=== PATIENT | female | born 1965 | race Caucasian/White ===

== ENCOUNTER 2023-05-26 10:19 | Observation (INO) | payer MEDICARE, MEDICAID, SELFPAY ==
[2023-05-26] VITALS (56 sets, daily range): BP systolic 171; BP diastolic 96; PULSE 107; RESP 2–18; O2SAT 78–100
--- NOTE | 2023-05-26 11:00 | RT.EKG_ITS ---
APPROVED REPORT Exam: Resting ECG Reason for Exam: psychiatric screening, tachycardia Patient Location: E HR:90 bpm ECG Measurements Heart Rate 90 AXIS DE 127 P 169 QRSd 86 QRS 11 QT 472 T 91 QTc 578 Conclusion Sinus or ectopic atrial rhythm...P axis (-45,135) Ventricular premature complex...V complex w/ short R-R interval Probable left atrial enlargement...P >50mS, <-0.10mV V1 Abnrm T, consider ischemia, anterolateral lds...T <-0.20mV, I aVL V2-V6 Prolonged QT interval...QTc >510mS signficant artifact
--- NOTE | 2023-05-26 11:04 | W.ED.GENAD ---
Discharge Plan Discharge Details Chief Complaint: PsychEval Clinical Impression: Suicide ideation, Depression, Auditory hallucination, COPD (chronic obstructive pulmonary disease) Primary Care Provider: Unknown,Unknown ED Provider: Tera Kent Home Meds and New Rx's Prescriptions: No Action levothyroxine [Euthyrox] 88 mcg tablet 88 mcg PO DAILY gabapentin 300 mg capsule 300 mg PO DAILY lurasidone 120 mg tablet 120 mg PO DAILY Rx Instructions: must administer with food (at least 350 calories) acetaminophen [Tylenol Extra Strength] 500 mg tablet 1,000 mg PO ONCE PRN lansoprazole 15 mg capsule,delayed release(DR/EC) 15 mg PO DAILY bupropion HCl 100 mg tablet 100 mg PO ONCE albuterol 90 mcg/actuation aerosol inhalation hydroxyzine HCl 50 mg tablet 50 mg PO TID-QID PRN Medical Decision Making 1100 -- 58-year-old female with with history of bipolar depression, here with worsening depression over the past 3 to 4 days, feeling suicidal. Patient does have chronic smoking history with COPD and has used home oxygen in the past although not recently. Nicotine patch was ordered. Patient is mildly hypertensive and tachycardic on arrival. I suspect this is secondary to anxiety. Plan for medical screening labs and then consult [facility] human services. Interim safety plan has been ordered. 1345 -- Screening EKG was reviewed and interpreted by me: Please report, significant artifact is present, plan to repeat. Repeat EKG was reviewed and interpreted by me: Please see report, computer notes ectopic atrial rhythm, clear P waves noted before each QRS, suspect sinus at 83 bpm, prolonged QT interval with QTc of 564. Labs reviewed and nondiagnostic. Patient reassessed and noting increased shortness of breath, noting she is due for her breathing treatment which she typically takes twice a day. DuoNeb breathing treatment ordered. Patient medically screened in no acute medical condition identified. Plan to request crisis evaluation. 5145 -- Patient was seen by crisis screener who recommends inpatient psychiatric treatment. Patient reassessed after albuterol neb. Patient uses albuterol inhaler every 4-6 hours as needed for wheezing at baseline. Patient hypoxic in the mid 80s in no respiratory distress although she noted she was winded after going to the bathroom. Again this is her baseline. Nasal cannula oxygen was restarted and patient saturating in the mid 90s on 1 L. Lab Data Lab results reviewed: Yes I reviewed the patient's lab results. Labs: Laboratory Tests Range/Units 05/26/23 11:58 WBC (4.4-10.8) 10^3/uL 9.04 RBC (3.93-5.22) 10^6/uL 4.40 Hgb (11.2-15.7) g/dL 11.5 Hct (36.0-46.0) % 38.5 MCV (80-95) fL 88 MCH (27.0-33.0) pg 26.1 L MCHC (32.0-36.0) % 29.9 L RDW (11.7-14.6) % 15.4 H Plt Count (130-400) 10^3/uL 221 MPV (8.0-11.0) fL 10.7 Immature Gran % 0.3 Neutrophils % 75.0 Lymphocytes % 15.7 Monocytes % 7.3 Eosinophils % 1.3 Basophils % 0.4 Nucleated RBC % (0.0-0.3) % 0.0 Absolute Neutrophils (1.2-6.7) 10^3/uL 6.77 H Absolute Lymphocytes (1.2-3.4) 10^3/uL 1.42 Absolute Monocytes (0.1-0.8) 10^3/uL 0.66 Absolute Eosinophils (0.0-0.7) 10^3/uL 0.12 Absolute Basophils (0.0-0.2) 10^3/uL 0.04 Sodium (136-145) mmol/L 142 Potassium (3.5-5.1) mmol/L 4.1 Chloride (98-107) mmol/L 102 Carbon Dioxide (21.0-32.0) mmol/L 34.1 H Anion Gap (3-11) mmol/L 5.9 BUN (7-18) mg/dL 17 Creatinine (0.55-1.02) mg/dL 0.7 Est GFR (CKD-EPI 2020) (mL/min/1.73m2) 100.81 Glucose (74-106) mg/dL 82 Calcium (8.5-10.1) mg/dL 8.9 Total Bilirubin (0.2-1.0) mg/dL 0.3 AST (15-37) U/L 22 ALT (14-59) U/L 60 H Alkaline Phosphatase (46-116) U/L 117 H Total Protein (6.4-8.2) g/dL 7.6 Albumin (3.4-5.0) g/dL 3.7 TSH (0.36-3.74) uIU/mL 4.61 H Free T4 (0.76-1.46) ng/dL 1.01 Urine Color (Yellow) Yellow Urine Clarity (Clear) Clear Urine pH (5-8) 6.0 Ur Specific [place] (1.005-1.025) 1.015 Urine Protein (Negative) mg/dL Negative Urine Ketones (Negative) mg/dL Negative Urine Blood (Negative) Negative Urine Nitrite (Negative) Negative Urine Bilirubin (Negative) Negative Urine Urobilinogen (Up to 0.2) mg/dL 0.2 Ur Leukocyte Esterase (Negative) Negative Urine Glucose (Negative) mg/dL Negative Salicylates (<2.8) mg/dL 3.0 Urine Opiates Screen (Negative) Negative Urine Methadone Screen (Negative) Negative Acetaminophen (10-30) ug/mL < 2 Ur Barbiturates Screen (Negative) Negative Ur Tricyclics Screen (Negative) Negative Ur Amphetamines Screen (Negative) Negative U Benzodiazepines Scrn (Negative) Negative Urine Cocaine Screen (Negative) Negative Ur THC Screen (Negative) Negative Ethyl Alcohol (<10) mg/dL < 3.0 HPI General Mode of arrival: ambulatory. Date/Time Provider Initiated Documentation: 05/26/23 10:40. Limitations to Documentation: no limitations. Information obtained by: patient. HPI Narrative: 58-year-old female with history of bipolar disorder, here with chief complaint of severe depression and suicidality. Patient notes she has been feeling suicidal for the past 3 to 4 days. Symptoms are severe. She is here voluntarily today. She notes she chronically hears voices but has been having increased auditory hallucinations recently. Patient notes prior attempts to commit suicide by overdosing on medications requiring hospitalization in February/March. Patient is new to the area. Patient notes has been taking her medication as prescribed. She does have a smoking history with COPD and chronic home oxygen use at night and as needed during the day although she has not been using oxygen recently. Related Data Home Medications Medication Instructions Recorded Confirmed acetaminophen 500 mg tablet 1,000 mg PO ONCE PRN 05/26/23 05/26/23 (Tylenol Extra Strength) albuterol 90 mcg/actuation aerosol mcg inhalation 05/26/23 inhaler bupropion HCl 100 mg tablet 100 mg PO ONCE 05/26/23 05/26/23 gabapentin 300 mg capsule 300 mg PO DAILY 05/26/23 05/26/23 hydroxyzine HCl 50 mg tablet 50 mg PO TID-QID PRN 05/26/23 05/26/23 lansoprazole 15 mg capsule,delayed 15 mg PO DAILY 05/26/23 05/26/23 release levothyroxine 88 mcg tablet 88 mcg PO DAILY 05/26/23 05/26/23 (Euthyrox) lurasidone 120 mg tablet 120 mg PO DAILY 05/26/23 05/26/23 Allergies Allergy/AdvReac Type Severity Reaction Status Date / Time erythromycin base Allergy Intermediate Anaphylaxis Unverified 05/26/23 10:58 [From Erythrocin] prednisone AdvReac Mild Psychosis Unverified 05/26/23 10:58 General Stated Complaint: PsychEval ANDERS: 2 Review of Systems All systems reviewed & are unremarkable except as noted in HPI and below Constitutional Constitutional: Denies fever(s) Respiratory Respiratory: Denies cough PFSH All Active Problems (Updated 05/26/23 @ 15:11 by Tera Kent MD) COPD (chronic obstructive pulmonary disease) (Chronic) Auditory hallucination (Acute) Depression (Chronic) Suicide ideation (Acute) Social History Smoking/Tobacco Use Status: Current every day Tobacco Type: cigarettes Smoking risk assessment performed?: Yes Alcohol Intake: never Drug use: Never Substance use type: does not use Housing: assisted living facility Exam Const General: cooperative and no acute distress HENMT Mouth: moist mucous membranes Eyes Conjunctivae: normal conjunctivae Sclera: normal sclerae Neck Neck: trachea midline and supple Resp Effort & Inspection: no cough Auscultation: clear to auscultation bilaterally, no rales, no rhonchi and wheezes expiratory wheezes (faint bilateral ) Cardio Rate: regular rate and not tachycardic Rhythm: regular rhythm GI Palpation: soft, not firm, no guarding, no masses, not rigid and nontender Skin General skin exam: no rashes or lesions noted Neuro General: patient alert, patient awake and tone normal Extrem General: no edema Psych Appearance: grossly normal Mental Status: mental status grossly normal and other (depressed) Speech and Movement: speech and movement normal Mood: other (depressed) Affect: other (tearful) Attitude: cooperative Thought Process: normal Thought Content: hallucinations auditory Insight: insight good Course Vital Signs Vital signs: Vital Signs Pulse 107 H 05/26/23 10:28 Respiratory Rate 18 05/26/23 10:28 Blood Pressure 171/96 H 05/26/23 10:28 Pulse Oximetry 88 L 05/26/23 10:28 Pulse 107 H 05/26/23 10:28 Respiratory Rate 18 05/26/23 10:28 Respiratory Effort Normal, Non-Labored 05/26/23 10:34 Blood Pressure 171/96 H 05/26/23 10:28 Blood Pressure Position Sitting 05/26/23 10:28 Pulse Oximetry 88 L 05/26/23 10:28 Oxygen Delivery Method Room Air 05/26/23 10:28 Oxygen Flow Rate 0 05/26/23 10:28
[2023-05-26 12:10] LABS: Abs Immature Grans 0.03 10^3/uL (0.0-0.06); Absolute Basophil Count 0.04 10^3/uL (0.0-0.2); Absolute Eosinophil Count 0.12 10^3/uL (0.0-0.7); Absolute Lymphocyte Count 1.42 10^3/uL (1.2-3.4); Absolute Monocyte Count 0.66 10^3/uL (0.1-0.8); Absolute Neutrophil Count 6.77 10^3/uL (1.2-6.7); Basophils % 0.4; Eosinophils % 1.3; HCT 38.5 % (36.0-46.0); HGB 11.5 g/dL (11.2-15.7); Immature Grans % 0.3; Lymphocytes % 15.7; MCH 26.1 pg (27.0-33.0); MCHC 29.9 % (32.0-36.0); MCV 88 fL (80-95); MPV 10.7 fL (8.0-11.0); Monocytes % 7.3; Platelet Count 221 10^3/uL (130-400); RDW 15.4 % (11.7-14.6); RDW-SD 49.1 fL; WBC 9.04 10^3/uL (4.4-10.8)
[2023-05-26 12:12] LABS: Bilirubin Negative (Negative); Blood Negative (Negative); Clarity Clear (Clear); Glucose Negative (Negative); Ketones Negative (Negative); Leukocyte Esterase Negative (Negative); Nitrite Negative (Negative); Specific Gravity 1.015 (1.005-1.025); Urobilinogen 0.2 mg/dL (Up to 0.2)
[2023-05-26 12:33] LABS: ALT 60 U/L (14-59); AST 22 U/L (15-37); Albumin 3.7 g/dL (3.4-5.0); Alkaline Phosphatase 117 U/L (46-116); Anion Gap 5.9 mmol/L (3-11); BUN 17 mg/dL (7-18); Bilirubin, Total 0.3 mg/dL (0.2-1.0); CO2 34.1 mmol/L (21.0-32.0); CREATININE 0.7 mg/dL (0.55-1.02); Calcium 8.9 mg/dL (8.5-10.1); Chloride 102 mmol/L (98-107); Estimated GFR 100.81 (mL/min/1.73m2); Glucose 82 mg/dL (74-106); Potassium 4.1 mmol/L (3.5-5.1); Sodium 142 mmol/L (136-145); TSH (W/Ref FT4) 4.61 uIU/mL (0.36-3.74); Total Protein 7.6 g/dL (6.4-8.2)
[2023-05-26 12:40] LABS: *AMPHETAMINES SCREEN URINE Negative (Negative); *BARBITURATES SCREEN URINE Negative (Negative); *BENZODIAZEPINES SCREEN URINE Negative (Negative); Cannabinoids THC Negative (Negative); Cocaine Screen,Urine Negative (Negative); METHADONE URINE SCREEN Negative (Negative); OPIATES URINE SCREEN Negative (Negative)
[2023-05-26 12:42] LABS: Tricyclic Antidepressants Negative (Negative)
--- NOTE | 2023-05-26 12:45 | RT.EKG_ITS ---
APPROVED REPORT Exam: Resting ECG Reason for Exam: repeat, initial with artifact Patient Location: E HR:83 bpm ECG Measurements Heart Rate 83 AXIS LA 123 P -77 QRSd 76 QRS 49 QT 480 T 85 QTc 564 Conclusion Ectopic atrial rhythm...abnormal P axis, normal rate Nonspecific T abnrm, anterolateral leads...T <-0.10mV, I aVL V2-V6 Prolonged QT interval...QTc >510mS
--- NOTE | 2023-05-26 12:45 | RT.EKG_ITS ---
APPROVED REPORT Exam: Resting ECG Reason for Exam: sob Patient Location: E HR:84 bpm ECG Measurements Heart Rate 84 AXIS VT 156 P 71 QRSd 80 QRS 29 QT 517 T 78 QTc 613 Conclusion sinus 84 prolong QTC
[2023-05-26 12:46] LABS: Acetaminophen < 2 ug/mL (10-30)
[2023-05-26 12:58] LABS: FREE T4 1.01 ng/dL (0.76-1.46)
[2023-05-26 13:21] LABS: ETHANOL BLOOD < 3.0 mg/dL (<10)
[2023-05-26] MEDS: Albuterol/Ipratropium 3 ML UPD VIAL (13:29)
[2023-05-26] MEDS: Nicotine 14 MG/24 HR PATCH TD (13:29)
[2023-05-26] MEDS: Albuterol/Ipratropium 3 ML UPD VIAL UPD (14:49)
--- NOTE | 2023-05-26 14:56 | PDOC.MHCN_ITS ---
Date of service: 05/26/23 Time of Service: 14:05 PHQ-9 Over the last 2 weeks, how often have you been bothered by any of the following problems? 1. Little interest or pleasure in doing things: nearly every day 2. Feeling down, depressed, or hopeless: nearly every day 3. Trouble falling or staying asleep, or sleeping too much: nearly every day 4. Feeling tired or having little energy: nearly every day 5. Poor appetite or overeating: more than half the days 6. Feeling bad about yourself - or that you are a failure or have let yourself and your family down: nearly every day 7. Trouble concentrating on things, such as reading the newspaper or watching television: nearly every day 8. Moving or speaking so slowly that other people could have noticed? - Or the opposite - being so fidgety or restless that you have been moving around a lot more than usual: nearly every day 9. Thoughts that you would be better off or of hurting yourself in some way: nearly every day Total score: 26 If you checked off any problems, how difficult have these problems made it for you to do your work, take care of things at home, or get along with other people?: extremely difficult PHQ-9 Results: Positive Source: Developed by Drs. Hans Marquez, Areli Alaniz, Vinicio Ford and colleagues, with an educational oli from [employer]. Suicide Severity Rate CSSRS Have you wished you were or wished you could go to sleep and not wake up?: Yes Have you actually had any thoughts of killing yourself?: Yes CSSRS2 Have you been thinking about how you might do this?: Yes Have you had these thoughts and had some intention of acting on them?: Yes Have you started to work out or worked out the details of how to kill yourself? Do you intend to carry out this plan?: Yes CSSRS3 Have you ever done anything, started to do anything or prepared to do anything to end your life?: Yes CSSRS4 Was this within the past three months?: Yes Screening Score Total Score: 8 Screening: Positive Mental Health Emergency Note Release [facility] release signed:: Yes Reason for Visit The client is not known to [facility] prior to this writers assessment of the client today. Per [facility] attending provider Dr. Tera Kent the client presented to [facility] ED with chief complaint of command auditory hallucinations that are telling her to kill herself. The client is tearful on this writers assessment. This expert medical writer assesses the client via zoom at [facility] ED. In the last 2 weeks has the pt presented for ES prior to today?: No Client Information Client is: New Well Housed: Yes Non Suicidal Self Injury Current: No History: yes, Hx of severe intentional overdose in February of 2023 Safety Risk/Harm to Self or Others Current Ideation to Harm Self or Others: Yes to self. (Client endorses persistant suicidal ideations with plan to overdose on her medications. The client rates intent 10/10 if she were to be released from the hospital. ) Intent: yes, has intent. Plan: yes,has a plan. History of suicide attempt: yes,history of suicide attempt reported. Details of previous suicide attempt: Hx of suicide attempt in February of 2023- intentional overdose of prescribed medications. Risk: Does risk to harm exist?: yes. Access to means: No. Risk: High Risk Duty to warn indicated: No Asssessment/Mental Status Appearance: Disheveled Attitude: Cooperative Behavior: Unremarkable Speech: Soft and Slow Affect: Flat and Cogruent with mood Mood: Stressed and Depressed Thought process: Unremarkable Hallucinations: yes, (The client reports auditory hallucinations that are telling he to hurt herself. The client reports that these voices are consistent throughout the day. ) Auditory Delusions: No Perception: Not impaired Orientation: Fully orientated Memory: Intact Insight: Fair Judgement: Fair Neurovegetative Symptoms Sleep: Increase (The client reports she sleeps all of the time (both day and night), however reports that the sleep is interrupted. ) Appetitie: Increase (The client reports increase in appetite due to increased depression. ) Interests: Decrease Energy: Decrease Libido: Not applicable Substance Use: Do you use nicotine?: Yes Have you used substances in the last 7 days?: No Additional Issues: Assaultive/Threatening Behavior: No Medical Concerns: No Client engaged in active self harm w/weapon: No Threatening to run away: No Child reported abuse/neglect: No Voluntarily presenting for services: Yes Domestic violence is a concern: No Extreme Psychosis or extreme behavior is present: No Impression The client is a 58 y/o single female that resides in [place], [place] at an assisted living facility; . The client presents in [facility] attire and is cooperative with this writers assessment. The client presents with symptoms most congruent to major depressive disorder with psychotic features as evidenced by self- report, command auditory hallucinations that are telling her to hurt herself, tearfulness, increase in suicidal ideations, and increase in sleep and appetite. The client reports that onset of symptoms occurred about 4 days ago, but have been getting increasingly worse, which has affected her ability to complete daily tasks. The client reports that she has noticed an increase in sleep stating that she primarily sleeps and eats. The client states that these command hallucinations are telling her to hurt herself by overdosing on her prescribed medications. The client reports to this expert medical writer on a scale of 0-10 with 0 being that she would be safe if she were to leave the hospital and 10 being that she would find a way to hurt herself a 10/10. The client would benefit from inpatient treatment to monitor her symptoms, decrease auditory hallucinations, decrease suicidal ideations, medication management, and to learn healthy coping skills that she can utilize. Plan/Disposition Recommended Disposition: Hospitalization (Referrals will be faxed to , [facility], [facility], and . ) facilities contacted. Plan: The client will remain at [facility] ED on voluntary status pending admission to an inpatient facility. Referrals will be faxed to [facility], [facility], , and . The client will be re-assessed by [facility] daily until placement is secured, however if the client tries to leave due to acuity level an EE should be considered. Person reported agreement to plan: Yes Facilities contacted if Applicable [facility] Not accepted, (Send referral) [facility] Not accepted, Only accepting in house referrals [facility] Not accepted, (Send referral) [facility] Not accepted, (Send referral) Other Reports/communication Outcome discussed with: ED/Personnel (Verbal passover given to ED provider Dr. Kent)
--- NOTE | 2023-05-26 15:18 | CMSP_ITS ---
Date of service: 05/26/23 Time of Service: 15:18 Care Management Safety Plan Status Status: Voluntary Reason for Wait Reason for Wait: Inpatient Admission Safety Plan Safety Plan: CHIEF COMPLAINT: Ester presents in the ED for suicidal ideation and worsening auditory hallucinations. She is diagnosed with Bipolar Disorder and has struggled with depression for many years. She shares she is originally from [place], [place]. Per patient, she has been psychiatrically hospitalized twice over the years: once in 1994 and again in March of this year. She was discharged from the [facility] at the beginning of April and is now living at the [facility] in [place], [place]. Ester was evaluated by [facility] crisis screener, and found to meet criteria for a voluntary placement. [facility] is coordinating referrals to the psych facilities. Ester will remain at [facility] and will be reassessed daily by [facility] until a psych bed is secured for her. CM will continue to follow. VOLUNTARY FOR INPATIENT PSYCHIATRIC STABILIZATION. Patient is appropriate in all interactions since arriving at [facility]; Pt has demonstrated appropriate coping and communication skills, has articulated his or her needs and concerns and is fully engaged during staff interactions. Safety plan has been established with patient, and care team, to adhere to patient goals, identify restrictions based on behavioral status, address nutrition, and determine allowed personal belongings, tools for hygiene and personal care. Determine level of activity including ambulation, level of s upervision, visitors, and determine privileges based on behaviors and level of engagement by pt. SAFETY PLAN: 1. Will remain on suicide precautions. In Paper Clothes 2. Will remain in room under direct supervision of one-on-one staff at all times provided by [employer], TRACE EVIDENCE TECHNICIAN, PLANNING OFFICIAL spinning and winding supervisor. 3. May have paper cups, plates, finger foods as well as a cardboard spoon with which to eat meals. 4. Follow [facility] Management of the Admitted Behavioral Health Patient policy. 5. Shower permitted at RN discretion. 6. No personal belongings-soft items permitted at RN discretion. 7. Visitors-none at this time. 8. Activities: soft cart items, music tablet, television, and other activities at RN discretion. 9. Bathroom privileges with escort in the ED, available in room without limitation on Zone B. 10. Phone: may use [employer] phone at RN discretion. 11. Due to VOLUNTARY status, if patient wishes to leave [facility], staff will contact [facility] Crisis Screener ([phone]) and On-Call Customs Inspector ([phone]) as soon as possible. In the event of elopement, notify [facility] Police ([phone]). Patient is currently voluntarily at [facility] and seeking inpatient admission when a bed becomes available. [facility] Frontline Radio Intelligence Operator will continue seeking placement. Please contact the [employer] Customs Inspector ([phone]) and [facility] Radio Intelligence Operator ([phone]) for any needed changes in the Safety Plan. Safety plan has been provided to interdepartmental care team.
[2023-05-26] MEDS: Gabapentin 300 MG CAP PO (20:02)
[2023-05-26 20:37] LABS: Source Nasal/Nares
[2023-05-26 21:09] LABS: COVID-19 PCR Negative (Negative)
[2023-05-26] MEDS: Lurasidone 40 MG TAB 160 MG PO (21:58)
[2023-05-26] MEDS: OLANZapine 10 MG, OLANZapine 5 MG 15 MG PO (21:58)
[2023-05-26] MEDS: Prazosin 1 MG CAP PO (21:58)
[2023-05-27] MEDS: Levothyroxine 88 MCG TAB PO (07:02)
--- NOTE | 2023-05-27 07:16 | W.EDPROG ---
Date of service: 05/27/23 Time of Service: 07:16 Medical Decision Making Resting comfortably no events overnight. Awaiting voluntary placement for depression and auditory hallucinations. Patient does have COPD and has had to use supplemental oxygen in the past currently comfortable on nasal cannula. Sign Out Sign Out Data: Sign Out Comment: Patient here voluntarily seeking treatment for suicidality. Patient seen by crisis screener who recommends inpatient admission. Patient does have a history of COPD and intermittently requires nasal cannula oxygen, low-dose. Plan to continue to monitor until excepting psychiatric treatment facility identified. Last updated by Tera Kent MD at 05/26/23 16:24 Sign Out Comment: Patient remained stable throughout my shift. Oxygen saturations remained stable. Pending placement. Last updated by Juan Manuel Hu DO at 05/26/23 22:18 Discharge Plan Discharge Details Chief Complaint: PsychEval Clinical Impression: Suicide ideation, Depression, Auditory hallucination, COPD (chronic obstructive pulmonary disease) Primary Care Provider: Unknown,Unknown ED Provider: Andi Lopez Home Meds and New Rx's Prescriptions: No Action levothyroxine [Euthyrox] 88 mcg tablet 88 mcg PO DAILY gabapentin 300 mg capsule 300 mg PO QID lurasidone 120 mg tablet 160 mg PO QHS Rx Instructions: must administer with food (at least 350 calories) acetaminophen [Tylenol Extra Strength] 500 mg tablet 1,000 mg PO Q6H PRN lansoprazole 15 mg capsule,delayed release(DR/EC) 15 mg PO DAILY bupropion HCl 100 mg tablet 100 mg PO DAILY AM hydroxyzine HCl 50 mg tablet 50 mg PO ONCE PRN olanzapine 10 mg tablet 10 mg PO QHS ferrous sulfate [iron] 325 mg (65 mg iron) tablet 325 mg PO DAILY albuterol sulfate 90 mcg/actuation HFA aerosol inhaler 2 inh inhalation Q4H PRN Spiriva Respimat 2.5 mcg/actuation mist 2 inh inhalation DAILY prazosin 1 mg capsule 1 mg PO QHS
[2023-05-27] MEDS: Gabapentin 300 MG CAP PO ×4 (07:48→19:59)
[2023-05-27] MEDS: buPROPion 100 MG TAB PO (07:49)
[2023-05-27] MEDS: Tiotropium Bromide-Respimat 10 PUFF INH 2 PUFF IH (07:49)
[2023-05-27] MEDS: Pantoprazole 20 MG TABCR PO (07:49)
--- NOTE | 2023-05-27 12:00 | RT.EKG_ITS ---
APPROVED REPORT Exam: Resting ECG Reason for Exam: copd Patient Location: E HR:88 bpm ECG Measurements Heart Rate 88 AXIS ID 130 P -40 QRSd 79 QRS 0 QT 413 T 113 QTc 498 Conclusion Sinus rhythm normal P axis QTC improved
--- NOTE | 2023-05-27 12:32 | W.EDPROG ---
Date of service: 05/27/23 Time of Service: 12:32 Medical Decision Making Patient signed out to me pending mental health placement. She is a 58-year-old woman with suicidality. She has COPD and requires 2 L of oxygen. She was evaluated by mental health today and still has 10 out of 10 suicidality. She is still requesting voluntary admission. She was evaluated by inpatient units, and given her medical complexity she has not been accepted. Per compressor house operator, because of this, the patient should be admitted to the hospital here for further management.. ECG Data Attestation: I personally reviewed and interpreted this ECG (s) as follows: Prior ECG tracings: available for review Interpretation: EKG was sinus rhythm 88, PACs, QTc 498. Compared to prior, QTc has improved with appropriate patient positioning. Sign Out Sign Out Data: Sign Out Comment: Patient here voluntarily seeking treatment for suicidality. Patient seen by crisis screener who recommends inpatient admission. Patient does have a history of COPD and intermittently requires nasal cannula oxygen, low-dose. Plan to continue to monitor until excepting psychiatric treatment facility identified. Last updated by Tera Kent MD at 05/26/23 16:24 Sign Out Comment: Patient remained stable throughout my shift. Oxygen saturations remained stable. Pending placement. Last updated by Juan Manuel Hu DO at 05/26/23 22:18 Sign Out Comment: Voluntary for auditory hallucinations, history of COPD on nasal cannula, awaiting placement Last updated by Andi Lopez MD at 05/27/23 07:17 Discharge Plan Disposition Patient Disposition: Admit to [facility] Discharge Details Chief Complaint: PsychEval Clinical Impression: Suicide ideation, Depression, Auditory hallucination, COPD (chronic obstructive pulmonary disease) Primary Care Provider: Unknown,Unknown ED Provider: Marcos Broussard Home Meds and New Rx's Prescriptions: No Action levothyroxine [Euthyrox] 88 mcg tablet 88 mcg PO DAILY gabapentin 300 mg capsule 300 mg PO QID lurasidone 120 mg tablet 160 mg PO QHS Rx Instructions: must administer with food (at least 350 calories) acetaminophen [Tylenol Extra Strength] 500 mg tablet 1,000 mg PO Q6H PRN lansoprazole 15 mg capsule,delayed release(DR/EC) 15 mg PO DAILY bupropion HCl 100 mg tablet 100 mg PO DAILY AM hydroxyzine HCl 50 mg tablet 50 mg PO ONCE PRN olanzapine 10 mg tablet 10 mg PO QHS ferrous sulfate [iron] 325 mg (65 mg iron) tablet 325 mg PO DAILY albuterol sulfate 90 mcg/actuation HFA aerosol inhaler 2 inh inhalation Q4H PRN Spiriva Respimat 2.5 mcg/actuation mist 2 inh inhalation DAILY prazosin 1 mg capsule 1 mg PO QHS
--- NOTE | 2023-05-27 14:01 | PDOC.MHPN2 ---
Date of service: 05/27/23 Time of Service: 14:03 Mental Health Emergency Note Release [facility] release signed:: Yes Reason for Visit The client is not known to [facility] prior to [facility]'s Jhon's assessment on 05.26.23. The client is reassessed today face to face at bed side. Per Jhon's note the client presented to [facility] ED with chief complaint of command auditory hallucinations that are telling her to kill herself. The client confirmed this was still accurate. This assessment was done face to face at bed side. In the last 2 weeks has the pt presented for ES prior to today?: Unknown Impression The client is a 58 y/o single, , female that resides in [place], [place] at an assisted living facility; [facility]. The client presents in paper hospital attire and is cooperative with this clinician's assessment. The client presents today covered with her blankets and trying to sleep. She engages well with this clinician and sits up when asked to sign intake paperwork The client presents with no change in her mood or thoughts of suicide per her report. She self reported her risk to be 10/10 to act on those thoughts if she were to gain access to her medications. The client denied HI. She endorsed that she is still experiencing auditory hallucinations. She reported she had a hard time going to sleep but was able to sleep after. She is eating well and per report of ED staff she has had no behavioral issues. Plan/Disposition Recommended Disposition: Hospitalization facilities contacted. Plan: The client will remain at [facility] pending admission to a psychiatric facility. This clinician spoke with [facility] who were requesting information that would be better answered by ED staff so the call was transferred back to them. Ultimately, it appears they have declined her so [facility] will have to get [facility] involved on Tuesday to assist in placement of this client. Person reported agreement to plan: Yes Facilities contacted if Applicable [facility], [facility] available [facility] Not accepted, No bed available [facility] Not accepted, Medical reasons, [facility] Not accepted, Acuity Reports/communication Outcome discussed with: ED/Personnel
--- NOTE | 2023-05-27 16:38 | ED.PROG_ITS ---
Date of service: 05/27/23 Time of Service: 16:38 Medical Decision Making Hospitalist denying admission for this patient at this time. Currently patient remains suicidal on a voluntary hold. She requires 2L O2. Will continue to hold in the ED under [facility] observation. Sign Out Sign Out Data: Sign Out Comment: Patient here voluntarily seeking treatment for suicidality. Patient seen by crisis screener who recommends inpatient admission. Patient does have a history of COPD and intermittently requires nasal cannula oxygen, low-dose. Plan to continue to monitor until excepting psychiatric treatment facility identified. Last updated by Tera Kent MD at 05/26/23 16:24 Sign Out Comment: Patient remained stable throughout my shift. Oxygen saturations remained stable. Pending placement. Last updated by Juan Manuel Hu DO at 05/26/23 22:18 Sign Out Comment: Voluntary for auditory hallucinations, history of COPD on nasal cannula, awaiting placement Last updated by Andi Lopez MD at 05/27/23 07:17 Discharge Plan Disposition Patient Disposition: Admit to [facility] Discharge Details Clinical Impression: Suicide ideation, Depression, Auditory hallucination, COPD (chronic obstructive pulmonary disease) Primary Care Provider: Unknown,Unknown ED Provider: Marcos Broussard Home Meds and New Rx's Prescriptions: No Action levothyroxine [Euthyrox] 88 mcg tablet 88 mcg PO DAILY gabapentin 300 mg capsule 300 mg PO QID lurasidone 120 mg tablet 160 mg PO QHS Rx Instructions: must administer with food (at least 350 calories) acetaminophen [Tylenol Extra Strength] 500 mg tablet 1,000 mg PO Q6H PRN lansoprazole 15 mg capsule,delayed release(DR/EC) 15 mg PO DAILY bupropion HCl 100 mg tablet 100 mg PO DAILY AM hydroxyzine HCl 50 mg tablet 50 mg PO ONCE PRN olanzapine 10 mg tablet 10 mg PO QHS ferrous sulfate [iron] 325 mg (65 mg iron) tablet 325 mg PO DAILY albuterol sulfate 90 mcg/actuation HFA aerosol inhaler 2 inh inhalation Q4H PRN Spiriva Respimat 2.5 mcg/actuation mist 2 inh inhalation DAILY prazosin 1 mg capsule 1 mg PO QHS
--- NOTE | 2023-05-27 17:09 | PDOC.CMSAFE ---
Date of service: 05/27/23 Time of Service: 17:09 Care Management Safety Plan Status Status: Voluntary Reason for Wait Reason for Wait: Inpatient Admission Safety Plan Safety Plan: VOLUNTARY FOR INPATIENT PSYCHIATRIC STABILIZATION.? Patient is appropriate in all interactions since arriving at [facility]; Pt has demonstrated appropriate coping and communication skills, has articulated his or her needs and concerns and is fully engaged during staff interactions. Safety plan has been established with patient, and care team, to adhere to patient goals, identify restrictions based on behavioral status, address nutrition, and determine allowed personal belongings, tools for hygiene and personal care. Determine level of activity including ambulation, level of supervision, visitors, and determine privileges based on behaviors and level of engagement by pt. SAFETY PLAN: 1. Will remain on suicide precautions, in paper clothes 2. Will remain in room under direct supervision of one-on-one staff at all times provided by [employer]; ANUEL, SHOP GIRL water jet operator. 3. May have paper cups, plates, finger foods as well as a cardboard spoon with which to eat meals. 4. Follow [facility] Management of the Admitted Behavioral Health Patient policy. 5. Comfort bath system, shower permitted with escort at RN discretion. 6. Personal belongings-soft items permitted at RN discretion. 7. Visitors-none at this time. 8. Activities: soft cart items approved per RN discretion. 9.? Bathroom privileges with escort in the ED, ad philip on Med-Surg. 10. Phone: limited to cordless phone at RN discretion. Due to VOLUNTARY status, if patient wishes to leave [facility], staff will contact [facility] Crisis Screener ([phone]) and On-Call Air Conditioning Coil Assembler ([phone]) as soon as possible. In the event of elopement, notify [facility] Police ([phone]). Patient is currently voluntarily at [facility] and seeking inpatient admission when a bed becomes available. [facility] Frontline Big Data Platform Architect will continue seeking placement. Please contact the Rn Child Air Conditioning Coil Assembler ([phone]) and [facility] Big Data Platform Architect ([phone]) for any needed changes in the Safety Plan. Safety plan has been provided to interdepartmental care team.
--- NOTE | 2023-05-27 17:31 | HPE_ITS ---
Date of service: 05/27/23 Time of Service: 19:18 Assessment and Plan Assessment and plan (1) Suicide ideation: Status: Acute Assessment and plan: - Patient is under voluntary hold for suicidal ideation in the setting of severe depression with worsening auditory hallucinations -Continue Wellbutrin, Latuda, Zyprexa, Minipress -Appreciate care management for diligently working on appropriate discharge planning for this patient (2) Auditory hallucination: Status: Acute Assessment and plan: -as noted above (3) Depression: Status: Chronic Assessment and plan: -as noted above (4) COPD (chronic obstructive pulmonary disease): Status: Chronic Assessment and plan: -Without acute exacerbation -Continue Spiriva and as needed albuterol (5) Chronic hypoxic respiratory failure: Status: Acute Assessment and plan: - Continue on home 2 L nasal cannula History of Present Illness History of Present Illness Chief Complaint: depression, auditory hallucinations Narrative: 58-year-old female with a past medical history of bipolar disorder and COPD with chronic hypoxic respiratory failure on 2 L nasal cannula initially presented the emergency department on 05/26/2023 with complaints of severe depression and suicidal ideation. Prior to initial arrival in the emergency department she had been feeling suicidal for the last 3 to 4 days she presented voluntarily and states that she chronically hears voices but has been having increased auditory hallucinations. She states she has had prior attempts to commit suicide by overdosing requiring hospitalization in February and March of this year but she is new to the area. She was states she has been taking her medications as prescribed. While in the emergency department demonstrated to place patient in an acute psychiatric facility however this proved to be difficult given that most facilities would not be able to accept the patient given her chronic oxygen requirements. After discussion with [facility] administration, it was determined the best course of action at this time would be for patient to be admitted to [facility] under an observation status with one-to-one sitter until safe discharge planning at psychiatric facility could be coordinated. Review of Systems All systems reviewed & are unremarkable except as noted in HPI and below PFSH All Active Problems (Updated 05/27/23 @ 19:22 by Luis A Norris MD) Chronic hypoxic respiratory failure (Acute) COPD (chronic obstructive pulmonary disease) (Chronic) Auditory hallucination (Acute) Depression (Chronic) Suicide ideation (Acute) Social History Smoking/Tobacco Use Status: Current every day Tobacco Type: cigarettes Smoking risk assessment performed?: Yes Alcohol Intake: never Drug use: Never Substance use type: does not use Housing: homeless Meds Allergies and Home Medications Allergies Allergy/AdvReac Type Severity Reaction Status Date / Time erythromycin base Allergy Intermediate Anaphylaxis Unverified 05/27/23 18:13 [From Erythrocin] prednisone AdvReac Mild Psychosis Unverified 05/27/23 18:13 Home Medications Medication Instructions Recorded Confirmed Type acetaminophen 500 mg tablet 1,000 mg PO Q6H PRN 05/26/23 05/26/23 History (Tylenol Extra Strength) albuterol sulfate 90 mcg/actuation 2 inh inhalation Q4H PRN 05/26/23 05/26/23 History aerosol inhaler bupropion HCl 100 mg tablet 100 mg PO DAILY AM 05/26/23 05/26/23 History ferrous sulfate 325 mg (65 mg 325 mg PO DAILY 05/26/23 05/26/23 History iron) tablet (iron) gabapentin 300 mg capsule 300 mg PO QID 05/26/23 05/26/23 History hydroxyzine HCl 50 mg tablet 50 mg PO ONCE PRN 05/26/23 05/26/23 History lansoprazole 15 mg capsule,delayed 15 mg PO DAILY 05/26/23 05/26/23 History release levothyroxine 88 mcg tablet 88 mcg PO DAILY 05/26/23 05/26/23 History (Euthyrox) lurasidone 120 mg tablet 160 mg PO QHS 05/26/23 05/26/23 History olanzapine 10 mg tablet 10 mg PO QHS 05/26/23 05/26/23 History prazosin 1 mg capsule 1 mg PO QHS 05/26/23 05/26/23 History tiotropium bromide 2.5 2 inh inhalation DAILY 05/26/23 05/26/23 History mcg/actuation mist for inhalation (Spiriva Respimat) Exam Narrative Exam Narrative: Chronically ill appearing older female laying in bed, appears older than stated age, in no acute distress, fatigued appearing but awakens to verbal stimuli, heart RRR, lungs CTAB, continues to endorse suicidal ideation Results Labs 05/26/23 11:58 05/26/23 11:58 Labs: Laboratory Results - last 24 hr 05/26/23 20:36 COVID-19 Source Nasal/Nares SARS-CoV-2 (PCR) Negative Last Vital Signs Pulse 107 H 05/26/23 10:28 Resp 18 05/26/23 10:28 BP 171/96 H 05/26/23 10:28 Pulse Ox 95 05/26/23 21:50 Time Spent Time spent with Patient: >75 minutes (80) Time was spent: preparing to see the patient(eg.review tests), obtaining and/or reviewing separately otained hiistory, referring, communicating with other health field care advocate, indepentently interpreting results, counseling the patient and care coordination
[2023-05-27 19:05] VITALS: BP 117/79; PULSE 108; RESP 16; TEMP 38.1; O2SAT 90
[2023-05-27 20:21] VITALS: TEMP 38.3
[2023-05-27] MEDS: Lurasidone 40 MG TAB 160 MG PO (21:22)
[2023-05-27 21:23] VITALS: TEMP 38.3
[2023-05-27] MEDS: OLANZapine 10 MG, OLANZapine 5 MG 15 MG PO (21:23)
[2023-05-27] MEDS: Acetaminophen 500 MG TAB PO (21:23)
[2023-05-27] MEDS: Prazosin 1 MG CAP PO (21:23)
[2023-05-28] VITALS (9 sets, daily range): BP systolic 109–139; BP diastolic 65–80; PULSE 85–111; RESP 16–18; TEMP 36.4–38.2; O2SAT 87–99
--- NOTE | 2023-05-28 | DI.RAD_ITS ---
Exam(s) XR PORTABLE CHEST AP EXAM: XR PORTABLE CHEST AP CLINICAL HISTORY: fever TECHNIQUE: 2D digital imaging was performed of the chest. One image was obtained. An AP view was ob tained. COMPARISON: No exams were available for comparison FINDINGS: MEDIASTINUM: There is a is a rounded opacity just above the diaphragm which appears to contain air. The finding is most suggestive of hiatal hernia. HEART: Normal. PULMONARY VASCULATURE: Normal. LUNGS: Clear. PLEURAL SPACE: No pleural effusion or pneumothorax. BONE:Within normal limits for the patient's age. OTHER FINDINGS:Normal. IMPRESSION: No acute pulmonary findings. DATA REPOSITORY: RADIATION DOSE DELIVERED:
[2023-05-28] MEDS: Levothyroxine 88 MCG TAB PO (05:43)
[2023-05-28 09:06] LABS: Source Nasal/Nares
[2023-05-28] MEDS: buPROPion 100 MG TAB PO (09:24)
[2023-05-28] MEDS: Gabapentin 300 MG CAP PO ×2 (09:24→19:36)
[2023-05-28] MEDS: Pantoprazole 20 MG TABCR PO (09:24)
[2023-05-28 09:46] LABS: COVID-19 PCR Negative (Negative)
--- NOTE | 2023-05-28 10:10 | DI.VRAD_ITS ---
PROCEDURE INFORMATION: Exam: XR Chest Exam date and time: 05/28/2023 9:56 AM Age: 58 years old Clinical indication: Fever TECHNIQUE: Imaging protocol: Radiologic exam of the chest. Views: 1 view. COMPARISON: No relevant prior studies available. FINDINGS: Lungs: Unremarkable. No consolidation. Pleural spaces: Unremarkable. No pleural effusion. No pneumothorax. Heart/Mediastinum: Unremarkable. No cardiomegaly. Bones/joints: Unremarkable. IMPRESSION: No acute findings. Dictated and Authenticated by: Dima Gudino MD. Ordering:STANISLAW Chin MD
[2023-05-28] MEDS: Acetaminophen 500 MG TAB PO ×2 (10:36→19:37)
[2023-05-28 10:39] LABS: Abs Immature Grans 0.06 10^3/uL (0.0-0.06); Absolute Basophil Count 0.03 10^3/uL (0.0-0.2); Absolute Eosinophil Count 0.06 10^3/uL (0.0-0.7); Absolute Monocyte Count 0.73 10^3/uL (0.1-0.8); Absolute Neutrophil Count 8.14 10^3/uL (1.2-6.7); Basophils % 0.3; Eosinophils % 0.6; HCT 35.7 % (36.0-46.0); HGB 10.7 g/dL (11.2-15.7); Immature Grans % 0.6; Lymphocytes % 9.1; MCH 26.4 pg (27.0-33.0); MCV 88 fL (80-95); MPV 11.8 fL (8.0-11.0); Monocytes % 7.4; Platelet Count 197 10^3/uL (130-400); RBC 4.06 10^6/uL (3.93-5.22); RDW 15.1 % (11.7-14.6); WBC 9.92 10^3/uL (4.4-10.8)
[2023-05-28 11:20] LABS: Procalcitonin < 0.1 ng/mL
--- NOTE | 2023-05-28 11:36 | RESPIRATORY ---
Patient advised she does not use home oxygen
[2023-05-28] MEDS: Ondansetron O.D.T. 4 MG TABEF PO (13:32)
--- NOTE | 2023-05-28 13:35 | PGE_ITS ---
Date of Service Date of service: 05/28/23 Time of Service: 13:35 Assessment and Plan Assessment and plan (1) Suicide ideation: Status: Acute Assessment and plan: - Patient is under voluntary hold for suicidal ideation in the setting of severe depression with worsening auditory hallucinations -Continue Wellbutrin, Latuda, Zyprexa, Minipress (2) Auditory hallucination: Status: Acute Assessment and plan: -as noted above (3) Depression: Status: Chronic Assessment and plan: -as noted above (4) COPD (chronic obstructive pulmonary disease): Status: Chronic Assessment and plan: -Without acute exacerbation -Continue Spiriva and as needed albuterol (5) Chronic hypoxic respiratory failure: Status: Acute Assessment and plan: - patient is not a chronic home oxygen and weaned off to room air. (6) Discharge planning issues: Status: Acute Assessment and plan: awaiting inpatient psychiatric placement. case management and mental health following discussed with DR Byrd Subjective Subjective Patient reports: no new complaints, feels better, tolerating liquids well, tolerating a regular diet and nausea; denies shortness of breath Exam Const General: cooperative and no acute distress HENMT Mouth: moist mucous membranes Eyes Conjunctivae: normal conjunctivae Neck Neck: supple Resp Effort & Inspection: no cough Auscultation: clear to auscultation bilaterally Cardio Rate: regular rate and not tachycardic Rhythm: regular rhythm GI Palpation: soft, not firm, no guarding, no masses, not rigid and nontender Skin General skin exam: no rashes or lesions noted Neuro General: patient alert, patient awake and tone normal Extrem General: no edema Psych Mental Status: mental status grossly normal and other (depressed) Speech and Movement: speech and movement normal Mood: other (depressed) Attitude: cooperative Thought Process: normal Thought Content: hallucinations auditory Objective Last Vital Signs Temp 37.8 C H 05/28/23 11:09 Pulse 95 H 05/28/23 10:33 Resp 18 05/28/23 10:33 BP 124/78 05/28/23 10:33 Pulse Ox 99 05/28/23 11:35 Laboratory Results - last 24 hr 05/28/23 05/28/23 09:00 10:10 WBC 9.92 RBC 4.06 Hgb 10.7 L Hct 35.7 L MCV 88 MCH 26.4 L MCHC 30.0 L RDW 15.1 H Plt Count 197 MPV 11.8 H Immature Gran % 0.6 Neutrophils % 82.0 Lymphocytes % 9.1 Monocytes % 7.4 Eosinophils % 0.6 Basophils % 0.3 Nucleated RBC % 0.0 Absolute Neutrophils 8.14 H Absolute Lymphocytes 0.90 L Absolute Monocytes 0.73 Absolute Eosinophils 0.06 Absolute Basophils 0.03 Procalcitonin < 0.1 COVID-19 Source Nasal/Nares SARS-CoV-2 (PCR) Negative Time Spent with Patient Time Spent with Patient: 25-34 minutes Time was spent: preparing to see the patient(eg.review tests), obtaining and/or reviewing separately otained hiistory, ordering medications,tests, procedures, referring, communicating with other health critical care transport nurse, indepentently interpreting results and care coordination
[2023-05-28 13:58] LABS: COVID-19 PCR Negative (Negative); Influenza A PCR Negative (Negative); Influenza B PCR Negative (Negative); RSV PCR Negative (Negative)
[2023-05-28 14:17] LABS: Source Nasopharynx
--- NOTE | 2023-05-28 14:37 | CMSP_ITS ---
Date of service: 05/28/23 Time of Service: 14:38 Care Management Safety Plan Status Status: Voluntary Reason for Wait Reason for Wait: Inpatient Admission Safety Plan Safety Plan: Oxygen removed; now on room air. Appropriate in interaction. No changes to safety plan at this time. VOLUNTARY FOR INPATIENT PSYCHIATRIC STABILIZATION.? Patient is appropriate in all interactions since arriving at [facility]; Pt has demonstrated appropriate coping and communication skills, has articulated his or her needs and concerns and is fully engaged during staff interactions. Safety plan has been established with patient, and care team, to adhere to patient goals, identify restrictions based on behavioral status, address nutrition, and determine allowed personal belongings, tools for hygiene and personal care. Determine level of activity including ambulation, level of supervision, visitors, and determine privileges based on behaviors and level of engagement by pt. SAFETY PLAN: 1. Will remain on suicide precautions, in paper clothes 2. Will remain in room under direct supervision of one-on-one staff at all times provided by [employer]; ANUEL, COMPOSITE TECHNICIAN senior wealth advisor. 3. May have paper cups, plates, finger foods as well as a cardboard spoon with which to eat meals. 4. Follow [facility] Management of the Admitted Behavioral Health Patient policy. 5. Comfort bath system, shower permitted with escort at RN discretion. 6. Personal belongings-soft items permitted at RN discretion. 7. Visitors-none at this time. 8. Activities: soft cart items approved per RN discretion. 9.? Bathroom privileges available on Med-Surg without restriction. 10. Phone: limited to cordless phone at RN discretion. Due to VOLUNTARY status, if patient wishes to leave [facility], staff will contact [facility] Crisis Screener ([phone]) and On-Call Aluminum Molder ([phone]) as soon as possible. Patient is currently voluntarily at [facility] and seeking inpatient admission when a bed becomes available. [facility] Frontline Qi Specialist will continue seeking placement. Please contact the Sausage Stuffer Aluminum Molder ([phone]) and [facility] Qi Specialist ([phone]) for any needed changes in the Safety Plan. Safety plan has been provided to interdepartmental care team.
[2023-05-28 15:12] LABS: C Diff PCR Negative (Negative)
[2023-05-28] MEDS: Lurasidone 40 MG TAB 160 MG PO (21:32)
[2023-05-28] MEDS: OLANZapine 10 MG, OLANZapine 5 MG 15 MG PO (21:33)
[2023-05-28] MEDS: Prazosin 1 MG CAP PO (21:33)
[2023-05-29] VITALS (8 sets, daily range): BP systolic 103–126; BP diastolic 57–85; PULSE 65–104; RESP 16–18; TEMP 37–37.6; O2SAT 73–94
--- NOTE | 2023-05-29 | DI.CT_ITS ---
Exam(s) CT CHEST PE CTA EXAM: CT CHEST PE CTA CLINICAL HISTORY: hypoxia. TECHNIQUE: Imaging Protocol: Axial CT angiography was performed with multi-slice acquisition and mu lti-planar and/or 3D reconstructions. CONTRAST MATERIAL: Intravenous: Omnipaque 350 contrast volume:62 mL COMPARISON: CR,XR XR PORTABLE CHEST AP from 05/28/2023 FINDINGS: The examination is limited due to patient motion artifact. Tracheobronchial tree: Patent where visualized. Pulmonary parenchyma: No consolidation or dominant measurable mass. No architectural distortion. Pulmonary Arteries: No evidence of filling defect to suggest pulmonary emboli. Mediastinum and Teresa: No dominant adenopathy or fluid collection. The esophagus is unremarkable. Th ere is a moderate size hiatal hernia. Pleura: No effusion or pneumothorax. Heart: The heart is not dilated. Coronary artery calcifications are present. No pericardial effusion . Aorta: Thoracic aorta non-dilated. No evidence of dissection. 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 There is atherosclerosis present. Upper abdomen: Unremarkable. Soft tissues: Unremarkable. Bones: Within normal limits for the patient's age.There is a T6 compression fracture deformity. IMPRESSION: No evidence of pulmonary embolism, thoracic aortic dissection or aneurysm. RADIATION DOSE DELIVERED: Total DLP DATA REPOSITORY: All CT scans at this facility are submitted to the National Radiology Data Registry (NRDR) Dose Index Registry (DIR) with the [employer] (ACR). RADIATION OPTIMIZATION: All CT scans at this facility use at least one of these dose optimization te chniques: automated exposure control; mA and/or kV adjustment per patient size (includes targeted exa ms where dose is matched to clinical indication); or iterative reconstruction.
[2023-05-29 04:14] LABS: Bilirubin Small (Negative); Blood Trace-intact (Negative); Clarity Clear (Clear); Glucose Negative (Negative); Ketones 15 mg/dL (Negative); Leukocyte Esterase Small (Negative); Nitrite Negative (Negative); Urobilinogen 0.2 mg/dL (Up to 0.2); pH 6.5 (5-8)
[2023-05-29 04:21] LABS: Bacteria Few HPF (Negative); C & S Indicated? Yes; Casts Negative LPF (Negative); Crystals Negative HPF (Negative); Epithelial Cells Rare HPF (Negative); Mucus Negative (Negative)
[2023-05-29] MEDS: Levothyroxine 88 MCG TAB PO (05:41)
[2023-05-29 06:39] LABS: Abs Immature Grans 0.04 10^3/uL (0.0-0.06); Absolute Basophil Count 0.04 10^3/uL (0.0-0.2); Absolute Lymphocyte Count 1.01 10^3/uL (1.2-3.4); Absolute Monocyte Count 0.67 10^3/uL (0.1-0.8); Absolute Neutrophil Count 6.43 10^3/uL (1.2-6.7); Basophils % 0.5; Eosinophils % 1.2; HCT 35.5 % (36.0-46.0); HGB 10.7 g/dL (11.2-15.7); Immature Grans % 0.5; Lymphocytes % 12.2; MCH 25.8 pg (27.0-33.0); MCHC 30.1 % (32.0-36.0); MCV 86 fL (80-95); MPV 11.6 fL (8.0-11.0); Monocytes % 8.1; Neutrophils % 77.5; Platelet Count 158 10^3/uL (130-400); RBC 4.14 10^6/uL (3.93-5.22); RDW 14.9 % (11.7-14.6); RDW-SD 47.5 fL; WBC 8.29 10^3/uL (4.4-10.8)
[2023-05-29 06:46] LABS: Anion Gap 4.8 mmol/L (3-11); BUN 16 mg/dL (7-18); CO2 36.2 mmol/L (21.0-32.0); CREATININE 0.8 mg/dL (0.55-1.02); Calcium 8.4 mg/dL (8.5-10.1); Chloride 97 mmol/L (98-107); Estimated GFR 85.89 (mL/min/1.73m2); Glucose 100 mg/dL (74-106); Potassium 4.5 mmol/L (3.5-5.1); Sodium 138 mmol/L (136-145)
[2023-05-29] MEDS: Acetaminophen 500 MG TAB PO ×2 (07:17→21:22)
[2023-05-29] MEDS: buPROPion 100 MG TAB PO (07:17)
[2023-05-29] MEDS: Gabapentin 300 MG CAP PO ×2 (07:17→21:17)
[2023-05-29] MEDS: Pantoprazole 20 MG TABCR PO (07:17)
[2023-05-29] MEDS: Tiotropium Bromide-Respimat 10 PUFF INH 2 PUFF IH (08:12)
[2023-05-29 11:58] LABS: Source Nasopharynx
[2023-05-29 12:29] LABS: COVID-19 PCR Negative (Negative)
--- NOTE | 2023-05-29 13:09 | NUR.NOTE ---
Nursing Note: pt requested all four bed rails up at this time.
--- NOTE | 2023-05-29 14:10 | CMSP_ITS ---
Date of service: 05/29/23 Time of Service: 14:10 Care Management Safety Plan Status Status: Voluntary Reason for Wait Reason for Wait: Inpatient Admission Safety Plan Safety Plan: Oxygen; 1L at this time. Periods of time on room air, as well. No changes to safety plan at this time. VOLUNTARY FOR INPATIENT PSYCHIATRIC STABILIZATION.? Patient is appropriate in a ll interactions since arriving at [facility]; Pt has demonstrated appropriate coping and communication skills, has articulated his or her needs and concerns and is fully engaged during staff interactions. Safety plan has been established with patient, and care team, to adhere to patient goals, identify restrictions based on behavioral status, address nutrition, and determine allowed personal belongings, tools for hygiene and personal care. Determine level of activity including ambulation, level of supervision, visitors, and determine privileges based on behaviors and level of engagement by pt. SAFETY PLAN: 1. Will remain on suicide precautions, in paper clothes 2. Will remain in room under direct supervision of one-on-one staff at all times provided by [employer]; ANUEL, BAR USEFUL OR BUSSER mottle lay up operator. 3. May have paper cups, plates, finger foods as well as a cardboard spoon with which to eat meals. 4. Follow [facility] Management of the Admitted Behavioral Health Patient policy. 5. Comfort bath system, shower permitted with escort at RN discretion. 6. Personal belongings-soft items permitted at RN discretion. 7. Visitors-none at this time. 8. Activities: television, soft cart items approved per RN discretion. 9.? Bathroom privileges available on Med-Surg without restriction. 10. Phone: limited to cordless phone at RN discretion. Due to VOLUNTARY status, if patient wishes to leave [facility], staff will contact [facility] Crisis Screener ([phone]) and On-Call Book Retailer ([phone]) as soon as possible. Patient is currently voluntarily at [facility] and seeking inpatient admission when a bed becomes available. [facility] Frontline Automatic Spinning Lathe Setter will continue seeking placement. Please contact the Cashier Manager Book Retailer ([phone]) and [facility] Automatic Spinning Lathe Setter ([phone]) for any needed changes in the Safety Plan. Safety plan has been provided to interdepartmental care team.
[2023-05-29] MEDS: Normal Saline Flush 10 ML SYR IVP ×2 (14:14→21:18)
[2023-05-29] MEDS: Normal Saline - Diluent 50 ML VIAL IJ (14:24)
[2023-05-29] MEDS: Omnipaque 350 MG/ML 100 ML BTL IJ (14:25)
--- NOTE | 2023-05-29 15:25 | DI.VRAD_ITS ---
PROCEDURE INFORMATION: Exam: CTA Chest With Contrast Exam date and time: 05/29/2023 2:15 PM Age: 58 years old Clinical indication: Fever TECHNIQUE: Imaging protocol: Computed tomographic angiography of the chest with contrast. Exam focused on the arteries. 3D rendering (Not supervised by radiologist): MIP and/or 3D reconstructed images were created by the technologist. COMPARISON: CR XR PORTABLE CHEST AP 05/28/2023 9:56 AM FINDINGS: Pulmonary arteries: Normal. No pulmonary emboli. Aorta: Unremarkable. No aortic aneurysm. No aortic dissection. Lungs: Unremarkable. No consolidation. No masses. Pleural spaces: Unremarkable. No pneumothorax. No pleural effusion. Heart: Unremarkable. No cardiomegaly. No pericardial effusion. Lymph nodes: Unremarkable. No enlarged lymph nodes. Diaphragm: Small hiatal hernia. Bones/joints: Unremarkable. No acute fracture. Soft tissues: Unremarkable. IMPRESSION: No evidence for pulmonary arterial embolism. Dictated and Authenticated by: Abe Love MD. Ordering:YVAN Mosley MD
--- NOTE | 2023-05-29 16:30 | PGE_ITS ---
Date of Service Date of service: 05/29/23 Time of Service: 16:30 Assessment and Plan Assessment and plan (1) Fever: Status: Resolved Assessment and plan: now resolved with no source of infection identified. suspect viral illness patient feels better today (yesterday with mild gi symptoms including nausea) (2) Suicide ideation: Status: Acute Assessment and plan: - Patient is under voluntary hold for suicidal ideation in the setting of severe depression with worsening auditory hallucinations -Continue Wellbutrin, Latuda, Zyprexa, Minipress (3) Auditory hallucination: Status: Acute Assessment and plan: -as noted above (4) Depression: Status: Chronic Assessment and plan: -as noted above (5) COPD (chronic obstructive pulmonary disease): Status: Chronic Assessment and plan: -Without acute exacerbation -Continue Spiriva and as needed albuterol (6) Chronic hypoxic respiratory failure: Status: Acute Assessment and plan: - patient is not a chronic home oxygen and weaned off to room air but noted to desat overnight suspect ? JOSELIN. will CT chest to r/o PE and further evaluate lungs. (7) Discharge planning issues: Status: Acute Assessment and plan: awaiting inpatient psychiatric placement. case management and mental health following discussed with DR Byrd Subjective Subjective Patient reports: no new complaints Interval history since last seen: some periods of hypoxia but oxygenating in high 90's on 1 liter Exam Const General: cooperative and no acute distress HENMT Mouth: moist mucous membranes Eyes Conjunctivae: normal conjunctivae Neck Neck: supple Resp Effort & Inspection: no cough Auscultation: clear to auscultation bilaterally Cardio Rate: regular rate and not tachycardic Rhythm: regular rhythm GI Palpation: soft, not firm, no guarding, no masses, not rigid and nontender Skin General skin exam: no rashes or lesions noted Neuro General: patient alert, patient awake and tone normal Extrem General: no edema Psych Mental Status: mental status grossly normal and other (depressed) Speech and Movement: speech and movement normal Mood: other (depressed) Attitude: cooperative Thought Process: normal Thought Content: hallucinations auditory Objective Last Vital Signs Temp 37 C 05/29/23 14:55 Pulse 83 05/29/23 14:55 Resp 16 05/29/23 14:55 BP 126/85 05/29/23 14:55 Pulse Ox 93 05/29/23 14:55 Laboratory Results - last 24 hr 05/29/23 05/29/23 05/29/23 04:00 06:00 11:50 WBC 8.29 RBC 4.14 Hgb 10.7 L Hct 35.5 L MCV 86 MCH 25.8 L MCHC 30.1 L RDW 14.9 H Plt Count 158 MPV 11.6 H Immature Gran % 0.5 Neutrophils % 77.5 Lymphocytes % 12.2 Monocytes % 8.1 Eosinophils % 1.2 Basophils % 0.5 Nucleated RBC % 0.0 Absolute Neutrophils 6.43 Absolute Lymphocytes 1.01 L Absolute Monocytes 0.67 Absolute Eosinophils 0.10 Absolute Basophils 0.04 Sodium 138 Potassium 4.5 Chloride 97 L Carbon Dioxide 36.2 H Anion Gap 4.8 BUN 16 Creatinine 0.8 Est GFR (CKD-EPI 2020) 85.89 Glucose 100 Calcium 8.4 L Urine Color Yellow Urine Clarity Clear Urine pH 6.5 Ur Specific [place] 1.020 Urine Protein 30 H Urine Ketones 15 H Urine Blood Trace-intact H Urine Nitrite Negative Urine Bilirubin Small H Urine Urobilinogen 0.2 Ur Leukocyte Esterase Small H Urine RBC 5-10 H Urine WBC 5-10 Ur Epithelial Cells Rare Urine Crystals Negative Urine Bacteria Few Urine Casts Negative Urine Mucus Negative Ur Culture Indicated? Yes Urine Glucose Negative COVID-19 Source Nasopharynx SARS-CoV-2 (PCR) Negative Time Spent with Patient Time Spent with Patient: 35-49 minutes Time was spent: preparing to see the patient(eg.review tests), ordering medications,tests, procedures, indepentently interpreting results and counseling the patient
[2023-05-29] MEDS: Lurasidone 40 MG TAB 160 MG PO (21:16)
[2023-05-29] MEDS: OLANZapine 10 MG, OLANZapine 5 MG 15 MG PO (21:17)
[2023-05-29] MEDS: Prazosin 1 MG CAP PO (21:18)
[2023-05-30] VITALS (15 sets, daily range): BP systolic 105–130; BP diastolic 66–82; PULSE 83–98; RESP 16–20; TEMP 36.2–37.5; O2SAT 82–96
[2023-05-30] MEDS: Levothyroxine 88 MCG TAB PO (06:17)
[2023-05-30] MEDS: Acetaminophen 500 MG TAB PO (06:18)
[2023-05-30 07:05] LABS: BE (Venous) 14 mmol/L (-2-3); HCO3 (Venous) 38 mmol/L (23-28); O2 Sat (Venous) 99 %; TCO2 (Venous) 36 mmol/L (24-29); pCO2 (Venous) 59 mmHg (41-51); pH (Venous) 7.42 (7.31-7.41); pO2 (Venous) 90 mmHg
--- NOTE | 2023-05-30 07:33 | NUR.NOTE ---
Accessed chart to determine orders for EKG and to determine whether or not one needs to be cancelled. Duplicate order cancelled. Nursing Note:
[2023-05-30] MEDS: Tiotropium Bromide-Respimat 10 PUFF INH 2 PUFF IH (07:48)
[2023-05-30] MEDS: buPROPion 100 MG TAB PO (07:56)
[2023-05-30] MEDS: Pantoprazole 20 MG TABCR PO (07:57)
[2023-05-30] MEDS: Nystatin POWDER 15 GM JAR TP ×2 (07:57→14:43)
[2023-05-30] MEDS: Gabapentin 300 MG CAP PO ×4 (07:57→20:58)
--- NOTE | 2023-05-30 09:52 | PDOC.CMSAFE ---
Date of service: 05/30/23 Time of Service: 09:52 Care Management Safety Plan Status Status: Voluntary Reason for Wait Reason for Wait: Inpatient Admission Safety Plan Safety Plan: Oxygen; 1L at this time. Periods of time on room air, as well. No changes to safety plan at this time. VOLUNTARY FOR INPATIENT PSYCHIATRIC STABILIZATION.? Patient is appropriate in all interactions since arriving at [facility]; Pt has demonstrated appropriate coping and communication skills, has articulated his or her needs and concerns and is fully engaged during staff interactions. Safety plan has been established with patient, and care team, to adhere to patient goals, identify restrictions based on behavioral status, address nutrition, and determine allowed personal belongings, tools for hygiene and personal care. Determine level of activity including ambulation, level of supervision, visitors, and determine privileges based on behaviors and level of engagement by pt. SAFETY PLAN: 1. Will remain on suicide precautions, in paper clothes 2. Will remain in room under direct supervision of one-on-one staff at all times provided by [employer]; ANUEL, SCOURING PADS SUPERVISOR siding applicator. 3. May have paper cups, plates, finger foods as well as a cardboard spoon with which to eat meals. 4. Follow [facility] Management of the Admitted Behavioral Health Patient policy. 5. Comfort bath system, shower permitted with escort at RN discretion. 6. Personal belongings-soft items permitted at RN discretion. 7. Visitors-none at this time. 8. Activities: television, soft cart items approved per RN discretion. 9.? Bathroom privileges available on Med-Surg without restriction. 10. Phone: limited to cordless phone at RN discretion. Due to VOLUNTARY status, if patient wishes to leave [facility], staff will contact [facility] Crisis Screener ([phone]) and On-Call Glost Kiln Placer ([phone]) as soon as possible. Patient is currently voluntarily at [facility] and seeking inpatient admission when a bed becomes available. [facility] Frontline Signal System Testing Maintainer will continue seeking placement. Please contact the Research And Development Manager Glost Kiln Placer ([phone]) and [facility] Signal System Testing Maintainer ([phone]) for any needed changes in the Safety Plan. Safety plan has been provided to interdepartmental care team.
--- NOTE | 2023-05-30 11:46 | W.PM.PROGNOT ---
Date of Service Date of service: 05/30/23 Time of Service: 11:46 Assessment and Plan Assessment and plan (1) Suicide ideation: Status: Acute Assessment and plan: - Patient is under voluntary hold for suicidal ideation in the setting of severe depression with worsening auditory hallucinations -Continue Wellbutrin, Latuda, Zyprexa, Minipress (2) Auditory hallucination: Status: Acute Assessment and plan: -as noted above (3) Depression: Status: Chronic Assessment and plan: -as noted above (4) COPD (chronic obstructive pulmonary disease): Status: Chronic Assessment and plan: -Without acute exacerbation -Continue Spiriva and as needed albuterol (5) Chronic hypoxic respiratory failure: Status: Acute Assessment and plan: - patient is not a chronic home oxygen and weaned off to room air but noted to desat overnight suspect ? JOSELIN. CT chest to r/o PE with no acute findings. patient does state that she used to be on chronic oxygen but stopped using it so no longer has it at home. (6) Discharge planning issues: Status: Acute Assessment and plan: awaiting inpatient psychiatric placement. case management and mental health following discussed with DR Byrd Subjective Subjective Patient reports: no new complaints, tolerating liquids well, tolerating a regular diet and afebrile; denies shortness of breath Interval history since last seen: still intermittently requiring oxygen, otherwise no further fevers, no c/o still reports suicidality and hearing voices telling her to kill herself. Exam Const General: cooperative and no acute distress HENMT Mouth: moist mucous membranes Eyes Conjunctivae: normal conjunctivae Neck Neck: supple Resp Effort & Inspection: no cough Auscultation: clear to auscultation bilaterally Cardio Rate: regular rate and not tachycardic Rhythm: regular rhythm GI Palpation: soft, not firm, no guarding, no masses, not rigid and nontender Skin General skin exam: no rashes or lesions noted Neuro General: patient alert, patient awake and tone normal Extrem General: no edema Psych Mental Status: mental status grossly normal and other (depressed) Speech and Movement: speech and movement normal Mood: other (depressed) Attitude: cooperative Thought Process: normal Thought Content: hallucinations auditory Objective Last Vital Signs Temp 37.0 C 05/30/23 11:17 Pulse 91 H 05/30/23 11:17 Resp 18 05/30/23 11:17 BP 112/66 05/30/23 11:17 Pulse Ox 92 05/30/23 11:17 Laboratory Results - last 24 hr 05/29/23 05/30/23 11:50 06:55 VBG pH 7.42 H VBG pCO2 59 H VBG pO2 90 VBG HCO3 38 H VBG Total CO2 36 H VBG O2 Saturation 99 VBG Base Excess 14 H COVID-19 Source Nasopharynx SARS-CoV-2 (PCR) Negative Time Spent with Patient Time Spent with Patient: 25-34 minutes Time was spent: preparing to see the patient(eg.review tests), ordering medications,tests, procedures, indepentently interpreting results and counseling the patient
--- NOTE | 2023-05-30 12:34 | RESPIRATORY ---
RT Assessment Start: 05/30/23 10:27 Freq: .q shift and prn Status: Active Protocol: Document 05/30/23 12:19 MARYBETH (Rec: 05/30/23 12:33 MARYBETH [id number]) RT Assessment Pulmonary History Pulmonary History COPD Smoking History Smoking/Tobacco Use Status Current every day Tobacco Type cigarettes Cigarettes per Day 5 Years smoked 41 OXYGEN HISTORY: CPAP Settings N/A Can use home machine No BIPAP Settings N/A Can you home machine No Trilogy/AVAPS Settings N/A Can use home machine No DME/Compliance DME N/A Compliance N/A Current Respiratory Symptoms Current Respiratory Symptoms Chest Pain,Shortness of breath ,Sputum production Activity Activity Level not active Respiratory Breath Sounds Breath Sounds Faint wheezing or rhonci, decreased sounds throughout Pulse Rate <100 Respiratory Rate 18-25 Shortness of Breath On exertion Respiratory Therapy Score Total 4 Assessment and Plan RT Treatment Protocol Lung Expansion Therapy Protocol,Bronchial Hygiene Therapy Protocol Note Pt has an IS and an Acapella ordered, RT instructed and will reassess in 72hrs. Patient does not normally used O2 at home but has been using 1-2L during current stay.
--- NOTE | 2023-05-30 13:47 | PDOC.CMPRO ---
Date of service: 05/30/23 Time of Service: 13:47 Care Management Progress Note Progress Note Text Progress Note Text: S/O: Ester was sitting up in bed when BRIANDA met with her. She stated that she is doing ok, although she continues to hear voices in her head that are telling her to hurt herself, and she continues to feel suicidal. 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 CM reviewed her plan, which will be to go to an inpatient psychiatric hospital for stabilization vs return to [facility], if she continues to improve. Edward, [facility], met with her today, and stated that she continues to meet criteria for psychiatric placement. Medically, she continues to require O2. She stated that she used to have home O2, but stopped wearing it because she didn't have a PCP to follow orders. She stated that she is originally from [place], [place]. BRIANDA will continue to follow. A: Ester is a 58 year old female admitted to [facility] on 05/27/23 for SI. P: [facility] is seeking inpatient psychiatric stabilization for Ester, who continues to report SI, and voices that are telling her to hurt herself. She will be driven to the accepted facility by secure transport, coordinated by BRIANDA. She will follow up with [facility], her PCP, and her discharge plan of care. CM will continue to follow.
--- NOTE | 2023-05-30 14:52 | PDOC.MHCN_ITS ---
Date of service: 05/28/23 Time of Service: 11:00 PHQ-9 Over the last 2 weeks, how often have you been bothered by any of the following problems? 1. Little interest or pleasure in doing things: several days 2. Feeling down, depressed, or hopeless: several days 3. Trouble falling or staying asleep, or sleeping too much: several days 4. Feeling tired or having little energy: several days 5. Poor appetite or overeating: several days 6. Feeling bad about yourself - or that you are a failure or have let yourself and your family down: several days 7. Trouble concentrating on things, such as reading the newspaper or watching television: several days 8. Moving or speaking so slowly that other people could have noticed? - Or the opposite - being so fidgety or restless that you have been moving around a lot more than usual: several days 9. Thoughts that you would be better off or of hurting yourself in some way: several days Total score: 9 Source: Developed by Drs. Hans Marquez, Areli Alaniz, Vinicio Ford and colleagues, with an educational oli from [employer]. Suicide Severity Rate CSSRS Have you wished you were or wished you could go to sleep and not wake up?: No Have you actually had any thoughts of killing yourself?: Yes CSSRS2 Have you been thinking about how you might do this?: No Have you had these thoughts and had some intention of acting on them?: No Have you started to work out or worked out the details of how to kill yourself? Do you intend to carry out this plan?: No CSSRS3 Have you ever done anything, started to do anything or prepared to do anything to end your life?: Yes CSSRS4 Was this within the past three months?: No Screening Score Total Score: 4 Screening: Positive Mental Health Emergency Note Release [facility] release signed:: Yes Reason for Visit Hallucinatory verbal commands to kill herself In the last 2 weeks has the pt presented for ES prior to today?: No Client Information Well Housed: Yes Non Suicidal Self Injury Current: Yes, none History: yes, none currently Safety Risk/Harm to Self or Others Current Ideation to Harm Self or Others: Yes to self. Intent: no, has no intent. Plan: no.does not have a plan. History of suicide attempt: yes,history of suicide attempt reported. Details of previous suicide attempt: once by overdose Risk: Does risk to harm exist?: yes. Risk: Moderate Risk Duty to warn indicated: No Asssessment/Mental Status Appearance: Unremarkable Attitude: Cooperative Behavior: Gait disturbances Speech: Normal Affect: Constricted Mood: Depressed and Anxious Thought process: Goal directed Hallucinations: yes, Auditory Delusions: No Attention: Poor concentration Perception: Not impaired Orientation: Fully orientated Memory: Intact Insight: Fair Judgement: Fair Neurovegetative Symptoms Sleep: Increase Appetitie: Increase Energy: Decrease Libido: Not applicable Substance Use: Other Drug Issues: Other Do you use nicotine?: No Have you used substances in the last 7 days?: No Additional Issues: Assaultive/Threatening Behavior: No Medical Concerns: Yes Client engaged in active self harm w/weapon: No Threatening to run away: No Child reported abuse/neglect: No Voluntarily presenting for services: Yes Domestic violence is a concern: No Extreme Psychosis or extreme behavior is present: No Impression Client is waiting for inpatient at a residential facility due to having hallucinatory verbal commands Resources Reosurces reviewed and given:: 988 and [facility] Plan/Disposition Recommended Disposition: [facility] Services (therapy, med management) [facility] Services: INSPECTOR AUTOMATIC TYPEWRITER and Therapy, Hospitalization facilities contacted and Other. Facilities contacted if Applicable [facility], (no beds) No bed available [facility] Not accepted, (no beds) No bed available [facility] beds[facility] available Reports/communication Outcome discussed with: ED/Personnel and Other
--- NOTE | 2023-05-30 15:07 | PDOC.MHCN ---
Date of service: 05/30/23 Time of Service: 10:45 PHQ-9 Over the last 2 weeks, how often have you been bothered by any of the following problems? 1. Little interest or pleasure in doing things: several days 2. Feeling down, depressed, or hopeless: several days 3. Trouble falling or staying asleep, or sleeping too much: several days 4. Feeling tired or having little energy: several days 5. Poor appetite or overeating: several days 6. Feeling bad about yourself - or that you are a failure or have let yourself and your family down: several days 7. Trouble concentrating on things, such as reading the newspaper or watching television: several days 8. Moving or speaking so slowly that other people could have noticed? - Or the opposite - being so fidgety or restless that you have been moving around a lot more than usual: several days 9. Thoughts that you would be better off or of hurting yourself in some way: not at all Total score: 8 Source: Developed by Drs. Hans Marquez, Areli Alaniz, Vinicio Ford and colleagues, with an educational oli from [employer]. Suicide Severity Rate CSSRS Have you wished you were or wished you could go to sleep and not wake up?: No Have you actually had any thoughts of killing yourself?: No CSSRS2 Have you been thinking about how you might do this?: No Have you had these thoughts and had some intention of acting on them?: No Have you started to work out or worked out the details of how to kill yourself? Do you intend to carry out this plan?: No CSSRS3 Have you ever done anything, started to do anything or prepared to do anything to end your life?: Yes CSSRS4 Was this within the past three months?: No Screening Score Total Score: 2 Screening: Positive Mental Health Emergency Note Release [facility] release signed:: Yes Reason for Visit Hallucinatory verbal commands In the last 2 weeks has the pt presented for ES prior to today?: No Client Information Well Housed: Yes Non Suicidal Self Injury Current: Yes, none History: yes, none Safety Risk/Harm to Self or Others Current Ideation to Harm Self or Others: Yes to self. (voices telling her to hurt herself) Intent: no, has no intent. Plan: no.does not have a plan. History of suicide attempt: yes,history of suicide attempt reported. Details of previous suicide attempt: once by overdosing on medication Risk: Does risk to harm exist?: yes. Risk: Moderate Risk Duty to warn indicated: No Neurovegetative Symptoms Sleep: Increase Appetitie: Increase Energy: Increase Libido: Not applicable Substance Use: Other Drug Issues: Other Do you use nicotine?: No Have you used substances in the last 7 days?: No Additional Issues: Assaultive/Threatening Behavior: No Medical Concerns: Yes Client engaged in active self harm w/weapon: No Threatening to run away: No Child reported abuse/neglect: No Voluntarily presenting for services: Yes Domestic violence is a concern: No Extreme Psychosis or extreme behavior is present: No Impression Client awaiting inpatient due to hallucinatory commands of self harm Resources Reosurces reviewed and given:: 988 Plan/Disposition Recommended Disposition: Other. Plan: Remain in hospital due to hallucinations and until inpatient is available Person reported agreement to plan: Yes Facilities contacted if Applicable [facility] Not accepted, No bed available [facility] Not accepted, No bed available [facility] Not accepted, No bed available, [facility] Not accepted, No bed available Reports/communication Outcome discussed with: ED/Personnel
[2023-05-30] MEDS: Normal Saline Flush 10 ML SYR IVP (20:11)
[2023-05-30] MEDS: OLANZapine 10 MG, OLANZapine 5 MG 15 MG PO (20:58)
[2023-05-30] MEDS: Prazosin 1 MG CAP PO (20:58)
[2023-05-30] MEDS: Lurasidone 40 MG TAB 160 MG PO (20:58)
[2023-05-31] VITALS (7 sets, daily range): BP systolic 117–119; BP diastolic 72–79; PULSE 83–109; RESP 12–20; TEMP 36.6–37.4; O2SAT 74–98
[2023-05-31] MEDS: Levothyroxine 88 MCG TAB PO (05:55)
--- NOTE | 2023-05-31 06:42 | PUCON_ITS ---
General Date Of Service Date of service: 05/31/23 Time of Service: 06:42 Reason for Consult: Hypoxia Assessment and Plan Assessment and plan (1) Chronic respiratory failure with hypoxia and hypercapnia: Status: Acute (2) COPD (chronic obstructive pulmonary disease): Status: Chronic (3) Smoking: Status: Acute Assessment and plan: This is a 58 yo admitted for suicidal ideation who has been hypoxic for reportedly an unknown cause. She has a history of COPD and is smoking. Her ABG is consistent with chronic hypercapnic respiratory failure. Her Chest CT is normal and there is no sign of infection. She has been hypoxic since her ED stay. I suspect she has chronic hypoxic respiratory failure that has not been discovered as of yet. I recommend a walk test to assess how much O2 she needs with exertion (if not already completed) and for her to be ordered for 2LPM at rest for discharge. Chronic hypoxic and hypercapnic respiratory failure - 2LPM O2 at rest - walk test (if not already done) to assess O2 needs with exertion - I will set an appt to see her as an outpatient COPD - change Spiriva to Stiolto - albuterol prn - will set f/u appt with our clinic Smoking - cessation recommended History of Present Illness Narrative: This is a 58 yo with no data in our system prior to admission here whom has COPD and who smokes. She has remained hypoxic, requiringg 1-2LPM to maintain saturations. I was consulted to assess the hypoxia of unknown cause. She does not have information in [facility], although has [place] [facility] [place] (no SpO2 documented at that time). She holds a diagnosis of COPD and is a smoker. She is on Spiriva and albuterol as an outpatient. As part of her work up she has had a negative CTPE and a blood gas that shows chronic hypercapnic respiratory failure. She has been smoking 0.5ppd since age 17. She has not had medical care for some time and does not have a PCP. She is currently not having any out of the ordinary pulmonary symptoms. Review of Systems All systems reviewed & are unremarkable except as noted in HPI and below PFSH All Active Problems (Updated 05/31/23 @ 06:52 by Fatimah Sims MD) Smoking (Acute) Chronic respiratory failure with hypoxia and hypercapnia (Acute) Discharge planning issues (Acute) Chronic hypoxic respiratory failure (Acute) COPD (chronic obstructive pulmonary disease) (Chronic) Auditory hallucination (Acute) Depression (Chronic) Suicide ideation (Acute) Social History Smoking/Tobacco Use Status: Current every day Tobacco Type: cigarettes Years smoked: 41 Smoking risk assessment performed?: Yes Alcohol Intake: never Drug use: Never Substance use type: does not use Housing: homeless Visit Medication and Allergies Active Medications Generic Name Dose Route Start Last Admin Trade Name Freq PRN Reason Stop Dose Admin Acetaminophen 500 mg 05/27/23 20:31 05/30/23 06:18 Acetaminophen 500 Mg Tab PO 500 mg Q6H PRN PRN Administration Al Hydrox/Mg Hydrox/Simethicone 30 ml 05/28/23 13:11 Mylanta Suspension 30 Ml Cup PO Q4H PRN PRN Albuterol Sulfate 2 puff 05/26/23 16:46 Albuterol Hfa 8 Gm 60 Puff Inh IH Q6H PRN PRN Bupropion HCl 100 mg 05/27/23 08:30 05/30/23 07:56 Bupropion 100 Mg Tab PO 100 mg DAILY JOHN Administration Gabapentin 300 mg 05/26/23 20:00 05/30/23 20:58 Gabapentin 300 Mg Cap PO 300 mg QID JOHN Administration Sodium Chloride 500 mls @ 0 mls/hr 05/29/23 08:45 Saline 500ml Bag IV DIRECTED PRN As Directed IV Miscellaneous Supplies 1 each 05/29/23 08:45 Iv Access IV DIRECTED JOHN Ibuprofen 800 mg 05/30/23 07:27 Ibuprofen 800 Mg Tab PO TID PRN PRN pain Levothyroxine Sodium 88 mcg 05/27/23 06:00 05/31/23 05:55 Levothyroxine 88 Mcg Tab PO 88 mcg DAILY@0600 JOHN Administration Lurasidone HCl 160 mg 05/26/23 22:00 05/30/23 20:58 Lurasidone 40 Mg Tab PO 160 mg HS JOHN Administration Nystatin 15 gm 05/30/23 08:30 05/30/23 20:15 Nystatin Powder 15 Gm Jar TP Not Given TID JOHN Olanzapine 10 mg/ Olanzapine 5 15 mg 05/26/23 22:00 05/30/23 20:58 mg PO 15 mg HS JOHN Administration Ondansetron HCl 4 mg 05/28/23 13:11 05/28/23 13:32 Ondansetron O.D.T. 4 Mg Tabef PO 4 mg Q8H PRN PRN Administration Pantoprazole Sodium 20 mg 05/27/23 07:30 05/30/23 07:57 Pantoprazole 20 Mg Tabcr PO 20 mg DAILY@0730 JOHN Administration Prazosin HCl 1 mg 05/26/23 22:00 05/30/23 20:58 Prazosin 1 Mg Cap PO 1 mg HS JOHN Administration Sodium Chloride 0 ml 05/29/23 08:45 05/30/23 20:11 Normal Saline Flush 10 Ml Syr IVP 10 ml PRN PRN Administration Tiotropium Montgomery 2 puff 05/27/23 08:30 05/30/23 07:48 Tiotropium [place]-Respimat 10 Puff Inh IH 2 puff DAILY JOHN Administration Allergies erythromycin base [From Erythrocin] Allergy (Intermediate, Unverified 05/27/23 18:13) Anaphylaxis prednisone Adverse Reaction (Mild, Unverified 05/27/23 18:13) Psychosis Exam Narrative Exam Narrative: Gen: NAD, normal respiratory effort, well-nourished HENT: PERRL, nasal turbinates normal without erythema or inflammation, moist oral mucosa, Mallampati 2, No LAD or JVD Chest: No respiratory distress, normal appearance of chest, diminished apical breath sounds, no crackles or wheezes, normal inspiratory effort Heart: regular rate and rhythym, no murmurs, rubs or gallops Abdomen: Non-distended, soft, non tender Extremities: No clubbing, edema, cyanosis, rashes Neuro: non focal Psych: cooperative, flat affect Results Last Vital Signs Temp 36.6 C 05/31/23 04:00 Pulse 83 05/31/23 04:00 Resp 18 05/31/23 04:00 BP 117/76 05/31/23 04:00 Pulse Ox 93 05/31/23 04:00 Labs 05/29/23 06:00 05/29/23 06:00 Labs: Laboratory Results - last 24 hr 05/30/23 06:55 VBG pH 7.42 H VBG pCO2 59 H VBG pO2 90 VBG HCO3 38 H VBG Total CO2 36 H VBG O2 Saturation 99 VBG Base Excess 14 H
[2023-05-31] MEDS: Nystatin POWDER 15 GM JAR TP (07:29)
[2023-05-31] MEDS: Gabapentin 300 MG CAP PO ×3 (07:29→20:20)
[2023-05-31] MEDS: buPROPion 100 MG TAB PO (07:29)
[2023-05-31] MEDS: Pantoprazole 20 MG TABCR PO (07:29)
[2023-05-31] MEDS: Tiotropium/Olodaterol 10 PUFF INHALER 2 PUFF IH (09:23)
[2023-05-31] MEDS: Acetaminophen 500 MG TAB PO (11:04)
[2023-05-31] MEDS: Ondansetron O.D.T. 4 MG TABEF PO (12:05)
--- NOTE | 2023-05-31 12:35 | PDOC.MHPN2 ---
Date of service: 05/31/23 Time of Service: 12:35 Mental Health Emergency Note Release [facility] release signed:: Yes Reason for Visit The client is new to [facility] as of her day of admission to the ED on 05.26.23. Per [facility] attending provider Dr. Tera Kent the client presented to [facility] ED with chief complaint of command auditory hallucinations that are telling her to kill herself. This clinician assessed the client at bedside today. In the last 2 weeks has the pt presented for ES prior to today?: Unknown Impression The client is a 58 y/o single female that resides in [place], [place] at an assisted living facility; [facility]. She is dressed in her street clothes and is lying in bed attempting to go to sleep when this clinician arrived. She reported that she had a difficult time staying asleep last night and is tired today. The client reported that her mood is okay. A little anxious right now. She reproted she had thoughts to by suicide last night before going to sleep. When asked to rate her SI she self-reported a 0/10. She noted that this was because she was in the hospital and everyone takes care of me. She then noted that she needs/wants to go to a longterm because she can't lift herself up with her arms. The client endorsed eating this am and utilizing activity books to pass the time. The client although reports AH this is not observed by this clinician today or on Tuesday when this clinician was there. Plan/Disposition Recommended Disposition: Hospitalization facilities contacted. Plan: The client will remain at [facility] pending admission or decrease in symptoms where she can return back to [place]. She will be assessed daily by [facility]. Reports/communication Outcome discussed with: ED/Personnel
--- NOTE | 2023-05-31 13:54 | PGE_ITS ---
Date of Service Date of service: 05/31/23 Time of Service: 13:54 Assessment and Plan Assessment and plan (1) Suicide ideation: Status: Acute Assessment and plan: - Patient is under voluntary hold for suicidal ideation in the setting of severe depression with worsening auditory hallucinations -Continue Wellbutrin, Latuda, Zyprexa, Minipress mental health following. no behavioral issues continues to have suicidal thoughts (2) Auditory hallucination: Status: Acute Assessment and plan: -as noted above (3) Depression: Status: Chronic Assessment and plan: -as noted above (4) COPD (chronic obstructive pulmonary disease): Status: Chronic Assessment and plan: -Without acute exacerbation -pulmonary consultation with follow recommendations: - change Spiriva to Stiolto - albuterol prn - will set f/u appt with our clinic (5) Chronic hypoxic respiratory failure: Status: Acute Assessment and plan: - 2LPM O2 at rest - walk test (if not already done) to assess O2 needs with exertion outpatient pulmonary appointment (6) Discharge planning issues: Status: Acute Assessment and plan: awaiting inpatient psychiatric placement. case management and mental health following discussed with DR Byrd Subjective Subjective Patient reports: no new complaints, feels better, tolerating liquids well, tolerating a regular diet and afebrile; denies shortness of breath Interval history since last seen: still reports suicidality. also reporting generalized weakness and deconditioning. Exam Const General: cooperative and no acute distress HENMT Mouth: moist mucous membranes Eyes Conjunctivae: normal conjunctivae Neck Neck: supple Resp Effort & Inspection: no cough Auscultation: clear to auscultation bilaterally Cardio Rate: regular rate and not tachycardic Rhythm: regular rhythm GI Palpation: soft, not firm, no guarding, no masses, not rigid and nontender Skin General skin exam: no rashes or lesions noted Neuro General: patient alert, patient awake and tone normal Extrem General: no edema Psych Mental Status: mental status grossly normal and other (depressed) Speech and Movement: speech and movement normal Mood: other (depressed) Attitude: cooperative Thought Process: normal Thought Content: hallucinations auditory Objective Last Vital Signs Temp 36.6 C 05/31/23 11:15 Pulse 84 05/31/23 11:15 Resp 18 05/31/23 11:15 BP 118/72 05/31/23 11:15 Pulse Ox 98 05/31/23 12:35 Time Spent with Patient Time Spent with Patient: 25-34 minutes Time was spent: preparing to see the patient(eg.review tests), ordering medications,tests, procedures, referring, communicating with other health manager home healthcare, indepentently interpreting results and counseling the patient
--- NOTE | 2023-05-31 16:37 | CMPROGNOTE_ITS ---
Date of service: 05/31/23 Time of Service: 16:37 Care Management Progress Note Progress Note Text Progress Note Text: S/O: Ester was lying in bed when CM met with her. She stated that she feels very weak, that her arms don't work anymore. CM suggested that Ester may be able to work with PT while she waits for transfer to inpatient psychiatric treatment. She is agreeable to this plan; INGOT PASSER ordered PT. RT has been working with Ester, and stated that based on her O2 walk today, she qualifies for home O2. This will be set up upon discharge if Ester returns home on a safety plan. Ester met with [facility] today, and reported that she continues to have SI, but at this time only if she is discharged. She reported that she wants to go to a skilled nursing. CM explained to Ester that she is currently in observation status, awaiting a psychiatric stabilization bed, and that her insurance will not pay for her to go to a nursing facility. She will be evaluated by PT. CM will continue to follow. A: Ester is a 58 year old female admitted to [facility] on 05/27/23 for SI. P: [facility] is seeking inpatient psychiatric stabilization for Ester, who continues to report SI, and voices that are telling her to hurt herself. She will be driven to the accepted facility by secure transport, coordinated by CM. She will follow up with [facility], her PCP, and her discharge plan of care. CM will continue to follow.
--- NOTE | 2023-05-31 16:42 | CMSP_ITS ---
Date of service: 05/31/23 Time of Service: 16:42 Care Management Safety Plan Status Status: Voluntary Reason for Wait Reason for Wait: Inpatient Admission Safety Plan Safety Plan: VOLUNTARY FOR INPATIENT PSYCHIATRIC STABILIZATION.? Patient is appropriate in all interactions since arriving at [facility]; Pt has demonstrated appropriate coping and communication skills, has articulated his or her needs and concerns and is fully engaged during staff interactions. Safety plan has been established with patient, and care team, to adhere to patient goals, identify restrictions based on behavioral status, address nutrition, and determine allowed personal belongings, tools for hygiene and personal care. Determine level of activity including ambulation, level of supervision, visitors, and determine privileges based on behaviors and level of engagement by pt. SAFETY PLAN: 1. Will remain on suicide precautions, in paper clothes 2. Will remain in room under direct supervision of one-on-one staff at all times provided by [employer]; ANUEL, PUSH BENCH OPERATOR HELPER laboratory cureman. 3. May have paper cups, plates, finger foods as well as a cardboard spoon with which to eat meals. 4. Follow [facility] Management of the Admitted Behavioral Health Patient policy. 5. Comfort bath system, shower permitted with escort at RN discretion. 6. Personal belongings-soft items permitted at RN discretion. 7. Visitors-none at this time. 8. Activities: television, soft cart items approved per RN discretion. 9.? Bathroom privileges available on Med-Surg without restriction. 10. Phone: limited to cordless phone at RN discretion. Due to VOLUNTARY status, if patient wishes to leave [facility], staff will contact [facility] Crisis Screener ([phone]) and On-Call Government Property Inspector ([phone]) as soon as possible. Patient is currently voluntarily at [facility] and seeking inpatient admission when a bed becomes available. [facility] Frontline Assembly Department Supervisor will continue seeking placement. Please contact the Book Binder Government Property Inspector ([phone]) and [facility] Assembly Department Supervisor ([phone]) for any needed changes in the Safety Plan. Safety plan has been provided to interdepartmental care team.
[2023-05-31] MEDS: OLANZapine 10 MG, OLANZapine 5 MG 15 MG PO (20:20)
[2023-05-31] MEDS: Prazosin 1 MG CAP PO (20:20)
[2023-05-31] MEDS: Lurasidone 40 MG TAB 160 MG PO (20:21)
[2023-06-01 00:54] VITALS: BP 119/77; PULSE 102; RESP 18; TEMP 36.6; O2SAT 93
[2023-06-01] MEDS: Levothyroxine 88 MCG TAB PO (05:39)
[2023-06-01 07:32] VITALS: BP 113/69; PULSE 80; RESP 17; TEMP 36.9; O2SAT 96
[2023-06-01] MEDS: buPROPion 100 MG TAB PO (07:51)
[2023-06-01] MEDS: Gabapentin 300 MG CAP PO ×4 (07:51→20:21)
[2023-06-01] MEDS: Pantoprazole 20 MG TABCR PO (07:51)
[2023-06-01] MEDS: Tiotropium/Olodaterol 10 PUFF INHALER 2 PUFF IH (08:54)
--- NOTE | 2023-06-01 09:24 | CMPROGNOTE_ITS ---
Date of service: 06/01/23 Time of Service: 09:24 Care Management Progress Note Progress Note Text Progress Note Text: S/O: Ester was lying in bed when CM met with her. She stated that she is very tired, but that she has been up walking with PT today. She stated that walking hurt her legs and feet. CM discussed this with the provider, advocating that she be pre medicated prior to working with PT. CM encouraged her to move and walk more, and provided positive reinforcement for her work today with PT. CM discussed her discharge plan, which will be for her to go to an inpatient psychiatric facility vs return to [place]. [facility] is considering her for admission; [facility] adult live in caregiver, Rishi is encouraging [facility] to accept her. Ester is agreeable to this plan. CM will continue to follow. A: Ester is a 58 year old female admitted to [facility] on 05/27/23 for SI. P: [facility] is seeking inpatient psychiatric stabilization for Ester, who continues to report SI, and voices that are telling her to hurt herself. She will be driven to the accepted facility by secure transport, coordinated by BRIANDA. She will follow up with [facility], her PCP, and her discharge plan of care. CM will continue to follow.
--- NOTE | 2023-06-01 09:25 | PDOC.CMSAFE ---
Date of service: 06/01/23 Time of Service: 09:25 Care Management Safety Plan Status Status: Voluntary Reason for Wait Reason for Wait: Inpatient Admission Safety Plan Safety Plan: VOLUNTARY FOR INPATIENT PSYCHIATRIC STABILIZATION.? Patient is appropriate in all interactions since arriving at [facility]; Pt has demonstrated appropriate coping and communication skills, has articulated his or her needs and concerns and is fully engaged during staff interactions. Safety plan has been established with patient, and care team, to adhere to patient goals, identify restrictions based on behavioral status, address nutrition, and determine allowed personal belongings, tools for hygiene and personal care. Determine level of activity including ambulation, level of supervision, visitors, and determine privileges based on behaviors and level of engagement by pt. SAFETY PLAN: 1. Will remain on suicide precautions, in paper clothes 2. Will remain in room under direct supervision of one-on-one staff at all times provided by [employer]; ANUEL, BANQUET SERVER ON CALL outside laborer. 3. May have paper cups, plates, finger foods as well as a cardboard spoon with which to eat meals. 4. Follow [facility] Management of the Admitted Behavioral Health Patient policy. 5. Comfort bath system, shower permitted with escort at RN discretion. 6. Personal belongings-soft items permitted at RN discretion. 7. Visitors-none at this time. 8. Activities: television, soft cart items approved per RN discretion. 9.? Bathroom privileges available on Med-Surg without restriction. 10. Phone: limited to cordless phone at RN discretion. Due to VOLUNTARY status, if patient wishes to leave [facility], staff will contact [facility] Crisis Screener ([phone]) and On-Call Barrel Assembler ([phone]) as soon as possible. Patient is currently voluntarily at [facility] and seeking inpatient admission when a bed becomes available. [facility] Frontline Nuclear Plant Instrument Technician will continue seeking placement. Please contact the Feeder Loader Barrel Assembler ([phone]) and [facility] Nuclear Plant Instrument Technician ([phone]) for any needed changes in the Safety Plan. Safety plan has been provided to interdepartmental care team.
[2023-06-01 10:40] VITALS: BP 126/72; PULSE 102; RESP 22; TEMP 36.6; O2SAT 90
--- NOTE | 2023-06-01 10:51 | PT.INIE ---
PT Notes Visit Reasons: Suicidal ideation Physical Therapy Inpatient Initial Evaluation Date: 06/01/2023 Referring Doctor: Melany Urena NP PT Orders: PT CONSULT: Eval/Treat Precautions: Fall. Standard. Activity as tolerated. Suicide precautions in place. Patient Profile/Admitting Diagnosis: Ester is a 58-year-old female who presented to the ED on 05/26/2023 due to verbalization of suicidal ideation and auditory hallucinations telling patient to end her life. Patient is admitted for management of suicidal ideation, auditory hallucinations, depression, COPD, chronic hypoxic respiratory failure and is on 2 L of oxygen per minute at rest. PMHX: All Active Problems (Updated 05/27/23 @ 19:22 by Luis A Norris MD) Chronic hypoxic respiratory failure (Acute) COPD (chronic obstructive pulmonary disease) (Chronic) Auditory hallucination (Acute) Depression (Chronic) Suicide ideation (Acute) Social History/Home Situation: [facility]. Had not been on oxygen at [facility]. Independent with ambulation activities without an assistive device, occasionally uses single-point cane. Equipment Owned/DME: [facility] Subjective: Reported pain in bilateral legs and feet that limited today's ambulation activity. Minimally short of breath after short distance ambulation using front wheeled walker despite oxygen supplementation at 2 L/min. Objective: General Observation: Sitter present. Patient on oxygen supplementation via NC at 2 L/min. On paper thank. Mental Status: Alert and oriented as to person, place, time, and purpose. Able to pay attention, focus, and respond appropriately. Pain: Minimal pain in the legs and feet with weightbearing Vital Signs: BP 176 over 72 mmHg, oxygen saturation 90% on 2 L HR 102 bpm and temperature 36.6 after level surface ambulation in [facility] ROM: Right Upper Extremity: Grossly WFL Left Upper Extremity: Grossly WFL Right Lower Extremity: Grossly WFL Left Lower Extremity: Grossly WFL Strength: Right Upper Extremity: Grossly 4-/5 Left Upper Extremity: Grossly 4-/5 Right Lower Extremity: Grossly 4-/5 Left Lower Extremity: Grossly 4-/5 Bed Mobility/Transfers: Rolling supervision Supine to sit supervision Sit to supine supervision Sit to stand supervision with FWW Stand to sit supervision with FWW Bed to reclining chair supervision with FWW Reclining chair to bed supervision with FWW Gait: Facilitated safe and correct performance of level surface ambulation using front wheeled walker with step through heel toe gait pattern requiring standby assist and line management for oxygen supplementation and oxygen saturation monitoring. Patient covered a distance of 50 feet plus 75 feet +10 feet with report of pain in the legs and feet at 3-4/10. Balance: Static Sitting: Normal Dynamic Sitting: Normal Static Standing: Fair Dynamic Standing: Fair Special Tests: Mobility Limitations Standardized Measure [facility] AM-PAC 6 clicks Basic Mobility Inpatient Short Form: Raw Score: 23 CMS Score: 11% deficit Informed Consent/Education: Patient was instructed in purpose of PT consult and plan of care. Agreeable to proceed with established PT POC to achieve personal goals. Assessment: Patient requires the use of a front wheeled walker for mobility ADL performance for energy conservation and to maximize independence while reducing fall risk. Activity today limited by report of pain in the legs and feet which Nurse Rock is made aware. Patient presents with clinical signs and symptoms consistent with current/admitting diagnoses that have resulted to mobility limitations, gait instability, generalized weakness, and overall ADL decline as demonstrated by the following impairment level findings: 1. Decreased strength to B UE/LE major muscle groups 2. Impaired sitting/standing balance 3. Impaired activity tolerance 4. Shortness of breath 5. Pain in B legs and feet 6. Impaired ventilatory function needing O2 supp Impairments are contributing to the following functional limitations: 1. Decline in bed mobility skills 2. Decline in transfer skills 3. Difficulty with ambulation without assistive device and physical assistance 4. Increased completion time for mobility ADL performance 5. Increased risk for falls 6. Difficulty with managing steps alone safely Patient is assessed as a 89346 moderate complexity based on the following: History: 58-year-old female with past medical history as indicated above Examination: Demonstrable impairment in strength, balance, and mobility level with underlying impairments and functional limitations as exhibited above as well as deficit score of 11% utilizing the [facility] Mobility Inpatient Short Form Presentation: Evolving Decision Makin moderate complexity Goals: Goals X1 week 1. Supine-Sit independent 2. Sit-Supine independent 3. Sit-Stand independent 4. Stand-Sit independent with no AD 5. Bed-Chair independent with no AD 6. Chair-Bed independent with no AD 7. Independent gait on level surface with use of no AD for at least 300 feet without report of pain nor dyspnea 8. Independent stair negotiation while holding onto B rails for at least 5 steps without report of pain nor dyspnea 9. Independent with home exercise program 10. Good static and dynamic standing balance/tolerance Plan of Care/Treatment Plan: 1-2x/day, 7 days/week x 1 week. Plan of care has been reviewed with the [employer] K[employer] TENDER providing the service under Physical Therapy direction. Initiate Physical Therapy intervention for pain management as needed, strengthening, bed mobility, transfers, gait, stairs, balance training, and use of assistive device. DISCHARGE RECOMMENDATIONS: [] Home with no services [] [] Home with services [specify] [] Home with outpatient PT [] [] SNF for continued rehabilitation [] [] Communications [employer] Professor Care [] [] SNF versus LTC based on ability to participate and progress [] [X] [facility] vs. SNF based on progress towards goals TREATMENT CODE/TIME: 73058 x 20 minutes for 1 unit beginning at 10:25 AM. Thank you for the opportunity to participate in the care of this patient. Fauzia Miller PT, DPT, CLT [facility] [place], [place]
[2023-06-01 19:15] VITALS: BP 112/70; PULSE 80; RESP 20; TEMP 36.6; O2SAT 93
--- NOTE | 2023-06-01 19:49 | W.PM.PROGNOT ---
Date of Service Date of service: 06/01/23 Time of Service: 19:49 Assessment and Plan Assessment and plan (1) Suicide ideation: Status: Acute Assessment and plan: - Patient is under voluntary hold for suicidal ideation in the setting of severe depression with worsening auditory hallucinations -Continue Wellbutrin, Latuda, Zyprexa, Minipress mental health following. no behavioral issues continues to have suicidal thoughts (2) Auditory hallucination: Status: Acute Assessment and plan: -as noted above (3) Depression: Status: Chronic Assessment and plan: -as noted above (4) COPD (chronic obstructive pulmonary disease): Status: Chronic Assessment and plan: -Without acute exacerbation -pulmonary consultation with follow recommendations: - change Spiriva to Stiolto - albuterol prn - will set f/u appt with our clinic (5) Chronic hypoxic respiratory failure: Status: Acute Assessment and plan: - 2LPM O2 at rest - walk test (if not already done) to assess O2 needs with exertion outpatient pulmonary appointment (6) Discharge planning issues: Status: Acute Assessment and plan: awaiting inpatient psychiatric placement. case management and mental health following discussed with DR Gordon Subjective Subjective Patient reports: no new complaints, tolerating liquids well, tolerating a regular diet and afebrile Interval history since last seen: still endorsing suicidal thoughts to overdose. does not have access to medication Exam Const General: cooperative and no acute distress HENMT Mouth: moist mucous membranes Eyes Conjunctivae: normal conjunctivae Neck Neck: supple Resp Effort & Inspection: no cough Auscultation: clear to auscultation bilaterally Cardio Rate: regular rate and not tachycardic Rhythm: regular rhythm GI Palpation: soft, not firm, no guarding, no masses, not rigid and nontender Skin General skin exam: no rashes or lesions noted Neuro General: patient alert, patient awake and tone normal Extrem General: no edema Psych Mental Status: mental status grossly normal and other (depressed) Speech and Movement: speech and movement normal Mood: other (depressed) Attitude: cooperative Thought Process: normal Thought Content: hallucinations auditory Objective Last Vital Signs Temp 36.6 C 06/01/23 10:40 Pulse 102 H 06/01/23 10:40 Resp 22 06/01/23 10:40 BP 126/72 06/01/23 10:40 Pulse Ox 90 L 06/01/23 10:40 Time Spent with Patient Time Spent with Patient: 25-34 minutes Time was spent: preparing to see the patient(eg.review tests), ordering medications,tests, procedures, indepentently interpreting results, counseling the patient and care coordination
[2023-06-01] MEDS: Prazosin 1 MG CAP PO (20:21)
[2023-06-01] MEDS: OLANZapine 10 MG, OLANZapine 5 MG 15 MG PO (20:21)
[2023-06-01] MEDS: Lurasidone 40 MG TAB 160 MG PO (20:21)
[2023-06-02] MEDS: Levothyroxine 88 MCG TAB PO (06:02)
[2023-06-02] MEDS: Pantoprazole 20 MG TABCR PO (08:47)
[2023-06-02] MEDS: buPROPion 100 MG TAB PO (08:47)
[2023-06-02 09:16] VITALS: BP 106/72; PULSE 87; RESP 18; TEMP 36.4; O2SAT 93
--- NOTE | 2023-06-02 11:36 | W.PM.DS.N ---
Date of service: 06/02/23 Time of Service: 11:37 DS: Diagnosis Discharge Diagnosis (1) Suicide ideation: Status: Acute (2) Auditory hallucination: Status: Acute (3) Depression: Status: Chronic (4) COPD (chronic obstructive pulmonary disease): Status: Chronic (5) Chronic hypoxic respiratory failure: Status: Acute (6) Discharge planning issues: Status: Acute Discharge Plan Disposition Patient Disposition: Home Condition: Fair Discharge Details Reason For Visit: Suicidal ideation Admit Date/Time: 05/27/23 18:40 Admit Provider: Luis A Norris Attending Provider: Luis A Norris Hospital Course Hospital Course: This 58-year-old female with a past medical history of bipolar disorder and COPD with chronic hypoxic respiratory failure on 2 L nasal cannula initially presented the emergency department on 05/26/2023 with complaints of severe depression and suicidal ideation. On arrival to the ED, the patient reported feeling suicidal for the last 3 to 4 days she presented voluntarily and states that she chronically hears voices but has been having increased auditory hallucinations. The patient also reported at the time that she had prior attempts to commit suicide by overdosing requiring hospitalization in February and March of this year but she was new to the area. The patient presented with chronic oxygen requirement precluding her acceptance to an acute psychiatric facility while in the ED. The hospitalist was contacted, and the patient was accepted for admission as an observation patient on the medical surgical floor with a one-to-one sitter until safe discharge planning at psychiatric facility could be coordinated. The patient denied suicidal ideation during her stay and was deemed safe to be discharged to [facility] as per RICARDA. When the patient was informed that she would be discharged; she stated again that she was hearing voices telling her to kill herself. The patient was reevaluated by RICARDA and deemed appropriate to be discharged to [facility] with a safety plan. The patient is discharged to [facility] without oxygen requirement, on Wellbutrin, Latuda, Zyprexa, Minipress. Home Meds and New Rx's Prescriptions: New olanzapine 15 mg Tablet 15 mg PO HS Qty: 30 0RF Continued levothyroxine [Euthyrox] 88 mcg tablet 88 mcg PO DAILY gabapentin 300 mg capsule 300 mg PO QID lurasidone 120 mg tablet 160 mg PO QHS Rx Instructions: must administer with food (at least 350 calories) acetaminophen [Tylenol Extra Strength] 500 mg tablet 1,000 mg PO Q6H PRN lansoprazole 15 mg capsule,delayed release(DR/EC) 15 mg PO DAILY bupropion HCl 100 mg tablet 100 mg PO DAILY AM hydroxyzine HCl 50 mg tablet 50 mg PO ONCE PRN ferrous sulfate [iron] 325 mg (65 mg iron) tablet 325 mg PO DAILY albuterol sulfate 90 mcg/actuation HFA aerosol inhaler 2 inh inhalation Q4H PRN Spiriva Respimat 2.5 mcg/actuation mist 2 inh inhalation DAILY prazosin 1 mg capsule 1 mg PO QHS Discontinued olanzapine 10 mg tablet 10 mg PO QHS Discharge Instructions Stand Alone Forms: Nursing Discharge Form Activity:: Activity as Tolerated Equipment/Supplies:: Walker Diet:: As Tolerated Discharge Orders Discharge Orders: Discharge Order (Routine); Ordered 06/02/23 Ordered By: Roxi Dumont DS: Summary Time Spent with Patient providing and/or coordinating discharge services: Greater than 30 minutes Status at Discharge Functional status at discharge: uses cane/walker Overall status at discharge: patient is progressing back to baseline Mental Status: mental status grossly normal Speech and Movement: speech and movement normal Mood: labile mood Affect: labile affect Exam Narrative Exam Narrative: Constitutional The patient is lying in bed comfortable and cooperative during the interview. The patient is without acute distress and has average body habitus HENMT: Head is atraumatic, normocephalic, no lymphadenopathy. Facial structures with normal appearance Eyes: Well aligned, intact ROM Neck: Normal ROM, no meningeal signs Neuro:alert and oriented to self, person, place and situation. No neurological focal deficit, Chest:Chest is symmetrical and normal appearance Resp: Normal respiratory pattern, speaks in full sentences, unlabored breathing, clear lung bilaterally Cardio: regular rhythm, S1, S2, no murmur, capillary refill<3 sec., bilateral radial and dorsalis pedis pulses are positive, palpable GI: Abdomen is not distended, soft and non tender, bowel sounds are present : Negative Costovertebral angle tenderness, no bladder distension Back/spine/Pelvis: No back tenderness, normal alignment Integumentary: No skin lesions or rash Extremities: strength 5/5 to bilateral lower and upper extremities, ambulates with PT Psych: RASS 0. Patient reports hearing voices in telling her to kill herself with a pleasant voice, with a flat affect. She also states that she is not ready to leave the hospital. The patient was evaluated by RICARDA and was found to be safe to be discharge to [facility] Mental Status: mental status grossly normal Speech and Movement: speech and movement normal Mood: labile mood Affect: labile affect DS: Data Vitals/I&O Vitals and I&O: Vital Signs Temperature 36.4 C L 06/02/23 09:16 Temperature Source Tympanic 06/02/23 09:16 Pulse 87 06/02/23 09:16 Pulse Rhythm Regular 06/02/23 10:45 Respiratory Rate 18 06/02/23 09:16 Respiratory Effort Normal, Non-Labored 06/02/23 10:45 Respiratory Depth Normal 06/02/23 10:45 Respiratory Pattern Normal 06/02/23 10:45 Blood Pressure 106/72 06/02/23 09:16 Blood Pressure Position Sitting 05/26/23 10:28 Pulse Oximetry 93 06/02/23 09:16 Oxygen Delivery Method Nasal Cannula 06/02/23 09:16 Oxygen Flow Rate 2 06/02/23 09:16 Pain Level 0 06/02/23 09:16 Comment pt states that s=her foot pain is at a 10. RN notified, RN CPSO is aware pt is receiving gabapentin soon and reassured the pt that the nurse will be in soon 05/31/23 19:43 Intake & Output 06/01/23 06/01/23 06/02/23 11:59 23:59 11:59 Intake Total 300 / 300 300 / 300 Balance 300 / 300 300 / 300 Intake: Oral 300 / 300 300 / 300 Other: Urine Color Pale Yellow Urine Appearance Clear Clear Urine Odor None Comment unmeasured void unmeasured void Voiding Methods Bedside Commode Toilet Data Completed and Pending Labs on day of discharge: Preliminary micro results at discharge 05/28/23 10:20 Blood Culture - Preliminary Blood NO GROWTH 96 HOURS 05/28/23 10:10 Blood Culture - Preliminary Blood NO GROWTH 96 HOURS PFSH All Active Problems (Updated 05/31/23 @ 06:52 by Fatimah Sims MD) Smoking (Acute) Chronic respiratory failure with hypoxia and hypercapnia (Acute) Discharge planning issues (Acute) Chronic hypoxic respiratory failure (Acute) COPD (chronic obstructive pulmonary disease) (Chronic) Auditory hallucination (Acute) Depression (Chronic) Suicide ideation (Acute) Social History Smoking/Tobacco Use Status: Current every day Tobacco Type: cigarettes Years smoked: 41 Smoking risk assessment performed?: Yes Alcohol Intake: never Drug use: Never Substance use type: does not use Housing: homeless Time Spent with Patient Time Spent with Patient: >85 minutes Time was spent: preparing to see the patient(eg.review tests), ordering medications,tests, procedures, referring, communicating with other health critical care cns, indepentently interpreting results, counseling the patient and care coordination
[2023-06-02] MEDS: Gabapentin 300 MG CAP PO (14:22)
[2023-06-02] MEDS: Acetaminophen 500 MG TAB PO (14:22)
[2023-06-02 15:40] VITALS: BP 136/83; PULSE 89; RESP 18; TEMP 36.1; O2SAT 96
--- NOTE | 2023-06-02 16:06 | PDOC.CMDIS ---
Date of service: 06/02/23 Time of Service: 16:06 LACE Index Scoring Tool Questions: Length of Stay (in days): 4 - 6 Was the patient admitted via the E.D.?: Yes Comorbidities: Chronic Pulmonary Disease E.D. Visits: 0 Answers: Total Score: 9 Risk of Readmission: Low Risk Care Management Discharge Plan Reason for Hospitalization: Suicidal Ideation Discharge Plan: Ester was declined by all facilities in [place] for admission to a psychiatric facility. She was screened daily by [facility], who created an active safety plan with Ester, and will follow up with her by phone daily. She was transported via private vehicle by facility staff. sent julisa referral for insurance support, although Bhavik, psychological examiner of [facility] stated that her insurance is in the process of changing from [place] to [facility]. She will follow up with [facility], her PCP and discharge plan of care. She is happy to be returning to [facility]. Patient/Family Education Needs: Review discharge instructions and limitations, discussion of self care needs including ask me three.
--- NOTE | 2023-06-02 17:06 | PTTR_ITS ---
Date of service: 06/02/23 Time of Service: 14:20 PT Notes Visit Reasons: Suicidal ideation Inpatient Physical Therapy Treatment Note [facility] Date: 06/02/23 PRECAUTIONS: Fall, standard, activity as tolerated. Suicide precautions in place. SUBJECTIVE: Patient reports feeling fine. OBJECTIVE: Patient sidelying in bed, agreeable to therapy. Supplemental O2 not in place. ? PAIN: Yes, bilateral knees VITALS: ? Pre-Treatment: SaO2 86% on room air. Patient prompted to take several deep breaths, improves to 89%. RN notified, encouraged to try to walk without O2 to see if sats improve when patient is more alert and moving more air. ? Post-Treatment: SaO2 92% on 1L/min supplemental O2. ? ? BED MOBILITY/TRANSFERS? Rolling L/R: independent Supine-sit: independent ? Sit-supine: independent ? Sit-stand: independent ? Stand-sit: independent ? Bed-Chair: SBA ? Chair-bed: SBA ? Therapeutic Exercises ([id number]): Direct one-on-one instruction in therapeutic exercises to develop strength, endurance, range of motion and flexibility. ? Exercises: * heel toe raises x10 * LAQ's x10 * seated marching x10 * hip abduction tap outs x10 Ambulation ? Assistive Device: FWW? Weight bearing: Full Assist: SBA, wheelchair follow ? Distance:? 75 feet SECOND SESSION 150 feet ? Deviation: gait largely unremarkable, slightly shortened but equal step length. Patient repeatedly states that she cannot do any more, sits for a moment, then gets up to continue. Initial session ends abruptly when patient reports auditory and visual hallucinations. ? Stairs: Patient ascends and descends 2 six inch stairs and 3 four inch stairs SBA with bilateral railings. ? Provided skilled instruction in proper exercise performance Provided skilled manual cues to facilitate proper muscle recruitment and/or form. ASSESSMENT:? Patient tolerates therapy fairly well once supplemental O2 is in place at 1L/min. PLAN: Continue global strengthening per plan of care until patient is medically cleared for discharge. TREATMENT CODE/TIME: 15 minutes beginning at 14:20 and 9 minutes beginning at 15:12 for a total of 24 minutes today.
--- NOTE | 2023-06-02 20:47 | MHPN_ITS ---
Date of service: 06/02/23 Time of Service: 12:28 Mental Health Emergency Note Release [facility] release signed:: Yes Reason for Visit The client is new to [facility] as of her day of admission to the ED on 05.26.23. Per [facility] attending provider Dr. Tera Kent the client presented to [facility] ED with chief complaint of command auditory hallucinations that are telling her to kill herself. This clinician assessed the via zoom today while the client is at [facility] medical surgical floor. In the last 2 weeks has the pt presented for ES prior to today?: No Impression The client is a 58 y/o single female that resides in [place], [place] at an assisted living facility; [facility]. The client is laying down in the hospital bed dressed in paper hospital attire when this information writer arrives via zoom. The client reports that she has been very tired the last 3 days and attributes this to being bored in the hospital room. The client is endorsing passive suicidal ideations if she were to leave the hospital stating that she would overdose on medications, however due to her living in a [facility] [place] [facility] she does not have access to means if she were to be released. Due to the client being in the hospital for 7 days today awaiting for placement and decrease of risk based on restricted access to medications this information writer recommends a safety plan back to [facility], which the client agrees with. Plan/Disposition Recommended Disposition: [facility] Services [facility] Services: Therapy and Med management. Plan: The client has been denied by both [facility] and [facility] due to medical concerns. Both [facility] and [facility] have reserves about the client as she is hesitant about returning to her [place]. When this information writer brings up the idea of a safety plan, the client appears to become excited as she is observed to sit up in bed and states: I get to leave today. Pro-active safety plan in place which includes daily check-in phone calls at 9a through 06/07 and referral to therapy, case management, and psychiatry. Person reported agreement to plan: Yes Reports/communication Outcome discussed with: ED/Personnel (Conversation with [facility] career law clerk Chanel Osuna who agrees with the plan. )
--- NOTE | 2023-06-02 20:47 | PDOC.MHPN2 ---
Date of service: 06/02/23 Time of Service: 12:28 Mental Health Emergency Note Release [facility] release signed:: Yes Reason for Visit The client is new to [facility] as of her day of admission to the ED on 05.26.23. Per [facility] attending provider Dr. Tera Kent the client presented to [facility] ED with chief complaint of command auditory hallucinations that are telling her to kill herself. This clinician assessed the via zoom today while the client is at [facility] medical surgical floor. In the last 2 weeks has the pt presented for ES prior to today?: No Impression The client is a 58 y/o single female that resides in [place], [place] at an assisted living facility; [facility]. The client is laying down in the hospital bed dressed in paper hospital attire when this process description writer arrives via zoom. The client reports that she has been very tired the last 3 days and attributes this to being bored in the hospital room. The client is endorsing passive suicidal ideations if she were to leave the hospital stating that she would overdose on medications, however due to her living in a level 3 snf she does not have access to means if she were to be released. Due to the client being in the hospital for 7 days today awaiting for placement and decrease of risk based on restricted access to medications this process description writer recommends a safety plan back to [facility], which the client agrees with. Plan/Disposition Recommended Disposition: [facility] Services [facility] Services: Therapy and Med management. Plan: The client has been denied by both [facility] and [facility] due to medical concerns. Both [facility] and [facility] have reserves about the client as she is hesitant about returning to her snf. When this process description writer brings up the idea of a safety plan, the client appears to become excited as she is observed to sit up in bed and states: I get to leave today. Pro-active safety plan in place which includes daily check-in phone calls at 9a through 06/07 and referral to therapy, case management, and psychiatry. Person reported agreement to plan: Yes Reports/communication Outcome discussed with: ED/Personnel (Conversation with [facility] lawn care professional Chanel Osuna who agrees with the plan. )
== END 2023-06-02 17:20 | disposition home or self-care (01) ==
LOC: ER 05-27 17:20 → MS 05-29 10:15
PROVIDERS: Family Medicine; Internal Medicine; Nurse Practitioner Acute Care; Student in an Organized Health Care Education/Training Program; Admitting Provider Family Medicine; Emergency Provider Student in an Organized Health Care Education/Training Program; Visit Provider Family Medicine
DX: R45.851 Suicidal ideations (principal); F31.9 Bipolar disorder, unspecified; R44.0 Auditory hallucinations; J44.9 Chronic obstructive pulmonary disease, unspecified; J96.11 Chronic respiratory failure with hypoxia; F17.210 Nicotine dependence, cigarettes, uncomplicated; Z79.899 Other long term (current) drug therapy; Z99.81 Dependence on supplemental oxygen; R50.9 Fever, unspecified; J96.12 Chronic respiratory failure with hypercapnia
CPT/HCPCS: 00123; 36410; 36415; 71275; 80048; 80053; 80307; 82805; 84145; 87040; 87493; 87635; 87637; 93005; 94618; 94640; 96127; 97110; 97116; 97162; 99223; 99285; 71045; 80320; 80329; 81003; 81015; 84439; 84443; 85025; 87086; 93010; 94664; 94667; 94668; 94760; 99233; 99239; G0378; J3490; J7620

== ENCOUNTER 2023-08-03 10:57 | Inpatient (IN) | payer MEDICARE, MEDICAID, SELFPAY ==
[2023-08-03] VITALS (31 sets, daily range): BP systolic 117–145; BP diastolic 68–96; PULSE 92–117; RESP 5–26; TEMP 36.3–38; O2SAT 70–94
--- NOTE | 2023-08-03 11:00 | RT.EKG_ITS ---
APPROVED REPORT Exam: Resting ECG Reason for Exam: low oxygen saturation Patient Location: E HR:102 bpm ECG Measurements Heart Rate 102 AXIS ME 132 P 18 QRSd 82 QRS -51 QT 355 T 9 QTc 461 Conclusion Sinus tachycardia no acute ST changes
--- NOTE | 2023-08-03 11:08 | W.ED.GENAD ---
HPI General Stated Complaint: RespSymp ANDERS: 2 Date/Time Provider Initiated Documentation: 08/03/23 11:06. HPI Narrative: 58 year-old female presents to ED today by POV with sole conditioner of her assisted living facility, with a chief complaint of hypoxia- reportedly was 67% at facility, arraives 82% on 2L NC, reporting abdominal pain with onset today. Patient has severe COPD and still actively smokes cigarettes. Patient reports severe abdominal pain and some constipation for days but had a BM yesterday. Quality described as shortness of breath, abdominal pain- severe diffuse, no radiation to chest pain, syncope, fever, productive cough, black/bloody stools, dysuria. Severity is described as 04/03. Palliating factors include nothing specific attempted. Provoking factors include nothing specific. Patient not anticoagulated. Related Data Home Medications Medication Instructions Recorded Confirmed acetaminophen 500 mg tablet 1,000 mg PO Q6H PRN 05/26/23 08/03/23 (Tylenol Extra Strength) albuterol sulfate 90 mcg/actuation 2 inh inhalation Q4H PRN 05/26/23 08/03/23 aerosol inhaler bupropion HCl 100 mg tablet 100 mg PO DAILY AM 05/26/23 08/03/23 ferrous sulfate 325 mg (65 mg 325 mg PO DAILY 05/26/23 08/03/23 iron) tablet (iron) gabapentin 300 mg capsule 300 mg PO QID 05/26/23 08/03/23 hydroxyzine HCl 50 mg tablet 50 mg PO ONCE PRN 05/26/23 08/03/23 lansoprazole 15 mg capsule,delayed 15 mg PO DAILY 05/26/23 08/03/23 release levothyroxine 88 mcg tablet 88 mcg PO DAILY 05/26/23 08/03/23 (Euthyrox) lurasidone 120 mg tablet 160 mg PO QHS 05/26/23 08/03/23 prazosin 1 mg capsule 1 mg PO QHS 05/26/23 08/03/23 olanzapine 15 mg tablet 15 mg PO HS #30 tabs 06/02/23 08/03/23 Previous Rx's Medication Instructions Recorded olanzapine 15 mg tablet 15 mg PO HS #30 tabs 06/02/23 Allergies Allergy/AdvReac Type Severity Reaction Status Date / Time erythromycin base Allergy Intermediate Anaphylaxis Unverified 08/03/23 11:37 [From Erythrocin] prednisone AdvReac Mild Psychosis Unverified 08/03/23 11:37 Review of Systems All systems reviewed & are unremarkable except as noted in HPI and below PFSH All Active Problems (Updated 08/03/23 @ 15:35 by WENDY Hassan) COPD exacerbation (Acute) Acute hypoxemic respiratory failure (Acute) Diverticulitis (Chronic) Medical History (Updated 08/03/23 @ 15:35 by WENDY Hassan) Smoking Chronic respiratory failure with hypoxia and hypercapnia Fever Chronic hypoxic respiratory failure COPD (chronic obstructive pulmonary disease) Auditory hallucination Depression Suicide ideation Social History Smoking/Tobacco Use Status: Current every day Tobacco Type: cigarettes Years smoked: 41 Smoking risk assessment performed?: Yes Alcohol Intake: never Drug use: Never Substance use type: does not use Housing: assisted living facility Additional Social history: Lives at [facility] NarenRN 08/03/23 Exam Narrative Exam Narrative: GENERAL APPEARANCE: Well-nourished, non-toxic, awake and alert, atraumatic, no acute distress. SKIN: Warm, pink, dry, intact, without rashes/lesions/ulcerations. HEAD: Normocephalic, atraumatic, normal hair distribution for gender/age. EYES: Pupils PERRLA, EOMs intact without nystagmus, normal conjunctiva, no exudates on lids/lashes. ENT: Nares patent, no circumoral cyanosis, no facial swelling NECK: Supple, trachea midline, painless cervical ROM. LUNGS/CHEST: Lungs- expiratory wheezes R>L, labored respirations, normal A/P diameter, symmetrical expansion, no chest wall deformity HEART (CV/PV): Regular rate and rhythm without murmur, no peripheral edema, no JVD. ABDOMEN: Soft, non-distended, no guarding, diffuse tenderness out of proportion with exam, no flank tenderness to percussion MSK: Normal ROM, no swelling/deformity to bilateral UEs or LEs, moving all extremities without weakness, no cyanosis, spine midline without tenderness, normal curvature. NEURO: Mental Status AAOx4 - alert to person, place, time, events No facial droop, no forehead involvement. Motor: No focal weakness - strength 5/5 in bilateral UEs and LEs, proximal and distal, symmetric. Sensory: sensation intact to light touch globally. Gait NT. PSYCH: euthymic, cooperative, pleasant, appropriate speech Course Vital Signs Vital signs: Vital Signs Temperature 38.0 C H 08/03/23 11:01 Pulse 117 H 08/03/23 11:01 Respiratory Rate 22 08/03/23 11:01 Pulse Oximetry 70 L 08/03/23 11:01 Temperature 38.0 C H 08/03/23 11:01 Pulse 117 H 08/03/23 11:01 Respiratory Rate 22 08/03/23 11:01 Pulse Oximetry 70 L 08/03/23 11:01 Oxygen Delivery Method Room Air 08/03/23 11:01 Oxygen Flow Rate 0 08/03/23 11:01 Medical Decision Making This dictation utilizes [id number] dictation software and may contain unedited grammatical errors. 58 y/o F presents to ED today with a chief complaint of shortness of breath in the setting of severe COPD, still smokes- 67% SpO2 at facility today- 82% on arrival by 2L NC. Patient denies recent illness but is reporting severe diffuse abdominal pain, last BM yesterday. Patients' medical history: COPD, depression. Family and social history: active smoking, lives at assisted living facility. Pertinent exam findings / vital signs include expiratory wheezing, pain out of proportion to exam on abdominal tenderness, tachycardic, hypoxic, neuro intact. Differential / pathologies of concern include PE, COPD Exacerbation, Hypoxemic Respiratory Failure, PNA, SMA occlusion, AAA. Diagnostic studies of: -CBC, CMP, Lipase, Lactate, D-dimer, Procalcitonin, Mg++, UA, VBG. -VBG pCO2 69, baseline 59 -CBC benign -CMP benign -Lipase neg -Lactate neg -Procal neg -D-dimer elev. 1200, performing CTA Chest/ABD/Pelvis -CXR shows no focal PNA -Mg++ wnl -UA shows no UTI -BNP 6100, no sign of pulmonary edema -CT chest no PE -CT ABD/Pelvis shows no SMA occlusion, possible diverticulitis Interventions of: -Admit to [facility] for Hypoxemic Respiratory Failure, COPD Exacerbation, Diverticulitis -Given 9mL DuoNeb, IV Solu-Medrol here in ED, desats to 75% quickly with O2 weaning to room air. ED Course/Assessment/Plan: 58-year-old female with severe COPD still actively smoking presents with severe hypoxia from assisted living facility, she was in the 60s at the facility, is in the low 80s on 2 L here, quickly bumped up to 4 L O2, given 9 mm updraft DuoNeb as well as IV steroids, there is no pulmonary edema seen on CT but BNP is significantly elevated at 6100, no PE with an elevated D-dimer, no SMA occlusion for patient's out of proportion abdominal pain, suspect hypoxemic respiratory failure secondary to COPD exacerbation with an incidental finding of diverticulitis. Patient was admitted to hospitalist service by Dr. Gordon at 1530. Disposition of Acute Hypoxemic Respiratory Failure, COPD Exacerbation, Diverticulitis. Patient verbalized understanding of the plan and return to ED criteria and engaged in shared decision making. Medical Records Medical records reviewed: Yes I reviewed the patient's medical records. Imaging Data Radiologic Study: Imaging: X-Ray Radiologist's impression: EXAM: XR PORTABLE CHEST AP CLINICAL HISTORY: shortness of breath TECHNIQUE: 2D digital imaging was performed of the chest. One image was obtained. An AP view was obtained. COMPARISON: CR,XR XR PORTABLE CHEST AP from 05/28/[address] CHEST PE CTA from 05/29/2023 FINDINGS: MEDIASTINUM: Normal. HEART: Normal. PULMONARY VASCULATURE: Normal. LUNGS: There is atelectasis in the right lung base. No focal consolidating infiltrates are seen. PLEURAL SPACE: No pleural effusion or pneumothorax. BONE:Within normal limits for the patient's age. There is mild inferior subluxation of the right humeral head relative to the glenoid. OTHER FINDINGS:Normal. IMPRESSION: 1. No acute pulmonary findings. 2. Mild inferior subluxation of the humeral head on the right relative to the glenoid. Radiologic Study #2: Imaging: CT Scan Radiologist's impression: EXAM: CT CHEST PE CTA CLINICAL HISTORY: SOB, elev d-dimer. TECHNIQUE: Imaging Protocol: Axial CT angiography was performed with multi-slice acquisition and multi-planar and/or 3D reconstructions. CONTRAST MATERIAL: Intravenous: Omnipaque 350 contrast volume:60 mL COMPARISON: CT CT CHEST PE CTA from 05/29/2023 FINDINGS: The examination is limited due to patient motion artifact. Tracheobronchial tree: Patent where visualized. Pulmonary parenchyma: Scarring or atelectasis is seen in the right middle lobe. No focal consolidating infiltrates are seen. No architectural distortion. Pulmonary Arteries: Examination is limited particularly peripherally secondary to the patient motion artifact. No evidence of filling defect to suggest pulmonary emboli. Mediastinum and Teresa: No dominant adenopathy or fluid collection. The esophagus is unremarkable. There is a moderate size hiatal hernia. Pleura: No effusion or pneumothorax. Heart: Mild cardiomegaly. Coronary artery calcifications are present. No pericardial effusion. Aorta: Thoracic aorta non-dilated. No evidence of dissection. 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 Atherosclerosis is present. Upper abdomen: Unremarkable. Soft tissues: Unremarkable. Bones: Within normal limits for the patient's age.There is an old T6 compression fracture deformity. IMPRESSION: No evidence of pulmonary embolism, thoracic aortic dissection or aneurysm. Radiologic Study #3: Imaging: CT Scan Radiologist's impression: EXAM: CT ABDOMEN PELVIS CTA CLINICAL HISTORY: pain out of proportion to ABD, elev d-dimer. TECHNIQUE: Imaging Protocol: Axial CT angiography was performed with multi-slice acquisition and multi-planar and/or 3D reconstructions. CONTRAST MATERIAL: Intravenous: Omnipaque 350 Contrast volume:88mL Oral: No COMPARISON: CT CT CHEST PE CTA from 08/03/2023 FINDINGS: ABDOMEN AND PELVIS: Abdomen: Celiac axis/mesenteric arteries: No evidence of occlusion or significant stenosis. Renal Arteries: No evidence of occlusion or significant stenosis. There is atherosclerosis at the origin of the right renal artery but no significant stenosis. There is narrowing and calcification of the proximal left renal artery with 60-70 percent narrowing of the lumen. Aorta: No evidence of occlusion or significant stenosis. No aneurysm or dissection. Atherosclerosis is present. Pelvis: Iliac Arteries: No evidence of occlusion or significant stenosis. Atherosclerosis is present. Common Femoral Arteries: No evidence of occlusion or significant stenosis. ABDOMEN: Liver: Normal density. No measurable mass. Portal, Superior Mesenteric, and Splenic Veins: Unremarkable. Gallbladder and Biliary Tract: No radiodense calculus or dilation. Pancreas: Normal density, no abnormal calcifications or inflammatory process. Spleen: Normal. Adrenals: No masses seen. Kidneys: Normal size, contour and axis. No radiodense stones or obstructive uropathy. There is a simple cyst in the left kidney. No follow-up is recommended. Bowel: There is a hiatal hernia. There is a duodenal diverticulum. There is diverticulosis of the colon. There is bowel wall thickening present in the sigmoid colon suggestive of acute diverticulitis. (Series 8, image 44). No evidence of appendicitis. Peritoneal Cavity: There is a trace amount of free fluid in the pelvis. No free air. Lymph Nodes: Within normal limits. Bones: Within normal limits for the patient's age. Soft Tissues: There is a fat containing umbilical hernia. PELVIS: Bladder: The bladder is incompletely distended limiting evaluation. Reproductive Organs: Unremarkable as visualized. Lymph Nodes: Within normal limits. Bones: Within normal limits. IMPRESSION: 1. No evidence of abdominal aortic dissection or aneurysm. 2. Atherosclerosis resulting in 60-70 percent proximal left renal artery stenosis. 3. Findings suspicious for a acute diverticulitis of the sigmoid colon. No abscess or free air. Lab Data Lab results reviewed: Yes I reviewed the patient's lab results. Labs: Laboratory Tests Range/Units 08/03/23 08/03/23 08/03/23 11:53 12:17 13:15 WBC (4.4-10.8) 10^3/uL 9.39 RBC (3.93-5.22) 10^6/uL 4.56 Hgb (11.2-15.7) g/dL 12.0 Hct (36.0-46.0) % 40.6 MCV (80-95) fL 89 MCH (27.0-33.0) pg 26.3 L MCHC (32.0-36.0) % 29.6 L RDW (11.7-14.6) % 17.5 H Plt Count (130-400) 10^3/uL 205 MPV (8.0-11.0) fL 11.7 H Immature Gran % 0.4 Neutrophils % 79.4 Lymphocytes % 11.7 Monocytes % 7.6 Eosinophils % 0.5 Basophils % 0.4 Nucleated RBC % (0.0-0.3) % 0.0 Absolute Neutrophils (1.2-6.7) 10^3/uL 7.45 H Absolute Lymphocytes (1.2-3.4) 10^3/uL 1.10 L Absolute Monocytes (0.1-0.8) 10^3/uL 0.71 Absolute Eosinophils (0.0-0.7) 10^3/uL 0.05 Absolute Basophils (0.0-0.2) 10^3/uL 0.04 ESR (0-30) mm/hr 28 D-Dimer (<500) ng/mlFEU 1294 H VBG pH (7.31-7.41) 7.31 VBG pCO2 (41-51) mmHg 69 H* VBG pO2 mmHg 55 VBG HCO3 (23-28) mmol/L 35 H VBG Total CO2 (24-29) mmol/L 32 H VBG O2 Saturation % 87 VBG Base Excess (-2-3) mmol/L 8 H VBG Lactate (0.6-1.4) mmol/L 0.4 L Sodium (136-145) mmol/L 143 Potassium (3.5-5.1) mmol/L 4.3 Chloride (98-107) mmol/L 106 Carbon Dioxide (21.0-32.0) mmol/L 35.5 H Anion Gap (3-11) mmol/L 1.5 L BUN (7-18) mg/dL 19 H Creatinine (0.55-1.02) mg/dL 0.8 Est GFR (CKD-EPI 2020) (mL/min/1.73m2) 85.89 Glucose (74-106) mg/dL 81 Calcium (8.5-10.1) mg/dL 8.8 Magnesium (1.8-2.4) mg/dL 2.1 Total Bilirubin (0.2-1.0) mg/dL 0.4 Conjugated Bilirubin (0.0-0.2) mg/dL 0.1 AST (15-37) U/L 12 L ALT (14-59) U/L 22 Alkaline Phosphatase (46-116) U/L 103 Troponin I (<or=60) ng/L < 50 C-Reactive Protein (0.0-0.3) mg/dL 3.59 H NT-Pro-B Natriuret Pep (<300) pg/mL 6101 H Total Protein (6.4-8.2) g/dL 7.2 Albumin (3.4-5.0) g/dL 3.2 L Lipase (16-77) U/L 16 Procalcitonin ng/mL < 0.1 Urine Color (Yellow) Yellow Urine Clarity (Clear) Clear Urine pH (5-8) 5.5 Ur Specific [place] (1.005-1.025) >= 1.030 H Urine Protein (Negative) mg/dL 30 H Urine Ketones (Negative) mg/dL Negative Urine Blood (Negative) Trace-intact H Urine Nitrite (Negative) Negative Urine Bilirubin (Negative) Small H Urine Urobilinogen (Up to 0.2) mg/dL 1.0 H Ur Leukocyte Esterase (Negative) Negative Urine RBC (0-2) HPF 3-5 H Urine WBC (0-5) HPF 0-2 Ur Epithelial Cells (Negative) HPF Rare Urine Crystals (Negative) HPF Negative Urine Bacteria (Negative) HPF Rare Urine Casts (Negative) LPF Urine Mucus (Negative) Trace Ur Culture Indicated? No Urine Glucose (Negative) mg/dL Negative COVID-19 Source Nasopharynx SARS-CoV-2 (PCR) (Negative) Negative Influenza Type A (PCR) (Negative) Negative Influenza Type B (PCR) (Negative) Negative RSV (PCR) (Negative) Negative Quality:SDOH Health Related Social Needs: No Data to Display Discharge Plan Disposition Patient Disposition: Admit to [facility] Discharge Details Clinical Impression: Diverticulitis, Acute hypoxemic respiratory failure, COPD exacerbation Primary Care Provider: Unknown,Unknown ED Provider: Juan Manuel Avalos Home Meds and New Rx's Prescriptions: No Action levothyroxine [Euthyrox] 88 mcg tablet 88 mcg PO DAILY gabapentin 300 mg capsule 300 mg PO QID lurasidone 120 mg tablet 160 mg PO QHS Rx Instructions: must administer with food (at least 350 calories) acetaminophen [Tylenol Extra Strength] 500 mg tablet 1,000 mg PO Q6H PRN lansoprazole 15 mg capsule,delayed release(DR/EC) 15 mg PO DAILY bupropion HCl 100 mg tablet 100 mg PO DAILY AM hydroxyzine HCl 50 mg tablet 50 mg PO ONCE PRN ferrous sulfate [iron] 325 mg (65 mg iron) tablet 325 mg PO DAILY albuterol sulfate 90 mcg/actuation HFA aerosol inhaler 2 inh inhalation Q4H PRN prazosin 1 mg capsule 1 mg PO QHS olanzapine 15 mg Tablet 15 mg PO HS Qty: 30 0RF
[2023-08-03] MEDS: Albuterol/Ipratropium 3 ML UPD VIAL 9 ML UPD (11:12)
[2023-08-03 12:26] LABS: BE (Venous) 8 mmol/L (-2-3); HCO3 (Venous) 35 mmol/L (23-28); O2 Sat (Venous) 87 %; TCO2 (Venous) 32 mmol/L (24-29); pH (Venous) 7.31 (7.31-7.41); pO2 (Venous) 55 mmHg
[2023-08-03 12:28] LABS: Abs Immature Grans 0.04 10^3/uL (0.0-0.06); Absolute Basophil Count 0.04 10^3/uL (0.0-0.2); Absolute Eosinophil Count 0.05 10^3/uL (0.0-0.7); Absolute Monocyte Count 0.71 10^3/uL (0.1-0.8); Absolute Neutrophil Count 7.45 10^3/uL (1.2-6.7); Basophils % 0.4; Eosinophils % 0.5; HCT 40.6 % (36.0-46.0); Immature Grans % 0.4; Lymphocytes % 11.7; MCH 26.3 pg (27.0-33.0); MCHC 29.6 % (32.0-36.0); MCV 89 fL (80-95); MPV 11.7 fL (8.0-11.0); Monocytes % 7.6; Neutrophils % 79.4; Platelet Count 205 10^3/uL (130-400); RBC 4.56 10^6/uL (3.93-5.22); RDW 17.5 % (11.7-14.6); RDW-SD 56.6 fL; WBC 9.39 10^3/uL (4.4-10.8)
[2023-08-03 12:30] LABS: ESR 28 mm/hr (0-30); pCO2 (Venous) 69 mmHg (41-51)
[2023-08-03 12:31] LABS: Lactate 0.4 mmol/L (0.6-1.4)
[2023-08-03 12:47] LABS: C-Reactive Protein 3.59 mg/dL (0.0-0.3); Lipase 16 U/L (16-77); Troponin I < 50 ng/L (<or=60)
[2023-08-03 12:49] LABS: COVID-19 PCR Negative (Negative); Influenza A PCR Negative (Negative); Influenza B PCR Negative (Negative); RSV PCR Negative (Negative)
[2023-08-03 12:50] LABS: Source Nasopharynx
--- NOTE | 2023-08-03 12:52 | DI.RAD_ITS ---
Exam(s) XR PORTABLE CHEST AP EXAM: XR PORTABLE CHEST AP CLINICAL HISTORY: shortness of breath TECHNIQUE: 2D digital imaging was performed of the chest. One image was obtained. An AP view was ob tained. COMPARISON: CR,XR XR PORTABLE CHEST AP from 05/28/[address] CHEST PE CTA from 05/29/2023 FINDINGS: MEDIASTINUM: Normal. HEART: Normal. PULMONARY VASCULATURE: Normal. LUNGS: There is atelectasis in the right lung base. No focal consolidating infiltrates are seen. PLEURAL SPACE: No pleural effusion or pneumothorax. BONE:Within normal limits for the patient's age. There is mild inferior subluxation of the right gabriel ral head relative to the glenoid. OTHER FINDINGS:Normal. IMPRESSION: 1. No acute pulmonary findings. 2. Mild inferior subluxation of the humeral head on the right relative to the glenoid. DATA REPOSITORY: RADIATION DOSE DELIVERED:
[2023-08-03 12:56] LABS: ALT 22 U/L (14-59); AST 12 U/L (15-37); Albumin 3.2 g/dL (3.4-5.0); Alkaline Phosphatase 103 U/L (46-116); Anion Gap 1.5 mmol/L (3-11); BUN 19 mg/dL (7-18); Bilirubin, Direct 0.1 mg/dL (0.0-0.2); Bilirubin, Total 0.4 mg/dL (0.2-1.0); CO2 35.5 mmol/L (21.0-32.0); CREATININE 0.8 mg/dL (0.55-1.02); Calcium 8.8 mg/dL (8.5-10.1); Chloride 106 mmol/L (98-107); Estimated GFR 85.89 (mL/min/1.73m2); Glucose 81 mg/dL (74-106); Magnesium 2.1 mg/dL (1.8-2.4); NT-proBNP 6101 pg/mL (<300); Potassium 4.3 mmol/L (3.5-5.1); Sodium 143 mmol/L (136-145); Total Protein 7.2 g/dL (6.4-8.2)
[2023-08-03 13:01] LABS: D-Dimer 1294 ng/mlFEU (<500)
[2023-08-03 13:12] LABS: Procalcitonin < 0.1 ng/mL
[2023-08-03 13:40] LABS: Bilirubin Small (Negative); Blood Trace-intact (Negative); Clarity Clear (Clear); Glucose Negative (Negative); Ketones Negative (Negative); Leukocyte Esterase Negative (Negative); Nitrite Negative (Negative); Specific Gravity >= 1.030 (1.005-1.025); pH 5.5 (5-8)
[2023-08-03 13:48] LABS: Bacteria Rare HPF (Negative); C & S Indicated? No; Crystals Negative HPF (Negative); Epithelial Cells Rare HPF (Negative); Mucus Trace (Negative); WBC 0-2 HPF (0-5)
[2023-08-03] MEDS: Omnipaque 350 MG/ML 100 ML BTL IJ (13:53)
[2023-08-03] MEDS: Normal Saline - Diluent 50 ML VIAL 100 ML IJ (13:57)
--- NOTE | 2023-08-03 14:00 | DI.CT_ITS ---
Exam(s) CT CHEST PE CTA EXAM: CT CHEST PE CTA CLINICAL HISTORY: SOB, elev d-dimer. TECHNIQUE: Imaging Protocol: Axial CT angiography was performed with multi-slice acquisition and mu lti-planar and/or 3D reconstructions. CONTRAST MATERIAL: Intravenous: Omnipaque 350 contrast volume:60 mL COMPARISON: CT CT CHEST PE CTA from 05/29/2023 FINDINGS: The examination is limited due to patient motion artifact. Tracheobronchial tree: Patent where visualized. Pulmonary parenchyma: Scarring or atelectasis is seen in the right middle lobe. No focal consolidati ng infiltrates are seen. No architectural distortion. Pulmonary Arteries: Examination is limited particularly peripherally secondary to the patient motion artifact. No evidence of filling defect to suggest pulmonary emboli. Mediastinum and Teresa: No dominant adenopathy or fluid collection. The esophagus is unremarkable. Th ere is a moderate size hiatal hernia. Pleura: No effusion or pneumothorax. Heart: Mild cardiomegaly. Coronary artery calcifications are present. No pericardial effusion. Aorta: Thoracic aorta non-dilated. No evidence of dissection. Note is made of a a aberrant right subc lavian artery. Atherosclerosis is present. Upper abdomen: Unremarkable. Soft tissues: Unremarkable. Bones: Within normal limits for the patient's age.There is an old T6 compression fracture deformity. IMPRESSION: No evidence of pulmonary embolism, thoracic aortic dissection or aneurysm. RADIATION DOSE DELIVERED: 266.11mGy.cm Total DLP DATA REPOSITORY: All CT scans at this facility are submitted to the National Radiology Data Registry (NRDR) Dose Index Registry (DIR) with the [employer] (ACR). RADIATION OPTIMIZATION: All CT scans at this facility use at least one of these dose optimization te chniques: automated exposure control; mA and/or kV adjustment per patient size (includes targeted exa ms where dose is matched to clinical indication); or iterative reconstruction.
--- NOTE | 2023-08-03 14:10 | DI.CT_ITS ---
Exam(s) CT ABDOMEN PELVIS CTA EXAM: CT ABDOMEN PELVIS CTA CLINICAL HISTORY: pain out of proportion to ABD, elev d-dimer. TECHNIQUE: Imaging Protocol: Axial CT angiography was performed with multi-slice acquisition and m ulti-planar and/or 3D reconstructions. CONTRAST MATERIAL: Intravenous: Omnipaque 350 Contrast volume:88mL Oral: No COMPARISON: CT CT CHEST PE CTA from 08/03/2023 FINDINGS: ABDOMEN AND PELVIS: Abdomen: Celiac axis/mesenteric arteries: No evidence of occlusion or significant stenosis. Renal Arteries: No evidence of occlusion or significant stenosis. There is atherosclerosis at the dexter gin of the right renal artery but no significant stenosis. There is narrowing and calcification of t he proximal left renal artery with 60-70 percent narrowing of the lumen. Aorta: No evidence of occlusion or significant stenosis. No aneurysm or dissection. Atherosclerosis is present. Pelvis: Iliac Arteries: No evidence of occlusion or significant stenosis. Atherosclerosis is present. Common Femoral Arteries: No evidence of occlusion or significant stenosis. ABDOMEN: Liver: Normal density. No measurable mass. Portal, Superior Mesenteric, and Splenic Veins: Unremarkable. Gallbladder and Biliary Tract: No radiodense calculus or dilation. Pancreas: Normal density, no abnormal calcifications or inflammatory process. Spleen: Normal. Adrenals: No masses seen. Kidneys: Normal size, contour and axis. No radiodense stones or obstructive uropathy. There is a simp le cyst in the left kidney. No follow-up is recommended. Bowel: There is a hiatal hernia. There is a duodenal diverticulum. There is diverticulosis of the c olon. There is bowel wall thickening present in the sigmoid colon suggestive of acute diverticulitis . (Series 8, image 44). No evidence of appendicitis. Peritoneal Cavity: There is a trace amount of free fluid in the pelvis. No free air. Lymph Nodes: Within normal limits. Bones: Within normal limits for the patient's age. Soft Tissues: There is a fat containing umbilical hernia. PELVIS: Bladder: The bladder is incompletely distended limiting evaluation. Reproductive Organs: Unremarkable as visualized. Lymph Nodes: Within normal limits. Bones: Within normal limits. IMPRESSION: 1. No evidence of abdominal aortic dissection or aneurysm. 2. Atherosclerosis resulting in 60-70 percent proximal left renal artery stenosis. 3. Findings suspicious for a acute diverticulitis of the sigmoid colon. No abscess or free air. RADIATION DOSE DELIVERED: 736.17mGy.cm Total DLP DATA REPOSITORY: All CT scans at this facility are submitted to the National Radiology Data Registry (NRDR) Dose Index Registry (DIR) with the [employer] (ACR). RADIATION OPTIMIZATION: All CT scans at this facility use at least one of these dose optimization te chniques: automated exposure control; mA and/or kV adjustment per patient size (includes targeted exa ms where dose is matched to clinical indication); or iterative reconstruction.
[2023-08-03] MEDS: methylPREDNISolone SUCC 125 MG VIAL IVP (14:45)
--- NOTE | 2023-08-03 16:14 | HPE_ITS ---
Date of service: 08/03/23 Time of Service: 16:15 Assessment and Plan Assessment and plan (1) COPD exacerbation: Status: Acute Assessment and plan: Duoneb aerosols, Spiriva, prednisone, mucinex, titrate oxygen to SPO2 >88%; she should have exercise oximetry study prior to discharge this admission. She was hospitalized 05/27-06/02/23 for SI and auditory hallucinations and was found to have hypoxemic RF and COPD and reportedly had exercise oximetry study but I could not find results and at the time of discharge she appeared to be on oxygen at 2 lpm, but went home w/out oxygen. She should also be referred to pulmonary clinic for follow up. She has no pneumonia on her CT scan and her cough is nonproductive, nevertheless she will be put on Zosyn for her diverticulitis (2) Acute hypoxemic respiratory failure: Status: Acute Assessment and plan: as above (3) Diverticulitis: Status: Chronic Assessment and plan: liquid diet and Zosy, antiemetics, prn Tylenol (4) Smoking: Assessment and plan: transdermal nicotine replacement; encourage patient to quit smoking, patient already on Wellbutrin for her depression. History of Present Illness History of Present Illness Chief Complaint: Hypoxemia Narrative: 58-year-old female with history of COPD not on oxygen presents for [facility] d/t hypoxemia. She was found to have SPO2 of 67%, she also had complaints of abdominal pain along w/ dyspnea but no fever or chills or rigors. Patient underwent CTA chest/abdomen/pelvis and no pneumonia or PE was seen on lung exam but abdominal CT demonstrated early sigmoid diverticulitis and left renal artery stenosis 60-70%. No diarrhea or melena or hematochezia. On arrival to the ED she was 82% on 2 lpm NC. She was given DuoNeb aerosols in the ED along w/ given iv solumedrol. Patient was not given antibiotics in the E.D. She is admitted for COPD exacerbation and treatment of mild/mod diveriticulitis. She will be put on Zosyn for the diverticulitis and put on full liquids. For the COPD exacerbation she will be kept on steroids (prednisone) and scheduled DuoNeb aerosols and Spiriva will be added to her regimen. Unfortunately she continues to smoke Review of Systems All systems reviewed & are unremarkable except as noted in HPI and below PFSH All Active Problems COPD exacerbation (Acute) Acute hypoxemic respiratory failure (Acute) Diverticulitis (Chronic) Medical History Smoking Chronic respiratory failure with hypoxia and hypercapnia Fever Chronic hypoxic respiratory failure COPD (chronic obstructive pulmonary disease) Auditory hallucination Depression Suicide ideation Social History Smoking/Tobacco Use Status: Current every day Tobacco Type: cigarettes Years smoked: 41 Smoking risk assessment performed?: Yes Alcohol Intake: never Drug use: Never Substance use type: does not use Housing: assisted living facility Additional Social history: Lives at [facility] Radha Sneed RN 08/03/23 Meds Allergies and Home Medications Allergies Allergy/AdvReac Type Severity Reaction Status Date / Time erythromycin base Allergy Intermediate Anaphylaxis Unverified 08/03/23 11:37 [From Erythrocin] prednisone AdvReac Mild Psychosis Unverified 08/03/23 11:37 Home Medications Medication Instructions Recorded Confirmed Type acetaminophen 500 mg tablet 1,000 mg PO Q6H PRN 05/26/23 08/03/23 History (Tylenol Extra Strength) albuterol sulfate 90 mcg/actuation 2 inh inhalation Q4H PRN 05/26/23 08/03/23 History aerosol inhaler bupropion HCl 100 mg tablet 100 mg PO DAILY AM 05/26/23 08/03/23 History ferrous sulfate 325 mg (65 mg 325 mg PO DAILY 05/26/23 08/03/23 History iron) tablet (iron) gabapentin 300 mg capsule 300 mg PO QID 05/26/23 08/03/23 History hydroxyzine HCl 50 mg tablet 50 mg PO ONCE PRN 05/26/23 08/03/23 History lansoprazole 15 mg capsule,delayed 15 mg PO DAILY 05/26/23 08/03/23 History release levothyroxine 88 mcg tablet 88 mcg PO DAILY 05/26/23 08/03/23 History (Euthyrox) lurasidone 120 mg tablet 160 mg PO QHS 05/26/23 08/03/23 History prazosin 1 mg capsule 1 mg PO QHS 05/26/23 08/03/23 History olanzapine 15 mg tablet 15 mg PO HS #30 tabs 06/02/23 08/03/23 Rx Exam Narrative Exam Narrative: Alert and oriented x3 HEENT: Atraumatic normocephalic, pupils equally round reactive to light and accommodation, extraocular motion intact, TMs intact, nares moist and patent without exudate or bleeding, oropharynx noninjected without exudate, t Neck: Supple, nontender, without thyromegaly or lymphadenopathy or JVD. Normal carotid pulses, not using accessory respiratory muscle Lungs: diffuse expiratory wheezing, no rhonchi or rales Heart: Regular rate and rhythm without murmur rub or gallop. Normal apical impulse Abdomen: Nondistended, normal bowel sounds, soft but w/ focal tenderness over LLQ, no rebound tenderness, no guarding Genitalia and rectal exam: Deferred Breasts: Deferred Extremities: Normal range of motion with normal strength. No peripheral cyanosis or edema. Normal pulses Neurologic: Cranial nerves II through XII grossly within normal limits. Normal strength and sensation over the face trunk and extremities. Results Labs 08/03/23 12:17 08/03/23 12:17 Labs: Laboratory Results - last 24 hr 08/03/23 08/03/23 08/03/23 11:53 12:17 13:15 WBC 9.39 RBC 4.56 Hgb 12.0 Hct 40.6 MCV 89 MCH 26.3 L MCHC 29.6 L RDW 17.5 H Plt Count 205 MPV 11.7 H Immature Gran % 0.4 Neutrophils % 79.4 Lymphocytes % 11.7 Monocytes % 7.6 Eosinophils % 0.5 Basophils % 0.4 Nucleated RBC % 0.0 Absolute Neutrophils 7.45 H Absolute Lymphocytes 1.10 L Absolute Monocytes 0.71 Absolute Eosinophils 0.05 Absolute Basophils 0.04 ESR 28 D-Dimer 1294 H VBG pH 7.31 VBG pCO2 69 H* VBG pO2 55 VBG HCO3 35 H VBG Total CO2 32 H VBG O2 Saturation 87 VBG Base Excess 8 H VBG Lactate 0.4 L Sodium 143 Potassium 4.3 Chloride 106 Carbon Dioxide 35.5 H Anion Gap 1.5 L BUN 19 H Creatinine 0.8 Est GFR (CKD-EPI 2020) 85.89 Glucose 81 Calcium 8.8 Magnesium 2.1 Total Bilirubin 0.4 Conjugated Bilirubin 0.1 AST 12 L ALT 22 Alkaline Phosphatase 103 Troponin I < 50 C-Reactive Protein 3.59 H NT-Pro-B Natriuret Pep 6101 H Total Protein 7.2 Albumin 3.2 L Lipase 16 Procalcitonin < 0.1 Urine Color Yellow Urine Clarity Clear Urine pH 5.5 Ur Specific [place] >= 1.030 H Urine Protein 30 H Urine Ketones Negative Urine Blood Trace-intact H Urine Nitrite Negative Urine Bilirubin Small H Urine Urobilinogen 1.0 H Ur Leukocyte Esterase Negative Urine RBC 3-5 H Urine WBC 0-2 Ur Epithelial Cells Rare Urine Crystals Negative Urine Bacteria Rare Urine Casts Urine Mucus Trace Ur Culture Indicated? No Urine Glucose Negative COVID-19 Source Nasopharynx SARS-CoV-2 (PCR) Negative Influenza Type A (PCR) Negative Influenza Type B (PCR) Negative RSV (PCR) Negative Last Vital Signs Temp 37.0 C 08/03/23 13:01 Pulse 97 H 08/03/23 15:01 Resp 20 08/03/23 13:01 BP 129/69 08/03/23 15:01 Pulse Ox 92 08/03/23 13:01 Time Spent Time spent with Patient: 55-74 minutes Time was spent: preparing to see the patient(eg.review tests), obtaining and/or reviewing separately otained hiistory, ordering medications,tests, procedures, referring, communicating with other health rn critical care, indepentently interpreting results, counseling the patient and care coordination
[2023-08-03 16:22] LABS: Troponin I < 50 ng/L (< or =60)
[2023-08-03] MEDS: Albuterol/Ipratropium 3 ML UPD VIAL UPD (18:01)
[2023-08-03] MEDS: Tiotropium Bromide-Respimat 10 PUFF INH 2 PUFF IH (18:11)
[2023-08-03] MEDS: Enoxaparin 40 MG/0.4 ML SYR SC (18:22)
[2023-08-03] MEDS: Gabapentin 300 MG CAP PO (20:07)
[2023-08-03] MEDS: guaiFENesin 600 MG TABCR PO (20:07)
[2023-08-03] MEDS: Normal Saline Flush 10 ML SYR IVP (20:07)
[2023-08-03] MEDS: PIPERACILLIN/TAZO 4.5 GM in Normal Saline 100 ML IVPB (20:45)
[2023-08-03] MEDS: OLANZapine 5 MG TAB 15 MG PO (21:25)
[2023-08-03] MEDS: Prazosin 1 MG CAP PO (21:25)
[2023-08-03] MEDS: Lurasidone 40 MG TAB 160 MG PO (22:37)
[2023-08-04] VITALS (9 sets, daily range): BP systolic 110–151; BP diastolic 67–91; PULSE 80–104; RESP 16–18; TEMP 36.3–37.4; O2SAT 86–98
[2023-08-04] MEDS: PIPERACILLIN/TAZO 4.5 GM in Normal Saline 100 ML IVPB ×3 (04:31→20:49)
[2023-08-04] MEDS: Levothyroxine 88 MCG TAB PO (06:26)
[2023-08-04] MEDS: Tiotropium Bromide-Respimat 10 PUFF INH 2 PUFF IH (08:45)
[2023-08-04 08:51] LABS: Anion Gap 1.9 mmol/L (3-11); BUN 14 mg/dL (7-18); CO2 35.1 mmol/L (21.0-32.0); CREATININE 0.8 mg/dL (0.55-1.02); Calcium 8.4 mg/dL (8.5-10.1); Chloride 105 mmol/L (98-107); Estimated GFR 85.89 (mL/min/1.73m2); Glucose 115 mg/dL (74-106); Magnesium 1.9 mg/dL (1.8-2.4); Potassium 4.4 mmol/L (3.5-5.1); Sodium 142 mmol/L (136-145)
[2023-08-04 09:33] LABS: Abs Immature Grans 0.05 10^3/uL (0.0-0.06); Absolute Basophil Count 0.02 10^3/uL (0.0-0.2); Absolute Monocyte Count 0.36 10^3/uL (0.1-0.8); Absolute Neutrophil Count 6.87 10^3/uL (1.2-6.7); Basophils % 0.3; HCT 38.8 % (36.0-46.0); HGB 11.5 g/dL (11.2-15.7); Immature Grans % 0.6; Lymphocytes % 5.2; MCH 26.5 pg (27.0-33.0); MCHC 29.6 % (32.0-36.0); MCV 89 fL (80-95); MPV 12.1 fL (8.0-11.0); Monocytes % 4.7; Neutrophils % 89.2; Platelet Count 167 10^3/uL (130-400); RBC 4.34 10^6/uL (3.93-5.22); RDW-SD 55.1 fL
[2023-08-04] MEDS: predniSONE 20 MG TAB 40 MG PO (10:08)
[2023-08-04] MEDS: Gabapentin 300 MG CAP PO ×4 (10:08→20:22)
[2023-08-04] MEDS: Ferrous Sulfate 325 MG TAB PO (10:08)
[2023-08-04] MEDS: guaiFENesin 600 MG TABCR PO ×2 (10:08→20:22)
[2023-08-04] MEDS: Normal Saline Flush 10 ML SYR IVP ×2 (10:09→21:37)
[2023-08-04] MEDS: buPROPion 100 MG TAB PO (11:16)
[2023-08-04] MEDS: Acetaminophen 500 MG TAB 1000 MG PO ×2 (15:19→20:47)
--- NOTE | 2023-08-04 15:59 | CHAPLAIN ---
Ester was sitting up on top of the bed, watching tv when I visited. She told me she lives at [facility] and likes it there. She explained that she hasn't had a bowel movement in three days, and that's what the medical stiff is trying to help her with. When I asked if she was from [facility], she told me that she's from [place], [place] and came to [facility] for a man. It turned out he was homeless and living in his car, so she became homeless too, she said. From there she ended up at [facility]. Ester asked for some coffee. I will continue to visit.
--- NOTE | 2023-08-04 16:03 | PDOC.CMIN ---
Date of service: 08/04/23 Time of Service: 16:03 Care Management Initial Assmt Initial Assessment REASON FOR HOSPITALIZATION:: Acute hypoxic respiratory failure, COPD Exacerbation PREVIOUS FUNCTIONAL STATUS/SOCIAL/FAMILY SUPPORTS:: Resides at [place], reports liking it there. Requires assistance and oversight with some ADLs, utilized [facility] for transportation. ADVANCE DIRECTIVES:: None on file Has patient been provided with info about the portal/API?: No Did the patient sign up for the portal?: No CODE STATUS:: Full Code INSURANCE COVERAGE / FINANCIAL ISSUES:: Medicare CURRENT HOME/COMMUNITY SERVICES/EQUIPMENT:: Assisted living facility, [facility]. PRIMARY CARE PHYSICIAN:: Unknown POTENTIAL DISCHARGE NEEDS:: Follow up appointment; determine PCP. PATIENT/FAMILY EDUCATION NEEDS:: Review discharge instructions, discuss Ask Me Three. ANTICIPATED BARRIERS TO DISCHARGE:: None identified. TRANSPORTATION:: [facility]-vs- staff. PLAN:: Ester will return to [place] when ready per MD. She will follow up with her PCP and plan of care as prescribed. CM continues to follow. PFSH All Active Problems COPD exacerbation (Acute) Acute hypoxemic respiratory failure (Acute) Diverticulitis (Chronic) Medical History Smoking Chronic respiratory failure with hypoxia and hypercapnia Fever Chronic hypoxic respiratory failure COPD (chronic obstructive pulmonary disease) Auditory hallucination Depression Suicide ideation Social History Smoking/Tobacco Use Status: Current every day Tobacco Type: cigarettes Years smoked: 41 Smoking risk assessment performed?: Yes Alcohol Intake: never Drug use: Never Substance use type: does not use Housing: assisted living facility [facility]: [facility] SDAK(Care Management) Screening Will the Patient Participate in the Screening?: Yes Do you worry about having a steady place to live?: no Problems where you live: no known problems In the past 12 months, have you had to go without electric, gas, oil or water in your home?: no Have you or anyone in your house had to go without enough food to eat?: no Has lack of transportation kept you from medical appointments or from doing things needed for daily living?: no Has anyone in your support network made you feel unsafe for any reason?: no
[2023-08-04] MEDS: Enoxaparin 40 MG/0.4 ML SYR SC (17:48)
--- NOTE | 2023-08-04 18:10 | W.PM.PROGNOT ---
Date of Service Date of service: 08/04/23 Time of Service: 18:11 Assessment and Plan Assessment and plan (1) COPD exacerbation: Status: Acute Assessment and plan: continue prednisone, DuoNeb aerosols q4h WA, and albuterol q2h prn and Spiriva; continue Zosyn begun for her diverticulitis but will change to Augmentin at her discharge. Will check exercise oximetry in the a.m. (2) Acute hypoxemic respiratory failure: Status: Acute Assessment and plan: as above (3) Diverticulitis: Status: Chronic Assessment and plan: liquid diet and Zosy, antiemetics, prn Tylenol Advance to regular foods today, if tolerating then can dc her home tomorrow. (4) Smoking: Assessment and plan: transdermal nicotine replacement; encourage patient to quit smoking, patient already on Wellbutrin for her depression. Subjective Subjective Interval history since last seen: Patient complains of not having a BM since prior to her admission. She also states she is hungry and wants more than liquid diet. I told her that I would advance her diet for dinner. As for the BM, she has multiple meds ordered prn for stool softeners and laxatives but apparently none have been given. I will order scheduled doses of Miralax and docusate, order dulcolax and Relistor. As for the diverticulitis, she seems to have no pain until I am minimally touching her abdomen. As for her COPD exacerbation she does not seem to be dyspneic and is able to carry on full conversations w/out breathlessness. She is now on 1 to 2 lpm NC. Exam Narrative Exam Narrative: Middle age white female, alert and oriented, N.A.D. Lungs: clear but w/ diffusely diminished breath sounds, but I can get her to elicit some end expiratory wheeze w/ forceful exhalation Heart: RRR Abdomen: obese, normal bowel sounds, soft, she complains of pain wherever I touch her w/ just minimal palpation but when I distract her she does not seem to be in any pain Legs/feet: no edema Objective Last Vital Signs Temp 37.1 C 08/04/23 15:10 Pulse 86 08/04/23 15:10 Resp 18 08/04/23 15:10 BP 151/88 H 08/04/23 15:10 Pulse Ox 89 L 08/04/23 15:25 Laboratory Results - last 24 hr 08/04/23 06:32 WBC 7.70 RBC 4.34 Hgb 11.5 Hct 38.8 MCV 89 MCH 26.5 L MCHC 29.6 L RDW 17.0 H Plt Count 167 MPV 12.1 H Immature Gran % 0.6 Neutrophils % 89.2 Lymphocytes % 5.2 Monocytes % 4.7 Eosinophils % 0.0 Basophils % 0.3 Nucleated RBC % 0.0 Absolute Neutrophils 6.87 H Absolute Lymphocytes 0.40 L Absolute Monocytes 0.36 Absolute Eosinophils 0.00 Absolute Basophils 0.02 Sodium 142 Potassium 4.4 Chloride 105 Carbon Dioxide 35.1 H Anion Gap 1.9 L BUN 14 Creatinine 0.8 Est GFR (CKD-EPI 2020) 85.89 Glucose 115 H Calcium 8.4 L Magnesium 1.9 Time Spent with Patient Time Spent with Patient: 25-34 minutes Time was spent: preparing to see the patient(eg.review tests), ordering medications,tests, procedures, referring, communicating with other health out of school hours care worker, indepentently interpreting results and counseling the patient
[2023-08-04] MEDS: Methylnaltrexone 12 MG/0.6 ML VIAL 8 MG SC (18:40)
[2023-08-04] MEDS: Docusate Sodium 100 MG CAP PO (18:41)
[2023-08-04] MEDS: Bisacodyl 10 MG SUPP PR (18:42)
[2023-08-04] MEDS: Polyethylene Glycol 3350 17 GM PACKET PO (18:42)
[2023-08-04] MEDS: Lurasidone 40 MG TAB 160 MG PO (20:21)
[2023-08-04] MEDS: Prazosin 1 MG CAP PO (20:22)
[2023-08-04] MEDS: OLANZapine 5 MG TAB 15 MG PO (20:22)
[2023-08-05] VITALS (8 sets, daily range): BP systolic 114–141; BP diastolic 72–87; PULSE 75–110; RESP 16–22; TEMP 36.1–37.1; O2SAT 82–98
[2023-08-05] MEDS: PIPERACILLIN/TAZO 4.5 GM in Normal Saline 100 ML IVPB ×3 (03:15→20:28)
[2023-08-05] MEDS: Levothyroxine 88 MCG TAB PO (05:50)
[2023-08-05] MEDS: Ondansetron 4 MG/2 ML VIAL IVP ×2 (07:46→16:14)
[2023-08-05] MEDS: Normal Saline Flush 10 ML SYR IVP ×6 (07:46→20:31)
[2023-08-05] MEDS: Milk of Magnesia 30 ML CUP PO (07:46)
[2023-08-05] MEDS: Acetaminophen 500 MG TAB 1000 MG PO ×2 (07:47→16:11)
[2023-08-05] MEDS: Polyethylene Glycol 3350 17 GM PACKET PO ×2 (07:47→20:31)
[2023-08-05] MEDS: predniSONE 20 MG TAB 40 MG PO (07:47)
[2023-08-05] MEDS: guaiFENesin 600 MG TABCR PO ×2 (07:47→20:29)
[2023-08-05] MEDS: buPROPion 100 MG TAB PO (07:47)
[2023-08-05] MEDS: Ferrous Sulfate 325 MG TAB PO (07:48)
[2023-08-05] MEDS: Gabapentin 300 MG CAP PO ×4 (07:48→20:29)
[2023-08-05] MEDS: Docusate Sodium 100 MG CAP PO ×2 (07:48→20:29)
[2023-08-05] MEDS: Tiotropium Bromide-Respimat 10 PUFF INH 2 PUFF IH (08:55)
--- NOTE | 2023-08-05 10:23 | PDOC.CMPRO ---
Date of service: 08/05/23 Time of Service: 10:23 Care Management Progress Note Progress Note Text Progress Note Text: S/O:Ester was sitting up in bed when CM met with her. When asked how she was feeling she responded not good. She went on to explain that she has abdominal pain because she is constipated. She had been given various laxatives with no success .. Ester did say her breathing was better. She is not currently receiving home oxygen.. An ambulatory pulse oximetry test was ordered and completed. Ester requires 3L/min of nasal oxygen to maintain her oxygen saturation at 89% or above. Home oxygen will be ordered by [facility]. It may delay Ester's discharge until tomorrow. A:Ester is a 58 yeqar old woman admitted on 08/03/23 with COPD and respiratory failure P:Ester will return to [place] when medically cleared by provider. She will have new home oxygen at 3L/min for both rest and activity. Ester will follow up with her PCP and plan of care as prescribed and transport via private vehicle vs [facility].. CM will follow and continue to assess for discharge needs.
[2023-08-05] MEDS: Bisacodyl 10 MG SUPP PR (12:20)
--- NOTE | 2023-08-05 14:10 | PGE_ITS ---
Date of Service Date of service: 08/05/23 Time of Service: 13:00 Assessment and Plan Assessment and plan (1) COPD exacerbation: Status: Acute Assessment and plan: continue medrol, bronchodilators, wean oxygen; evaluate for cor pulmonale w/ echocardiogram; clinically I think she is hypervolemic and will give her one time dose of bumex 2 mg iv. Will reassess her volume status again in the morning and decide on whether or not she needs maintenance diuretics. (2) Acute hypoxemic respiratory failure: Status: Acute Assessment and plan: secondary to COPD exacerbation and possible CHF (3) Diverticulitis: Status: Chronic Assessment and plan: patient requested an advance of her diet and is tolerationg solid foods so far. continue Zosyn while inpatient but will change to Augmentin for discharge; hopefully will dc back to [place] later this weekend. (4) Smoking: Assessment and plan: transdermal nicotine replacement; encourage patient to quit smoking, patient already on Wellbutrin for her depression. Subjective Subjective Interval history since last seen: Ester does not feel ready to return to [place]. She feels that her legs are weak and shakey. She still get out of breath w/ little activity. She is down to 2 lpm NC and her SPO2 is 91%. She has no productive cough. I told her that I would get P.T. involed w/ her care to evaluate her shakey legs. for her dyspnea, we will get echocardiogram to evaluate for cor pulmonale. She has elevated BNP and exam suggests some edema. Exam Narrative Exam Narrative: Middle age female who appears older than her stated age of 58. She is mild to moderately dyspneic w/ prolonged conversations but not using her accessory respiratory muscles Lungs: diffuse course expiratory wheezes Heart: RRR, no appreciable murmur or rub or gallop Abdomen: soft, normal bowel sounds, she is mildly tender diffusely, her level of pain is not commensurate w/ my exam, abdomen remains soft and nondistended Extremities: she has 1+ pitting pedal and ankle edema and edema of her lower tibia Objective Last Vital Signs Temp 37.0 C 08/05/23 11:55 Pulse 84 08/05/23 11:55 Resp 17 08/05/23 11:55 BP 129/80 08/05/23 11:55 Pulse Ox 90 L 08/05/23 11:55 Time Spent with Patient Time Spent with Patient: 35-49 minutes Time was spent: preparing to see the patient(eg.review tests), ordering medications,tests, procedures, referring, communicating with other health nurse healthcare manager, indepentently interpreting results, counseling the patient and care coordination
--- NOTE | 2023-08-05 16:00 | DI.US_ITS ---
APPROVED REPORT EXAM: Comprehensive 2D, Doppler, and color-flow Echocardiogram Patient Location: In-Patient Room/Bed: 230 Teacher Visually Impaired: Steven Bonilla RDCS (AE) Indications: dyspnea, eval LV and RV function Conclusion 1. LV is normal size, other chambers moderately dilated. 2. Mild concentric LVH with normal systolic function, EF 55-60%. Paradoxical septal motion secondary to pulmonary hypertension. 3. Mildly to moderately depressed RV function. 4. Anatomically normal valves. Trace MR. Mild TR with severe pulmonary hypertension. 5. No pericardial effusion 6. No intrtacardiac shunt. Impression: Possible cor pulmonale. Wall motion Left Ventricle The left ventricle is normal size. The left ventricular systolic function is normal. The left ventric ular ejection fraction is within the normal range. There is normal left ventricular wall thickness. T here is normal LV segmental wall motion. There is no ventricular septal defect visualized. LVEF is 57 -60%. Right Ventricle Right ventricle is mild to moderately dilated. Right ventricle appears hypokinetic. Atria The left atrium size is normal. Right atrium is mildly dilated. The interatrial septum is intact with no evidence for an atrial septal defect. Aortic Valve The aortic valve is normal in structure. Aortic valve is probably trileaflet. There is no aortic valv ular stenosis. No aortic regurgitation is present. Mitral Valve The mitral valve is normal in structure. No evidence of mitral valve stenosis. Mild mitral regurgitat ion. Tricuspid Valve The tricuspid valve is normal in structure. There is no tricuspid valve stenosis. Moderate tricuspid regurgitation. The RVSP is 65.6 mmHg. Pulmonic Valve The pulmonary valve is normal in structure. There is no pulmonic valvular stenosis. There is no pulmo jemma valvular regurgitation. Great Vessels Aortic root is mildly dilated. The ascending aorta is normal in size. Aortic arch is normal in calib er. The IVC collapses <50% with inspiration. Pericardium There is no pericardial effusion. 2D Dimensions IVSD d PLAX 1.04 cm F: 0.6-1.0 Ao Root d 3.50 cm F: 2.7 - 3.3 LVPW d PLAX 0.96 cm F: 0.6 - 1.0 Ao Asc Diam d 2.94 cm F: 2.3 - 3.1 LVID d PLAX 4.91 cm F: 3.8 - 5.2 LVDs 3.32 cm F: 2.2 - 3.5 LV EF Teichholz 60.4 % FS 32.32 % LV EDV (Teich) 113.3 mL LV ESV (Teich) 44.8 mL Stroke Vol Index (Teich) 41.21 M-Mode TAPSE 1.80 cm (M/F) >1.7 Auto EF LV EDV A4C 83.9 mL LV EDV A2C 111.8 mL LV EDV BP 97.4 mL LV ESV A4C 36.5 mL LV ESV A2C 47.1 mL LV ESV BP 39.5 mL LVEF(%) A4C 56.5 % LVEF(%) A2C 57.8 % LVEF(%) BP 59.5 % LV SV A4C 47.4 ml LV SV A2C 64.7 ml LV SV BP 58.0 ml LV CO A4C 3.9 L/min LV CO A2C 5.1 L/min LV CO BP 4.5 L/min HR A4C 82.57 BPM HR A2C 79.13 BPM LV EDV Index (BP) LA Volume LA Length A4C 5.2 cm LA Length A2C 4.7 cm LA Area A4C s 14.64 cm2 LA Area A2C s 13.44 cm2 LA Vol A4C A-L 35.15 mL LA Vol A2C A-L 32.99 mL LA Vol Biplane A-L 35.9 mL LA Vol/BSA A4C A-L LA Vol/BSA A2C A-L LA Vol/BSA BP A-L 21.6 mL/m2 LA Vol A4C MOD 34.1 mL LA Vol A2C MOD 30.7 mL LA Vol BP MOD 34.1 mL RA Volume RA Area A4C 13.6 cm2 RA ESV A4C (A-L) 36.0mL RA Vol/BSA A4C A-L RA Length A4C 4.4 cm RA ESV A4C (MOD) 31.2mL LV Diastology MV E' medial 0.085 (>0.07 m/s) MV E Vmax 1.05 (0.4-1.3 m/s) MV E/E' MED 12.38 (<14) MV A Vmax 1.05 (0.4-1.3 m/s) MV E' lateral 0.064 (>0.1 m/s) E/A Ratio 1.0 MV E/E' LAT 16.40 (<14) MV E' Average 0.075 m/s MV E/E'(average) 14.11 Aortic Valve AoV Vmax 1.41 m/s LVOT Vmax 1.02 m/s AoV Peak Grad 8.0 mmHg LVOT Peak Grad 4.1 mmHg AoV Area (Vmax) 1.88 cm2 LVOT VTI 0.196 m AoV VTI 0.282 m LVOT Mean Grad 2.2 mmHg AoV Mean Mic. 0.95 m/s LVOT SV 51.12 mL AoV Mean Grad 4.1 mmHg LVOT Diam s 1.80 cm AoV Area (VTI) 1.81 cm2 Velocity Ratio 0.72 Mitral Valve MV DT 152 (160-240 msec) Pulmonary Valve PV Vmax 0.93 (0.5-1.5 m/s) RVOT Vmax 0.65 m/s PV Peak Grad 3.5 mmHg RVOT Peak Gr. 1.7 mmHg PV Mean Mic 0.59 m/s RVOT VTI 0.145 m PV Mean Grad 1.6 mmHg RVOT Mean Gr. 0.8 mmHg Tricuspid Valve RA Pressure 8.00 mmHg TR Vmax 3.79 m/s TR Peak Grad 57.5 mmHg RVSP (TR) 65.6 mmHg
[2023-08-05] MEDS: Bumetanide 1 MG/4 ML VIAL 2 MG IVP (16:13)
[2023-08-05] MEDS: Enoxaparin 40 MG/0.4 ML SYR SC (17:34)
[2023-08-05] MEDS: Lurasidone 40 MG TAB 160 MG PO (21:40)
[2023-08-05] MEDS: Senna TAB 1 TAB PO (21:41)
[2023-08-05] MEDS: Prazosin 1 MG CAP PO (21:41)
[2023-08-05] MEDS: OLANZapine 5 MG TAB 15 MG PO (21:41)
[2023-08-06] VITALS (15 sets, daily range): BP systolic 113–142; BP diastolic 67–89; PULSE 82–102; RESP 5–22; TEMP 36.3–37.5; O2SAT 85–97
[2023-08-06] MEDS: PIPERACILLIN/TAZO 4.5 GM in Normal Saline 100 ML IVPB ×2 (04:26→14:30)
[2023-08-06] MEDS: Levothyroxine 88 MCG TAB PO (06:58)
[2023-08-06] MEDS: Albuterol/Ipratropium 3 ML UPD VIAL UPD (07:04)
[2023-08-06 07:15] LABS: Abs Immature Grans 0.04 10^3/uL (0.0-0.06); Absolute Basophil Count 0.02 10^3/uL (0.0-0.2); Absolute Eosinophil Count 0.06 10^3/uL (0.0-0.7); Absolute Lymphocyte Count 1.29 10^3/uL (1.2-3.4); Absolute Monocyte Count 0.82 10^3/uL (0.1-0.8); Absolute Neutrophil Count 7.19 10^3/uL (1.2-6.7); Basophils % 0.2; Eosinophils % 0.6; HCT 41.3 % (36.0-46.0); HGB 12.1 g/dL (11.2-15.7); Immature Grans % 0.4; Lymphocytes % 13.7; MCH 26.8 pg (27.0-33.0); MCHC 29.3 % (32.0-36.0); MCV 91 fL (80-95); Monocytes % 8.7; Neutrophils % 76.4; Platelet Count 174 10^3/uL (130-400); RBC 4.52 10^6/uL (3.93-5.22); RDW 16.7 % (11.7-14.6); RDW-SD 56.3 fL; WBC 9.42 10^3/uL (4.4-10.8)
[2023-08-06 07:32] LABS: Anion Gap 1.2 mmol/L (3-11); BUN 16 mg/dL (7-18); CO2 43.8 mmol/L (21.0-32.0); CREATININE 0.9 mg/dL (0.55-1.02); Calcium 8.8 mg/dL (8.5-10.1); Chloride 99 mmol/L (98-107); Estimated GFR 74.57 (mL/min/1.73m2); Glucose 87 mg/dL (74-106); Potassium 4.8 mmol/L (3.5-5.1); Sodium 144 mmol/L (136-145)
[2023-08-06] MEDS: Tiotropium Bromide-Respimat 10 PUFF INH 2 PUFF IH (07:46)
--- NOTE | 2023-08-06 08:30 | DI.CT_ITS ---
Exam(s) CT HEAD WO EXAM: CT HEAD WO CLINICAL HISTORY: Fall. TECHNIQUE: Imaging Protocol: Axial computed tomography images with coronal and sagittal reformatted images were created and reviewed COMPARISON: No exams were available for comparison FINDINGS: There are no skull fractures. Some mucosal thickening noted in the posterior aspect of the left maxil cody sinus. Other paranasal sinuses are clear. There is no evidence of intracranial hemorrhage, mass effect, or shift of midline structures. There are no extra-axial fluid collections. The ventricles are not enlarged or shifted and there is no blo od within the ventricular system nor within the basal cisterns. IMPRESSION: No acute intracranial findings on this noninfused CT scan of the brain. Some mucosal thickening noted in left maxillary sinus. RADIATION DOSE DELIVERED: 763.58mGy.cm Total DLP DATA REPOSITORY: All CT scans at this facility are submitted to the National Radiology Data Registry (NRDR) Dose Index Registry (DIR) with the [employer] (ACR). RADIATION OPTIMIZATION: All CT scans at this facility use at least one of these dose optimization te chniques: automated exposure control; mA and/or kV adjustment per patient size (includes targeted exa ms where dose is matched to clinical indication); or iterative reconstruction.
--- NOTE | 2023-08-06 09:08 | DI.VRAD_ITS ---
PROCEDURE INFORMATION: Exam: CT Head Without Contrast Exam date and time: 08/06/2023 8:52 AM Age: 58 years old Clinical indication: Injury or trauma; Fall TECHNIQUE: Imaging protocol: Computed tomography of the head without contrast. COMPARISON: No relevant prior studies available. FINDINGS: Brain: Mild volume loss No hemorrhage. Unremarkable white matter. No mass effect. Cerebral ventricles: No ventriculomegaly. Paranasal sinuses: Minimal mucosal thickening. No fluid levels. Mastoid air cells: Visualized mastoid air cells are well aerated. Bones/joints: Unremarkable. No acute fracture. Soft tissues: Unremarkable. IMPRESSION: No acute intracranial hemorrhage Dictated and Authenticated by: Sanford Vivas MD. Ordering:[facility] Evan Bertrand MD
--- NOTE | 2023-08-06 09:29 | NUR.NOTE ---
Nursing Note: I spoke with Ami Elam, Ernie Greenwood web ui developer and reported Ester's fall this morning, and that ct scan was clear. Patient is alert and oriented times two which is her baseline, and does not have any open areas on body. Ami asked if physical therapy is working with her.
[2023-08-06] MEDS: Polyethylene Glycol 3350 17 GM PACKET PO (09:53)
[2023-08-06] MEDS: predniSONE 20 MG TAB 40 MG PO (09:53)
[2023-08-06] MEDS: buPROPion 100 MG TAB PO (09:54)
[2023-08-06] MEDS: Gabapentin 300 MG CAP PO ×3 (09:54→16:45)
[2023-08-06] MEDS: guaiFENesin 600 MG TABCR PO (09:54)
[2023-08-06] MEDS: Ferrous Sulfate 325 MG TAB PO (09:54)
[2023-08-06] MEDS: Docusate Sodium 100 MG CAP PO (09:54)
[2023-08-06] MEDS: Normal Saline Flush 10 ML SYR IVP (09:54)
--- NOTE | 2023-08-06 11:01 | IN_ITS ---
Date of service: 08/06/23 Time of Service: 10:35 PT Notes Visit Reasons: Acute Hypoxic Respiratory Failure,COPD Exacerbatio PT inpatient evaluation Referring Doctor:? Jerzy Gordon PT Orders: PT CONSULT for weakness Precautions: fall risk, O2 Patient Profile/Admitting Diagnosis:? The patient is a 58 yo female adm on 08/03/23 for COPD exacerbation, acute hypoxemic respiratory failure and diverticulitis and smoking. Patient did not have 02 at her home environment and was found to have an have SPO2 of 67% upon admission with c/o abdominal pain. Normally resides at [facility] [place], an assisted living facility in [place], [place]. The patient reports she normally has assist in/out of bed, with using a commode and with walking with her 2 wheeled rolling walker and does not normally have 02. Past Medical History: COPD Smoking Chronic respiratory failure with hypoxia and hypercapnia Auditory hallucination Depression Suicide ideation Medications: see chart Subjective: Patient initially reported she fell 1x this morning, then not at all, then 2 times this morning. Spoke with ANTONIO Tipton who reports she fell 1x this morning with the ANTHROPOLOGY FACULTY MEMBER and did not contact her head. Did have a head CT today which was negative. Objective: Mental Status: Patient is alert and oriented, but only intermittently giving accurate information. Pain: No c/o pain during today's session Vital Signs: On 3L 02 at rest, 93%. 91 HR. Dropped to 88% upon reaching chair with HR 84 BP 122/71. took 3 mins with cuing for breathing to return to 91%. ROM/Strength: Upper extremities: some decreased active shoulder flexion and abduction, but grossly 4/5 strength Lower extremities: no gross ROM issues observed. Strength grossly 4+/5 Sensation: No reports of numbness or tingling. Soft tissue/edema: Bruising on right forearm which patient reports was from IV's. Bed Mobility: Supine to sit supervision with cuing to wait for therapist to be able to observe for safety. Transfers: Sit to stand cg assist 1x. standing in front of commode with walker for support with cga with 1 reported incident of legs giving out with mod assist to assist to return to sitting on the commode. Max assist to remove and don fresh depends with cuing to hold onto the walker for balance and CGA for balance from therapist. Able to perform pericare in standing with cga for balance with set up and cuing only. Sit to stand and SPT with walker from commode to chair with cga only with cuing and some assist for walker and 02 line. Balance: fair with concern for patient suddenly not weight bearing through her extremities. [facility] AM-PAC 6 clicks Basic Mobility Inpatient Short Form: Raw Score:??15? CMS Score: 57.7% disability Informed Consent/Education:? Patient instructed in purpose of PT consult and plan of care and is agreeable Assessment:?The patient is a 58 yo female adm on 08/03/23 for COPD exacerbation, acute hypoxemic respiratory failure and diverticulitis and smoking. Patient presents with decreased strength, decreased functional mobility, decreased balance and difficulty with ambulation. The patient would benefit from skilled inpatient services to improve these impairments to maximize function and safety. Patient is assessed as:? Low 35238?? History: 02, ? mental status Examination: see above Presentation: Stable and uncomplicated? Decision Making:? Low (0 history, 1-2 exam, stable/predictable, easy 20) Physical Therapy Goals: 1 week Able to get in/out of bed with supervision only. Able to perform sit to/from stand with supervision only. Able to walk 25 feet with rolling walker with supervision only. Able to go up and down 2-3 steps with 1 rail with contact guard assist only. Independent with home exercise program Plan of Care/Treatment Plan: 1-2x/day, 7 days/week x 1 week. Plan of care has been reviewed with the DIRECTOR OF LAND ACQUISITION providing the service under Physical Therapy direction. Initiate Physical Therapy intervention for strengthening, bed mobility, transfers, gait, stairs, balance training, use of assistive device. DISCHARGE RECOMMENDATIONS: ? may need increased assist upon return home Billing Charges: Treatment Units Time Duration Manual Therapy(81778) Hands-on techniques to modulate pain increase joint range of motion reduce or eliminate soft tissue swelling, inflammation, or restriction facilitate relaxation and improve contractile and non-contractile tissue extensibility ? ? Therapeutic Procedures (90216) Instruction in therapeutic exercises to develop strength and endurance, range of motion and flexibility. HEP instruction and review: Provided skilled instruction in proper exercise performance: Provided skilled manual cues to facilitate proper muscle recruitment and/or movement pattern Neurological Re-Education(65293) To improve balance, coordination, kinesthetic and proprioceptive sensations. ? ? Ultrasound(12377) To promote healing. ? ? Gait Training(45935) ? ? Therapeutic Activity(01817) Instruction in dynamic activities with one on one patient contact by the provider to improve functional performance as follows: ?1 ?10 Self Care Training(81789) ? ? E-Stim (Attended)(33532) ? ? Low IE(86721) 1 10 Mod IE(32386) ? ? High IE(66668) ? ? Time Coded Treatment Time ? 10 Total Treatment Time ? 20
--- NOTE | 2023-08-06 15:23 | CMDISCH_ITS ---
Date of service: 08/06/23 Time of Service: 15:24 LACE Index Scoring Tool Questions: Length of Stay (in days): 3 Was the patient admitted via the E.D.?: Yes Comorbidities: Chronic Pulmonary Disease E.D. Visits: 2 Answers: Total Score: 10 Risk of Readmission: High Risk Care Management Discharge Plan Reason for Hospitalization: Acute hypoxic respiratory failure, COPD Exacerbation Discharge Plan: juancho will be discharged back to [place]. She will have new home health services for nursing, PT and OT. She will follow up with her community providers and plan of care and transport with the facility owners via private vehicle. Patient/Family Education Needs: Review discharge instructions, activity, limitations, follow up plan and discuss Ask Me Three. Services Needed at Discharge: Home Health Care Services SDOH Health Related Social Needs: No Data to Display
--- NOTE | 2023-08-06 15:23 | RESPIRATORY ---
Addendum entered by Sampson Humphries 08/08/23 15:26: RT notified today by [facility] that this patient's OxLife will be taken away due to the fact that [facility] shows that the patient is currently renting O2 through a company called [employer] and she is not eligible to change companies until November 2023. Original Note: Patient will be discharged home today, Tuesday08/06/23, with portable [employer] concentrator provided by [employer] [facility] [employer]. Pt had exercise oximetry done and charted on 08/05/23 that shows 3L need at rest, and 3L needed with ambulation. Orders for this new home O2 have been put in through the [employer] on 08/05/23.
--- NOTE | 2023-08-06 16:10 | DSE_ITS ---
Date of service: 08/06/23 Time of Service: 16:10 DS: Diagnosis Discharge Diagnosis (1) COPD exacerbation: Status: Acute (2) Acute hypoxemic respiratory failure: Status: Acute (3) Diverticulitis: Status: Chronic (4) Smoking: Discharge Plan Disposition Patient Disposition: Home W/Home Health Services Condition: Improving Discharge Details Reason For Visit: Acute Hypoxic Respiratory Failure,COPD Exacerbatio Admit Date/Time: 08/03/23 15:32 Admit Provider: Jerzy Gordon Attending Provider: Jerzy Gordon Primary Care Provider: Unknown,Unknown Hospital Course Hospital Course: 58-year-old female resident of [place] with history of COPD, who has not been on oxygen, hypothyroidism, depression and an unspecified psychiatric disorder in which she has had auditory hallucinations in the past (?schizoaffective, but no documentation of what her psychiatric issues are other than depression. She presented to [facility] on 08/03/23 d/t increased dyspnea and was found to be hypoxemic w/ SPO2 of 67% on room air at her assisted living facility. Evaluation in the ER includedCXR and CT of the chest, abdomen and pelvis (note she also complained of abdominal pains). She was found to have diveriticulitis of the sigmoid colon w/out rupture or abscess.No AAA but atherosclerotic narrowing of left renal artery of 60 to [address]%. [address] chest demonstrated mild cardiomegaly, coronary calcifications but no infiltrates and no P.E. She has moderate hiatal hernia. She has aberrant right subclavian artery. No TAA. She was admitted and put on iv fluids, iv Zosyn, aerosolized bronchodilators and prednisone for her COPD. Exercise oxygen test demonstrated she needs 3 lpm oxygen at rest and w/ ambulation. Patient will be dc back to [place] on taper of medrol along w/ her albuterol inhalers and Spiriva. For her diverticulitis she is to take Augmentin 500 mg 3 x per day for 7 days. Diet is to be low fiber diet for next week then once diveriticulis has resolved, resume high fiber to prevent constipation and prevent recurrent episodes. Patient was sent home w/ a portable oxygen concentrator by RT from [facility]. Note, patient complains of leg weakness and her knees buckling. She did have a fall from her bed on the day of discharge but did not sustain any traumatic injuries. CT of head was done and showed no acute abnormalities. Home health w/ visiting nurse and physical therapy and occupational therapy will be ordered to follow up the patient at [place] to continue to work w/ the patient to improve her gait and balance. Home Meds and New Rx's Prescriptions: New amoxicillin-pot clavulanate [Augmentin] 500-125 mg tablet 1 tab PO TID 7 Days Qty: 21 0RF methylprednisolone [Medrol] 8 mg tablet See Rx Instructions .ROUTE .COMPLEX Qty: 30 0RF Rx Instructions: 8 mg orally 4 tablets daily x 3d, 3 tab/d x 3d, 2 tab/d x 3d, 1 tab/d x 3d tiotropium bromide [Spiriva with HandiHaler] 18 mcg capsule, w/inhalation device 1 cap inhalation DAILY Qty: 30 0RF Rx Instructions: puncture 1 cap using device; one dose = 2 inhalations Continued levothyroxine [Euthyrox] 88 mcg tablet 88 mcg PO DAILY gabapentin 300 mg capsule 300 mg PO QID lurasidone 120 mg tablet 160 mg PO QHS Rx Instructions: must administer with food (at least 350 calories) acetaminophen [Tylenol Extra Strength] 500 mg tablet 1,000 mg PO Q6H PRN lansoprazole 15 mg capsule,delayed release(DR/EC) 15 mg PO DAILY bupropion HCl 100 mg tablet 100 mg PO DAILY AM hydroxyzine HCl 50 mg tablet 50 mg PO ONCE PRN ferrous sulfate [iron] 325 mg (65 mg iron) tablet 325 mg PO DAILY albuterol sulfate 90 mcg/actuation HFA aerosol inhaler 2 inh inhalation Q4H PRN prazosin 1 mg capsule 1 mg PO QHS olanzapine 15 mg Tablet 15 mg PO HS Qty: 30 0RF Discharge Instructions Instructions: Diverticulitis Diet (DC), Chronic Lung Disease and Infection Prevention (DC), Energy Conservation Techniques (DC), Nutrition Guidelines for People with COPD (DC) Additional Instructions: Please call the pulmonary clinic to make a follow up appointment w/ Dr. Sims. This should have occurred after your hospitalization in May. You need follow up on your COPD. Activity:: Activity as Tolerated Equipment/Supplies:: 3 liter oxygen Diet:: As Tolerated Discharge Orders Discharge Orders: Discharge Order (Routine); Ordered 08/06/23 Ordered By: Jerzy Gordon DS: Summary Time Spent with Patient providing and/or coordinating discharge services: Greater than 30 minutes Specific discharge activities: Interview/exam of patient; review of discharge instructions, completion of prescriptions/discharge instructions; discussion w/ nursing and CM; documentation of hospital visit Status at Discharge Functional status at discharge: uses cane/walker Overall status at discharge: patient is progressing back to baseline Mental Status: mental status grossly normal Speech and Movement: speech and movement normal Mood: congruent mood Affect: normal affect Quality:SDOH Health Related Social Needs: No Data to Display Exam Narrative Exam Narrative: Ester was seen this afternoon sitting up in bed. She asked to be assisted up. I assisted her in getting out of bed and walking a few steps. She was reluctant to get out of bed although she was wanting help to sit up and be repositioned. Nevertheless w/ much encouragement she ambulated a few steps. She kept saying she feared that she was going to fall and would act like her knees were buckling but when told to straighten her legs up and lock her knees in place, she did so and was able to walk w/ just assistance of one person holding her hand to steady her LUngs: she still has diffuse expiratory wheezing; no rhonchi or rales Heart: RRR, no murmur or rub Legs: no edema of legs or feet, normal strength and ROM in her legs and feet Psych Mental Status: mental status grossly normal Speech and Movement: speech and movement normal Mood: congruent mood Affect: normal affect DS: Data Vitals/I&O Vitals and I&O: Vital Signs Temperature 37.5 C 08/06/23 15:55 Temperature Source Tympanic 08/06/23 15:55 Pulse 94 H 08/06/23 15:55 Pulse Rhythm Regular 08/06/23 08:10 Respiratory Rate 16 08/06/23 15:55 Respiratory Effort Normal, Non-Labored 08/06/23 08:10 Respiratory Depth Shallow 08/06/23 08:10 Respiratory Pattern Normal 08/06/23 08:10 Blood Pressure 137/86 08/06/23 15:55 Blood Pressure Mean 92 08/03/23 16:45 Pulse Oximetry 91 L 08/06/23 15:55 Oxygen Delivery Method Nasal Cannula 08/06/23 15:55 Oxygen Flow Rate 3 08/06/23 15:55 Pain Level 0 08/06/23 15:55 Comment stats relayed to RN 08/04/23 15:10 Intake & Output 08/05/23 08/06/23 08/06/23 23:59 11:59 23:59 Intake Total 100 / 640 200 / 800 600 / 800 Output Total 1375 / 2325 800 / 1000 200 / 1000 Balance -1275 / -1685 -600 / -200 400 / -200 Weight 71.3 kg Intake: IV 100 / 300 200 / 200 Oral 600 / 600 Output: Urine 1375 / 2325 800 / 1000 200 / 1000 Other: Urine Color Yellow Yellow Urine Appearance Clear Clear Clear Cloudy Urine Odor Normal Normal Stool Size Smear Voiding Methods Bedside Commode Bedside Commode Data Completed and Pending Labs on day of discharge: Labs from last 24 hours 08/06/23 08/06/23 06:40 06:40 WBC 9.42 RBC 4.52 Hgb 12.1 Hct 41.3 MCV 91 MCH 26.8 L MCHC 29.3 L RDW 16.7 H Plt Count 174 MPV 12.0 H Immature Gran % 0.4 Neutrophils % 76.4 Lymphocytes % 13.7 Monocytes % 8.7 Eosinophils % 0.6 Basophils % 0.2 Nucleated RBC % 0.0 Absolute Neutrophils 7.19 H Absolute Lymphocytes 1.29 Absolute Monocytes 0.82 H Absolute Eosinophils 0.06 Absolute Basophils 0.02 Sodium 144 Potassium 4.8 Chloride 99 Carbon Dioxide 43.8 H Anion Gap 1.2 L BUN 16 Creatinine 0.9 Est GFR (CKD-EPI 2020) 74.57 Glucose 87 Calcium 8.8 Magnesium Cancelled 2.0 PFSH All Active Problems COPD exacerbation (Acute) Acute hypoxemic respiratory failure (Acute) Diverticulitis (Chronic) Medical History Smoking Chronic respiratory failure with hypoxia and hypercapnia Fever Chronic hypoxic respiratory failure COPD (chronic obstructive pulmonary disease) Auditory hallucination Depression Suicide ideation Social History Smoking/Tobacco Use Status: Current every day Tobacco Type: cigarettes Years smoked: 41 Smoking risk assessment performed?: Yes Alcohol Intake: never Drug use: Never Substance use type: does not use Housing: assisted living facility Additional Social history: Lives at [facility] Radha Sneed RN 1/10/24 Time Spent with Patient Time Spent with Patient: <45 minutes Time was spent: preparing to see the patient(eg.review tests), ordering medications,tests, procedures, referring, communicating with other health wound care specialist, indepentently interpreting results, counseling the patient and care coordination
--- NOTE | 2023-08-06 16:14 | PDOC.HHF2F_ITS ---
Home Health Referral Home Health Orders Clinical synopsis of why skilled professionals are needed: COPD, diverticulitis, generalize weakness and ambulatory dyfunction d/t deconditioning. Patient needs visiting nurse to asses medication changes, response to medications and stability of her chronic conditions and resolution of her acute conditions (COPD exacerbation and acute sigmoid diverticulitis). She need P.T. and O.T. to evaluate and treat her for her deconditioning and general weakness and ambulatory dysfunction Medical diagnosis necessitation home health referral: as above. Registered Nurse: Check all that apply Instruct on new or changed medication(s)/assess compliance: Ordered Assess for exacerbation of medical condition, instruct patient/caregivers on signs and symptoms to report for early detection: Ordered Physical Therapist: Check all that apply Increase strength & endurance for safe mobility at home: Ordered To design/establish home maintenance program: Ordered Fall reduction therapy program for patient with history of frequent falls: Ordered Home safety evaluation and teaching/gait training including stair management (if applicable): Ordered Better Breathing Program: Ordered Occupational Therapist: Evaluate and treat for patient unable to perform ADL/IADL/self-care: Ordered Crewman [employer] Tank: Assist with community resources: Ordered Home Bound Status Requires the aid of supportive device (check all that apply): Walker Describe why leaving home would require a considerable and taxing effort: Requires frequent rest periods and Oxygen Encounter Date and Reason: I certify that a FTF encounter for this patient was performed on August 06, 2023 and that such encounter was related to the primary reason the patient requires home health services. The encounter was conducted in the following manner: * By me as the certifying physician, HUMAN RESOURCES PROJECT MANAGER, PA or * By an inpatient physician, HUMAN RESOURCES PROJECT MANAGER or PA during an inpatient stay who communicated findings to me, Certification And Authentication I certify that I composed the above information based on my clinical judgment relating to this patient's medical condition and, if applicable, clinical findings communicated to me by the NPP or inpatient physician who performed the FTF encounter. Name of Provider that will be monitoring home health services: Alexandra Perez
== END 2023-08-06 17:22 | disposition home health service (06) | DRG 190 ==
LOC: ER 16:10 → MS 17:15
PROVIDERS: Admitting Provider Internal Medicine; Emergency Provider Physician Assistant; Visit Provider Internal Medicine
DX: J44.1 Chronic obstructive pulmonary disease with (acute) exacerbation (principal); J96.21 Acute and chronic respiratory failure with hypoxia; K57.32 Diverticulitis of large intestine without perforation or abscess without bleeding; J96.12 Chronic respiratory failure with hypercapnia; R45.851 Suicidal ideations; F17.210 Nicotine dependence, cigarettes, uncomplicated; R50.9 Fever, unspecified; F32.A Depression, unspecified; E03.9 Hypothyroidism, unspecified; I70.1 Atherosclerosis of renal artery; R53.1 Weakness; W06.XXXA Fall from bed, initial encounter; Y92.230 Patient room in hospital as the place of occurrence of the external cause
CPT/HCPCS: 00123; 36415; 51701; 71275; 80048; 80053; 80076; 82805; 83690; 84145; 85652; 87637; 93005; 94618; 94640; 96374; 97161; 97530; 99285; J1650; 70450; 71045; 74174; 81003; 81015; 83605; 83735; 83880; 84484; 85025; 85379; 86140; 93010; 93306; 94664; 94667; 94668; 94760; 99223; 99232; 99233; 99239; J1939; J2212; J2405; J2543; J2930; J3490; J7512; J7620

== ENCOUNTER 2023-08-07 10:11 | Emergency (ER) | payer MEDICARE, MEDICAID, SELFPAY ==
[2023-08-07] VITALS (14 sets, daily range): BP systolic 76–139; BP diastolic 42–98; PULSE 54–95; RESP 16; TEMP 35.9; O2SAT 87–95
--- NOTE | 2023-08-07 10:15 | DI.RAD_ITS ---
Exam(s) XR ANKLE LT COMPLETE EXAM: XR ANKLE LT COMPLETE CLINICAL HISTORY: Left ankle pain. TECHNIQUE: 2D digital imaging was performed. COMPARISON: No exams were available for comparison FINDINGS: 3 views There is soft tissue swelling over the lateral aspect of the ankle. There is a small avulsion fragment off the inferior aspect of the lateral malleolus. No other fractu re seen. No widening of the ankle mortise. Talar dome unremarkable. Base of the 5th metatarsal unr emarkable. Moderate size inferior calcaneal spur noted. IMPRESSION: Small avulsion fracture off the lateral malleolus. There is overlying soft tissue swelling. DATA REPOSITORY: RADIATION DOSE DELIVERED:
--- NOTE | 2023-08-07 10:15 | DI.RAD_ITS ---
Exam(s) XR TIB/FIB LT EXAM: XR TIB/FIB LT CLINICAL HISTORY: Left distal tibia pain. TECHNIQUE: 2D digital imaging was performed. COMPARISON: No exams were available for comparison FINDINGS: Two views-AP and lateral. No evidence of fracture nor dislocation. Tibial plateau unremarkable. Bone density normal. No osse ous lesions. No radiopaque foreign body IMPRESSION: No significant radiographic findings DATA REPOSITORY: RADIATION DOSE DELIVERED:
--- NOTE | 2023-08-07 10:21 | ED.GENADUL_ITS ---
HPI General Stated Complaint: Orthopedic ANDERS: 4 Date/Time Provider Initiated Documentation: 08/07/23 10:20. HPI Narrative: MDM This is an overall well-appearing afebrile not tachycardic 58-year-old female arrived to the emergency department via private vehicle after twisting her ankle getting out of bed this morning. No preceding chest pain to suggest PE. No nausea vomiting no shortness of breath more than usual to suggest ACS so I did not obtain ECG. No focal weakness to suggest CVA so did not obtain CT head. No bilateral upper extremity tenderness and stable pelvis so I did not order additional plain films beyond left ankle and left tib-fib. No pain or proportion to suggest necrotizing soft tissue infection. No shortness of breath and no chest trauma so I did not order a chest x-ray. Anticipate that if patient does not have any acute osseous abnormalities will treat with a walking boot and make patient weightbearing as tolerated. Will treat pain with acetaminophen and ibuprofen prior to plain film. Left foot warm well-perfused I am not concerned for critical limb ischemia so I did not feel that the patient required a CT angiogram with runoffs. 11:18 AM Ankle films read as age-indeterminate small avulsion fraction inferior to the lateral malleolus. Will treat conservatively by placing in a walking boot for presumed new fibular fracture. Left tib-fib read as reassuring. No proximal tenderness to suggest Maisonneuve injury. No signs of instability based on no displacement and no associated medial malleolus fractures nor signs of deltoid ligament injury nor widening of joint space so we will treat as ankle sprain however make patient nonweightbearing with crutches and walking boot. I have asked health cracking unit operator Deirdre to have the patient seen by ortho later this week. Patient has a walker at home which she will use. I advised acetaminophen and ibuprofen for pain. Chronic conditions affecting the care of the patient: COPD on home oxygen History obtained from an outside historian: N/A External record review: N/A Medications: Acetaminophen ibuprofen Social determinants of health affecting disposition: N/A Management discussed with: N/A Treatment/interventions considered: N/A Response to therapies provided: N/A HPI This is a 58-year-old female with a history of COPD on chronic home oxygen arrived to the emergency department via private vehicle in the setting of left ankle pain. Patient was discharged yesterday following a hospitalization in the setting of COPD exacerbation. No preceding chest pain dizziness or shortness of breath. No nausea no vomiting. Patient denies head strike. She did not lose consciousness. She is not having any neck pain. She was in her usual state of health earlier this morning. Exam General: Chronically-appearing in no acute distress speaking in complete sentences. Wearing nasal cannula Head: Normocephalic, atraumatic. Eye: Extraocular eye movements intact. No conjunctival injection. No scleral icterus. Ear, nose, mouth, throat: Grossly normal inspection. Normal voice, handling secretions normally. Neck: Trachea midline. Cardiovascular: Well-perfused distal extremities. Respiratory: Nonlabored respiration. Gastrointestinal: Nondistended abdomen. Musculoskeletal: Left lower extremity with no obvious signs of trauma. Left foot warm well-perfused capillary refill less than 2 seconds in left toes. 2+ left PT and DP pulses. Patient does have tenderness over her lateral left malleolus. She also has some distal tibial tenderness. No knee tenderness. No lacerations or deformities. Pelvis stable. No tenderness to thigh, knee nor proximal tibia. Skin: Normal for age and race, grossly normal temperature and turgor. No acute rash. Neurologic: Alert and appropriate, no apparent acute deficits. Psychiatric: Mood and manner are appropriate. Grooming and personal hygiene are appropriate. Related Data Home Medications Medication Instructions Recorded Confirmed acetaminophen 500 mg tablet 1,000 mg PO Q6H PRN 05/26/23 08/07/23 (Tylenol Extra Strength) albuterol sulfate 90 mcg/actuation 2 inh inhalation Q4H PRN 05/26/23 08/07/23 aerosol inhaler bupropion HCl 100 mg tablet 100 mg PO DAILY AM 05/26/23 08/07/23 ferrous sulfate 325 mg (65 mg 325 mg PO DAILY 05/26/23 08/07/23 iron) tablet (iron) gabapentin 300 mg capsule 300 mg PO QID 05/26/23 08/07/23 hydroxyzine HCl 50 mg tablet 50 mg PO ONCE PRN 05/26/23 08/07/23 lansoprazole 15 mg capsule,delayed 15 mg PO DAILY 05/26/23 08/07/23 release levothyroxine 88 mcg tablet 88 mcg PO DAILY 05/26/23 08/07/23 (Euthyrox) lurasidone 120 mg tablet 160 mg PO QHS 05/26/23 08/07/23 prazosin 1 mg capsule 1 mg PO QHS 05/26/23 08/07/23 olanzapine 15 mg tablet 15 mg PO HS #30 tabs 06/02/23 08/07/23 amoxicillin 500 mg-potassium 1 tab PO TID 7 days #21 tabs 08/06/23 08/07/23 clavulanate 125 mg tablet (Augmentin) methylprednisolone 8 mg tablet See Rx Instructions .Route 08/06/23 08/07/23 (Medrol) .COMPLEX #30 tabs tiotropium bromide 18 mcg capsule 1 cap inhalation DAILY #30 08/06/23 08/07/23 with inhalation device (Spiriva inhalations with HandiHaler) Previous Rx's Medication Instructions Recorded olanzapine 15 mg tablet 15 mg PO HS #30 tabs 06/02/23 amoxicillin 500 mg-potassium 1 tab PO TID 7 days #21 tabs 08/06/23 clavulanate 125 mg tablet (Augmentin) methylprednisolone 8 mg tablet See Rx Instructions .Route 08/06/23 (Medrol) .COMPLEX #30 tabs tiotropium bromide 18 mcg capsule 1 cap inhalation DAILY #30 08/06/23 with inhalation device (Spiriva inhalations with HandiHaler) Allergies Allergy/AdvReac Type Severity Reaction Status Date / Time erythromycin base Allergy Intermediate Anaphylaxis Unverified 08/07/23 11:03 [From Erythrocin] prednisone AdvReac Mild Psychosis Unverified 08/07/23 11:03 PFSH All Active Problems (Updated 08/07/23 @ 11:22 by Elia Boucher MD) Closed fibular fracture (Acute) COPD exacerbation (Acute) Acute hypoxemic respiratory failure (Acute) Diverticulitis (Chronic) Medical History Smoking Chronic respiratory failure with hypoxia and hypercapnia Fever Chronic hypoxic respiratory failure COPD (chronic obstructive pulmonary disease) Auditory hallucination Depression Suicide ideation Social History Smoking/Tobacco Use Status: Current every day Tobacco Type: cigarettes Years smoked: 41 Smoking risk assessment performed?: Yes Alcohol Intake: never Drug use: Never Substance use type: does not use Housing: assisted living facility Do you feel safe at home: Yes Do you feel safe in your relationship?: Yes Additional Social history: Lives at [facility] Radha Sneed RN 08/03/23 Course Vital Signs Vital signs: Vital Signs Temperature 35.9 C L 08/07/23 10:16 Pulse 54 L 08/07/23 10:16 Respiratory Rate 16 08/07/23 10:16 Blood Pressure 102/81 08/07/23 10:16 Pulse Oximetry 87 L 08/07/23 10:16 Temperature 35.9 C L 08/07/23 10:16 Temperature Source Temporal Artery Scan 08/07/23 10:16 Pulse 54 L 08/07/23 10:16 Respiratory Rate 16 08/07/23 10:16 Blood Pressure 102/81 08/07/23 10:16 Pulse Oximetry 87 L 08/07/23 10:16 Oxygen Delivery Method Nasal Cannula 08/07/23 10:16 Oxygen Flow Rate 4 08/07/23 10:16 Medical Decision Making Quality:SDOH Health Related Social Needs: No Data to Display Discharge Plan Disposition Patient Disposition: Home Discharge Details Clinical Impression: Closed fibular fracture Primary Care Provider: Unknown,Unknown ED Provider: Elia Boucher [place] Meds and New Rx's Prescriptions: Continued levothyroxine [Euthyrox] 88 mcg tablet 88 mcg PO DAILY gabapentin 300 mg capsule 300 mg PO QID lurasidone 120 mg tablet 160 mg PO QHS Rx Instructions: must administer with food (at least 350 calories) acetaminophen [Tylenol Extra Strength] 500 mg tablet 1,000 mg PO Q6H PRN lansoprazole 15 mg capsule,delayed release(DR/EC) 15 mg PO DAILY bupropion HCl 100 mg tablet 100 mg PO DAILY AM hydroxyzine HCl 50 mg tablet 50 mg PO ONCE PRN ferrous sulfate [iron] 325 mg (65 mg iron) tablet 325 mg PO DAILY albuterol sulfate 90 mcg/actuation HFA aerosol inhaler 2 inh inhalation Q4H PRN prazosin 1 mg capsule 1 mg PO QHS olanzapine 15 mg Tablet 15 mg PO HS Qty: 30 0RF amoxicillin-pot clavulanate [Augmentin] 500-125 mg tablet 1 tab PO TID 7 Days Qty: 21 0RF methylprednisolone [Medrol] 8 mg tablet See Rx Instructions .ROUTE .COMPLEX Qty: 30 0RF Rx Instructions: 8 mg orally 4 tablets daily x 3d, 3 tab/d x 3d, 2 tab/d x 3d, 1 tab/d x 3d tiotropium bromide [Spiriva with HandiHaler] 18 mcg capsule, w/inhalation device 1 cap inhalation DAILY Qty: 30 0RF Rx Instructions: puncture 1 cap using device; one dose = 2 inhalations Discharge Instructions Instructions: Leg Fracture (ED) Additional Instructions: You were seen for your ankle pain. You are found to have a small fracture of your left distal fibula. Please use his crutches as directed. Please do not bear weight on your left ankle. Please wear this walking boot. Please call the orthopedic team for follow-up later this week. For your pain please take medications as follows: 1. Take acetaminophen (Tylenol), 1,000 mg (two 500 mg tabs) every 6 hours [2. Take ibuprofen (Advil), 400 mg every 6 hours.] Referrals: Bowen Kenney MD [ [facility] STAFF PHYSICIAN] - Discharge Data Discharge Date/Time-TO BE ENTERED AT DEPARTURE: 08/07/23 12:15
[2023-08-07] MEDS: Ibuprofen 400 MG TAB PO (10:39)
[2023-08-07] MEDS: Acetaminophen 500 MG TAB 1000 MG PO (10:39)
--- NOTE | 2023-08-07 11:06 | DI.VRAD_ITS ---
PROCEDURE INFORMATION: Exam: XR Left Tibia and Fibula Exam date and time: 08/07/2023 10:46 AM Age: 58 years old Clinical indication: Other: Left distal tibia pain TECHNIQUE: Imaging protocol: Radiologic exam of the left tibia and fibula. Views: 2 views. COMPARISON: CR XR ANKLE LT COMPLETE 08/07/2023 10:45 AM FINDINGS: Bones/joints: Normal. Soft tissues: Normal. IMPRESSION: No acute findings. Dictated and Authenticated by: Dima Gudino MD. Ordering:CLEMENTE Rodrigez MD
--- NOTE | 2023-08-07 11:06 | DI.VRAD_ITS ---
PROCEDURE INFORMATION: Exam: XR Left Ankle Exam date and time: 08/07/2023 10:45 AM Age: 58 years old Clinical indication: Other: Left ankle pain TECHNIQUE: Imaging protocol: Radiologic exam of the left ankle. Views: 3 or more views. COMPARISON: No relevant prior studies available. FINDINGS: Bones/joints: Age-indeterminate small avulsion fracture fragment inferior to the lateral malleolus. Distal tibia is intact. Soft tissues: Soft tissue swelling. IMPRESSION: Age-indeterminate small avulsion fracture fragment inferior to lateral malleolus. Dictated and Authenticated by: Dima Gudino MD. Ordering:CLEMENTE Rodrigez MD
--- NOTE | 2023-08-07 11:48 | NUR.NOTE ---
Pt fitted in an orthopedic boot and given a walker for discharge. Boot fitted to comfort of Pt. No complications. Nursing Note:
== END 2023-08-07 12:15 | disposition home or self-care (01) ==
PROVIDERS: Emergency Provider Emergency Medicine
DX: S82.55XA Nondisplaced fracture of medial malleolus of left tibia, initial encounter for closed fracture (principal); M77.32 Calcaneal spur, left foot; J44.9 Chronic obstructive pulmonary disease, unspecified; F17.210 Nicotine dependence, cigarettes, uncomplicated; Z99.81 Dependence on supplemental oxygen; W06.XXXA Fall from bed, initial encounter; Y93.01 Activity, walking, marching and hiking; Y92.013 Bedroom of single-family (private) house as the place of occurrence of the external cause
CPT/HCPCS: 99283; 73590; 73610

== ENCOUNTER 2023-08-15 15:10 | Outpatient (REF) | payer MEDICARE, MEDICAID, SELFPAY ==
[2023-08-15 16:01] LABS: Abs Immature Grans 0.18 10^3/uL (0.0-0.06); Absolute Eosinophil Count 0.13 10^3/uL (0.0-0.7); Absolute Monocyte Count 0.99 10^3/uL (0.1-0.8); Basophils % 0.5; Eosinophils % 0.7; HCT 37.1 % (36.0-46.0); HGB 11.4 g/dL (11.2-15.7); Lymphocytes % 6.9; MCH 26.3 pg (27.0-33.0); MCHC 30.7 % (32.0-36.0); MCV 86 fL (80-95); MPV 12.6 fL (8.0-11.0); Monocytes % 5.3; Neutrophils % 85.6; Platelet Count 287 10^3/uL (130-400); RBC 4.34 10^6/uL (3.93-5.22); RDW 17.2 % (11.7-14.6); RDW-SD 53.1 fL
[2023-08-15 16:08] LABS: ALT 14 U/L (14-59); AST 16 U/L (15-37); Albumin 2.2 g/dL (3.4-5.0); Alkaline Phosphatase 107 U/L (46-116); Anion Gap 8.1 mmol/L (3-11); BUN 11 mg/dL (7-18); Bilirubin, Total 0.3 mg/dL (0.2-1.0); C-Reactive Protein 22.39 mg/dL (0.0-0.3); CO2 32.9 mmol/L (21.0-32.0); CREATININE 0.6 mg/dL (0.55-1.02); Calcium 8.5 mg/dL (8.5-10.1); Chloride 99 mmol/L (98-107); Estimated GFR 104.63 (mL/min/1.73m2); Glucose 95 mg/dL (74-106); Potassium 4.1 mmol/L (3.5-5.1); Sodium 140 mmol/L (136-145); Total Protein 6.9 g/dL (6.4-8.2)
[2023-08-15 16:09] LABS: Absolute Basophil Count 0.09 10^3/uL (0.0-0.2); Absolute Lymphocyte Count 1.28 10^3/uL (1.2-3.4); Absolute Neutrophil Count 15.92 10^3/uL (1.2-6.7)
[2023-08-15 16:12] LABS: ESR 104 mm/hr (0-30)
== END 2023-08-15 15:11 | disposition home or self-care (01) ==
LOC: NCHCN 15:10
PROVIDERS: Visit Provider Nurse Practitioner Family
DX: R10.9 Unspecified abdominal pain (principal); R70.0 Elevated erythrocyte sedimentation rate; R79.82 Elevated C-reactive protein (CRP)
CPT/HCPCS: 80053; 85652; 85025; 86140

== ENCOUNTER 2023-08-15 17:54 | Inpatient (IN) | payer MEDICARE, MEDICAID, SELFPAY ==
[2023-08-15 18:04] VITALS: BP 152/70; PULSE 103; RESP 16; TEMP 36.4; O2SAT 97
--- NOTE | 2023-08-15 18:15 | DI.CT_ITS ---
Exam(s) CT ABDOMEN PELVIS W EXAM: CT ABDOMEN PELVIS W CLINICAL HISTORY: abd pain, TECHNIQUE: Imaging Protocol: Axial computed tomography images with coronal and sagittal reformatted images were created and reviewed CONTRAST MATERIAL: Intravenous: Omnipaque 350 Contrast volume:100 mL Oral: No COMPARISON: CT CT ABDOMEN PELVIS CTA from 08/03/[address] CHEST PE CTA from 08/03/2023 FINDINGS: ABDOMEN: Lung Bases: There is a small hiatal hernia. Liver: Normal density. There are few tiny hypodensities in the liver (less than 3 mm). They are too small for further characterization. No suspicious hepatic lesions are seen. Portal, Superior Mesenteric, and Splenic Veins: Unremarkable. Gallbladder and Biliary Tract: There is layering debris seen in the gallbladder which may represent s tones or sludge. There is no biliary ductal dilatation. Pancreas: Normal density, no abnormal calcifications or inflammatory process. There is a duodenal div erticulum adjacent to the pancreatic head. Spleen: Normal. Adrenals: No masses seen. Kidneys: Normal size, contour and axis. No radiodense stones or obstructive uropathy. There is a simp le cyst at the inferior pole of the left kidney. No follow-up is recommended. Abdominal Aorta: Abdominal portion non-dilated. Atherosclerosis. Bowel: There is diverticulosis of the colon. There is worsening bowel wall thickening seen in the re ctosigmoid colon consistent with diverticulitis. There is now an associated air-fluid collection in the left pelvis consistent with an abscess. It measures at least 7.6 x 2.9 cm. (Series 7, image 592 ). The fluid collections in the left pelvis appear to be interconnected. There is a moderate amount of stool in the colon. There is no evidence of bowel obstruction. No evidence of appendicitis. Peritoneal Cavity: There is a small amount of fluid in the pelvis. Mildly enlarged lymph nodes are s een in the mesentery which are likely reactive. No free air. Lymph Nodes: Within normal limits. Infiltrative changes are seen in the retroperitoneum particularly in the left pelvis. Bones: Within normal limits for the patient's age. Soft Tissues: There is a small fat containing umbilical hernia. PELVIS: Bladder: There is diffuse thickening of the wall of the urinary bladder. This inflammation/infection may be secondary to the adjacent diverticulitis. Reproductive Organs: Unremarkable as visualized. Lymph Nodes: Within normal limits. Bones: Within normal limits for the patient's age. IMPRESSION: 1. Progression of the acute diverticulitis involving the rectosigmoid colon. 2. Interval development of a abscess in the pelvis measuring at least 7.6 x 2.9 cm. The fluid collec tions in the pelvis appear to be interconnected. 3. No free air in the abdomen. RADIATION DOSE DELIVERED: 1,028.41mGy.cm Total DLP DATA REPOSITORY: All CT scans at this facility are submitted to the National Radiology Data Registry (NRDR) Dose Index Registry (DIR) with the [employer] ([employer]). RADIATION OPTIMIZATION: All CT scans at this facility use at least one of these dose optimization te chniques: automated exposure control; mA and/or kV adjustment per patient size (includes targeted exa ms where dose is matched to clinical indication); or iterative reconstruction.
--- NOTE | 2023-08-15 18:16 | W.ED.GENAD ---
HPI General Date/Time Provider Initiated Documentation: 08/15/23 18:04. Limitations to Documentation: no limitations. HPI Narrative: This is a 58-year-old female patient who lives at [facility] history of COPD with chronic respiratory failure hypoxia and hypercapnia smoker recently hospitalized with COPD exacerbation found to have acute diverticulitis. She was discharged to home and was supposed to take Augmentin 3 times daily for 1 week but reports that she did not take Augmentin. She went to see her primary care provider today and outpatient follow-up and was found to have diffuse abdominal pain labs checked outpatient show elevated white blood cell count at 18.6 with a left shift elevated inflammatory markers including sed rate of 104 Related Data Home Medications Medication Instructions Recorded Confirmed acetaminophen 500 mg tablet 1,000 mg PO Q6H PRN 05/26/23 08/15/23 (Tylenol Extra Strength) albuterol sulfate 90 mcg/actuation 2 inh inhalation Q4H PRN 05/26/23 08/15/23 aerosol inhaler bupropion HCl 100 mg tablet 100 mg PO DAILY AM 05/26/23 08/15/23 ferrous sulfate 325 mg (65 mg 325 mg PO DAILY 05/26/23 08/15/23 iron) tablet (iron) gabapentin 300 mg capsule 300 mg PO QID 05/26/23 08/15/23 hydroxyzine HCl 50 mg tablet 50 mg PO ONCE PRN 05/26/23 08/15/23 lansoprazole 15 mg capsule,delayed 15 mg PO DAILY 05/26/23 08/15/23 release levothyroxine 88 mcg tablet 88 mcg PO DAILY 05/26/23 08/15/23 (Euthyrox) lurasidone 120 mg tablet 160 mg PO QHS 05/26/23 08/15/23 prazosin 1 mg capsule 1 mg PO QHS 05/26/23 08/15/23 olanzapine 15 mg tablet 15 mg PO HS #30 tabs 06/02/23 08/15/23 tiotropium bromide 18 mcg capsule 1 cap inhalation DAILY #30 08/06/23 08/15/23 with inhalation device (Spiriva inhalations with HandiHaler) Previous Rx's Medication Instructions Recorded olanzapine 15 mg tablet 15 mg PO HS #30 tabs 06/02/23 tiotropium bromide 18 mcg capsule 1 cap inhalation DAILY #30 08/06/23 with inhalation device (Spiriva inhalations with HandiHaler) Allergies Allergy/AdvReac Type Severity Reaction Status Date / Time erythromycin base Allergy Intermediate Anaphylaxis Unverified 08/15/23 18:10 [From Erythrocin] prednisone AdvReac Mild Psychosis Unverified 08/15/23 18:10 General Stated Complaint: Abd Prob ANDERS: 3 Review of Systems All systems reviewed & are unremarkable except as noted in HPI and below Exam Const General: cooperative, frail appearing and ill appearing chronically Nutritional Appearance: average body habitus Orientation: alert, awake and oriented x3 HENMT Mouth: moist mucous membranes Eyes Conjunctivae: normal conjunctivae Neck Neck: supple Resp Effort & Inspection: no cough Auscultation: clear to auscultation bilaterally Cardio Rate: regular rate and not tachycardic Rhythm: regular rhythm GI Inspection: distended Palpation: soft, not firm, no guarding, no masses, not rigid and tender (Generalized) Auscultation: hypoactive bowel sounds Skin General skin exam: no rashes or lesions noted Neuro General: patient alert, patient awake and tone normal Extrem General: no edema Psych Mental Status: mental status grossly normal Speech and Movement: speech and movement normal Attitude: cooperative Thought Process: normal Course Vital Signs Vital signs: Vital Signs Temperature 36.4 C L 08/15/23 18:04 Pulse 103 H 08/15/23 18:04 Respiratory Rate 16 08/15/23 18:04 Blood Pressure 152/70 H 08/15/23 18:04 Pulse Oximetry 97 08/15/23 18:04 Temperature 36.4 C L 08/15/23 18:04 Pulse 103 H 08/15/23 18:04 Respiratory Rate 16 08/15/23 18:04 Blood Pressure 152/70 H 08/15/23 18:04 Blood Pressure Position Sitting 08/15/23 18:04 Pulse Oximetry 97 08/15/23 18:04 Oxygen Delivery Method Nasal Cannula 08/15/23 18:04 Oxygen Flow Rate 2.5 08/15/23 18:04 Medical Decision Making Patient presents for ongoing abdominal pain recent diagnosis of diverticulitis did not take her Augmentin as scheduled at discharge. she has had ongoing abdominal discomfort and was seen by her primary care provider today who ordered outpatient labs. White count found elevated at 18 and inflammatory markers also elevated. Hemodynamically she is stable with a blood pressure of 150 systolic her pulse is 103 she is afebrile satting 97% on her home oxygen. She will be given 1 L of normal saline lactic acid and CAT scan added. Lactic acid is negative. CAT scan does show acute diverticulitis ointment of the sigmoid colon with 3 pelvic abscesses which were not present in previous CAT scan dated on August 03, 2023. Case is discussed with Dr. Singletary who recommends consultation with [facility] for drainage. Case is discussed with [facility] who does not have capacity to accept patient and does not do IR drainage overnight. Recommends calling back tomorrow morning to try to arrange drainage. She is given Zosyn 3.375 mg IV piggyback Case is discussed with hospitalist services for admission to hospital for IV antibiotics and IV fluids. She will be kept NPO. Surgical consultation if needed. Hemodynamically she has remained stable with a blood pressure 150 systolic heart rate down to 74 after receiving a liter of fluid respiratory rate 16 satting 97% on room air she remains afebrile with a temp of 36.7. Medical Records Medical records reviewed: Yes I reviewed the patient's medical records. Quality:SDOH Health Related Social Needs: No Data to Display [facility] All Active Problems (Updated 08/15/23 @ 22:36 by Melany Urena NP) Abscess of female pelvis (Acute) Closed fibular fracture (Acute) COPD exacerbation (Acute) Acute hypoxemic respiratory failure (Acute) Diverticulitis (Chronic) Medical History Smoking Chronic respiratory failure with hypoxia and hypercapnia Fever Chronic hypoxic respiratory failure COPD (chronic obstructive pulmonary disease) Auditory hallucination Depression Suicide ideation Social History Smoking/Tobacco Use Status: Current every day Tobacco Type: cigarettes Years smoked: 41 Smoking risk assessment performed?: Yes Alcohol Intake: never Drug use: Never Substance use type: does not use Housing: assisted living facility Do you feel safe at home: Yes Do you feel safe in your relationship?: Yes Additional Social history: Lives at [facility] Radha Sneed RN 08/03/23 Discharge Plan Disposition Patient Disposition: Admit to [facility] Condition: Stable Discharge Details Chief Complaint: Abd Prob Clinical Impression: Abscess of female pelvis, Diverticulitis Primary Care Provider: Unknown,Unknown ED Provider: Melany Urena Home Meds and New Rx's Prescriptions: No Action levothyroxine [Euthyrox] 88 mcg tablet 88 mcg PO DAILY gabapentin 300 mg capsule 300 mg PO QID lurasidone 120 mg tablet 160 mg PO QHS Rx Instructions: must administer with food (at least 350 calories) acetaminophen [Tylenol Extra Strength] 500 mg tablet 1,000 mg PO Q6H PRN lansoprazole 15 mg capsule,delayed release(DR/EC) 15 mg PO DAILY bupropion HCl 100 mg tablet 100 mg PO DAILY AM hydroxyzine HCl 50 mg tablet 50 mg PO ONCE PRN ferrous sulfate [iron] 325 mg (65 mg iron) tablet 325 mg PO DAILY albuterol sulfate 90 mcg/actuation HFA aerosol inhaler 2 inh inhalation Q4H PRN prazosin 1 mg capsule 1 mg PO QHS olanzapine 15 mg Tablet 15 mg PO HS Qty: 30 0RF tiotropium bromide [Spiriva with HandiHaler] 18 mcg capsule, w/inhalation device 1 cap inhalation DAILY Qty: 30 0RF Rx Instructions: puncture 1 cap using device; one dose = 2 inhalations
[2023-08-15] MEDS: Normal Saline 1,000 ML 1000 ML IV (20:20)
[2023-08-15 20:22] LABS: Lactate 0.7 mmol/L (0.6-1.4)
[2023-08-15] MEDS: Omnipaque 350 MG/ML 100 ML BTL IJ (20:46)
[2023-08-15] MEDS: Normal Saline - Diluent 50 ML VIAL IJ (20:47)
[2023-08-15] MEDS: Normal Saline Flush 10 ML SYR IVP (20:47)
[2023-08-15 21:56] VITALS: BP 149/83; PULSE 74; RESP 20; TEMP 36.7; O2SAT 97
--- NOTE | 2023-08-15 21:56 | DI.VRAD_ITS ---
Addendum created by Godfrey Dillard MD on 08/15/2023 9:57:28 PM EST: Please note that the IMPRESSION should have read: IMPRESSION: Acute diverticulitis of the mid sigmoid colon. No intraperitoneal free air; however, three pelvic abscesses are present measuring approximately 1.7 x 1.4 x 7.6 cm (coronal images 53-58), 1.2 x 0.8 x 2.5 cm (coronal images 50-53), and 6.5 x 4.4 x 4.0 cm (coronal images 57-73). These findings are new compared to a prior CTA abdomen/pelvis dated 08/03/2023. Initial report created on 08/15/2023 9:55:26 PM EST: PROCEDURE INFORMATION: Exam: CT Abdomen And Pelvis With Contrast Exam date and time: 08/15/2023 8:49 PM Age: 58 years old Clinical indication: Lower abdominal pain for 3 days, rectal pain TECHNIQUE: Imaging protocol: Computed tomography of the abdomen and pelvis with contrast. Radiation optimization: All CT scans at this facility use at least one of these dose optimization techniques: automated exposure control; mA and/or kV adjustment per patient size (includes targeted exams where dose is matched to clinical indication); or iterative reconstruction. Contrast material: OMNIPAQUE 350; Contrast volume: 100 ml; Contrast route: INTRAVENOUS (IV); COMPARISON: CT ABDOMEN PELVIS CTA 08/03/2023 1:57 PM FINDINGS: Lungs: No acute infiltrate in either lung base. Diaphragm: Small hiatal hernia. Liver: A few hypodensities within the right lobe of the liver which are too small to definitively characterize, otherwise normal liver. Gallbladder and bile ducts: Normal. No calcified stones. No ductal dilation. Pancreas: Normal. No ductal dilation. Spleen: Normal. No splenomegaly. Adrenal glands: Bilateral mild adrenal gland thickening. Kidneys and ureters: No hydronephrosis. No calcified renal or ureteral stones. No perinephric stranding or perinephric fluid. Inferolateral left renal cortical stable benign cyst. No follow-up imaging is recommended. Stomach and bowel: No bowel obstruction. Duodenal diverticulum. Mural thickening of the mid sigmoid colon with associated scattered diverticula and infiltration / stranding of the pericolonic fat consistent with acute diverticulitis. No intraperitoneal free air; however, three pelvic abscesses are present measuring approximately 1.7 x 1.4 x 7.6 cm (coronal images 53-58), 1.2 x 0.8 x 2.5 cm (coronal images 50-53), and 6.5 x 4.4 x 4.0 cm (coronal images ). Appendix: No evidence of appendicitis. Intraperitoneal space: No free air. No significant fluid collection. Three pelvic abscesses are present measuring approximately 1.7 x 1.4 x 7.6 cm (coronal images 53-58), 1.2 x 0.8 x 2.5 cm (coronal images 50-53), and 6.5 x 4.4 x 4.0 cm (coronal images ). Vasculature: No abdominal aortic aneurysm. Lymph nodes: No enlarged lymph nodes. Urinary bladder: Unremarkable as visualized. Reproductive: Unremarkable as visualized. Bones/joints: Unremarkable for patient age. Soft tissues: Small fat-containing umbilical hernia. IMPRESSION: Acute diverticulitis of the mid sigmoid colon. No intraperitoneal free air; however, three pelvic abscesses are present measuring approximately 1.7 x 1.4 x 7.6 cm (coronal images 53-58), 1.2 x 0.8 x 2.5 cm (coronal images 50-53), and 6.5 x 4.4 x 4.0 cm (coronal images ). These findings are new compared to a prior CTA abdomen/pelvis dated 08/03/2023. Dictated and Authenticated by: Godfrey Dillard MD. Ordering:YVAN Mosley MD
[2023-08-15] MEDS: PIPERACILLIN/TAZO 3.375 GM in Normal Saline 50 ML IVPB (22:19)
--- NOTE | 2023-08-15 22:25 | HPE_ITS ---
Date of service: 08/15/23 Time of Service: 22:25 Assessment and Plan Assessment and plan (1) Diverticulitis: Start date: 08/15/23 Status: Acute Assessment and plan: This is a 58-year-old lady who was recently admitted and treated for diverticulitis as an inpatient but did not complete course of oral antibiotics and returns with exacerbation of this problem and associated abscesses in her pelvis. Her WBC is elevated. He was given Zosyn in the ED and this will be continued IV with surgery not consulted as of yet and stated the patient should be treated medically with IR to drain pelvic abscesses. This will be arranged in the morning and surgery will be consulted as needed. Patient is*be given clear fluids for now. Patient is a full code. (2) Abscess of female pelvis: Start date: 08/15/23 Status: Acute Assessment and plan: This is a new problem since patient's hospitalization and may be a consequence of undertreated diverticulitis. IV fluid support with clear fluid diet and plan transferred for IR to drain abscesses if possible. Surgery will be consulted if complications or if needed. (3) COPD (chronic obstructive pulmonary disease): Assessment and plan: On chronic inhalers with nebulizers to be used during his hospital stay. This does not appear to be exacerbated patient does not have acute respiratory failure though there is evidence of chronic metabolic alkalosis with probable mild respiratory acidosis with patient at baseline. Qualifiers: COPD type: chronic bronchitis Chronic bronchitis type: unspecified Qualified Code(s): J42 - Unspecified chronic bronchitis (4) Depression: Assessment and plan: Patient's outpatient medication will be continued the same. She appears to cope poorly with her social situation and is not happy with the present living accommodations. This can be addressed by case management. Qualifiers: Depression Type: persistent depressive disorder Qualified Code(s): F 34.1 - Dysthymic disorder History of Present Illness History of Present Illness Chief Complaint: Progressively worsening abdominal pain with history of diverticulitis Narrative: This is a 58-year-old female patient who was recently admitted with respiratory failure and exacerbation of her COPD as well as acute diverticulitis. She was on Zosyn during her hospital stay and discharged on Augmentin which she did not take. Did have falls just prior to discharge without injury but did fall the day after injury fracturing her left fibula. She is on a walking boot. She presents to the ED after a visit to her outpatient PCP with complaints of abdominal pain. CT scan of the abdomen in the ED did reveal persistent diverticulitis and now pelvic abscesses which will need to have drainage. Surgery was called but deferred to medical admission with IR to be consulted for drainage of her pelvic abscesses. She had no obvious perforation but has seeded her pelvis most likely from her diverticulitis. She did not appear toxic with no fever or hypotension but her WBC was elevated and her blood pressure markers were elevated. She feels thirsty but has had a decreased appetite and increased flatulence with no diarrhea or severe constipation. Her abdomen does feel bloated. She does reside at a local home with assistance and would like to be placed to a different living facility though she has no family with whom she keeps in contact. She is not able to live alone and has problems ambulation as manifested by a fall and fractured fibula. She appears to be open to a correction. She is a full code. Review of Systems Narrative: 13 point review of systems otherwise unrevealing or stable. [facility] All Active Problems (Updated 08/16/23 @ 06:46 by Frantz Caban) Abscess of female pelvis (Acute) Closed fibular fracture (Acute) COPD exacerbation (Acute) Acute hypoxemic respiratory failure (Acute) Diverticulitis (Acute) Medical History Smoking Chronic respiratory failure with hypoxia and hypercapnia Fever Chronic hypoxic respiratory failure COPD (chronic obstructive pulmonary disease) Auditory hallucination Depression Suicide ideation Social History Smoking/Tobacco Use Status: Current every day Tobacco Type: cigarettes Years smoked: 41 Smoking risk assessment performed?: Yes Alcohol Intake: never Drug use: Never Substance use type: does not use Housing: assisted living facility Do you feel safe at home: Yes Do you feel safe in your relationship?: Yes Additional Social history: [facility] at [facility] ANTONIO Sneed 08/03/23 Meds Allergies and Home Medications Allergies Allergy/AdvReac Type Severity Reaction Status Date / Time erythromycin base Allergy Intermediate Anaphylaxis Unverified 08/15/23 18:10 [From Erythrocin] prednisone AdvReac Mild Psychosis Unverified 08/15/23 18:10 Home Medications Medication Instructions Recorded Confirmed Type acetaminophen 500 mg tablet 1,000 mg PO Q6H PRN 05/26/23 08/15/23 History (Tylenol Extra Strength) albuterol sulfate 90 mcg/actuation 2 inh inhalation Q4H PRN 05/26/23 08/15/23 History aerosol inhaler bupropion HCl 100 mg tablet 100 mg PO DAILY AM 05/26/23 08/15/23 History ferrous sulfate 325 mg (65 mg 325 mg PO DAILY 05/26/23 08/15/23 History iron) tablet (iron) gabapentin 300 mg capsule 300 mg PO QID 05/26/23 08/15/23 History hydroxyzine HCl 50 mg tablet 50 mg PO ONCE PRN 05/26/23 08/15/23 History lansoprazole 15 mg capsule,delayed 15 mg PO DAILY 05/26/23 08/15/23 History release levothyroxine 88 mcg tablet 88 mcg PO DAILY 05/26/23 08/15/23 History (Euthyrox) lurasidone 120 mg tablet 160 mg PO QHS 05/26/23 08/15/23 History prazosin 1 mg capsule 1 mg PO QHS 05/26/23 08/15/23 History olanzapine 15 mg tablet 15 mg PO HS #30 tabs 06/02/23 08/15/23 Rx tiotropium bromide 18 mcg capsule 1 cap inhalation DAILY #30 08/06/23 08/15/23 Rx with inhalation device (Spiriva inhalations with HandiHaler) Exam Narrative Exam Narrative: General: Patient appears older than stated age. She is moderately obese and lying in bed in no acute distress. She is alert and oriented x 3. Chest slightly pressured speech with monotonous tone to her voice and wandering conversation at times. HEENT: Normocephalic, coarsened facial features with mouth slightly asymmetric when speaking which appears chronic the patient edentulous. Eyes with pupils equal and react to light symmetrically, extraocular movement intact and sclera anicteric. Oropharynx with dry mucosa and patient is edentulous as stated. Neck: Supple without JVD. Back: Kyphotic without CVA tenderness. Lungs: Bronchovesicular breath sounds diffusely with no focalizing rales or rhonchi. Scant expiratory wheeze at times with cough. Fair aeration. Heart: Regular rate and rhythm with no appreciable murmur or gallop. Breast: Exam deferred. Abdomen: Obese, protuberant contour some got guarding especially over lower abdomen and left lower abdomen with no rigidity and allowing some mildly deep palpation with no generalized rebound. Bowel sounds are decreased in all quadrants but present. No palpable hepatosplenomegaly. Genitalia/rectal: Exam deferred. Extremities: Without clubbing, cyanosis or grossly pitting edema though patient does have deconditioning and obesity over her lower extremities with left walking boot in place. Fair capillary refill. Skin: Normal color, warm and dry. Neuro: Cranial nerves II through XII gross intact, no focalizing motor deficits. No tremor. Patient does have slight asymmetric appearance of face while talking but this may be more secondary to her lack of denture plates. Psych: Depressed mood and flattened affect. No abnormal thought processes. Remote and recent memory appear to be grossly intact. Results Imaging Imaging Studies: Exam(s) Addendum created by Godfrey Dillard MD on 08/15/2023 9:57:28 PM EST: Please note that the IMPRESSION should have read: IMPRESSION: Acute diverticulitis of the mid sigmoid colon. No intraperitoneal free air; however, three pelvic abscesses are present measuring approximately 1.7 x 1.4 x 7.6 cm (coronal images 53-58), 1.2 x 0.8 x 2.5 cm (coronal images 50-53), and 6.5 x 4.4 x 4.0 cm (coronal images 57-73). These findings are new compared to a prior CTA abdomen/pelvis dated 08/03/2023. Initial report created on 08/15/2023 9:55:26 PM EST: PROCEDURE INFORMATION: Exam: CT Abdomen And Pelvis With Contrast Exam date and time: 08/15/2023 8:49 PM Age: 58 years old Clinical indication: Lower abdominal pain for 3 days, rectal pain COMPARISON: CT ABDOMEN PELVIS CTA 08/03/2023 1:57 PM FINDINGS: Lungs: No acute infiltrate in either lung base. Diaphragm: Small hiatal hernia. Liver: A few hypodensities within the right lobe of the liver which are too small to definitively characterize, otherwise normal liver. Gallbladder and bile ducts: Normal. No calcified stones. No ductal dilation. Pancreas: Normal. No ductal dilation. Spleen: Normal. No splenomegaly. Adrenal glands: Bilateral mild adrenal gland thickening. Kidneys and ureters: No hydronephrosis. No calcified renal or ureteral stones. No perinephric stranding or perinephric fluid. Inferolateral left renal cortical stable benign cyst. No follow-up imaging is recommended. Stomach and bowel: No bowel obstruction. Duodenal diverticulum. Mural thickening of the mid sigmoid colon with associated scattered diverticula and infiltration / stranding of the pericolonic fat consistent with acute diverticulitis. No intraperitoneal free air; however, three pelvic abscesses are present measuring approximately 1.7 x 1.4 x 7.6 cm (coronal images 53-58), 1.2 x 0.8 x 2.5 cm (coronal images 50-53), and 6.5 x 4.4 x 4.0 cm (coronal images ). Appendix: No evidence of appendicitis. Intraperitoneal space: No free air. No significant fluid collection. Three pelvic abscesses are present measuring approximately 1.7 x 1.4 x 7.6 cm (coronal images 53-58), 1.2 x 0.8 x 2.5 cm (coronal images 50-53), and 6.5 x 4.4 x 4.0 cm (coronal images ). Vasculature: No abdominal aortic aneurysm. Lymph nodes: No enlarged lymph nodes. Urinary bladder: Unremarkable as visualized. Reproductive: Unremarkable as visualized. Bones/joints: Unremarkable for patient age. Soft tissues: Small fat-containing umbilical hernia. IMPRESSION: Acute diverticulitis of the mid sigmoid colon. No intraperitoneal free air; however, three pelvic abscesses are present measuring approximately 1.7 x 1.4 x 7.6 cm (coronal images 53-58), 1.2 x 0.8 x 2.5 cm (coronal images 50-53), and 6.5 x 4.4 x 4.0 cm (coronal images ). These findings are new compared to a prior CTA abdomen/pelvis dated 08/03/2023. Labs 08/16/23 06:18 08/16/23 06:18 Labs: Laboratory Results - last 24 hr 08/15/23 20:15 VBG Lactate 0.7 Last Vital Signs Temp 36.7 C 08/15/23 21:56 Pulse 74 08/15/23 21:56 Resp 20 08/15/23 21:56 BP 149/83 H 08/15/23 21:56 Pulse Ox 97 08/15/23 21:56 Time Spent Time spent with Patient: >75 minutes Time was spent: preparing to see the patient(eg.review tests), obtaining and/or reviewing separately otained hiistory, ordering medications,tests, procedures, referring, communicating with other health healthcare consulting manager, indepentently interpreting results, counseling the patient and care coordination
[2023-08-15] MEDS: Ketorolac 15 MG/ML VIAL IVP (22:52)
[2023-08-15] MEDS: ACETAMINOPHEN 1,000 MG/100 ML BTL 400 MG IVPB (22:53)
[2023-08-16] VITALS (54 sets, daily range): BP systolic 113–142; BP diastolic 64–91; PULSE 49–109; RESP 9–21; TEMP 36.1–37.2; O2SAT 86–99
[2023-08-16] MEDS: Normal Saline 1,000 ML 100 ML IV ×2 (00:30→10:25)
[2023-08-16] MEDS: Albuterol 2.5 MG/3 ML INH SOLN VIAL UPD ×3 (00:37→19:55)
[2023-08-16] MEDS: Heparin 5,000 UNITS/ML VIAL 5000 UNITS SC ×3 (01:30→16:06)
[2023-08-16 06:21] LABS: HCT 34.8 % (36.0-46.0); HGB 10.4 g/dL (11.2-15.7); MCH 26.1 pg (27.0-33.0); MCHC 29.9 % (32.0-36.0); MCV 87 fL (80-95); MPV 10.5 fL (8.0-11.0); Platelet Count 298 10^3/uL (130-400); RBC 3.99 10^6/uL (3.93-5.22); RDW 17.2 % (11.7-14.6); RDW-SD 54.8 fL; WBC 14.32 10^3/uL (4.4-10.8)
[2023-08-16 06:38] LABS: ALT 11 U/L (14-59); AST 9 U/L (15-37); Albumin 1.9 g/dL (3.4-5.0); Alkaline Phosphatase 95 U/L (46-116); Anion Gap 4.2 mmol/L (3-11); BUN 10 mg/dL (7-18); Bilirubin, Total 0.3 mg/dL (0.2-1.0); CO2 34.8 mmol/L (21.0-32.0); CREATININE 0.7 mg/dL (0.55-1.02); Chloride 103 mmol/L (98-107); Estimated GFR 100.81 (mL/min/1.73m2); Glucose 136 mg/dL (74-106); Magnesium 1.9 mg/dL (1.8-2.4); Potassium 3.8 mmol/L (3.5-5.1); Sodium 142 mmol/L (136-145); Total Protein 6.2 g/dL (6.4-8.2)
[2023-08-16 06:46] LABS: TSH (W/Ref FT4) 11.77 uIU/mL (0.36-3.74)
[2023-08-16 07:04] LABS: FREE T4 0.87 ng/dL (0.76-1.46)
[2023-08-16] MEDS: PIPERACILLIN/TAZO 3.375 GM in Normal Saline 50 ML IVPB ×3 (07:19→19:55)
[2023-08-16] MEDS: buPROPion 100 MG TAB PO (08:25)
[2023-08-16] MEDS: Levothyroxine 88 MCG TAB PO (08:25)
[2023-08-16] MEDS: Gabapentin 300 MG CAP PO ×4 (08:25→19:55)
[2023-08-16] MEDS: Normal Saline Flush 10 ML SYR IVP ×2 (10:26→19:56)
[2023-08-16] MEDS: MORPHine 4 MG/ML SYR IVP ×2 (10:36→16:07)
--- NOTE | 2023-08-16 12:26 | W.PM.PROGNOT ---
Date of Service Date of service: 08/16/23 Time of Service: 12:26 Assessment and Plan Assessment and plan (1) Abscess of female pelvis: Status: Acute Assessment and plan: thought to be complication of untreated diverticulitis (did not take antibiotic prescribed for illness) phone consultation with [facility] [place] and patient has been accepted for down and back IR drainage of pelvic abscess on 08/17/23 arrival to at 2 pm for 3 pm procedure. continue zosyn pain improved overnight, continue pain management white count trending downward and hemodynamically stable. continue close monitoring (2) Diverticulitis: Status: Acute Assessment and plan: now with pelvic abscess on CT, see above continue IV hydration and pain management continue zosyn IV q6h day 2 tolerating clears but will be NPO after midnight for planned procedure (3) COPD (chronic obstructive pulmonary disease): Assessment and plan: On chronic inhalers with nebulizers. stable with no evidence of exacerbation. oxygen dependant monitor Qualifiers: COPD type: chronic bronchitis Chronic bronchitis type: unspecified Qualified Code(s): J42 - Unspecified chronic bronchitis (4) Depression: Assessment and plan: continue outpatient medication regimen Qualifiers: Depression Type: persistent depressive disorder Qualified Code(s): F34.1 - Dysthymic disorder (5) Closed fibular fracture: Status: Acute Assessment and plan: nonweightbearing with crutches and walking boot. awaiting orthopedic outpatient follow up. (6) Hypothyroidism: Status: Chronic Assessment and plan: will continue current dose at this time, will need close outpatient follow up. TSH 11.77, up from 4.61 in May 2023 ? compliance, ? acute illness/diverticulitis (7) Smoking: Status: Acute Assessment and plan: transdermal nicotine replacement; continue to encourage patient to quit smoking, patient already on Wellbutrin for her depression. (8) Discharge planning issues: Status: Acute Assessment and plan: heparin for DVT prophylaxis, to be placed on hold at midnight tonight for planned procedure tomorrow. anticipate a discharge back to [facility] when medically stable. discussed with DR Byrd Subjective Subjective Patient reports: feels better, tolerating liquids well, voiding w/o difficulty, bowel movement and afebrile; denies nausea or shortness of breath Interval history since last seen: reports a decrease in abdominal pain since admission. patient is requesting to eat. Exam Const General: cooperative, frail appearing and ill appearing chronically Nutritional Appearance: average body habitus Orientation: alert, awake and oriented x3 HENMT Mouth: moist mucous membranes Eyes Conjunctivae: normal conjunctivae Neck Neck: supple Resp Auscultation: clear to auscultation bilaterally Cardio Rate: regular rate and not tachycardic Rhythm: regular rhythm GI Inspection: distended Palpation: soft, not firm, no guarding, no masses, not rigid and tender (Generalized) Auscultation: hypoactive bowel sounds Skin General skin exam: no rashes or lesions noted Neuro General: patient alert, patient awake and tone normal Extrem General: no edema Psych Mental Status: mental status grossly normal Speech and Movement: speech and movement normal Attitude: cooperative Thought Process: normal Objective Last Vital Signs Temp 37.2 C 08/16/23 12:05 Pulse 95 H 08/16/23 12:01 Resp 19 08/16/23 12:20 BP 138/85 08/16/23 12:01 Pulse Ox 97 08/16/23 12:20 Laboratory Results - last 24 hr 08/15/23 08/16/23 20:15 06:18 WBC 14.32 H RBC 3.99 Hgb 10.4 L Hct 34.8 L MCV 87 MCH 26.1 L MCHC 29.9 L RDW 17.2 H Plt Count 298 MPV 10.5 VBG Lactate 0.7 Sodium 142 Potassium 3.8 Chloride 103 Carbon Dioxide 34.8 H Anion Gap 4.2 BUN 10 Creatinine 0.7 Est GFR (CKD-EPI 2020) 100.81 Glucose 136 H Calcium 8.0 L Magnesium 1.9 Total Bilirubin 0.3 AST 9 L ALT 11 L Alkaline Phosphatase 95 Total Protein 6.2 L Albumin 1.9 L TSH 11.77 H Free T4 0.87 Time Spent with Patient Time Spent with Patient: >50 minutes Time was spent: preparing to see the patient(eg.review tests), obtaining and/or reviewing separately otained hiistory, ordering medications,tests, procedures, referring, communicating with other health customer care professional, indepentently interpreting results, counseling the patient and care coordination
[2023-08-16] MEDS: Nicotine 14 MG/24 HR PATCH TD (13:04)
[2023-08-16] MEDS: Acetaminophen 325 MG TAB PO (13:11)
[2023-08-16] MEDS: Lansoprazole 30 MG CAPCR PO (13:47)
[2023-08-16] MEDS: Lurasidone 40 MG TAB 160 MG PO (22:34)
[2023-08-16] MEDS: Prazosin 1 MG CAP PO (22:34)
[2023-08-16] MEDS: OLANZapine 5 MG TAB 15 MG PO (22:35)
[2023-08-17] VITALS (8 sets, daily range): BP systolic 108–152; BP diastolic 72–90; PULSE 72–97; RESP 5–20; TEMP 36.5–37.6; O2SAT 90–95
[2023-08-17] MEDS: PIPERACILLIN/TAZO 3.375 GM in Normal Saline 50 ML IVPB ×3 (01:53→21:29)
[2023-08-17] MEDS: Levothyroxine 88 MCG TAB PO (05:30)
[2023-08-17] MEDS: MORPHine 4 MG/ML SYR IVP ×2 (05:39→09:41)
--- NOTE | 2023-08-17 07:36 | NUR.NOTE ---
Accessed pt chart to print the provider note to fax to [facility] for billing purposes. Nursing Note:
[2023-08-17] MEDS: buPROPion 100 MG TAB PO (08:00)
[2023-08-17] MEDS: Lansoprazole 30 MG CAPCR PO (08:00)
[2023-08-17] MEDS: Gabapentin 300 MG CAP PO ×3 (08:00→21:34)
[2023-08-17] MEDS: Nicotine 14 MG/24 HR PATCH TD (08:00)
[2023-08-17] MEDS: Normal Saline Flush 10 ML SYR IVP ×2 (08:02→21:36)
[2023-08-17] MEDS: Normal Saline 1,000 ML 100 ML IV (09:35)
--- NOTE | 2023-08-17 10:11 | PDOC.CMIN ---
Date of service: 08/17/23 Time of Service: 10:11 Care Management Initial Assmt Initial Assessment REASON FOR HOSPITALIZATION:: pelvic abscess PREVIOUS FUNCTIONAL STATUS/SOCIAL/FAMILY SUPPORTS:: Ester resides at [facility] [place], [place] She is not originally from [place] and does not have any family in this area. Ester is on home oxygen. She has home health PT, OT and nursing but is independent with ADLs. CURRENT FUNCTIONAL STATUS:: Ester went to [facility] today for a down and back abscess drainage procedure so CM was unable to meet with her. ADVANCE DIRECTIVES:: none on file Has patient been provided with info about the portal/API?: Yes Did the patient sign up for the portal?: No CODE STATUS:: Full Code INSURANCE COVERAGE / FINANCIAL ISSUES:: Medicare CURRENT HOME/COMMUNITY SERVICES/EQUIPMENT:: home oxygen PRIMARY CARE PHYSICIAN:: Alisha Alvarez POTENTIAL DISCHARGE NEEDS:: follow up with PCP and plan of care PATIENT/FAMILY EDUCATION NEEDS:: Review of discharge instructions, activity, limitations, follow up plan, discuss Ask Me Three. ANTICIPATED BARRIERS TO DISCHARGE:: placement, if [facility] is not willing to accept Ester back Availability of home oxygen TRANSPORTATION:: to be determined by disposition PLAN:: Ester is scheduled to go to [facility] for an abscess drainage procedure when available. It will likely be a down and back procedure. She will then return to her home at [facility] and follow up with community providers and her plan of care. CM will follow and continue to assess for discharge needs. [facility] All Active Problems (Updated 08/16/23 @ 12:48 by Melany Urena NP) Hypothyroidism (Chronic) Discharge planning issues (Acute) Smoking (Acute) Abscess of female pelvis (Acute) Closed fibular fracture (Acute) COPD exacerbation (Acute) Acute hypoxemic respiratory failure (Acute) Diverticulitis (Acute) Medical History Smoking Chronic respiratory failure with hypoxia and hypercapnia Fever Chronic hypoxic respiratory failure COPD (chronic obstructive pulmonary disease) Auditory hallucination Depression Suicide ideation Social History Smoking/Tobacco Use Status: Current every day Tobacco Type: cigarettes Years smoked: 41 Smoking risk assessment performed?: Yes Alcohol Intake: never Drug use: Never Substance use type: does not use Housing: assisted living facility Do you feel safe at home: Yes Do you feel safe in your relationship?: Yes Additional Social history: Lives at [facility] Radha Sneed RN 08/03/23 Readmission Within the Past 30 Days Yes or No: Yes Date of First Admission Date of 1st Admission: 08/03/23 Date of this Admission Date of Admission: 08/16/23 This admission was: Through ED Office Visit Since 1st Admission Have you seen your PCP in the office since discharge?: Yes Date of PCP Appointment: 08/16/23 ED visits How many ED visits in the past 12 months: 4 Assessment for Readmission Summary of readmission circumstances, based upon interviews: When Ester was discharged on 08/06/23, she was given paper prescriptions for Augmentin, Medrol and Spiriva as her pharmacy was closed. It appears the prescriptions were not filled and Ester's diverticulitis did not resolve. She was readmitted with a pelvic abscess, possibly from the unresolved diverticulitis. SDOH(Care Management) Screening Will the Patient Participate in the Screening?: Unable to obtain
[2023-08-17 10:33] LABS: Abs Immature Grans 0.14 10^3/uL (0.0-0.06); Absolute Basophil Count 0.04 10^3/uL (0.0-0.2); Absolute Lymphocyte Count 1.26 10^3/uL (1.2-3.4); Absolute Monocyte Count 0.63 10^3/uL (0.1-0.8); Basophils % 0.3; Eosinophils % 1.1; HCT 36.1 % (36.0-46.0); HGB 10.3 g/dL (11.2-15.7); Immature Grans % 1.1; Lymphocytes % 10.3; MCH 25.8 pg (27.0-33.0); MCHC 28.5 % (32.0-36.0); MCV 90 fL (80-95); MPV 10.7 fL (8.0-11.0); Monocytes % 5.1; Neutrophils % 82.1; Platelet Count 290 10^3/uL (130-400); RDW 17.2 % (11.7-14.6); RDW-SD 57.2 fL; WBC 12.26 10^3/uL (4.4-10.8)
[2023-08-17 10:35] LABS: Absolute Eosinophil Count 0.13 10^3/uL (0.0-0.7); Absolute Neutrophil Count 10.07 10^3/uL (1.2-6.7)
[2023-08-17 10:47] LABS: C-Reactive Protein 16.75 mg/dL (0.0-0.3)
[2023-08-17 10:50] LABS: ALT 11 U/L (14-59); AST 13 U/L (15-37); Alkaline Phosphatase 98 U/L (46-116); Anion Gap 5.7 mmol/L (3-11); BUN 6 mg/dL (7-18); Bilirubin, Total 0.4 mg/dL (0.2-1.0); CO2 33.3 mmol/L (21.0-32.0); CREATININE 0.6 mg/dL (0.55-1.02); Calcium 7.9 mg/dL (8.5-10.1); Chloride 102 mmol/L (98-107); Estimated GFR 104.63 (mL/min/1.73m2); Glucose 96 mg/dL (74-106); Potassium 4.1 mmol/L (3.5-5.1); Sodium 141 mmol/L (136-145); Total Protein 6.4 g/dL (6.4-8.2)
--- NOTE | 2023-08-17 12:50 | NUR.NOTE ---
pt transported via EMT [place] [facility] [place] 1245[place].
--- NOTE | 2023-08-17 15:50 | PGE_ITS ---
Date of Service Date of service: 08/17/23 Time of Service: 15:51 Assessment and Plan Assessment and plan (1) Abscess of female pelvis: Status: Acute Assessment and plan: thought to be complication of untreated diverticulitis (did not take antibiotic prescribed for illness) down and back IR drainage of pelvic abscess at [facility] on 3Z at 2 pm for 3 pm procedure, planned mixing picker tender at 12:30. continue zosyn pain controlled, continue pain management white count continues trending downward and hemodynamically stable. continue close monitoring (2) Diverticulitis: Status: Acute Assessment and plan: now with pelvic abscess on CT, see above continue IV hydration and pain management continue zosyn IV q6h day 3 NPO for planned procedure (3) COPD (chronic obstructive pulmonary disease): Assessment and plan: On chronic inhalers with nebulizers. stable with no evidence of exacerbation. oxygen dependant monitor Qualifiers: COPD type: chronic bronchitis Chronic bronchitis type: unspecified Qualified Code(s): J42 - Unspecified chronic bronchitis (4) Depression: Assessment and plan: continue outpatient medication regimen Qualifiers: Depression Type: persistent depressive disorder Qualified Code(s): F34.1 - Dysthymic disorder (5) Closed fibular fracture: Status: Acute Assessment and plan: nonweightbearing with crutches and walking boot. awaiting orthopedic outpatient follow up. (6) Hypothyroidism: Status: Chronic Assessment and plan: will continue current dose at this time, will need close outpatient follow up. TSH 11.77, up from 4.61 in May 2023 ? compliance, ? acute illness/diverticulitis (7) Smoking: Status: Acute Assessment and plan: transdermal nicotine replacement; continue to encourage patient to quit smoking, patient already on Wellbutrin for her depression. (8) Discharge planning issues: Status: Acute Assessment and plan: heparin for DVT prophylaxis, to be placed on hold at midnight tonight for planned procedure tomorrow. anticipate a discharge back to [facility] when medically stable. discussed with DR Gordon Subjective Subjective Patient reports: afebrile; denies shortness of breath Interval history since last seen: With ongoing complaints of abdominal pain but improved. has been NPO for procedure today. Exam Const General: cooperative, frail appearing and ill appearing chronically Nutritional Appearance: average body habitus Orientation: alert, awake and oriented x3 HENMT Mouth: moist mucous membranes Eyes Conjunctivae: normal conjunctivae Neck Neck: supple Resp Auscultation: clear to auscultation bilaterally Cardio Rate: regular rate and not tachycardic Rhythm: regular rhythm GI Inspection: distended Palpation: soft, not firm, no guarding, no masses, not rigid and tender (Generalized) Auscultation: hypoactive bowel sounds Skin General skin exam: no rashes or lesions noted Neuro General: patient alert, patient awake and tone normal Extrem General: no edema Psych Mental Status: mental status grossly normal Speech and Movement: speech and movement normal Attitude: cooperative Thought Process: normal Objective Last Vital Signs Temp 37.1 C 08/17/23 12:07 Pulse 94 H 08/17/23 12:07 Resp 20 08/17/23 12:07 BP 147/90 H 08/17/23 12:07 Pulse Ox 91 L 08/17/23 12:07 Laboratory Results - last 24 hr 08/17/23 10:30 WBC 12.26 H RBC 4.00 Hgb 10.3 L Hct 36.1 MCV 90 MCH 25.8 L MCHC 28.5 L RDW 17.2 H Plt Count 290 MPV 10.7 Immature Gran % 1.1 Neutrophils % 82.1 Lymphocytes % 10.3 Monocytes % 5.1 Eosinophils % 1.1 Basophils % 0.3 Nucleated RBC % 0.0 Absolute Neutrophils 10.07 H Absolute Lymphocytes 1.26 Absolute Monocytes 0.63 Absolute Eosinophils 0.13 Absolute Basophils 0.04 Sodium 141 Potassium 4.1 Chloride 102 Carbon Dioxide 33.3 H Anion Gap 5.7 BUN 6 L Creatinine 0.6 Est GFR (CKD-EPI 2020) 104.63 Glucose 96 Calcium 7.9 L Total Bilirubin 0.4 AST 13 L ALT 11 L Alkaline Phosphatase 98 C-Reactive Protein 16.75 H Total Protein 6.4 Albumin 2.0 L Time Spent with Patient Time Spent with Patient: 35-49 minutes Time was spent: preparing to see the patient(eg.review tests), obtaining and/or reviewing separately otained hiistory, ordering medications,tests, procedures, referring, communicating with other health acute care nursing assistant, indepentently interpreting results and counseling the patient
[2023-08-17] MEDS: Acetaminophen 325 MG TAB PO (18:33)
[2023-08-17] MEDS: Albuterol 2.5 MG/3 ML INH SOLN VIAL UPD (19:33)
[2023-08-17] MEDS: Lurasidone 40 MG TAB 160 MG PO (21:29)
[2023-08-17] MEDS: OLANZapine 5 MG TAB 15 MG PO (21:35)
[2023-08-17] MEDS: Prazosin 1 MG CAP PO (21:36)
[2023-08-18] VITALS (8 sets, daily range): BP systolic 113–142; BP diastolic 73–90; PULSE 93–101; RESP 17–19; TEMP 36.7–37.8; O2SAT 87–95
[2023-08-18] MEDS: Acetaminophen 325 MG TAB PO ×3 (00:29→23:54)
[2023-08-18] MEDS: MORPHine 4 MG/ML SYR IVP ×2 (00:30→14:39)
[2023-08-18] MEDS: PIPERACILLIN/TAZO 3.375 GM in Normal Saline 50 ML IVPB ×4 (02:00→20:23)
[2023-08-18] MEDS: Levothyroxine 88 MCG TAB PO (05:40)
[2023-08-18] MEDS: Normal Saline 1,000 ML 100 ML IV ×2 (06:12→17:05)
[2023-08-18] MEDS: Lansoprazole 30 MG CAPCR PO (07:35)
[2023-08-18] MEDS: Nicotine 14 MG/24 HR PATCH TD (08:38)
[2023-08-18] MEDS: Gabapentin 300 MG CAP PO ×4 (08:39→20:21)
[2023-08-18] MEDS: buPROPion 100 MG TAB PO (08:39)
[2023-08-18] MEDS: Ferrous Sulfate 325 MG TAB PO (08:39)
[2023-08-18] MEDS: Normal Saline Flush 10 ML SYR IVP ×2 (08:40→20:24)
--- NOTE | 2023-08-18 09:38 | PGE_ITS ---
Date of Service Date of service: 08/18/23 Time of Service: 09:38 Assessment and Plan Assessment and plan (1) Abscess of female pelvis: Status: Acute Assessment and plan: thought to be complication of untreated diverticulitis (did not take antibiotic prescribed for illness) down and back IR drainage of pelvic abscess at [facility] on 08/17 , showing GPC, GNR, GNC continue zosyn, consideration carbapenem instead if not improving continue pain management No leukocytosis , afebrile hemodynamically stable. continue close monitoring (2) Diverticulitis: Status: Acute Assessment and plan: As above (3) COPD (chronic obstructive pulmonary disease): Assessment and plan: Continue home nebulizers; no evidence of exacerbation. oxygen dependant, no increased requirements T Qualifiers: COPD type: chronic bronchitis Chronic bronchitis type: unspecified Qualified Code(s): J42 - Unspecified chronic bronchitis (4) Depression: Assessment and plan: continue Wellbutrin Qualifiers: Depression Type: persistent depressive disorder Qualified Code(s): F34.1 - Dysthymic disorder (5) Closed fibular fracture: Status: Acute Assessment and plan: Continue non-weight bearing with crutches and walking boot. The patient has an orthopedic outpatient follow up. Pain well-controlled (6) Hypothyroidism: Status: Chronic Assessment and plan: will continue current dose at this time, TSH 11.77, up from 4.61 in May 2023; T4 0.87 Dosing to be adjusted as an outpatient by PCP as the patient is acutely ill at this time (7) Tobacco abuse: Status: Acute Assessment and plan: patient counseled to discuss smoking cessation with PCP as she mentioned multiple failed attemps. The patient is already on Wellbutrin for depression (8) Discharge planning issues: Status: Acute Assessment and plan: Resume heparin for DVT prophylaxis anticipate a discharge back to [facility] when medically stable; considering need for oral antibiotics upon discharge discussed with DR Gordon Subjective Subjective Patient reports: no new complaints, feels better, pain is less, tolerating liquids well, tolerating a regular diet, voiding w/o difficulty, flatus and no bowel movement; denies diarrhea, nausea, vomiting, shortness of breath or fever Exam Narrative Exam Narrative: Constitutional The patient in bed comfortable and cooperative during the interview. The patient is without acute distress HENMT: Head is atraumatic, normocephalic, no lymphadenopathy. Facial structures with normal appearance Neck: Normal ROM, no meningeal signs Neuro:alert and oriented to self, person, place, time and situation. No neurological focal deficit, PERRLA Chest:Chest is symmetrical and normal appearance Resp: Normal respiratory pattern, speaks in full sentences on 3 L of oxygen via nasal cannula, unlabored breathing, clear upper lung bilaterally, diminished lower lobes. Cardio: regular rhythm, S1, S2, no murmur, capillary refill<3 sec., bilateral radial and dorsalis pedis pulses are positive, palpable GI: Abdomen is not distended, soft with left lower quadrant tenderness to palpation , bowel sounds are present : Negative Costovertebral angle tenderness, no bladder distension Integumentary: No skin lesions or rash Extremities: strength 3/5 to left lower extremity, 5/5 otherwise Psych: RASS 0, congruent mood and normal affect. Objective Last Vital Signs Temp 36.7 C 08/18/23 07:32 Pulse 93 H 08/18/23 07:32 Resp 17 08/18/23 07:32 BP 122/76 08/18/23 07:32 Pulse Ox 87 L 08/18/23 07:32 Laboratory Results - last 24 hr 08/17/23 10:30 WBC 12.26 H RBC 4.00 Hgb 10.3 L Hct 36.1 MCV 90 MCH 25.8 L MCHC 28.5 L RDW 17.2 H Plt Count 290 MPV 10.7 Immature Gran % 1.1 Neutrophils % 82.1 Lymphocytes % 10.3 Monocytes % 5.1 Eosinophils % 1.1 Basophils % 0.3 Nucleated RBC % 0.0 Absolute Neutrophils 10.07 H Absolute Lymphocytes 1.26 Absolute Monocytes 0.63 Absolute Eosinophils 0.13 Absolute Basophils 0.04 Sodium 141 Potassium 4.1 Chloride 102 Carbon Dioxide 33.3 H Anion Gap 5.7 BUN 6 L Creatinine 0.6 Est GFR (CKD-EPI 2020) 104.63 Glucose 96 Calcium 7.9 L Total Bilirubin 0.4 AST 13 L ALT 11 L Alkaline Phosphatase 98 C-Reactive Protein 16.75 H Total Protein 6.4 Albumin 2.0 L Time Spent with Patient Time Spent with Patient: >50 minutes Time was spent: preparing to see the patient(eg.review tests), obtaining and/or reviewing separately otained hiistory, ordering medications,tests, procedures, referring, communicating with other health care companion, indepentently interpreting results, counseling the patient and care coordination
--- NOTE | 2023-08-18 10:25 | PDOC.CMPRO ---
Date of service: 08/18/23 Time of Service: 10:25 Care Management Progress Note Progress Note Text Progress Note Text: S/O: Ester was sitting up in bed when CM met with her. She stated that she isn't doing that well today. She went to [facility] yesterday for an IR drainage of pelvic abscess, which she stated went well. Per report, she is on IV antibiotics currently. Ester stated that she is happy to be able to have a regular diet for lunch, as she was unable to eat much yesterday due to her procedure. She reported that she had a recent fall at [place], as it is an old house and there wasn't much room in the bathroom. She stated that she would prefer to return to [place], where she is from, but expressed understanding regarding limited housing everywhere. CM reviewed her plan to return to [place]; Ester agreed, although stated that she does not feel that she is close to being ready for discharge. CM will continue to follow. A: Ester is a 58 year old female admitted to [facility] on 08/16/23 for diverticulitis, pelvic abscess. P: Ester is scheduled to go to [facility] for an abscess drainage procedure when available. It will likely be a down and back procedure. She will then return to her home at [place] and follow up with community providers and her plan of care. CM will follow and continue to assess for discharge needs.
[2023-08-18] MEDS: Tiotropium Bromide-Respimat 10 PUFF INH 2 PUFF IH (12:15)
[2023-08-18 13:00] LABS: Abs Immature Grans 0.32 10^3/uL (0.0-0.06); Absolute Basophil Count 0.05 10^3/uL (0.0-0.2); Absolute Eosinophil Count 0.16 10^3/uL (0.0-0.7); Absolute Lymphocyte Count 0.89 10^3/uL (1.2-3.4); Absolute Monocyte Count 0.71 10^3/uL (0.1-0.8); Absolute Neutrophil Count 8.21 10^3/uL (1.2-6.7); Basophils % 0.5; Eosinophils % 1.5; HCT 34.3 % (36.0-46.0); Immature Grans % 3.1; Lymphocytes % 8.6; MCH 26.3 pg (27.0-33.0); MCHC 29.2 % (32.0-36.0); MCV 90 fL (80-95); MPV 11.3 fL (8.0-11.0); Monocytes % 6.9; Neutrophils % 79.4; Platelet Count 291 10^3/uL (130-400); RDW 17.1 % (11.7-14.6); RDW-SD 55.8 fL; WBC 10.34 10^3/uL (4.4-10.8)
[2023-08-18 13:08] LABS: BUN 6 mg/dL (7-18); CREATININE 0.7 mg/dL (0.55-1.02); Calcium 8.1 mg/dL (8.5-10.1); Chloride 103 mmol/L (98-107); Estimated GFR 100.81 (mL/min/1.73m2); Glucose 147 mg/dL (74-106); Potassium 4.3 mmol/L (3.5-5.1); Sodium 141 mmol/L (136-145)
[2023-08-18] MEDS: Docusate Sodium 100 MG CAP PO (20:21)
[2023-08-18] MEDS: Heparin 5,000 UNITS/ML VIAL 5000 UNITS SC (20:22)
[2023-08-18] MEDS: Prazosin 1 MG CAP PO (21:08)
[2023-08-18] MEDS: Lurasidone 40 MG TAB 160 MG PO (21:09)
[2023-08-18] MEDS: OLANZapine 5 MG TAB 15 MG PO (21:09)
[2023-08-19] VITALS (9 sets, daily range): BP systolic 129–140; BP diastolic 65–89; PULSE 86–98; RESP 2–20; TEMP 36.6–37.7; O2SAT 91–97
[2023-08-19] MEDS: PIPERACILLIN/TAZO 3.375 GM in Normal Saline 50 ML IVPB ×4 (02:35→19:27)
[2023-08-19] MEDS: Albuterol 2.5 MG/3 ML INH SOLN VIAL UPD (02:50)
[2023-08-19] MEDS: oxyCODONE 5 MG TAB PO (03:22)
[2023-08-19] MEDS: Normal Saline 1,000 ML 100 ML IV ×2 (04:11→15:06)
[2023-08-19] MEDS: Levothyroxine 88 MCG TAB PO (05:46)
[2023-08-19] MEDS: Heparin 5,000 UNITS/ML VIAL 5000 UNITS SC ×3 (05:47→22:08)
[2023-08-19 07:29] LABS: Anion Gap 4.7 mmol/L (3-11); BUN 4 mg/dL (7-18); CO2 34.3 mmol/L (21.0-32.0); CREATININE 0.6 mg/dL (0.55-1.02); Calcium 7.9 mg/dL (8.5-10.1); Chloride 106 mmol/L (98-107); Estimated GFR 104.63 (mL/min/1.73m2); Glucose 113 mg/dL (74-106); Potassium 3.9 mmol/L (3.5-5.1); Sodium 145 mmol/L (136-145)
[2023-08-19] MEDS: Nicotine 14 MG/24 HR PATCH TD (08:01)
[2023-08-19] MEDS: Normal Saline Flush 10 ML SYR IVP (08:02)
[2023-08-19] MEDS: Lansoprazole 30 MG CAPCR PO (08:03)
[2023-08-19] MEDS: Ferrous Sulfate 325 MG TAB PO (08:04)
[2023-08-19] MEDS: Gabapentin 300 MG CAP PO ×4 (08:04→19:18)
[2023-08-19] MEDS: Docusate Sodium 100 MG CAP PO ×3 (08:04→19:18)
[2023-08-19] MEDS: buPROPion 100 MG TAB PO (08:04)
[2023-08-19] MEDS: Tiotropium Bromide-Respimat 10 PUFF INH 2 PUFF IH (08:35)
[2023-08-19 09:37] LABS: HCT 34.6 % (36.0-46.0); HGB 10.1 g/dL (11.2-15.7); MCH 26.5 pg (27.0-33.0); MCHC 29.2 % (32.0-36.0); MCV 91 fL (80-95); MPV 10.9 fL (8.0-11.0); Platelet Count 268 10^3/uL (130-400); RBC 3.81 10^6/uL (3.93-5.22); WBC 7.92 10^3/uL (4.4-10.8)
[2023-08-19 09:51] LABS: Absolute Monocyte Count 0.24 10^3/uL (0.1-0.8); Absolute Neutrophil Count 6.02 10^3/uL (1.2-6.7); Atypical Lymphocytes % 4; Bands % 0; Metamyelocytes % 1; Myelocytes % 1
[2023-08-19 09:52] LABS: Diff Comment Manual Differential; Hypochromasia 1+; Macrocytosis 1+; Polychromasia Present
--- NOTE | 2023-08-19 10:29 | PGE_ITS ---
Date of Service Date of service: 08/19/23 Time of Service: 10:29 Assessment and Plan Assessment and plan (1) Abscess of female pelvis: Status: Acute Assessment and plan: Down and back IR drainage of pelvic [place] [facility] [place] , showing GPC, GNR, GNC when spoke to IR Dr. Andrews at 15:00 Awaiting for further result on the cultures from [facility] today. Considering oral course of antibiotic upon discharge. Will continue continue zosyn until further sensitivity, and still considering meropenem as an alternative if not improving continue pain management regimen scheduling APAP No leukocytosis , afebrile, hemodynamically stable. Will encourage oral hydration since last sodium level was 145. CBC and BMP in the morning continue close monitoring (2) Diverticulitis: Status: Acute Assessment and plan: As above (3) Closed fibular fracture: Status: Acute Assessment and plan: Continue non-weight bearing with crutches and walking boot. The patient has an orthopedic outpatient follow up. Pain well-controlled but requesting trial of methocarbamol (4) Hypothyroidism: Status: Chronic Assessment and plan: will continue current dose of levothryroxine at this time, Dosing to be adjusted as an outpatient by PCP as the patient is acutely ill at this time (5) Tobacco abuse: Status: Acute Assessment and plan: patient counseled to discuss smoking cessation with PCP as she mentioned multiple failed attemps. The patient is already on Wellbutrin for depression (6) Discharge planning issues: Status: Acute Assessment and plan: Continue heparin for DVT prophylaxis anticipate a discharge back to [facility] when medically stable Considering need for oral antibiotics upon discharge if needed discussed with DR Gordon Subjective Subjective Interval history since last seen: Patient reports sleeping, well eating and drinking well, feeling muscle spasm under left thigh easing somewhat with repositioning, requesting muscle relaxant. Patient reports diffuse abdominal pain subsiding somewhat with pain medicine. Patient denies having had a bowel movement, denies chills, night sweats, nausea, vomiting, dysuria, Exam Narrative Exam Narrative: Constitutional The patient is without acute distress Neck: No JVD Neuro:alert and oriented to self, person, place, time and situation. No neurological focal deficit Resp: Normal respiratory pattern, speaks in full sentences on 1 L of oxygen via nasal cannula as per baseline, clear lungs Cardio: regular rhythm, S1, S2, no murmur, capillary refill<3 sec., 20s pulses to all 4 extremities GI: Abdomen is not distended, soft with left lower quadrant tenderness to palpation , bowel sounds are present : Negative Costovertebral angle tenderness, no bladder distension Integumentary: No skin lesions or rash, dry and intact and dry dressing to TOMÁS site of insertion Extremities: strength 3/5 to left lower extremity, 5/5 otherwise Psych: RASS 0, congruent mood and anxious to normal affect. Objective Last Vital Signs Temp 36.6 C 08/19/23 07:36 Pulse 86 08/19/23 07:36 Resp 18 08/19/23 07:36 BP 140/65 08/19/23 07:36 Pulse Ox 97 08/19/23 08:34 Laboratory Results - last 24 hr 08/18/23 08/19/23 08/19/23 12:40 06:20 09:25 WBC 10.34 Cancelled 7.92 RBC 3.80 L Cancelled 3.81 L Hgb 10.0 L Cancelled 10.1 L Hct 34.3 L Cancelled 34.6 L MCV 90 Cancelled 91 MCH 26.3 L Cancelled 26.5 L MCHC 29.2 L Cancelled 29.2 L RDW 17.1 H Cancelled 17.0 H Plt Count 291 Cancelled 268 MPV 11.3 H Cancelled 10.9 Immature Gran % 3.1 Cancelled 0.0 Neutrophils % 79.4 Cancelled 76.0 Band Neutrophils % Cancelled 0 Lymphocytes % 8.6 Cancelled 15.0 Atypical Lymphs % Cancelled 4 Monocytes % 6.9 Cancelled 3.0 Eosinophils % 1.5 Cancelled 0.0 Basophils % 0.5 Cancelled 0.0 Metamyelocytes % Cancelled 1 Myelocytes % Cancelled 1 Promyelocytes % Cancelled Other Cells % Cancelled Nucleated RBC % 0.0 Cancelled 0.0 Absolute Neutrophils 8.21 H Cancelled 6.02 Absolute Lymphocytes 0.89 L Cancelled 1.50 Absolute Monocytes 0.71 Cancelled 0.24 Absolute Eosinophils 0.16 Cancelled 0.00 Absolute Basophils 0.05 Cancelled 0.00 RBC Morphology Cancelled See Below Polychromasia Cancelled Present Hypochromasia Cancelled 1+ Poikilocytosis Cancelled Basophilic Stippling Cancelled Anisocytosis Cancelled Microcytosis Cancelled Macrocytosis Cancelled 1+ Spherocytes Cancelled Tear Drop Cells Cancelled Ovalocytes Cancelled Stomatocytes Cancelled [place] Bodies Cancelled Abrams Cells/Echinocytes Cancelled Acanthocytes (Spur) Cancelled Schistocytes Cancelled Sodium 141 145 Potassium 4.3 3.9 Chloride 103 106 Carbon Dioxide 34.0 H 34.3 H Anion Gap 4.0 4.7 BUN 6 L 4 L Creatinine 0.7 0.6 Est GFR (CKD-EPI 2020) 100.81 104.63 Glucose 147 H 113 H Calcium 8.1 L 7.9 L Time Spent with Patient Time Spent with Patient: >50 minutes Time was spent: preparing to see the patient(eg.review tests), obtaining and/or reviewing separately otained hiistory, ordering medications,tests, procedures, referring, communicating with other health nurse healthcare manager, indepentently interpreting results, counseling the patient and care coordination
--- NOTE | 2023-08-19 10:31 | CMPROGNOTE_ITS ---
Date of service: 08/19/23 Time of Service: 10:31 Care Management Progress Note Progress Note Text Progress Note Text: S/O: Ester was sitting up in bed when CM met with her. She stated that she had a cramp in her left calf and that it was painful. CM asked if she had received medication for it but Ester stated she was not sure. CM informed her nurse of the complaint. When Ester was discharged from [facility] earlier this month, she was set up with new home oxygen through [employer] ([employer] [facility] was notified shortly before Ester readmitted that they would have to retrieve their concentrator as Ester had another oxygen account in [place] and had not returned the equipment. Medicare will not pay for both. Ester has no idea where her old concentrator is so establishing her with home oxygen at discharge will be problematic and a potential barrier to discharge. Apparently Ester owes the former company a lot of money and cannot get new equipment until or unless that bill is paid. BRIANDA is working with the owners at [facility] to try to resolve the issue. A: Ester is a 58 year old female admitted to [facility] on 08/16/23 for diverticulitis, pelvic abscess. P: Ester will likely return to her home at [facility] with a resumption of home health services for nursing, PT, OT and MEDICAL ONCOLOGIST. Unfortunately she needs home oxygen and obtaining that may be problematic given she has outstanding debt and equipment related to home oxygen.She will follow up with community providers and her plan of care and transport with facility staff vs RCT.. CM will follow and continue to assess for discharge needs. SDOH(Care Management) Screening Will the Patient Participate in the Screening?: Unable to obtain
[2023-08-19] MEDS: MORPHine 4 MG/ML SYR IVP (12:51)
--- NOTE | 2023-08-19 15:17 | CHAPLAIN ---
Ester was resting in bed when visited. She lives in [place], [place] . She told me she lives nearby, when I asked. And that she moved here from [place], [place]. When I asked what brought her here, she said it was a long story. Ester was wanting to rest and not interested in talking further.
[2023-08-19] MEDS: Acetaminophen 325 MG TAB PO (19:19)
[2023-08-19] MEDS: Polyethylene Glycol 3350 17 GM PACKET PO (22:08)
[2023-08-19] MEDS: Lurasidone 40 MG TAB 160 MG PO (22:09)
[2023-08-19] MEDS: Methocarbamol 500 MG TAB PO (22:10)
[2023-08-19] MEDS: OLANZapine 5 MG TAB 15 MG PO (22:10)
[2023-08-19] MEDS: Prazosin 1 MG CAP PO (22:10)
[2023-08-20] VITALS (10 sets, daily range): BP systolic 102–143; BP diastolic 65–88; PULSE 91–104; RESP 18–20; TEMP 36.6–37.7; O2SAT 91–97
[2023-08-20] MEDS: Normal Saline 1,000 ML 100 ML IV ×2 (01:43→12:59)
[2023-08-20] MEDS: Acetaminophen 325 MG TAB PO ×4 (02:12→19:29)
[2023-08-20] MEDS: PIPERACILLIN/TAZO 3.375 GM in Normal Saline 50 ML IVPB ×4 (02:12→19:28)
[2023-08-20] MEDS: Levothyroxine 88 MCG TAB PO (05:27)
[2023-08-20] MEDS: Heparin 5,000 UNITS/ML VIAL 5000 UNITS SC ×2 (05:28→13:58)
[2023-08-20] MEDS: oxyCODONE 5 MG TAB PO ×2 (05:39→21:17)
[2023-08-20 07:05] LABS: Absolute Basophil Count 0.05 10^3/uL (0.0-0.2); Absolute Eosinophil Count 0.14 10^3/uL (0.0-0.7); Absolute Lymphocyte Count 0.94 10^3/uL (1.2-3.4); Absolute Monocyte Count 0.57 10^3/uL (0.1-0.8); Absolute Neutrophil Count 6.26 10^3/uL (1.2-6.7); Basophils % 0.6; Eosinophils % 1.7; HCT 32.4 % (36.0-46.0); HGB 9.4 g/dL (11.2-15.7); Immature Grans % 2.5; Lymphocytes % 11.5; MCV 90 fL (80-95); MPV 10.4 fL (8.0-11.0); Neutrophils % 76.7; Platelet Count 248 10^3/uL (130-400); RBC 3.61 10^6/uL (3.93-5.22); RDW-SD 55.4 fL; WBC 8.16 10^3/uL (4.4-10.8)
[2023-08-20 07:17] LABS: Anion Gap 3.1 mmol/L (3-11); BUN 3 mg/dL (7-18); CO2 36.9 mmol/L (21.0-32.0); CREATININE 0.6 mg/dL (0.55-1.02); Chloride 105 mmol/L (98-107); Estimated GFR 104.63 (mL/min/1.73m2); Glucose 120 mg/dL (74-106); Sodium 145 mmol/L (136-145)
[2023-08-20] MEDS: Nicotine 14 MG/24 HR PATCH TD (07:21)
[2023-08-20] MEDS: Normal Saline Flush 10 ML SYR IVP (07:23)
[2023-08-20] MEDS: buPROPion 100 MG TAB PO (07:23)
[2023-08-20] MEDS: Docusate Sodium 100 MG CAP PO ×2 (07:23→13:58)
[2023-08-20] MEDS: Gabapentin 300 MG CAP PO ×3 (07:23→19:29)
[2023-08-20] MEDS: Ferrous Sulfate 325 MG TAB PO (07:24)
[2023-08-20] MEDS: Lansoprazole 30 MG CAPCR PO (07:24)
[2023-08-20] MEDS: Tiotropium Bromide-Respimat 10 PUFF INH 2 PUFF IH (08:13)
--- NOTE | 2023-08-20 14:50 | PGE_ITS ---
Date of Service Date of service: 08/20/23 Time of Service: 14:50 Assessment and Plan Assessment and plan (1) Abscess of female pelvis: Status: Acute Assessment and plan: Down and back IR drainage of pelvic abscess at [facility] on 08/17 , showing GPC, GNR, GNC when spoke to IR at 16:30 Bacteroides fragilis and clostridium perfrigens: Adding clindamycin 900 IV Q 8 to cover the 2nd pathogen Starting bio-k plus further results pending with results most likely to be available next week Will continue zosyn and considering meropenem as an alternative if not improving continue pain management regimen scheduling APAP Remains w/o leukocytosis , afebrile, hemodynamically stable. Will encourage oral hydration since last sodium level was 145, IVF discontinued. CBC and BMP in the morning continue close monitoring (2) Diverticulitis: Status: Acute Assessment and plan: As above (3) COPD (chronic obstructive pulmonary disease): Assessment and plan: Continue home nebulizers; no evidence of exacerbation. oxygen dependant, no increased requirements, will attempt to wean Qualifiers: COPD type: chronic bronchitis Chronic bronchitis type: unspecified Qualified Code(s): J42 - Unspecified chronic bronchitis (4) Depression: Assessment and plan: continue Wellbutrin Qualifiers: Depression Type: persistent depressive disorder Qualified Code(s): F34.1 - Dysthymic disorder (5) Closed fibular fracture: Status: Acute Assessment and plan: Continue non-weight bearing with crutches and walking boot; with APAP and PRN ibuprofen for pain management The patient has an orthopedic outpatient follow up but will consult in patient for reevaluation . Pain well-controlled but requested trial of methocarbamol Continue methocarbamol at (6) Hypothyroidism: Status: Chronic Assessment and plan: continue levothryroxine outpatient reevaluation by PCP (7) Tobacco abuse: Status: Acute Assessment and plan: patient counseled to discuss smoking cessation will continue with PCP . The patient is already on Wellbutrin for depression (8) Discharge planning issues: Status: Acute Assessment and plan: Continue heparin for DVT prophylaxis Needs arrangement made on Tuesday with IR at [facility] for f/u on TOMÁS drain anticipate a discharge back to [facility] when medically stable and O2 available Considering new exercise oxymetry testing Considering need for oral antibiotics upon discharge if needed discussed with DR Gordon Subjective Subjective Interval history since last seen: Patient reports sleeping well, feeling better, eating and drinking well, voiding without difficulty and moving her bowels today, diffuse lower abdominal pain, but not asking for pain medicine. Patient also reports back pain when laying on the hard part of her TOMÁS, pain subsides with repositioning. Patient denies dizziness, shortness of breath, chest pain, nausea, vomiting or diarrhea Exam Narrative Exam Narrative: Neuro:alert and oriented x 3, without neurological focal deficit Resp: on 1 L of oxygen via nasal cannula as per baseline, clear lungs diminished bases Cardio: regular rhythm, S1, S2, no murmur. GI: Abdomen is not distended, soft with left and right lower quadrant tenderness to palpation , bowel sounds are present : no bladder distension Integumentary: No skin lesions or rash, TOMÁS site of insertion without erythema Extremities: strength 3/5 to left lower extremity, 5/5 otherwise Psych: RASS 0, congruent mood and anxious to normal affect. Objective Last Vital Signs Temp 37.2 C 08/20/23 11:34 Pulse 97 H 08/20/23 11:34 Resp 18 08/20/23 11:34 BP 129/83 08/20/23 11:34 Pulse Ox 94 08/20/23 11:34 Laboratory Results - last 24 hr 08/20/23 06:55 WBC 8.16 RBC 3.61 L Hgb 9.4 L Hct 32.4 L MCV 90 MCH 26.0 L MCHC 29.0 L RDW 17.0 H Plt Count 248 MPV 10.4 Immature Gran % 2.5 Neutrophils % 76.7 Lymphocytes % 11.5 Monocytes % 7.0 Eosinophils % 1.7 Basophils % 0.6 Nucleated RBC % 0.0 Absolute Neutrophils 6.26 Absolute Lymphocytes 0.94 L Absolute Monocytes 0.57 Absolute Eosinophils 0.14 Absolute Basophils 0.05 Sodium 145 Potassium 4.0 Chloride 105 Carbon Dioxide 36.9 H Anion Gap 3.1 BUN 3 L Creatinine 0.6 Est GFR (CKD-EPI 2020) 104.63 Glucose 120 H Calcium 8.0 L Time Spent with Patient Time Spent with Patient: >50 minutes Time was spent: preparing to see the patient(eg.review tests), obtaining and/or reviewing separately otained hiistory, ordering medications,tests, procedures, referring, communicating with other health healthcare social worker, indepentently interpreting results, counseling the patient and care coordination
[2023-08-20] MEDS: CLINDAMYCIN 900 MG/50 ML BAG 50 MG IVPB (18:28)
[2023-08-20] MEDS: Prazosin 1 MG CAP PO (21:17)
[2023-08-20] MEDS: Lurasidone 40 MG TAB 160 MG PO (21:17)
[2023-08-20] MEDS: OLANZapine 5 MG TAB 15 MG PO (21:18)
[2023-08-20] MEDS: Methocarbamol 500 MG TAB PO (21:18)
[2023-08-21] VITALS (81 sets, daily range): BP systolic 82–134; BP diastolic 56–120; PULSE 73–111; RESP 10–28; TEMP 36.5–37.4; O2SAT 84–97
--- NOTE | 2023-08-21 | DI.CT_ITS ---
Exam(s) CT ABDOMEN PELVIS CTA EXAM: CT ABDOMEN PELVIS CTA CLINICAL HISTORY: Pt w/ diverticulitis s/p IR drain and now w/ ABLA. TECHNIQUE: Imaging Protocol: Axial CT angiography was performed with multi-slice acquisition and m ulti-planar and/or 3D reconstructions. CONTRAST MATERIAL: Intravenous: Omnipaque 350 Contrast volume:100mL Oral: No COMPARISON: CT CT CHEST PE CTA from 05/29/[address] ABDOMEN PELVIS CTA from 08/03/[address] CHEST PE CTA from 08/03/[address] ABDOMEN PELVIS W from 08/15/2023 FINDINGS: The examination is limited due to patient motion artifact. ABDOMEN AND PELVIS: Abdomen: Celiac axis/mesenteric arteries: No evidence of occlusion or significant stenosis. Renal Arteries: No evidence of occlusion or significant stenosis. There is mild atherosclerosis at th e origin of the right renal artery but no significant stenosis is seen. Aorta: No evidence of occlusion or significant stenosis. No aneurysm or dissection. Atherosclerosis is present Pelvis: Iliac Arteries: No evidence of occlusion or significant stenosis. There is mild atherosclerosis at t he origin of both common iliac arteries but no significant stenosis is seen. Common Femoral Arteries: No evidence of occlusion or significant stenosis. ABDOMEN: Lung bases: There are bilateral pleural effusions. There is a larger pleural effusion on the right o ther they are both small in size. Subjacent infiltrates are seen in the lower lobes. These may repr esent atelectasis or pneumonia. There is a moderate size hiatal hernia. Liver: Normal density. No measurable mass. Portal, Superior Mesenteric, and Splenic Veins: Unremarkable. No filling defects are seen. Gallbladder and Biliary Tract: No radiodense calculus or dilation. Pancreas: Normal density, no abnormal calcifications or inflammatory process. Spleen: Normal. Adrenals: No masses seen. Kidneys: Normal size, contour and axis. No radiodense stones or obstructive uropathy. There is a simp le cyst in the left kidney measuring 2.9 x 2.7 cm. No follow-up is recommended. Bowel: There has been improvement in the bowel wall thickening seen in the rectosigmoid colon. Predo minant wall thickening is seen in the rectum in the distal sigmoid colon. There is a persistent left pelvic abscess measuring 3.4 cm x 7.6 cm. (Series 11, image 636). There is an air-fluid level inte rnally. There now appears to be an abscess in the wall of the rectum on the left measuring 2.6 x 4.3 cm. (Series 11, image 673). There is an abscess again seen more superiorly adjacent to the iliac v essels measuring 1.7 x 1.7 cm (series 10, image 56). This compares to a 2.3 x 2.0 cm on the prior ex amination. There is diverticulosis seen throughout the colon. There is a moderate amount of stool t hroughout the colon suggesting constipation. There is no evidence of bowel obstruction. No evidence of appendicitis. Note is made of a diverticulum associated with 3rd portion of the duodenum. Peritoneal Cavity: No ascites, collection or mesenteric inflammatory response. No free air. Lymph Nodes: Within normal limits. Bones: Within normal limits for the patient's age. Soft Tissues: There is a catheter in the left gluteal soft tissues which terminates in the subcutaneo us fat. No associated fluid collection is seen. There is a fat containing umbilical hernia. PELVIS: Bladder: Symmetric distention, no gross wall thickening. Reproductive Organs: Unremarkable as visualized. Lymph Nodes: Within normal limits. Bones: Within normal limits. IMPRESSION: 1. Overall decrease in the inflammation of the rectosigmoid colon compared to the prior examination o f 08/15/2023. 2. Persistent pericolonic abscesses. There has been interval decrease in size of the more superior a bscess. 3. There appears to have developed an abscess within the wall of the rectum measuring 2.6 x 4.3 cm (s eries 11, image 673). 4. Bilateral pleural effusions, right greater than left and subjacent infiltrates which may represent atelectasis or pneumonia. 5. No evidence of occlusion of the superior mesenteric artery or veins. 6. There is a catheter terminating in the left gluteal subcutaneous fat. RADIATION DOSE DELIVERED: 1,802.85mGy.cm Total DLP DATA REPOSITORY: All CT scans at this facility are submitted to the National Radiology Data Registry (NRDR) Dose Index Registry (DIR) with the [employer] (ACR). RADIATION OPTIMIZATION: All CT scans at this facility use at least one of these dose optimization te chniques: automated exposure control; mA and/or kV adjustment per patient size (includes targeted exa ms where dose is matched to clinical indication); or iterative reconstruction.
[2023-08-21] MEDS: CLINDAMYCIN 900 MG/50 ML BAG 50 MG IVPB ×2 (00:21→16:37)
[2023-08-21] MEDS: PIPERACILLIN/TAZO 3.375 GM in Normal Saline 50 ML IVPB ×2 (02:07→09:21)
[2023-08-21] MEDS: Lactated Ringers 1,000 ML 1000 ML IV ×2 (03:10→06:00)
[2023-08-21 03:39] LABS: Abs Immature Grans 0.17 10^3/uL (0.0-0.06); Absolute Basophil Count 0.03 10^3/uL (0.0-0.2); Absolute Eosinophil Count 0.13 10^3/uL (0.0-0.7); Absolute Lymphocyte Count 0.95 10^3/uL (1.2-3.4); Absolute Monocyte Count 0.78 10^3/uL (0.1-0.8); Basophils % 0.2; HCT 27.3 % (36.0-46.0); Immature Grans % 1.3; Lymphocytes % 7.3; MCH 26.5 pg (27.0-33.0); MCHC 29.3 % (32.0-36.0); MCV 90 fL (80-95); MPV 10.9 fL (8.0-11.0); Neutrophils % 84.2; Platelet Count 241 10^3/uL (130-400); RBC 3.02 10^6/uL (3.93-5.22); RDW-SD 55.6 fL; WBC 13.07 10^3/uL (4.4-10.8)
[2023-08-21 03:49] LABS: Anion Gap 1.8 mmol/L (3-11); BUN 6 mg/dL (7-18); CO2 38.2 mmol/L (21.0-32.0); CREATININE 0.7 mg/dL (0.55-1.02); Calcium 7.8 mg/dL (8.5-10.1); Chloride 103 mmol/L (98-107); Estimated GFR 100.81 (mL/min/1.73m2); Glucose 136 mg/dL (74-106); Potassium 4.2 mmol/L (3.5-5.1); Sodium 143 mmol/L (136-145)
[2023-08-21] MEDS: Lactated Ringers 1,000 ML 125 ML IV ×3 (04:14→23:02)
--- NOTE | 2023-08-21 04:18 | NUR.NOTE ---
Nursing Note: 0415 Patient began bleeding from the rectum at 2100 on 08/20/23 with large clots and small amounts of stool. This has continued with 6 bowel movements at this time that are almost entirely blood and clots. Patient BP began to drop and when it was 90/56 contacted doctor again and he began treatment. Bolus of LR increased BP and lowered heart rate some. Patient is complaining of increasing pain in the abdomen. Blood test for type and crossmatch currently being run. H&H are 8 and 27. Patient gets dizzy when sitting up and I have asked her to remain in the bed to prevent falls.
--- NOTE | 2023-08-21 06:36 | CE_ITS ---
Date of service: 08/21/23 Time of Service: 06:50 Event Note: Nursing staff has noted that the patient has continued to have clots and bleeding per rectum. She was borderline hypotensive (90/56) and slightly tachycardic (102) at 2:13 which did response to 1 unit IVF with BP 109/71 and HR 99. Her BP is drastically reduced from 08/20 where her average SBP 129-140/70-70s. Her STAT H/H came back at 8g/dL. She has continued to have a downward trend of H/H from 10.1->9.4->8. Her repeat BP check has had a precip itous decline for which she is getting a 2nd IVF 1L bolus and 1 unit PRBC. She has an active bleed w/ history of diverticulitis s/p IR w/ drain. She will be transferred to the ICU w/ standing orders for IV Phenylephrine via peripheral line until we can get a central line. A STAT CTA abdomen/pelvis has been ordered to evaluate her diverticulitis as well as acute blood loss anemia. She is hemodynamically stable for transfer for IR evaluation. I supsect w/ her recent diverticulitis that this will preclude a colonoscopy evaluation. If she continues to decline we may have to consult general surgery for ex-lap evaluation. -2L IVF bolus -1 unit PRBC -Hold DVT prophylaxis -Repeat H/H 10:00 and 16:00 -Transfer to ICU -Standing order for IV Phenylephrine via peripheral -Consider central line placement and Norepinephrine -STAT CTA Abdomen/Pelvis -If she continues to decline consult General Surgery for Ex-Lap evaluation Critical Care Evaluation - 45 minutes Time Spent with Patient Time spent in critical care(minutes): 45 Time Spent Included: Coordination of care, Chart review, Documenting critically ill care and Discussing critically ill care with other medical staff
[2023-08-21] MEDS: Omnipaque 350 MG/ML 100 ML BTL IJ (06:42)
--- NOTE | 2023-08-21 07:14 | DI.VRAD_ITS ---
PROCEDURE INFORMATION: Exam: CTA Abdomen and Pelvis With Contrast Exam date and time: 08/21/2023 6:26 AM Age: 58 years old Clinical indication: Other: Bleeding; Prior surgery; Surgery date: Post-operative (0-2 days); Surgery type: Drain placed TECHNIQUE: Imaging protocol: Computed tomographic angiography of the abdomen and pelvis with contrast. Exam focused on the arteries. 3D rendering (Not supervised by radiologist): MIP and/or 3D reconstructed images were created by the technologist. Contrast material: OMNIPAQUE 350; Contrast volume: 100 ml; Contrast route: INTRAVENOUS (IV); COMPARISON: CT ABDOMEN PELVIS CTA 08/03/2023 1:57 PM FINDINGS: Lungs: Dependent, compressive atelectasis present in the lung bases. Pleural spaces: Bilateral small pleural effusions, right greater than left. Diaphragm: A moderate-sized hiatal hernia is present. Aorta: Diffuse aortoiliac calcifications are present. There is no evidence of abdominal aortic aneurysm. Celiac trunk and mesenteric arteries: No occlusion or significant stenosis. Renal arteries: No occlusion or significant stenosis. Right iliac arteries: No occlusion or significant stenosis. Left iliac arteries: No occlusion or significant stenosis. Liver: No mass. Gallbladder and bile ducts: Unremarkable. No calcified stones. No ductal dilation. Pancreas: Unremarkable. No mass. No ductal dilation. Spleen: Unremarkable. No splenomegaly. Adrenal glands: Unremarkable. No mass. Kidneys and ureters: There is a cyst in the left kidney. The kidneys and ureters are otherwise unremarkable. Stomach and bowel: There is thickening of the rectal wall with surrounding inflammatory change. There is some residual thickening of the mid sigmoid wall as well as surrounding inflammatory change, consistent with history of recent diverticulitis. The right colon is stool filled but otherwise unremarkable. Small bowel is grossly normal in appearance. The stomach is otherwise unremarkable. There is a residual abscess adjacent to the rectum that measures on the order of 5.1 x 2.8 x 4.9 cm, stable to slightly smaller in size when compared to prior exam. There is an air-fluid level present within this abscess. There is an adjacent fluid-filled abscess slightly superior to this that is immediately anterior to the bifurcation of the left common iliac vein. This abscess measures 2.1 x 1.9 x 1.5 cm and is slightly smaller in size when compared to prior exam. No definitive evidence of a source of gastrointestinal bleeding. Appendix: No evidence of appendicitis. Intraperitoneal space: No gross free intraperitoneal air. Lymph nodes: Unremarkable. No enlarged lymph nodes. Urinary bladder: Unremarkable. No mass. Reproductive: Unremarkable as visualized. Bones/joints: No acute fracture. Soft tissues: Subcutaneous soft tissue edema about the flanks. IMPRESSION: 1. No definitive evidence of a GI source of bleeding. 2. Prominent wall thickening and surrounding inflammatory change of the rectum and sigmoid colon consistent with is recent diagnosis of acute diverticulitis. The overall level of wall thickening inflammation is similar to prior exam of 08/15/2023. 3. Persistent pelvic abscesses with the largest immediately adjacent to the rectum and grossly similar in size to previous exam. Dictated and Authenticated by: Cameron Mckeon MD. Ordering:JORDAN Grossman MD
--- NOTE | 2023-08-21 07:25 | PT.INIE ---
PT Notes Visit Reasons: Diverticulitis,Pelvic Abscesses Inpatient Physical Therapy Evaluation Date: August 13, 2023 Referring Doctor: Roxi Dumont PT Orders: PT CONSULT: Evaluate for assistive device Precautions: Activities as tolerated, standard, fall Patient Profile/Admitting Diagnosis: [] PMHX: [] Social History/Home Situation: CUSTODIAL resident. Had not been on oxygen at CUSTODIAL. Independent with ambulation activities without an assistive device, occasionally uses single-point cane. Equipment Owned/DME: [facility] Subjective: [] Objective: Subjective: Reported pain in bilateral legs and feet that limited today's ambulation activity. Minimally short of breath after short distance ambulation using front wheeled walker despite oxygen supplementation at 2 L/min. Objective: General Observation: Sitter present. Patient on oxygen supplementation via NC at 2 L/min. On paper thank. Mental Status: Alert and oriented as to person, place, time, and purpose. Able to pay attention, focus, and respond appropriately. Pain: Minimal pain in the legs and feet with weightbearing Vital Signs: BP 176 over 72 mmHg, oxygen saturation 90% on 2 L HR 102 bpm and temperature 36.6 after level surface ambulation in [facility] ROM: Right Upper Extremity: Grossly WFL Left Upper Extremity: Grossly WFL Right Lower Extremity: Grossly WFL Left Lower Extremity: Grossly WFL Strength: Right Upper Extremity: Grossly 4-/5 Left Upper Extremity: Grossly 4-/5 Right Lower Extremity: Grossly 4-/5 Left Lower Extremity: Grossly 4-/5 Bed Mobility/Transfers: Rolling supervision Supine to sit supervision Sit to supine supervision Sit to stand supervision with FWW Stand to sit supervision with FWW Bed to reclining chair supervision with FWW Reclining chair to bed supervision with FWW Gait: Facilitated safe and correct performance of level surface ambulation using front wheeled walker with step through heel toe gait pattern requiring standby assist and line management for oxygen supplementation and oxygen saturation monitoring. Patient covered a distance of 50 feet plus 75 feet +10 feet with report of pain in the legs and feet at 3-4/10. Balance: Static Sitting: Normal Dynamic Sitting: Normal Static Standing: Fair Dynamic Standing: Fair Special Tests: Mobility Limitations Standardized Measure [facility] AM-PAC 6 clicks Basic Mobility Inpatient Short Form: Raw Score: 23 CMS Score: 11% deficit Informed Consent/Education: Patient was instructed in purpose of PT consult and plan of care. Agreeable to proceed with established PT POC to achieve personal goals. Assessment: Patient requires the use of a front wheeled walker for mobility ADL performance for energy conservation and to maximize independence while reducing fall risk. Activity today limited by report of pain in the legs and feet which Nurse Rock is made aware. Patient presents with clinical signs and symptoms consistent with current/admitting diagnoses that have resulted to mobility limitations, gait instability, generalized weakness, and overall ADL decline as demonstrated by the following impairment level findings: 1. Decreased strength to B UE/LE major muscle groups 2. Impaired sitting/standing balance 3. Impaired activity tolerance 4. Shortness of breath 5. Pain in B legs and feet 6. Impaired ventilatory function needing O2 supp Impairments are contributing to the following functional limitations: 1. Decline in bed mobility skills 2. Decline in transfer skills 3. Difficulty with ambulation without assistive device and physical assistance 4. Increased completion time for mobility ADL performance 5. Increased risk for falls 6. Difficulty with managing steps alone safely Patient is assessed as a 15502 moderate complexity based on the following: History: 58-year-old female with past medical history as indicated above Examination: Demonstrable impairment in strength, balance, and mobility level with underlying impairments and functional limitations as exhibited above as well as deficit score of 11% utilizing the [facility] Mobility Inpatient Short Form Presentation: Evolving Decision Makin moderate complexity Goals: Goals X1 week 1. Supine-Sit independent 2. Sit-Supine independent 3. Sit-Stand independent 4. Stand-Sit independent with no AD 5. Bed-Chair independent with no AD 6. Chair-Bed independent with no AD 7. Independent gait on level surface with use of no AD for at least 300 feet without report of pain nor dyspnea 8. Independent stair negotiation while holding onto B rails for at least 5 steps without report of pain nor dyspnea 9. Independent with home exercise program 10. Good static and dynamic standing balance/tolerance Plan of Care/Treatment Plan: 1-2x/day, 7 days/week x 1 week. Plan of care has been reviewed with the ANIMAL ANATOMY TEACHER providing the service under Physical Therapy direction. Initiate Physical Therapy intervention for pain management as needed, strengthening, bed mobility, transfers, gait, stairs, balance training, and use of assistive device. DISCHARGE RECOMMENDATIONS: [] Home with no services [] [] Home with services [specify] [] Home with outpatient PT [] [] SNF for continued rehabilitation [] [] Mechanical Service Technician Care [] [] SNF versus LTC based on ability to participate and progress [] [X] CUSTODIAL vs. SNF based on progress towards goals [] General Observation: [] Mental Status: [] Pain: [] Vital Signs: [] ROM: Right Upper Extremity: [] Left Upper Extremity: [] Right Lower Extremity: [] Left Lower Extremity: [] Strength: Right Upper Extremity: [] Left Upper Extremity: [] Right Lower Extremity: [] Left Lower Extremity: [] Sensation: [] Bed Mobility/Transfers: [] Gait: [] Balance: [] Static Sitting: [] Dynamic Sitting: [] Static Standing: [] Dynamic Standing: [] Special Tests: Mobility Limitations Standardized Measure [facility] 6 clicks Basic Mobility Inpatient Short Form: Raw Score: [] Standardized Score: [] CMS Score: [] Informed Consent/Education: Patient instructed in purpose of PT consult and plan of care. Assessment: Patient is a [] year old [] referred to physical therapy services with the diagnosis of []. Patient presents with clinical signs and symptoms consistent with [], as demonstrated by the following impairment level findings: []. Impairments are contributing to the following functional limitations: AMPAC score. Patient is assessed as a [] Low 70611 [] Moderate 14954 [] High 22881 complexity based on the following: History: [] Examination: [] Presentation: [] Decision Making: [] Goals: Goals X1 week 1. Supine-Sit [] 2. Sit-Supine [] 3. Sit-Stand [] 4. Stand-Sit [] 5. Bed-Chair [] 6. Chair-Bed [] 7. Gait [] 8. Stairs [] 9. Independent with home exercise program [] 10. Balance [] Plan of Care/Treatment Plan: 1-2x/day, 7 days/week x 1 week. Plan of care has been reviewed with the ANIMAL ANATOMY TEACHER providing the service under Physical Therapy direction. Initiate Physical Therapy intervention for strengthening, bed mobility, transfers, gait, stairs, balance training, use of assistive device. DISCHARGE RECOMMENDATIONS: [] [] Home with no services [] [] Home with services [specify] [] Home with outpatient PT [] [] SNF for continued rehabilitation [] [] Mechanical Service Technician Care [] [] SNF versus LTC based on ability to participate and progress [] TREATMENT CODE/TIME: [] Please sign an return this page within 30 days if you agree with the above POC. Thank you! Physician Signature Date [facility]
[2023-08-21] MEDS: Tiotropium Bromide-Respimat 10 PUFF INH 2 PUFF IH (08:00)
--- NOTE | 2023-08-21 08:11 | W.PM.PROGNOT ---
Date of Service Date of service: 08/21/23 Time of Service: 08:11 Assessment and Plan Assessment and plan (1) Hypovolemic shock: Status: Acute Assessment and plan: Secondary to lower GI bleeding complicated by diverticular abscess. Plan is for blood transfusion to treat her anemia. Placement of Andujar to monitor her urine output in the setting of her EMILY. Will hold on vasopressors as she seems to be responding to volume resuscitation. Bedside echo suggest hypovolemic shock rather than distributive or cardiogenic shock. She appears to have good LV and RV function on bedside echo with a very small IVC that completely collapses with respirations. See plan below (2) Diverticulitis: Status: Acute Assessment and plan: Patient was transferred to ICU early this morning d/t hypotension associated w/ perforated diverticulitis w/ abscess and acute rectal bleeding. She had been admitted w/ the perforated diverticulitis and abscess after she failed to fill Rx for Augmentin which was prescribed during prior admission for COPD exacerbation and ankle fracture from fall and when complaining of abdominal pain she was found to have sigmoid diverticulitis. She was admitted this time on 08/15/23 and surgery (Dr. Singletary) was consulted by the E.D. provider and recommendations was referral to [facility] for IR drainage. She had blood cultures obtrained and she was put on Zosyn and [facility] IR was consulted. She underwent drainage procedure on 08/17/23 and preliminary report of pelvic fluid cultures showed GPC, GNR and so far it is growing Clostridium perfringens and Bacteroides fragilis. Clindamycin was added yesterday to the Zosyn when the the organisms were identified. She has been anemic since admisssion w/ Hb 11.4 gm on 08/15/23 and steadily declining, 10.4 > 10.3 > 10.0 > 10.1 > 9.4 > 8.0 this morning. During the night she became hypotensive w BP 90/56 and received fluid boluses of 1 liter w/ improvement of her BP to 109/71 but then dropped again 82/56 and got another liter of fluids and repeat hemoglobin came back 8 gm. 1 units of PRBC was ordered by the imaging technologist and stat CT abdomen was ordered. Radiology interpretation as follows: 1. Overall decrease in the inflammation of the rectosigmoid colon compared to the prior examination of 08/15/2023. 2. Persistent pericolonic abscesses. There has been interval decrease in size of the more superior abscess. 3. There appears to have developed an abscess within the wall of the rectum measuring 2.6 x 4.3 cm (series 11, image [id number]). 4. Bilateral pleural effusions, right greater than left and subjacent infiltrates which may represent atelectasis or pneumonia. 5. No evidence of occlusion of the superior mesenteric artery or veins. 6. There is a catheter terminating in the left gluteal subcutaneous fat. I have discussed her case w/ Dr. Norman, who will see the patient today. He agrees that she needs more volume blood rather than crystalloid. She has one unit of PRBC running now w/ repeat hemoglobin for 10 am, I expect she will need at least one more unit of PRBC. I am concerned that the TOMÁS drain is not adequately draining the abscess and as such she may need to go for laparotomy. I have made her NPO until Dr. Norman sees her and determines the next plan. I am also changing her Zosyn to Meropenem pending the sensitivity report on the drainage fluid. Critical care time spent interviewing and examining the patient, reviewing studies, discussing case with patient's nurse and consulting physicians was 60 minutes outside of time spent performing POCUS exam (3) Abscess of female pelvis: Status: Acute Assessment and plan: as above CT shows that the drainage catheter is in the abdominal wall not in the abscess. I have placed call to [facility] to talk w/ IR to discuss replacing the drainage catehter. (4) EMILY (acute kidney injury): Status: Acute Assessment and plan: BUN is up to 38 creatinine 1.8. Patient does not have a Andujar in place she has gary-wick because she is incontinent of urine. We will place Andujar catheter monitor urine output os we have resuscitated her with blood transfusions. (5) COPD (chronic obstructive pulmonary disease): Assessment and plan: Resume patient's Spiriva which somehow got put on hold during her transfer to the intensive care unit we will also add DuoNeb treatments every 4 hours while awake. Qualifiers: COPD type: chronic bronchitis Chronic bronchitis type: unspecified Qualified Code(s): J42 - Unspecified chronic bronchitis (6) Depression: Assessment and plan: continue Wellbutrin Qualifiers: Depression Type: persistent depressive disorder Qualified Code(s): F34.1 - Dysthymic disorder (7) Closed fibular fracture: Status: Acute Assessment and plan: NWB status w/ walking boot and crutches, currently at bedrest until hypovolemic shock is controlled. pain medications changed to parenteral narcotics (8) Hypothyroidism: Status: Chronic Assessment and plan: continue levothryroxine outpatient reevaluation by PCP (9) Tobacco abuse: Status: Acute Assessment and plan: patient counseled to discuss smoking cessation will continue with PCP . The patient is already on Wellbutrin for depression (10) Discharge planning issues: Status: Acute Assessment and plan: patient remains full code, needs ICU monitoring and treatment for hypovolemic shock. Subjective Subjective Interval history since last seen: Patient transferred to ICU d/t hypotension that is responding to fluid boluses. She has ongoing abdominal pain and now has rectal bleeding. Small amount per ICU nurses. Patient is being transfused 1 unit of PRBC for Hb 8 gm. Exam Narrative Exam Narrative: Ester is moderate amount of abdominal pain. No nausea or vomiting. No further rectal bleeding since she has been transferred to the intensive care unit. She appears to be pale. Lungs scattered expiratory wheezes some bibasilar rales no rhonchi Heart is tachycardic but regular Abdomen diffusely tender w/ a few scattered bowel sounds, she has voluntary guarding Extremities: pale, no cyanosis, no edema Objective Last Vital Signs Temp 37.2 C 08/21/23 06:45 Pulse 102 H 08/21/23 07:17 Resp 18 08/21/23 07:17 BP 109/73 08/21/23 07:17 Pulse Ox 95 08/21/23 07:17 Laboratory Results - last 24 hr 08/21/23 08/21/23 03:32 04:24 WBC 13.07 H RBC 3.02 L Hgb 8.0 L Hct 27.3 L MCV 90 MCH 26.5 L MCHC 29.3 L RDW 17.0 H Plt Count 241 MPV 10.9 Immature Gran % 1.3 Neutrophils % 84.2 Lymphocytes % 7.3 Monocytes % 6.0 Eosinophils % 1.0 Basophils % 0.2 Nucleated RBC % 0.0 Absolute Neutrophils 11.00 H Absolute Lymphocytes 0.95 L Absolute Monocytes 0.78 Absolute Eosinophils 0.13 Absolute Basophils 0.03 Sodium 143 Potassium 4.2 Chloride 103 Carbon Dioxide 38.2 H Anion Gap 1.8 L BUN 6 L Creatinine 0.7 Est GFR (CKD-EPI 2020) 100.81 Glucose 136 H Calcium 7.8 L Patient ABO/Rh O Positive Antibody Screen NEGATIVE Crossmatch See Detail Time Spent with Patient Time Spent with Patient: >50 minutes Time was spent: preparing to see the patient(eg.review tests), ordering medications,tests, procedures, referring, communicating with other health care advocate (Dr. Chauncey Amaya, imaging technologist, Dr. Lester Norman, surgeon, [facility] IR), indepentently interpreting results, counseling the patient and care coordination
[2023-08-21 08:20] LABS: INR 1.1 (0.9-1.1); Prothrombin Time 10.8 sec (9.1-11.1)
[2023-08-21] MEDS: Normal Saline Flush 10 ML SYR IVP ×5 (09:02→20:31)
[2023-08-21] MEDS: HYDROmorphone 2 MG/ML SYR 0.5 MG IVP ×2 (09:04→14:11)
--- NOTE | 2023-08-21 09:09 | W.SURGCON ---
Date of service: 08/21/23 Time of Service: 11:00 Assessment and Plan Assessment and plan (1) Abscess of female pelvis: Status: Acute Assessment and plan: 58-year-old woman pelvic abscesses secondary to perforated diverticulitis of the sigmoid colon. This has been going on for couple of weeks. This is acutely complicated by some amount of GI bleeding. It seems somewhat obvious that the GI bleeding is probably in the region of all of this inflammatory process in her pelvis however we cannot exclude that the differential diagnosis does include foregut bleeding such as acute stomach or duodenal ulcers in the setting of how much physiologic stress she has been under over the last 3 weeks. At the time of my evaluation, she has received 1 unit of blood and is hemodynamically stable. I think her hemodynamic instability was less likely to be related to any septic response and more likely hypovolemia from some blood loss. This should be treated like any other GI bleeding and I recommend transfusion for goal hemoglobin greater than 9 since she had low blood pressure and mild tachycardia and evidence of kidney injury.(At the bedside she has a copious amount of clear urine visible in the Andujar bag) The drain is not in the fluid collections in the pelvis and this needs to be corrected. Again, I do not think she is having an acute on subacute sepsis response all of a sudden. Her abscesses and inflammatory processes in her pelvis are quite mature at this point (almost 3 weeks in duration[2 months per the patient's history]) and I agree that source control is necessary but doubtful it is contributing to the acute presentation. She is not acting or behaving septic and does not have a clinical appearance of sepsis. I think this is all probably all related to blood loss and hopefully simply transfusing her will be enough for her to stop bleeding. Right now it seems the bleeding has stopped since no one has seen any more blood per rectum. Hopefully the rectal abscess communicates with the pelvis fluid and can be drained in that manner. It is fairly high up in the rectum and will be difficult, though probably possible, to drain transanal. She can have clear liquids, protein shakes and #1 some crackers but should probably be n.p.o. at midnight in anticipation for replacing the IR drain tomorrow. Recommendations: 1. Push images to [facility] and ask IR to replace the drain tomorrow 2. Transfuse 2 units of blood for goal hemoglobin greater than 9 3. Hold DVT prophylaxis or anticoagulation and check/correct any coagulopathy 4. Stress ulcer prophylaxis/treatment in case this is contributing (IV PPI q12 and carafate) 5. If she otherwise deteriorates or has persistent bleeding that isn't repsonding to transfusion, then EGD and sigmoidoscopy, possible Ex-lap with diverting colostomy.(Unlikely to be needed) 6. Continue broad-spectrum Abx (which have been ongoing). History of Present Illness Narrative: I got asked by the hospitalist service to reevaluate the patient because of clinical deterioration overnight last night. She has chronic medical problems that, per chart review, seem to be acutely worse over the last month or so. It seemed that she was sent home on oxygen at some point. Over the last 2-3 weeks it also seems that she has been dealing with diverticulitis. Initially it was uncomplicated but it sounds like there was no antibiotics taken for 1 reason or another. 6 days ago she came back to the ER and had a CT scan showing pelvic abscesses. Radiographically it looks like they all connected. IR was consulted and a drain was placed. Reportedly the drain has not been putting out very much. At some point last night she developed some GI bleeding and had low blood pressure. She was fluid resuscitated and transferred to the ICU. A repeat CT scan was performed which showed the drain terminating in the musculature/soft tissue and persistence of undrained abscess. Today the hospitalist transfused her some blood after ultrasound confirming hypovolemic state of hemodynamics. At the bedside, the patient says her abdomen and pelvis do hurt. She says that that has been going on for about 2 months. It is not worse today than usual. It has not been any better either. Since being admitted to the ICU she has not had any bloody bowel movements. She is actually hungry and thirsty and asks if she can drink and have crackers. PFSH All Active Problems (Updated 08/21/23 @ 09:38 by Jerzy Gordon MD) EMILY (acute kidney injury) (Acute) Hypovolemic shock (Acute) Tobacco abuse (Acute) Hypothyroidism (Chronic) Discharge planning issues (Acute) Smoking (Acute) Abscess of female pelvis (Acute) Closed fibular fracture (Acute) COPD exacerbation (Acute) Acute hypoxemic respiratory failure (Acute) Diverticulitis (Acute) Medical History Smoking Chronic respiratory failure with hypoxia and hypercapnia Fever Chronic hypoxic respiratory failure COPD (chronic obstructive pulmonary disease) Auditory hallucination Depression Suicide ideation Social History Smoking/Tobacco Use Status: Current every day Tobacco Type: cigarettes Years smoked: 41 Smoking risk assessment performed?: Yes Alcohol Intake: never Drug use: Never Substance use type: does not use Housing: assisted living facility Do you feel safe at home: Yes Do you feel safe in your relationship?: Yes Additional Social history: Lives at [facility] Radha NarenRN 08/03/23 Exam Narrative Exam Narrative: Vital signs at the bedside in the ICU: Heart rate 98, systolic blood pressure 125 General: Nontoxic, comfortable and interactive. She does not appear acutely ill or in any significant pain. She is quite animated. She is pale in color consistent with anemia. She appears older than her stated age. Neuro: Alert and oriented x 3 Psych: Good, upbeat mood and affect and interactive. Her insight and understanding seem reasonable. Chest: Nonlabored breathing Heart: Regular Abdomen: Soft, minimally distended, somewhat diffuse tenderness to palpation but without peritoneal signs. Results Last Vital Signs Temp 99.1 F 08/21/23 08:51 Pulse 101 H 08/21/23 08:51 Resp 22 08/21/23 08:51 BP 122/72 08/21/23 08:51 Pulse Ox 93 08/21/23 08:51 Labs 08/21/23 10:50 08/21/23 03:32 Labs: Laboratory Results - last 24 hr 08/21/23 08/21/23 08/21/23 03:32 04:24 07:50 WBC 13.07 H RBC 3.02 L Hgb 8.0 L Hct 27.3 L MCV 90 MCH 26.5 L MCHC 29.3 L RDW 17.0 H Plt Count 241 MPV 10.9 Immature Gran % 1.3 Neutrophils % 84.2 Lymphocytes % 7.3 Monocytes % 6.0 Eosinophils % 1.0 Basophils % 0.2 Nucleated RBC % 0.0 Absolute Neutrophils 11.00 H Absolute Lymphocytes 0.95 L Absolute Monocytes 0.78 Absolute Eosinophils 0.13 Absolute Basophils 0.03 PT 10.8 INR 1.1 Sodium 143 Potassium 4.2 Chloride 103 Carbon Dioxide 38.2 H Anion Gap 1.8 L BUN 6 L Creatinine 0.7 Est GFR (CKD-EPI 2020) 100.81 Glucose 136 H Calcium 7.8 L Patient ABO/Rh O Positive Antibody Screen NEGATIVE Crossmatch See Detail
--- NOTE | 2023-08-21 09:12 | W.POCUS ---
Pocus Exam Limited Cardiac Exam DATE OF EXAM: 08/21/23 TIME OF EXAM: 08:49 PROVIDER THAT PERFORMED THE STUDY: Jerzy Gordon REASON FOR EXAM: Hypotension VISUALIZED STRUCTURES: four chambers, LVOT, aortic valve, Interventricular septum and IVC VIEW OBTAINED: Apical 4-Chamber, Parasternal long-axis, Parasternal short-axis and Subxiphoid PERTINENT FINDINGS/IMPRESSION: IVC inspiratory collapsability; No LV dysfunction, No pericardial effusion, No plethoric IVC, No RV dilation and No RV dysfunction INCIDENTAL FINDINGS: Hyperdynamic LV, normal RV function, IVC is small (<1 cm and over 50% inspiratory collapse), VTI 20.18 cm consistent w/ normal stroke volume (I did not take time to measure LVOT diameter so CO was not calculated. I attempted to perform post PLR VTI but patient was intolerant of lying flat and having her legs elevated to 45 degrees to obtain post PLR VTI. In light of her anemia, rectal bleeding and diverticulitis abscess she is more hypovolemic shock rather than distributive shock. As such she will be getting more PRBC transfusions. Exam complete
--- NOTE | 2023-08-21 09:14 | PT.INNT ---
PT Notes Visit Reasons: Diverticulitis,Pelvic Abscesses Orders received on this date for initial evaluation physical therapy. At that time patient was on MedSurg floor. She was then transferred to ICU. No current orders received at this point for initial evaluation. Anticipate that to be tomorrow.
[2023-08-21] MEDS: Nicotine 14 MG/24 HR PATCH TD (09:23)
[2023-08-21 09:36] LABS: Lactate 1.1 mmol/L (0.6-1.4)
[2023-08-21 10:15] LABS: Procalcitonin 0.1 ng/mL
[2023-08-21 11:02] LABS: HCT 27.2 % (36.0-46.0); HGB 8.4 g/dL (11.2-15.7)
[2023-08-21] MEDS: MEROPENEM 1 GM in Normal Saline 100 ML IVPB ×2 (11:40→22:25)
[2023-08-21] MEDS: Pantoprazole 40 MG VIAL IVP (11:41)
[2023-08-21] MEDS: Docusate Sodium 100 MG CAP PO ×2 (13:12→20:27)
[2023-08-21] MEDS: buPROPion 100 MG TAB PO (13:12)
[2023-08-21] MEDS: Ondansetron 4 MG/2 ML VIAL IVP (14:32)
[2023-08-21] MEDS: Gabapentin 300 MG CAP PO ×2 (16:36→20:28)
[2023-08-21] MEDS: ACETAMINOPHEN 1,000 MG/100 ML BTL 400 MG IVPB (16:37)
[2023-08-21 16:47] LABS: HCT 28.1 % (36.0-46.0); HGB 8.5 g/dL (11.2-15.7)
--- NOTE | 2023-08-21 18:56 | NUR.NOTE ---
Dr. Gordon on unit to discuss plan of care at change of shift. He gave instructions as well as a prescription for Jaron Abran to call [facility] transfer center at [phone] and ask for IR so that scheduling can be done. Prescription states IR directed drain placement for diverticular abscess. Additional unit of PRBC's ordered. Will relay this information to next shift as it is 1900 currently.
[2023-08-21] MEDS: OLANZapine 5 MG TAB 15 MG PO (22:25)
[2023-08-21] MEDS: Methocarbamol 500 MG TAB PO (22:25)
[2023-08-21] MEDS: Prazosin 1 MG CAP PO (22:25)
[2023-08-21] MEDS: Lurasidone 40 MG TAB 160 MG PO (22:25)
[2023-08-22] VITALS (26 sets, daily range): BP systolic 76–131; BP diastolic 57–97; PULSE 51–101; RESP 5–21; TEMP 36.4–37.3; O2SAT 86–95
[2023-08-22] MEDS: CLINDAMYCIN 900 MG/50 ML BAG 50 MG IVPB ×3 (00:40→18:52)
[2023-08-22] MEDS: ACETAMINOPHEN 1,000 MG/100 ML BTL 400 MG IVPB ×2 (00:42→08:07)
[2023-08-22 01:07] LABS: HCT 29.6 % (36.0-46.0); HGB 9.3 g/dL (11.2-15.7)
[2023-08-22] MEDS: Albuterol 2.5 MG/3 ML INH SOLN VIAL UPD ×2 (03:15→05:26)
[2023-08-22] MEDS: Levothyroxine 88 MCG TAB PO (05:16)
[2023-08-22 06:41] LABS: Abs Immature Grans 0.18 10^3/uL (0.0-0.06); Absolute Basophil Count 0.04 10^3/uL (0.0-0.2); Absolute Eosinophil Count 0.12 10^3/uL (0.0-0.7); Absolute Lymphocyte Count 1.02 10^3/uL (1.2-3.4); Absolute Monocyte Count 0.72 10^3/uL (0.1-0.8); Basophils % 0.3; Eosinophils % 0.9; HCT 29.4 % (36.0-46.0); HGB 9.3 g/dL (11.2-15.7); Immature Grans % 1.4; MCH 27.1 pg (27.0-33.0); MCHC 31.6 % (32.0-36.0); MCV 86 fL (80-95); MPV 10.6 fL (8.0-11.0); Monocytes % 5.6; Neutrophils % 83.8; Platelet Count 207 10^3/uL (130-400); RBC 3.43 10^6/uL (3.93-5.22); RDW 17.1 % (11.7-14.6); RDW-SD 52.6 fL; WBC 12.78 10^3/uL (4.4-10.8)
[2023-08-22 07:01] LABS: Absolute Neutrophil Count 10.71 10^3/uL (1.2-6.7)
[2023-08-22 07:23] LABS: ALT 13 U/L (14-59); AST 16 U/L (15-37); Albumin 1.4 g/dL (3.4-5.0); Alkaline Phosphatase 81 U/L (46-116); Anion Gap 0.6 mmol/L (3-11); BUN 6 mg/dL (7-18); Bilirubin, Total 0.5 mg/dL (0.2-1.0); CO2 40.4 mmol/L (21.0-32.0); CREATININE 0.5 mg/dL (0.55-1.02); Calcium 8.3 mg/dL (8.5-10.1); Chloride 103 mmol/L (98-107); Estimated GFR 109.33 (mL/min/1.73m2); Glucose 96 mg/dL (74-106); Potassium 4.2 mmol/L (3.5-5.1); Sodium 144 mmol/L (136-145); Total Protein 5.1 g/dL (6.4-8.2)
--- NOTE | 2023-08-22 07:58 | W.PM.PROGNOT ---
Date of Service Date of service: 08/22/23 Time of Service: 08:00 Assessment and Plan Assessment and plan (1) Abscess of female pelvis: Status: Acute Assessment and plan: 58-year-old woman with pelvic abscess related to a number of weeks of untreated diverticular disease. She needs the drain put back in the abscess cavity. What ever GI bleeding she had seems to have subsided and stopped. Overall plan: Surgery will continue to follow along but no surgical intervention is necessary at this time Subjective Subjective Interval history since last seen: Overnight there were no clinical changes or events. She has not had a fever. She has not had any low blood pressure. Her heart rate is normal. Her subjective complaints for me the same. Some abdominal pain but nothing worse than it has been for many months. She continues to have good urine output. Plan is for Down and back IR replacement of drainage catheter. There has been no more clinical bleeding. Her hemoglobin remains stable. Exam Narrative Exam Narrative: General: Nontoxic, comfortable and interactive. She has a stable appearance. Neuro: Alert and oriented x 3 Psych: Upbeat mood and affect, good insight and understanding Chest: Nonlabored breathing Heart: Regular Abdomen: Soft, mildly distended, diffusely tender without peritoneal signs. Objective Last Vital Signs Temp 97.5 F L 08/22/23 06:01 Pulse 89 08/22/23 06:01 Resp 17 08/22/23 06:01 BP 104/68 08/22/23 06:01 Pulse Ox 91 L 08/22/23 06:01 Laboratory Results - last 24 hr 08/21/23 08/21/23 08/21/23 04:24 07:50 09:30 WBC RBC Hgb Hct MCV MCH MCHC RDW Plt Count MPV Immature Gran % Neutrophils % Lymphocytes % Monocytes % Eosinophils % Basophils % Nucleated RBC % Absolute Neutrophils Absolute Lymphocytes Absolute Monocytes Absolute Eosinophils Absolute Basophils PT 10.8 INR 1.1 VBG Lactate 1.1 Sodium Potassium Chloride Carbon Dioxide Anion Gap BUN Creatinine Est GFR (CKD-EPI 2020) Glucose Calcium Total Bilirubin AST ALT Alkaline Phosphatase Total Protein Albumin Procalcitonin 0.1 Patient ABO/Rh O Positive Antibody Screen NEGATIVE Crossmatch See Detail 08/21/23 08/21/23 08/21/23 10:50 16:32 22:00 WBC RBC Hgb 8.4 L 8.5 L Cancelled Hct 27.2 L 28.1 L Cancelled MCV MCH MCHC RDW Plt Count MPV Immature Gran % Neutrophils % Lymphocytes % Monocytes % Eosinophils % Basophils % Nucleated RBC % Absolute Neutrophils Absolute Lymphocytes Absolute Monocytes Absolute Eosinophils Absolute Basophils PT INR VBG Lactate Sodium Potassium Chloride Carbon Dioxide Anion Gap BUN Creatinine Est GFR (CKD-EPI 2020) Glucose Calcium Total Bilirubin AST ALT Alkaline Phosphatase Total Protein Albumin Procalcitonin Patient ABO/Rh Antibody Screen Crossmatch 08/21/23 08/22/23 08/22/23 Unknown 01:02 05:40 WBC 12.78 H RBC 3.43 L Hgb Cancelled 9.3 L 9.3 L Hct Cancelled 29.6 L 29.4 L MCV 86 D MCH 27.1 MCHC 31.6 L D RDW 17.1 H Plt Count 207 MPV 10.6 Immature Gran % 1.4 Neutrophils % 83.8 Lymphocytes % 8.0 Monocytes % 5.6 Eosinophils % 0.9 Basophils % 0.3 Nucleated RBC % 0.0 Absolute Neutrophils 10.71 H Absolute Lymphocytes 1.02 L Absolute Monocytes 0.72 Absolute Eosinophils 0.12 Absolute Basophils 0.04 PT INR VBG Lactate Sodium 144 Potassium 4.2 Chloride 103 Carbon Dioxide 40.4 H Anion Gap 0.6 L BUN 6 L Creatinine 0.5 L Est GFR (CKD-EPI 2020) 109.33 Glucose 96 Calcium 8.3 L Total Bilirubin 0.5 AST 16 ALT 13 L Alkaline Phosphatase 81 Total Protein 5.1 L Albumin 1.4 L Procalcitonin Patient ABO/Rh Antibody Screen Crossmatch Time Spent with Patient Time Spent with Patient: <25 minutes Time was spent: preparing to see the patient(eg.review tests) and indepentently interpreting results
[2023-08-22] MEDS: Nicotine 14 MG/24 HR PATCH TD (08:08)
[2023-08-22] MEDS: Docusate Sodium 100 MG CAP PO ×2 (08:10→20:30)
[2023-08-22] MEDS: Ferrous Sulfate 325 MG TAB PO (08:10)
[2023-08-22] MEDS: buPROPion 100 MG TAB PO (08:10)
[2023-08-22] MEDS: Tiotropium Bromide-Respimat 10 PUFF INH 2 PUFF IH (08:10)
[2023-08-22] MEDS: Gabapentin 300 MG CAP PO ×3 (08:10→20:30)
[2023-08-22] MEDS: Normal Saline Flush 10 ML SYR IVP ×2 (08:11→20:33)
--- NOTE | 2023-08-22 08:35 | CMPROGNOTE_ITS ---
Date of service: 08/22/23 Time of Service: 08:36 Care Management Progress Note Progress Note Text Progress Note Text: S/O: Ester was transferred to the ICU over the weekend when she began having rectal bleeding. Her blood pressure dropped a bit as did her H&H and she received blood. A Ct scan of the abdomen was done and it was evident that her drainage catheter had dislodged and was no longer draining the pelvic abscess(es). She is scheduled to return to [facility] for another IR procedure to replace the tube. Ester is now hemodynamically stable and has had no further evidence of bleeding. She was lying in bed when CM met with her. She was sleepy and did not fully engage in conversation. She is aware that she is going to [facility] and asked the time of the transport. A: Ester is a 58 year old female admitted to [facility] on 08/16/23 for diverticulitis, pelvic abscess. P: Ester will likely return to her home at [place] with a resumption of home health services for nursing, PT, OT and [employer]. Unfortunately she needs home oxygen and obtaining that may be problematic given she has outstanding debt and equipment related to home oxygen.She will follow up with community providers and her plan of care and transport with facility staff vs RCT.. CM will follow and continue to assess for discharge needs. SDOH(Care Management) Screening Will the Patient Participate in the Screening?: Unable to obtain
[2023-08-22] MEDS: MEROPENEM 1 GM in Normal Saline 100 ML IVPB ×2 (09:34→22:55)
--- NOTE | 2023-08-22 09:43 | W.PM.PROGNOT ---
Date of Service Date of service: 08/22/23 Time of Service: 09:43 Assessment and Plan Assessment and plan (1) Hypovolemic shock: Status: Acute Assessment and plan: -Secondary to lower GI bleeding complicated by diverticular abscess. -s/p total of 3units PRBCs, Hb afer last transfusion PM 08/21 9.3 and is the same on the AM of 08/22 -hold on vasopressors as she seems to be responding to volume resuscitation. -Bedside echo suggest hypovolemic shock rather than distributive or cardiogenic shock. She appears to have good LV and RV function on bedside echo with a very small IVC that completely collapses with respirations. (2) Diverticulitis: Status: Acute Assessment and plan: -Patient was transferred to ICU early AM 08/21 d/t hypotension associated w/ perforated diverticulitis w/ abscess and acute rectal bleeding. -She had been admitted w/ the perforated diverticulitis and abscess after she failed to fill Rx for Augmentin which was prescribed during prior admission for COPD exacerbation and ankle fracture from fall and when complaining of abdominal pain she was found to have sigmoid diverticulitis. -She was admitted this time on 08/15/23 and surgery (Dr. Singletary) was consulted by the E.D. provider and recommendations was referral to [facility] for IR drainage. -She had blood cultures obtrained and she was put on Zosyn and [facility] IR was consulted. -She underwent drainage procedure on 08/17/23 and preliminary report of pelvic fluid cultures showed GPC, GNR and so far it is growing Clostridium perfringens and Bacteroides fragilis. Clindamycin was added yesterday to the Zosyn when the the organisms were identified. -CT abdomen pelvis overnight 08/20/2023 showed persistent pericolonic abscesses fluid having developed in the wall of the rectum -Discussed with general surgery, agreed with volume resuscitation, transfusion, and transfer for there and back IR drainage at [facility] (3) Abscess of female pelvis: Status: Acute Assessment and plan: -as above CT shows that the drainage catheter is in the abdominal wall not in the abscess. I have placed call to [facility] to talk w/ IR to discuss replacing the drainage catehter. (4) EMILY (acute kidney injury): Status: Acute Assessment and plan: -Cr 0.5 this AM (5) COPD (chronic obstructive pulmonary disease): Status: Chronic Assessment and plan: - Resume patient's Spiriva which somehow got put on hold during her transfer to the intensive care unit we will also add DuoNeb treatments every 4 hours while awake. Qualifiers: COPD type: chronic bronchitis Chronic bronchitis type: unspecified Qualified Code(s): J42 - Unspecified chronic bronchitis (6) Depression: Assessment and plan: continue Wellbutrin Qualifiers: Depression Type: persistent depressive disorder Qualified Code(s): F34.1 - Dysthymic disorder (7) Closed fibular fracture: Status: Acute Assessment and plan: NWB status w/ walking boot and crutches, currently at bedrest until hypovolemic shock is controlled. pain medications changed to parenteral narcotics (8) Hypothyroidism: Status: Chronic Assessment and plan: continue levothryroxine outpatient reevaluation by PCP (9) Tobacco abuse: Status: Acute Assessment and plan: patient counseled to discuss smoking cessation will continue with PCP . The patient is already on Wellbutrin for depression (10) Discharge planning issues: Status: Acute Assessment and plan: patient remains full code, needs ICU monitoring and treatment for hypovolemic shock. Subjective Subjective Interval history since last seen: Patient states that she is doing okay this morning. She understands she is going to [facility] for procedure and otherwise has no other complaints or concerns at this time Exam Narrative Exam Narrative: Chronically ill-appearing female laying in bed in no acute distress, 2 L nasal cannula in place, ANO x 4, heart regular rate rhythm, lungs clear to auscultation bilaterally, abdomen soft, with mild bilateral lower quadrant tenderness without rebound or guarding Objective Last Vital Signs Temp 98.1 F 08/22/23 07:45 Pulse 93 H 08/22/23 09:01 Resp 21 08/22/23 09:01 BP 107/71 08/22/23 09:01 Pulse Ox 88 L 08/22/23 09:01 Laboratory Results - last 24 hr 08/21/23 08/21/23 08/21/23 04:24 09:30 10:50 WBC RBC Hgb 8.4 L Hct 27.2 L MCV MCH MCHC RDW Plt Count MPV Immature Gran % Neutrophils % Lymphocytes % Monocytes % Eosinophils % Basophils % Nucleated RBC % Absolute Neutrophils Absolute Lymphocytes Absolute Monocytes Absolute Eosinophils Absolute Basophils Sodium Potassium Chloride Carbon Dioxide Anion Gap BUN Creatinine Est GFR (CKD-EPI 2020) Glucose Calcium Total Bilirubin AST ALT Alkaline Phosphatase Total Protein Albumin Procalcitonin 0.1 Patient ABO/Rh O Positive Antibody Screen NEGATIVE Crossmatch See Detail 08/21/23 08/21/23 08/21/23 16:32 22:00 Unknown WBC RBC Hgb 8.5 L Cancelled Cancelled Hct 28.1 L Cancelled Cancelled MCV MCH MCHC RDW Plt Count MPV Immature Gran % Neutrophils % Lymphocytes % Monocytes % Eosinophils % Basophils % Nucleated RBC % Absolute Neutrophils Absolute Lymphocytes Absolute Monocytes Absolute Eosinophils Absolute Basophils Sodium Potassium Chloride Carbon Dioxide Anion Gap BUN Creatinine Est GFR (CKD-EPI 2020) Glucose Calcium Total Bilirubin AST ALT Alkaline Phosphatase Total Protein Albumin Procalcitonin Patient ABO/Rh Antibody Screen Crossmatch 08/22/23 08/22/23 01:02 05:40 WBC 12.78 H RBC 3.43 L Hgb 9.3 L 9.3 L Hct 29.6 L 29.4 L MCV 86 D MCH 27.1 MCHC 31.6 L D RDW 17.1 H Plt Count 207 MPV 10.6 Immature Gran % 1.4 Neutrophils % 83.8 Lymphocytes % 8.0 Monocytes % 5.6 Eosinophils % 0.9 Basophils % 0.3 Nucleated RBC % 0.0 Absolute Neutrophils 10.71 H Absolute Lymphocytes 1.02 L Absolute Monocytes 0.72 Absolute Eosinophils 0.12 Absolute Basophils 0.04 Sodium 144 Potassium 4.2 Chloride 103 Carbon Dioxide 40.4 H Anion Gap 0.6 L BUN 6 L Creatinine 0.5 L Est GFR (CKD-EPI 2020) 109.33 Glucose 96 Calcium 8.3 L Total Bilirubin 0.5 AST 16 ALT 13 L Alkaline Phosphatase 81 Total Protein 5.1 L Albumin 1.4 L Procalcitonin Patient ABO/Rh Antibody Screen Crossmatch Time Spent with Patient Time Spent with Patient: >50 minutes Time was spent: preparing to see the patient(eg.review tests), obtaining and/or reviewing separately otained hiistory, ordering medications,tests, procedures, referring, communicating with other health summer child caregiver, indepentently interpreting results, counseling the patient and care coordination
[2023-08-22] MEDS: Pantoprazole 40 MG VIAL IVP (10:51)
--- NOTE | 2023-08-22 11:31 | PHACLINREV_ITS ---
Pharmacy Admission Review Admission Clinical Review Admission Pharmacy Review: (Updated 08/22/23 @ 08:46 by Pearl Rosas) EMILY (acute kidney injury) (Acute) Hypovolemic shock (Acute) Tobacco abuse (Acute) Discharge planning issues (Acute) Smoking (Acute) Abscess of female pelvis (Acute) Closed fibular fracture (Acute) Diverticulitis (Acute) erythromycin base [From Erythrocin] Allergy (Intermediate, Unverified 08/15/23 18:10) Anaphylaxis moxifloxacin Adverse Reaction (Mild, Verified 08/22/23 08:09) rash prednisone Adverse Reaction (Mild, Unverified 08/15/23 18:10) Psychosis Resuscitation Status Full Code Height 4 ft 11 in Weight 77.7 kg Comments Comments/Follow Ups: Received blood transfusion yesterday per progress note. Per morning meeting patient will be going to [facility] today for procedure. Pharmacy Admission Review Renal Dosing Renal Dosing: BUN 6 mg/dL (7-18) L 08/22/23 05:40 Creatinine 0.5 mg/dL (0.55-1.02) L 08/22/23 05:40 Medications needing adjustments: Reviewed (CrCl 104.48 mL/min) Anticoagulation Anticoagulation: Hgb 9.3 g/dL (11.2-15.7) L 08/22/23 05:40 Hct 29.4 % (36.0-46.0) L 08/22/23 05:40 Plt Count 207 10^3/uL (130-400) 08/22/23 05:40 INR 1.1 (0.9-1.1) 08/21/23 07:50 Creatinine 0.5 mg/dL (0.55-1.02) L 08/22/23 05:40 DVT Prophylaxis: Reviewed (SCD) Opiate Usage Evaluate Pain Scale/Pains Meds: Reviewed (PRN oxycodone) Scheduled Bowel Reg ordered if on Opiates?: Yes (Docusate) Relevant Labs Relevant Labs: Sodium 144 mmol/L (136-145) 08/22/23 05:40 Potassium 4.2 mmol/L (3.5-5.1) 08/22/23 05:40 Chloride 103 mmol/L (98-107) 08/22/23 05:40 Magnesium 1.9 mg/dL (1.8-2.4) 08/16/23 06:18 C-Reactive Protein 16.75 mg/dL (0.0-0.3) H 08/17/23 10:30 Electrolytes, C-Reactive P, ESR: Reviewed Cardiac Review Cardiac Review: Blood Pressure [Left Arm] 108/76 Blood Pressure 131/97 Blood Pressure 122/78 Blood Pressure 107/71 Blood Pressure 114/73 Blood Pressure 108/76 Blood Pressure 104/68 Blood Pressure 104/68 BP, HR, EF%: Reviewed (BP 131/97, HR 94, Ox 92 on NC 2+) QTc Review QTc: Reviewed (461 on 08/03/23) IV to PO Switch IV Medications: Reviewed (Could consider switching from IV APAP, pantoprazole and Zofran to PO) Home Meds Home Med List reviewed: Reviewed Relevent Home Meds Not ordered & why?: On home med list but not ordered: PRN hydroxyzine Current Meds Current Medication Order Review: Reviewed Pharmacy Antibiotic Review Pharmacy Antibiotic Activity: Reviewed, no change Comments: Currently regimen clindamycin and meropenem. WBC decreased today to 12.78. Comments Comments/Follow Ups: Received blood transfusion yesterday per progress note. Per morning meeting patient will be going to [facility] today for procedure.
--- NOTE | 2023-08-22 12:54 | PT.INNT ---
PT Notes Visit Reasons: Diverticulitis,Pelvic Abscesses Patient was transferred to the ICU after referral for PT eval was sent. Per Dr. Norris, patient has a down and back procedure at [facility] today but will be appropriate for PT evaluation tomorrow. PT to evaluate once another referral for ICU level of care is received.
[2023-08-22] MEDS: Lactated Ringers 1,000 ML 80 ML IV (18:45)
[2023-08-22] MEDS: Lurasidone 40 MG TAB 160 MG PO (20:29)
[2023-08-22] MEDS: OLANZapine 5 MG TAB 15 MG PO (20:29)
[2023-08-22] MEDS: oxyCODONE 5 MG TAB PO (20:30)
[2023-08-22] MEDS: Prazosin 1 MG CAP PO (20:30)
[2023-08-22] MEDS: Ondansetron 4 MG/2 ML VIAL IVP (20:30)
[2023-08-22] MEDS: Methocarbamol 500 MG TAB PO (20:30)
[2023-08-23] VITALS (7 sets, daily range): BP systolic 94–129; BP diastolic 60–76; PULSE 64–103; RESP 16–19; TEMP 36–37.1; O2SAT 88–96
[2023-08-23] MEDS: ACETAMINOPHEN 1,000 MG/100 ML BTL 400 MG IVPB ×4 (01:25→23:59)
[2023-08-23] MEDS: CLINDAMYCIN 900 MG/50 ML BAG 50 MG IVPB ×3 (02:36→18:10)
[2023-08-23] MEDS: Levothyroxine 88 MCG TAB PO (06:24)
[2023-08-23] MEDS: Tiotropium Bromide-Respimat 10 PUFF INH 2 PUFF IH (07:49)
[2023-08-23] MEDS: Docusate Sodium 100 MG CAP PO ×2 (08:46→20:31)
[2023-08-23] MEDS: Gabapentin 300 MG CAP PO ×4 (08:46→20:31)
[2023-08-23] MEDS: Nicotine 14 MG/24 HR PATCH TD (08:46)
[2023-08-23] MEDS: Ferrous Sulfate 325 MG TAB PO (08:46)
[2023-08-23] MEDS: buPROPion 100 MG TAB PO (08:46)
[2023-08-23] MEDS: Lactated Ringers 1,000 ML 80 ML IV ×2 (09:19→21:49)
[2023-08-23] MEDS: Pantoprazole 40 MG VIAL IVP (09:26)
[2023-08-23] MEDS: Normal Saline Flush 10 ML SYR IVP ×2 (09:26→20:31)
[2023-08-23] MEDS: Normal Saline 500 ML 100 ML IV (09:27)
--- NOTE | 2023-08-23 09:33 | W.PM.PROGNOT ---
Date of Service Date of service: 08/23/23 Time of Service: 16:22 Assessment and Plan Assessment and plan (1) Hypovolemic shock: Status: Acute Assessment and plan: -Secondary to lower GI bleeding complicated by diverticular abscess. -s/p total of 3units PRBCs, Hb afer last transfusion PM 08/21 9.3 and is the same on the AM of 08/22 and am 08/23 -Bedside echo suggest hypovolemic shock rather than distributive or cardiogenic shock. She appears to have good LV and RV function on bedside echo with a very small IVC that completely collapses with respirations. (2) Diverticulitis: Status: Acute Assessment and plan: -Patient was transferred to ICU early AM 08/21 d/t hypotension associated w/ perforated diverticulitis w/ abscess and acute rectal bleeding. -She had been admitted w/ the perforated diverticulitis and abscess after she failed to fill Rx for Augmentin which was prescribed during prior admission for COPD exacerbation and ankle fracture from fall and when complaining of abdominal pain she was found to have sigmoid diverticulitis. -She was admitted this time on 08/15/23 and surgery (Dr. Singletary) was consulted by the E.D. provider and recommendations was referral to [facility] for IR drainage. -She had blood cultures obtrained and she was put on Zosyn and [facility] IR was consulted. -She underwent drainage procedure on 08/17/23 and preliminary report of pelvic fluid cultures showed GPC, GNR and so far it is growing Clostridium perfringens and Bacteroides fragilis. Clindamycin was added yesterday to the Zosyn when the the organisms were identified. -CT abdomen pelvis overnight 08/20/2023 showed persistent pericolonic abscesses fluid having developed in the wall of the rectum -Discussed with general surgery, agreed with volume resuscitation, transfusion, and transfer for there and back IR drainage at [facility] -now POD #2 for IR drain placement at [facility] (3) Abscess of female pelvis: Status: Acute Assessment and plan: -as above -CT shows that the drainage catheter is in the abdominal wall not in the abscess. -IR drain in place as noted above (4) EMILY (acute kidney injury): Status: Acute Assessment and plan: -Cr 0.5 this AM (5) COPD (chronic obstructive pulmonary disease): Status: Chronic Assessment and plan: - Resume patient's Spiriva which somehow got put on hold during her transfer to the intensive care unit we will also add DuoNeb treatments every 4 hours while awake. Qualifiers: COPD type: chronic bronchitis Chronic bronchitis type: unspecified Qualified Code(s): J42 - Unspecified chronic bronchitis (6) Closed fibular fracture: Status: Acute Assessment and plan: NWB status w/ walking boot and crutches, currently at bedrest until hypovolemic shock is controlled. pain medications changed to parenteral narcotics (7) Hypothyroidism: Status: Chronic Assessment and plan: continue levothryroxine outpatient reevaluation by PCP (8) Tobacco abuse: Status: Acute Assessment and plan: patient counseled to discuss smoking cessation will continue with PCP . The patient is already on Wellbutrin for depression (9) Discharge planning issues: Status: Acute Assessment and plan: patient remains full code, needs ICU monitoring and treatment for hypovolemic shock. Subjective Subjective Interval history since last seen: Patient states she is little sore at the site of her IR drain but otherwise is feeling better. She has no other concerns at this time. Exam Narrative Exam Narrative: Chronically ill-appearing female laying in bed in no acute distress, 2 L nasal cannula in place, ANO x 4, heart regular rate rhythm, lungs clear to auscultation bilaterally, abdomen soft, now with drain in place without surroudning drainage or erythema, mild bilateral lower quadrant tenderness without rebound or guarding Objective Last Vital Signs Temp 96.8 F L 08/23/23 08:12 Pulse 99 H 08/23/23 08:12 Resp 18 08/23/23 08:12 BP 129/76 08/23/23 08:12 Pulse Ox 90 L 08/23/23 08:12 Time Spent with Patient Time Spent with Patient: >50 minutes Time was spent: preparing to see the patient(eg.review tests), obtaining and/or reviewing separately otained hiistory, ordering medications,tests, procedures, referring, communicating with other health primary health care nurse, indepentently interpreting results, counseling the patient and care coordination
[2023-08-23] MEDS: MEROPENEM 1 GM in Normal Saline 100 ML IVPB ×2 (10:39→21:37)
--- NOTE | 2023-08-23 10:44 | W.PM.PROGNOT ---
Date of Service Date of service: 08/23/23 Time of Service: 10:30 Assessment and Plan Assessment and plan (1) Abscess of female pelvis: Status: Acute Assessment and plan: 58-year-old woman with a pelvic abscess following a number of weeks of diverticulitis. The abscess now is draining and she is having drastic clinical improvement both subjectively and on examination. She is hemodynamically stable. No evidence of ongoing bleeding anymore - no blood seen and hemoglobin remains stable. Her abdominal exam has drastically improved and is essentially benign today. At this point surgery is going to sign off. She can follow-up in the surgery office in 2 weeks to check on the drain. I recommend flushing the drain at least 1 time per day to ensure the tubing does not get clogged. The drain should stay in a minimum of 2 weeks, and longer if it continues to have output. Under uncommon circumstances a colocutaneous fistula might develop but this usually does not happen. At follow-up in the office in 2 weeks we will decide whether or not to pull the drain. Recommend at least 10-day course of antibiotics and ensuring that she is compliant with this. Her diet can be advanced as tolerated. From a surgery standpoint, she can be discharged with the drain and oral antibiotics once she is tolerating a regular diet, afebrile and without a leukocytosis for more than 24 hours. Subjective Subjective Interval history since last seen: Patient had IR drain replaced yesterday. She is out of the ICU. At the bedside this morning the patient endorses significant improvement I feel a lot better. My stomach does not hurt anymore. She has not had any more bleeding. Exam Narrative Exam Narrative: General: Nontoxic, interactive and comfortable. Again is noted the patient appears much older than her stated age. Neuro: Alert and oriented x 3 Psych: Seemingly good insight and understanding Chest: Nonlabored breathing Heart: Regular Abdomen: Soft, nondistended, really not tender anymore. There are no peritoneal signs and overall I was not able to elicit any tenderness with gentle palpation. Objective Last Vital Signs Temp 96.8 F L 08/23/23 08:12 Pulse 99 H 08/23/23 08:12 Resp 18 08/23/23 08:12 BP 129/76 08/23/23 08:12 Pulse Ox 90 L 08/23/23 08:12 Time Spent with Patient Time Spent with Patient: <25 minutes Time was spent: indepentently interpreting results and counseling the patient
[2023-08-23 11:12] LABS: MCV 87 fL (80-95); MPV 9.8 fL (8.0-11.0); Platelet Count 216 10^3/uL (130-400); RBC 3.33 10^6/uL (3.93-5.22); RDW 16.4 % (11.7-14.6); WBC 12.82 10^3/uL (4.4-10.8)
[2023-08-23 11:23] LABS: Anion Gap 2.2 mmol/L (3-11); BUN 8 mg/dL (7-18); CO2 39.8 mmol/L (21.0-32.0); CREATININE 0.8 mg/dL (0.55-1.02); Calcium 8.1 mg/dL (8.5-10.1); Chloride 99 mmol/L (98-107); Estimated GFR 85.89 (mL/min/1.73m2); Glucose 87 mg/dL (74-106); Potassium 4.2 mmol/L (3.5-5.1); Sodium 141 mmol/L (136-145)
--- NOTE | 2023-08-23 15:59 | PT.INIE ---
PT Notes Visit Reasons: Diverticulitis,Pelvic Abscesses Physical Therapy Inpatient Initial Evaluation Date: 08/23/2022 Referring Doctor: Roxi Dumont APRN PT Orders: PT CONSULT: Eval/Treat Precautions: Fall. Standard. WBAT on the L LE with AD, fracture boot on L for comfort only. Patient Profile/Admitting Diagnosis: Ester is a 58-year-old female who presented to the ED and with subsequent admission to [facility] center level of care on 08/15/2022 form acute diverticulitis, pelvic abcess, EMILY, COPD exacerbation, depression, hypothyroidism, and tobacco abuse. She needed ICU level of care on 08/21/2023 due to hypotension r/t perforated diverticulitis with abcess and acute rectal bleeding. She had a down and back procedure at [facility] on 08/22/2022 for IR drain placement. She is now back to [facility] level of care and referred again by Dr. Norris for PT services to address mobility impairments. PMHX: All Active Problems (Updated 08/16/23 @ 06:46 by Frantz Caban) Abscess of female pelvis (Acute) Closed fibular fracture (Acute) COPD exacerbation (Acute) Acute hypoxemic respiratory failure (Acute) Diverticulitis (Acute) Medical History Smoking Chronic respiratory failure with hypoxia and hypercapnia Fever Chronic hypoxic respiratory failure COPD (chronic obstructive pulmonary disease) Auditory hallucination Depression Suicide ideation Social History/[facility] Situation: [facility] Had not been on oxygen at [facility]. Independent with ambulation activities without an assistive device, occasionally uses single-point cane prior to fall on 08/07/2022. Equipment Owned/DME: [facility] Subjective: Initially refused to get out of bed and to do anything when seen by PT this morning, was lethargic. Later this afternoon patient was more awake and agreeable to trying out moving but was anxious about her legs giving out and falling. Need encouragement to continue to participate in session. Patient verbalized that she has fallen at least 11 times in the past year due to weakness in her B LE. Objective: General Observation: Patient on oxygen supplementation via NC at 2 L/min. IV through L UE. Andujar catheter in place. Mental Status: Alert and oriented as to person, place, and purpose. Able to pay attention, focus, and respond appropriately. Pain: Moderate pain in the legs and feet with weight bearing Vital Signs: Closely monitored by nursing staff ROM: Right Upper Extremity: Shoulder Flexion lacks the last 25% of AROM. Shoulder abduction acks the last 25% of AROM. Elbow flexion WFL. Wrist flexion WFL. Functional opening and closing of hand WFL. Left Upper Extremity: Shoulder Flexion lacks the last 25% of AROM. Shoulder abduction acks the last 25% of AROM. Elbow flexion WFL. Wrist flexion WFL. Functional opening and closing of hand WFL. Right Lower Extremity: Hip flexion lacks the last 25% of AROM. Hip abduction WFL. Knee flexion WFL. Ankle dorsiflexion to neutral only. Ankle plantarflexion WFL. Left Lower Extremity: Hip flexion lacks the last 50% of AROM. Hip abduction WFL. Knee flexion 45 degrees to 90 degrees. Knee extension -45 degrees. Ankle dorsiflexion to neutral only. Ankle plantarflexion WFL. Strength: Right Upper Extremity: Shoulder flexors 3-/5. Shoulder abductors 3-/5. Elbow flexors 4-/5. Elbow extensors 4-/5. District Plant Superintendent strong. Left Upper Extremity: Shoulder flexors 3-/5. Shoulder abductors 3-/5. Elbow flexors 4-/5. Elbow extensors 4-/5. District Plant Superintendent strong. Right Lower Extremity: Hip flexors 3-/5. Hip abductors 4-/5. Knee flexors 4-/5. Knee extensors 4-/5. Ankle dorsiflexors 3-/5. Ankle plantarflexors 4-/5. Left Lower Extremity:Hip flexors 2-/5. Hip abductors 3-/5. Knee flexors 3-/5. Knee extensors 3-/5. Ankle dorsiflexors 3-/5. Ankle plantarflexors4-5/5. Bed Mobility/Transfers: Maximal cueing provided for use of B hands as needed for support, movement sequence, AD management, and posture to reduce fall risk and minimize pain report. Rolling moderate assist Supine to sit moderate assist Sit to supine moderate assist Sit to stand moderate assist FWW Stand to sit moderate assist FWW Scoot sideways while at edge of bed stand by assist Sit to supine stand by assist Gait: Facilitated safe and correct performance of level surface ambulation using front wheeled walker requiring minimal assist of PT and contact guard assist of BOILERMAKER APPRENTICE Farida for safety. Patient completed 3 steps forward and 3 steps backward x 2 sets with report of instability in B LE, appearing fearful of falling. Steps cautious and hesitant, step height and length decrsased. Balance: Static Sitting: Normal Dynamic Sitting: Normal Static Standing: Fair Dynamic Standing: Fair Special Tests: Mobility Limitations Standardized Measure [facility] AM-PAC 6 clicks Basic Mobility Inpatient Short Form: Raw Score: 12 CMS Score: 69% deficit Informed Consent/Education: Patient was instructed in purpose of PT consult and plan of care. Agreeable to proceed with established PT POC to achieve personal goals. ASSESSMENT: Per clarification order of orthopedic surgeon, patient now WBAT on the L LE with fracture boot on. Requires assist of 2 caregivers for all transfers for safety. Ambulation with PT staff only. Has increased buckling in B LE due to generalized weakness and fatigue. Patient presents with clinical signs and symptoms consistent with current/admitting diagnoses that have resulted to mobility limitations, gait instability, generalized weakness, and overall ADL decline as demonstrated by the following impairment level findings: 1. Decreased strength to B UE/LE major muscle groups 2. Impaired sitting/standing balance 3. Impaired activity tolerance 4. B LE buckling 5. Fearfulness of falling Impairments are contributing to the following functional limitations: 1. Decline in bed mobility skills 2. Decline in transfer skills 3. Difficulty with ambulation without assistive device and physical assistance 4. Increased completion time for mobility ADL performance 5. Increased risk for falls 6. Difficulty with managing steps alone safely Patient is assessed as a [id number] moderate complexity based on the following: History: 58-year-old female with past medical history as indicated above Examination: Demonstrable impairment in strength, balance, and mobility level with underlying impairments and functional limitations as exhibited above as well as deficit score of 69% utilizing the [facility] Mobility Inpatient Short Form Presentation: Evolving Decision Makin moderate complexity Goals: Goals X1 week 1. Supine-Sit independent 2. Sit-Supine independent 3. Sit-Stand independent 4. Stand-Sit independent with FWW 5. Bed-Chair independent with FWW 6. Chair-Bed independent with FWW 7. Independent gait on level surface with use of FWW for at least 300 feet without report of pain nor dyspnea 8. Independent stair negotiation while holding onto B rails for at least 5 steps without report of pain nor dyspnea 9. Independent with home exercise program 10. Good static and dynamic standing balance/tolerance Plan of Care/Treatment Plan: 1-2x/day, 7 days/week x 1 week. Plan of care has been reviewed with the BOILERMAKER APPRENTICE providing the service under Physical Therapy direction. Initiate Physical Therapy intervention for pain management as needed, strengthening, bed mobility, transfers, gait, stairs, balance training, and use of assistive device. DISCHARGE RECOMMENDATIONS: [] Home with no services [] [] Home with services [specify] [] Home with outpatient PT [] [] SNF for continued rehabilitation [] [] Forest Technology Professor Care [] [] SNF versus LTC based on ability to participate and progress [] [X] [facility] vs. SNF based on progress towards goals TREATMENT CODE/TIME: 79522 x 20 minutes for 1 unit, 10814 x 16 minutes beginning at 15:14 PM. Thank you for the opportunity to participate in the care of this patient. Fauzia Miller PT, DPT, CLT [facility] [place], [place]
--- NOTE | 2023-08-23 16:15 | CMPROGNOTE_ITS ---
Date of service: 08/23/23 Time of Service: 16:15 Care Management Progress Note Progress Note Text Progress Note Text: S/O: Ester was sleeping when CM attempted to meet with her. Per report, she had a drain placed at [facility] yesterday, and she is clinically improving now, as her abscess is now draining. CM will continue to follow. A: Ester is a 58 year old female admitted to [facility] on 08/16/23 for diverticulitis, pelvic abscess. 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 Unfortunately she needs home oxygen and obtaining that may be problematic given she has outstanding debt and eq uipment related to home oxygen.She will follow up with community providers and her plan of care and transport with facility staff vs RCT.. CM will follow and continue to assess for discharge needs. SDOH(Care Management) Screening Will the Patient Participate in the Screening?: Unable to obtain
[2023-08-23] MEDS: Prazosin 1 MG CAP PO (21:36)
[2023-08-23] MEDS: Methocarbamol 500 MG TAB PO (21:37)
[2023-08-23] MEDS: OLANZapine 5 MG TAB 15 MG PO (21:37)
[2023-08-23] MEDS: Lurasidone 40 MG TAB 160 MG PO (21:47)
[2023-08-24] VITALS (9 sets, daily range): BP systolic 109–133; BP diastolic 71–83; PULSE 75–91; RESP 5–20; TEMP 36.2–37.1; O2SAT 89–97
[2023-08-24] MEDS: CLINDAMYCIN 900 MG/50 ML BAG 50 MG IVPB ×3 (02:10→17:27)
[2023-08-24] MEDS: Levothyroxine 88 MCG TAB PO (06:07)
[2023-08-24 07:06] LABS: HCT 30.6 % (36.0-46.0); HGB 9.2 g/dL (11.2-15.7); MCH 26.8 pg (27.0-33.0); MCHC 30.1 % (32.0-36.0); MCV 89 fL (80-95); MPV 10.4 fL (8.0-11.0); Platelet Count 221 10^3/uL (130-400); RBC 3.43 10^6/uL (3.93-5.22); RDW 16.6 % (11.7-14.6); RDW-SD 53.5 fL; WBC 7.15 10^3/uL (4.4-10.8)
[2023-08-24] MEDS: ACETAMINOPHEN 1,000 MG/100 ML BTL 400 MG IVPB ×2 (07:26→15:35)
[2023-08-24 07:37] LABS: Anion Gap 0 mmol/L (3-11); BUN 6 mg/dL (7-18); CREATININE 0.7 mg/dL (0.55-1.02); Chloride 102 mmol/L (98-107); Estimated GFR 100.81 (mL/min/1.73m2); Glucose 93 mg/dL (74-106); Potassium 4.3 mmol/L (3.5-5.1); Sodium 143 mmol/L (136-145)
[2023-08-24] MEDS: Normal Saline Flush 10 ML SYR IVP ×5 (08:22→19:42)
[2023-08-24] MEDS: Tiotropium Bromide-Respimat 10 PUFF INH 2 PUFF IH (08:35)
[2023-08-24] MEDS: Ferrous Sulfate 325 MG TAB PO (08:50)
[2023-08-24] MEDS: Docusate Sodium 100 MG CAP PO ×3 (08:51→19:41)
[2023-08-24] MEDS: Gabapentin 300 MG CAP PO ×4 (08:52→19:40)
[2023-08-24] MEDS: buPROPion 100 MG TAB PO (08:52)
[2023-08-24] MEDS: Nicotine 14 MG/24 HR PATCH TD (08:54)
[2023-08-24] MEDS: MEROPENEM 1 GM in Normal Saline 100 ML IVPB ×2 (09:50→21:35)
--- NOTE | 2023-08-24 09:58 | W.PM.PROGNOT ---
Date of Service Date of service: 08/24/23 Time of Service: 09:58 Assessment and Plan Assessment and plan (1) Hypovolemic shock: Status: Acute Assessment and plan: -Secondary to lower GI bleeding complicated by diverticular abscess. -s/p total of 3units PRBCs, Hb afer last transfusion PM 08/21 9.3 and is the same on the AM of 08/22 and am 08/23 -Bedside echo suggest hypovolemic shock rather than distributive or cardiogenic shock. She appears to have good LV and RV function on bedside echo with a very small IVC that completely collapses with respirations. (2) Diverticulitis: Status: Acute Assessment and plan: -Patient was transferred to ICU early AM 08/21 d/t hypotension associated w/ perforated diverticulitis w/ abscess and acute rectal bleeding. -She had been admitted w/ the perforated diverticulitis and abscess after she failed to fill Rx for Augmentin which was prescribed during prior admission for COPD exacerbation and ankle fracture from fall and when complaining of abdominal pain she was found to have sigmoid diverticulitis. -She was admitted this time on 08/15/23 and surgery (Dr. Singletary) was consulted by the E.D. provider and recommendations was referral [place] [facility] [place]. -She had blood cultures obtrained and she was put on Zosyn and [facility] [place] was consulted. -She underwent drainage procedure on 08/17/23 and preliminary report of pelvic fluid cultures showed GPC, GNR and so far it is growing Clostridium perfringens and Bacteroides fragilis. Clindamycin was added yesterday to the Zosyn when the the organisms were identified. -CT abdomen pelvis overnight 08/20/2023 showed persistent pericolonic abscesses fluid having developed in the wall of the rectum -Discussed with general surgery, agreed with volume resuscitation, transfusion, and transfer for there and back IR drainage at [facility] -now POD #3 for IR drain placement at [facility] -Plan to transition to p.o. antibiotics based on culture sensitivities once available (3) Abscess of female pelvis: Status: Acute Assessment and plan: -as above -CT shows that the drainage catheter is in the abdominal wall not in the abscess. -IR drain in place as noted above (4) EMILY (acute kidney injury): Status: Acute Assessment and plan: -Cr 0.5 this AM (5) COPD (chronic obstructive pulmonary disease): Status: Chronic Assessment and plan: - Resume patient's Spiriva which somehow got put on hold during her transfer to the intensive care unit we will also add DuoNeb treatments every 4 hours while awake. Qualifiers: COPD type: chronic bronchitis Chronic bronchitis type: unspecified Qualified Code(s): J42 - Unspecified chronic bronchitis (6) Closed fibular fracture: Status: Acute Assessment and plan: NWB status w/ walking boot and crutches, currently at bedrest until hypovolemic shock is controlled. pain medications changed to parenteral narcotics (7) Hypothyroidism: Status: Chronic Assessment and plan: continue levothryroxine outpatient reevaluation by PCP (8) Tobacco abuse: Status: Acute Assessment and plan: patient counseled to discuss smoking cessation will continue with PCP . The patient is already on Wellbutrin for depression (9) Discharge planning issues: Status: Acute Assessment and plan: patient remains full code, needs ICU monitoring and treatment for hypovolemic shock. Subjective Subjective Interval history since last seen: Patient states that she is a little tired today but does feel significantly better as compared to previous days. Otherwise she has no other complaints or concerns at this Exam Narrative Exam Narrative: Chronically ill-appearing female laying in bed in no acute distress, [address] cann[address] in place, ANO x 4, heart regular rate rhythm, lungs clear to auscultation bilaterally, abdomen soft, now with drain in place without surroudning drainage or erythema, mild bilateral lower quadrant tenderness without rebound or guarding Objective Last Vital Signs Temp 98.7 F 08/24/23 07:23 Pulse 89 08/24/23 07:23 Resp 15 08/24/23 07:23 BP 128/76 08/24/23 07:23 Pulse Ox 89 L 08/24/23 08:35 Laboratory Results - last 24 hr 08/23/23 08/24/23 11:00 06:40 WBC 12.82 H 7.15 RBC 3.33 L 3.43 L Hgb 9.0 L 9.2 L Hct 29.0 L 30.6 L MCV 87 89 MCH 27.0 26.8 L MCHC 31.0 L 30.1 L RDW 16.4 H 16.6 H Plt Count 216 221 MPV 9.8 10.4 Sodium 141 143 Potassium 4.2 4.3 Chloride 99 102 Carbon Dioxide 39.8 H 41.0 H Anion Gap 2.2 L 0 L BUN 8 6 L Creatinine 0.8 0.7 Est GFR (CKD-EPI 2020) 85.89 100.81 Glucose 87 93 Calcium 8.1 L 8.0 L Time Spent with Patient Time Spent with Patient: >50 minutes Time was spent: preparing to see the patient(eg.review tests), obtaining and/or reviewing separately otained hiistory, ordering medications,tests, procedures, referring, communicating with other health neonatal intensive care nurse, indepentently interpreting results, counseling the patient and care coordination
--- NOTE | 2023-08-24 10:15 | RT.EKG_ITS ---
APPROVED REPORT Exam: Resting ECG Reason for Exam: chest pain Patient Location: I HR:97 bpm ECG Measurements Heart Rate 97 AXIS WV 136 P 50 QRSd 88 QRS 3 QT 329 T 0 QTc 418 Conclusion Sinus rhythm...normal P axis, V-rate 50- 99 Borderline low voltage, extremity leads...all extremity leads <0.6mV ARTIFACT NO PVCs or PACs
[2023-08-24] MEDS: oxyCODONE 5 MG TAB PO (10:30)
--- NOTE | 2023-08-24 10:38 | PDOC.CMPRO ---
Date of service: 08/24/23 Time of Service: 10:38 Care Management Progress Note Progress Note Text Progress Note Text: S/O: Ester was lying in bed when CM met with her. She appeared to be in good spirits and was more taslkative than usual. Ester informed CM that she worked with PT today and seemed proud of that fact. She stated that tomorrow she will get bathed and cleaned up. Ester complained of having chest pain this morning and an EKG and troponin were ordered. Her troponin came back as 1708, indicating that she has had an NSTEMI. The provider consulted [facility] who recommended medical management with a heparin drip at this time. She is also having her H&H monitored as she had a GI bleeding episode over the weekend. There has been no further resolution of her home oxygen equipment/service. A: Ester is a 58 year old female admitted to [facility] on 08/16/23 for diverticulitis, pelvic abscess. 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 Unfortunately she needs home oxygen and obtaining that may be problematic given she has outstanding debt and equipment related to home oxygen.She will follow up with community providers and her plan of care and transport with facility staff vs RCT.. CM will follow and continue to assess for discharge needs. SDOH(Care Management) Screening Will the Patient Participate in the Screening?: Unable to obtain
[2023-08-24] MEDS: Pantoprazole 40 MG VIAL IVP (10:55)
[2023-08-24 11:34] LABS: Troponin I 1708 ng/L (< or =60)
[2023-08-24] MEDS: Aspirin E.C. 325 MG TABEC PO (11:54)
--- NOTE | 2023-08-24 11:59 | PT.INTREAT ---
Date of service: 08/24/23 Time of Service: 10:38 PT Notes Visit Reasons: Diverticulitis,Pelvic Abscesses Inpatient Physical Therapy Treatment Note [facility] Date: 08/24/23 PRECAUTIONS: Fall, standard, activity as tolerated. WBAT LLE. SUBJECTIVE: Patient asks if therapy can be held until tomorrow, as she is not ready. Reports having had chest pain which she thought was a heart attack but states that it turned out it was a panic attack. Reports still not walking well, pain in left ankle. OBJECTIVE: Supine in bed, agreeable to therapy. Andujar catheter in place, 2L/min O2 supplementation via nasal cannula, IV attached RUE. RN students x2 present in the room at start of treatment session, beginning to set up another IV medication. ? PAIN: Reports pain in left ankle, intermittent chest pain, but it's bearable. VITALS: monitored by nursing staff. ? Therapeutic Activities ([id number]): Direct one-on-one instruction in dynamic activities to improve functional performance. ? BED MOBILITY/TRANSFERS? Rolling L/R: independent Supine-sit: min assist via handhold to serve as an anchor for patient to pull herself up ? Sit-supine: min assist to prevent trailing (left) leg from dropping between patient efforts to swing it into bed. ? Sit-stand: CGA? Stand-sit: SBA? Bed-Chair: CGA? Chair-bed: CGA Provided skilled cues and instruction on performance and technique throughout. ASSESSMENT:? Patient tolerates therapy well, no increased report of pain nor dyspnea (patient has some dyspnea at baseline). Discussed afternoon treatment with patient, who is agreeable. PLAN: Per Dr Norris, patient on hold / bed rest until further notice. Once cleared, resume skilled physical therapy services for global strengthening and functional activity tolerance. TREATMENT CODE/TIME: 16 minutes beginning at 10:38
[2023-08-24 14:17] LABS: Troponin I 1519 ng/L (< or =60)
[2023-08-24] MEDS: Heparin in 0.45% NaCl 25,000 UNIT/250 ML BAG 9.5 UNIT IV (14:28)
--- NOTE | 2023-08-24 15:22 | DI.US_ITS ---
APPROVED REPORT EXAM: Comprehensive 2D, Doppler, and color-flow Echocardiogram Patient Location: In-Patient Room/Bed: [address] Planer: Steven Bonilla RDCS (AE) Indications: NSTEMI, ? wall motion abnormalities Conclusion LA/RA/RV are mildly to moderately dilated, LV is normal in size. Mild hypocontractility of the interventricular septum,moderate hypokinesis of RV free wall. LVEF 50-5 5%. Inferior wall not optimally visualized. Anatomically normal valves. Mild TR with mild phtn( 45mmHg ). No intracardiac shunt No pericardial effusion. Wall motion Left Ventricle Left ventricular cavity is small. Left ventricular systolic function is mildly decreased. Borderline concentric left ventricular hypertrophy. There is global hypokinesis of the left ventricle. LVEF is 5 0%. Right Ventricle Right ventricle is moderately dilated. Right ventricle is mildly hypokinetic. Atria Left atrium is borderline dilated. Right atrium is moderately dilated. Tricuspid Valve The tricuspid valve is normal in structure. Moderate tricuspid regurgitation. The RVSP is 42.1 mmHg. Great Vessels The IVC collapses <50% with inspiration. Pericardium There is no pericardial effusion. 2D Dimensions IVSD d PLAX 0.98 cm F: 0.6-1.0 LVPW d PLAX 0.98 cm F: 0.6 - 1.0 LVID d PLAX 3.04 cm F: 3.8 - 5.2 LVDs 2.29 cm F: 2.2 - 3.5 LV EF Teichholz 50.3 % FS 24.60 % LV EDV (Teich) 36.1 mL LV ESV (Teich) 17.9 mL Stroke Vol Index (Teich) 10.50 Auto EF LV EDV A4C 80.4 mL LV EDV A2C 114.6 mL LV EDV BP 97.9 mL LV ESV A4C 39.8 mL LV ESV A2C 56.3 mL LV ESV BP 49.5 mL LVEF(%) A4C 50.5 % LVEF(%) A2C 50.8 % LVEF(%) BP 49.4 % LV SV A4C 40.6 ml LV SV A2C 58.3 ml LV SV BP 48.4 ml LV CO A4C 3.5 L/min LV CO A2C 5.0 L/min LV CO BP 4.3 L/min HR A4C 87.17 BPM HR A2C 85.92 BPM LV EDV Index (BP) LA Volume LA Length A4C 5.3 cm LA Length A2C 4.8 cm LA Area A4C s 15.33 cm2 LA Area A2C s 12.44 cm2 LA Vol A4C A-L 37.97 mL LA Vol A2C A-L 27.34 mL LA Vol Biplane A-L 33.7 mL LA Vol/BSA A4C A-L LA Vol/BSA A2C A-L LA Vol/BSA BP A-L 19.5 mL/m2 LA Vol A4C MOD 35.3 mL LA Vol A2C MOD 26.1 mL LA Vol BP MOD 31.4 mL RA Volume RA Area A4C 21.3 cm2 RA ESV A4C (A-L) 74.9mL RA Vol/BSA A4C A-L RA Length A4C 5.2 cm RA ESV A4C (MOD) 72.6mL Tricuspid Valve RA Pressure 8.00 mmHg TR Vmax 2.92 m/s TR Peak Grad 34.0 mmHg RVSP (TR) 42.1 mmHg
[2023-08-24] MEDS: Lactated Ringers 1,000 ML 80 ML IV (15:33)
[2023-08-24 17:04] LABS: HCT 31.3 % (36.0-46.0); HGB 9.4 g/dL (11.2-15.7)
[2023-08-24] MEDS: Normal Saline 500 ML 100 ML IV (17:26)
[2023-08-24] MEDS: Albuterol 2.5 MG/3 ML INH SOLN VIAL UPD (20:09)
[2023-08-24 20:32] LABS: HCT 30.4 % (36.0-46.0); HGB 9.3 g/dL (11.2-15.7)
[2023-08-24 20:38] LABS: PTT Activated 62.6 sec (23.6-32.8)
[2023-08-24] MEDS: Prazosin 1 MG CAP PO (21:34)
[2023-08-24] MEDS: Methocarbamol 500 MG TAB PO (21:34)
[2023-08-24] MEDS: OLANZapine 5 MG TAB 15 MG PO (21:34)
[2023-08-25] VITALS (9 sets, daily range): BP systolic 108–133; BP diastolic 72–87; PULSE 65–92; RESP 16–20; TEMP 36.6–37.2; O2SAT 91–96
--- NOTE | 2023-08-25 | DI.CT_ITS ---
Exam(s) CT ABDOMEN PELVIS W EXAM: CT ABDOMEN PELVIS W CLINICAL HISTORY: TOMÁS drain for divertic abscess, now abdo tender. TECHNIQUE: Imaging Protocol: Axial computed tomography images with coronal and sagittal reformatted images were created and reviewed CONTRAST MATERIAL: Intravenous: Omnipaque-350 100cc Oral: None COMPARISON: CT CT ABDOMEN PELVIS CTA from 08/21/2023 FINDINGS: VISUALIZED LUNG BASES: Pleural effusions have slightly further increased in size and there is volume loss in the basal segments of the lower lobes evident.. ABDOMEN: There is relatively symmetrical anasarca evident over both flanks, similar to 08/21/2023. LIVER: There are no focal hepatic lesions evident. No evidence of intrahepatic abscess and no gas wi thin the intrahepatic portal veins. Tiny 2 millimeter cyst noted in the right hepatic lobe. GALLBLADDER/BILIARY: No obvious gallstones. Gallbladder is not distended but there is a small amount of Gwen cholecystic fluid now evident. CBD is not dilated. PANCREAS: Part of the pancreatic head is obscured by a duodenal diverticulum. There is no obvious pa ncreatic mass nor dilatation of the pancreatic duct and there is no pericholecystic fluid evident. SPLEEN: Spleen is not enlarged. No obvious intrasplenic lesions. Splenic and portal veins are paten t. ADRENALS: There are no significant adrenal masses. KIDNEYS:Right kidney unremarkable. There is a benign cyst in the left kidney measuring 3 x 2.8 cm. Unchanged. Does not require further workup. No solid renal masses. No calculi nor hydronephrosis.. ABDOMINAL AORTA: Abdominal aorta is calcified but not enlarged. Iliac arteries are also not enlarged . LYMPH NODES:There are multiple enlarged central mesenteric lymph nodes, some of these matted and tanner uring up to 2.8 cm size. ABDOMINAL WALL: No evidence of significant anterior abdominal wall nor inguinal hernia. GI: No evidence of bowel obstruction.. There is a left side transgluteal pigtail drainage catheter w hich is in the lateral aspect of the previously described abscess. When compared to the CT scan of 0 08/21/2023 the size of the abscess has decreased by approximately 50 percent. The pigtail drainage ca theter is not significantly kinked along its course through the piriformis musculature and subcutaneo us fat layer. PELVIS: GI: No evidence of appendicitis.As previously described there is extensive sigmoid diverticulosis and sequelae of diverticulitis. LYMPH NODES: There is no prominent did intrapelvic nor inguinal adenopathy. REPRODUCTIVE: Age-appropriate URINARY BLADDER: There is a catheter in the urinary bladder. The bladder is not distended. OSSEOUS: No fractures and no significant osseous lesions. IMPRESSION: 1. Compared to the prior CT scan of 08/21/2023 there has been revision of the pigtail drainage cathet erization. There is now a left transgluteal pigtail drainage catheter within the lateral aspect of t he previously described post diverticulitis sigmoid abscess. The abscess has decreased in size by ap proximately 50 percent. The pigtail drainage catheter is not significantly kinked along its course t hrough the lower pelvis musculature and subcutaneous fat. 2. There is no generalized ascites but there is now small amount of fluid around the gallbladder. Th e gallbladder is not distended. There are no obvious gallstones. Realized limitations of CT scan fo r gallbladder pathology I recommend follow-up gallbladder ultrasound. The CBD is not dilated 3. There are multiple enlarged mesenteric lymph nodes more so than previous. There is no gas within the portal venous system and no evidence of intrahepatic abscess. 4. Increasing pleural effusions and basal segment volume loss in both lower lobes. RADIATION DOSE DELIVERED: 1,102.08mGy.cm Total DLP DATA REPOSITORY: All CT scans at this facility are submitted to the National Radiology Data Registry (NRDR) Dose Index Registry (DIR) with the [employer] (ACR). RADIATION OPTIMIZATION: All CT scans at this facility use at least one of these dose optimization te chniques: automated exposure control; mA and/or kV adjustment per patient size (includes targeted exa ms where dose is matched to clinical indication); or iterative reconstruction.
[2023-08-25] MEDS: Lurasidone 40 MG TAB 160 MG PO ×2 (00:56→20:18)
[2023-08-25] MEDS: CLINDAMYCIN 900 MG/50 ML BAG 50 MG IVPB ×3 (01:57→17:49)
[2023-08-25 02:43] LABS: PTT Activated 55.9 sec (23.6-32.8)
[2023-08-25 02:49] LABS: HCT 28.3 % (36.0-46.0); HGB 8.6 g/dL (11.2-15.7)
[2023-08-25] MEDS: Levothyroxine 88 MCG TAB PO (05:10)
[2023-08-25 06:06] LABS: HCT 29.2 % (36.0-46.0); HGB 8.9 g/dL (11.2-15.7); MCH 27.9 pg (27.0-33.0); MCHC 30.5 % (32.0-36.0); MCV 92 fL (80-95); Platelet Count 229 10^3/uL (130-400); RBC 3.19 10^6/uL (3.93-5.22); RDW 16.5 % (11.7-14.6); RDW-SD 53.4 fL; WBC 8.14 10^3/uL (4.4-10.8)
[2023-08-25] MEDS: Tiotropium Bromide-Respimat 10 PUFF INH 2 PUFF IH (08:24)
--- NOTE | 2023-08-25 08:46 | CMPROGNOTE_ITS ---
Date of service: 08/25/23 Time of Service: 08:46 Care Management Progress Note Progress Note Text Progress Note Text: S/O: Ester was lying in bed when CM met with her. She informed CM that she is not feeling at all well today. She stated that her belly hurts and she feels it may be related to the food she is eating. She shared that she is on a regular diet and feels it is too much for her right now. She indicated that she feels that she would do better to return to a full liquid diet and plans to make those choices at breakfast tomorrow. Ester also informed CM that she is going to have her hair washed tomorrow; she is really looking forward to that. Ester's WBC is elevated today at 11.84 from 8.14 yesterday however her vital signs are stable and she is afebrile. A: Ester is a 58 year old female admitted to [facility] on 08/16/23 for diverticulitis, pelvic abscess. P: Ester will likely return to her home at [place] with a resumption of home health services for nursing, PT, OT and [employer]. Unfortunately she needs home oxygen and obtaining that may be problematic given she has outstanding debt and equipment related to home oxygen.She will follow up with community providers and her plan of care and transport with facility staff vs RCT.. CM will follow and continue to assess for discharge needs. SDOH(Care Management) Screening Will the Patient Participate in the Screening?: Unable to obtain
[2023-08-25] MEDS: Docusate Sodium 100 MG CAP PO ×3 (09:03→20:16)
[2023-08-25] MEDS: oxyCODONE 5 MG TAB PO ×2 (09:03→17:54)
[2023-08-25] MEDS: ACETAMINOPHEN 1,000 MG/100 ML BTL 400 MG IVPB ×3 (09:03→15:49)
[2023-08-25] MEDS: Ferrous Sulfate 325 MG TAB PO (09:03)
[2023-08-25] MEDS: Gabapentin 300 MG CAP PO ×4 (09:03→20:16)
[2023-08-25] MEDS: buPROPion 100 MG TAB PO (09:15)
[2023-08-25] MEDS: Nicotine 14 MG/24 HR PATCH TD (09:15)
--- NOTE | 2023-08-25 09:23 | PT.INNT ---
Date of service: 08/25/23 Time of Service: 09:23 PT Notes Visit Reasons: Diverticulitis,Pelvic Abscesses Patient on hold for physical therapy until tomorrow per Dr Norris due to patient being on a heparin drip.
[2023-08-25] MEDS: Heparin in 0.45% NaCl 25,000 UNIT/250 ML BAG 11 UNIT IV (09:31)
--- NOTE | 2023-08-25 09:51 | PGE_ITS ---
Date of Service Date of service: 08/25/23 Time of Service: 09:51 Assessment and Plan Assessment and plan (1) NSTEMI (non-ST elevated myocardial infarction): Status: Acute Assessment and plan: - At around 10 AM on 1130 2023, patient had episode of chest pain with associated shortness of breath -EKG was relatively unchanged however, troponin was found to be about 1700 -Patient was given 325 mg aspirin -Consulted with [facility] cardiology who recommended medical treatment with aspirin and heparin and holding Plavix -They did state that patient would benefit from outpatient ischemic workup, and that it would be too high risk at this time with her other acute medical conditions to pursue cardiac catheterization at this time -Repeat troponin was 1500 -Limited echocardiogram performed yesterday, awaiting official read -Patient has remained without chest pain, but does have as needed sublingual nitro (2) Hypovolemic shock: Status: Acute Assessment and plan: -Secondary to lower GI bleeding complicated by diverticular abscess. -s/p total of 3units PRBCs, Hb afer last transfusion PM 08/21 9.3 and is the same on the AM of 08/22 and am 08/23 -Bedside echo suggest hypovolemic shock rather than distributive or cardiogenic shock. She appears to have good LV and RV function on bedside echo with a very small IVC that completely collapses with respirations. (3) Diverticulitis: Status: Acute Assessment and plan: -Patient was transferred to ICU early AM 08/21 d/t hypotension associated w/ perforated diverticulitis w/ abscess and acute rectal bleeding. -She had been admitted w/ the perforated diverticulitis and abscess after she failed to fill Rx for Augmentin which was prescribed during prior admission for COPD exacerbation and ankle fracture from fall and when complaining of abdominal pain she was found to have sigmoid diverticulitis. -She was admitted this time on 08/15/23 and surgery (Dr. Singletary) was consulted by the E.D. provider and recommendations was referral to [facility] for IR drainage. -She had blood cultures obtrained and she was put on Zosyn and [facility] IR was consulted. -She underwent drainage procedure on 08/17/23 and preliminary report of pelvic fluid cultures showed GPC, GNR and so far it is growing Clostridium perfringens and Bacteroides fragilis. Clindamycin was added yesterday to the Zosyn when the the organisms were identified. -CT abdomen pelvis overnight 08/20/2023 showed persistent pericolonic abscesses fluid having developed in the wall of the rectum -Discussed with general surgery, agreed with volume resuscitation, transfusion, and transfer for there and back IR drainage at [facility] -now POD #3 for IR drain placement at [facility] -Plan to transition to p.o. antibiotics based on culture sensitivities once available (4) Abscess of female pelvis: Status: Acute Assessment and plan: -as above -CT shows that the drainage catheter is in the abdominal wall not in the abscess. -IR drain in place as noted above (5) EMILY (acute kidney injury): Status: Acute Assessment and plan: -Cr 0.5 this AM (6) COPD (chronic obstructive pulmonary disease): Status: Chronic Assessment and plan: - Resume patient's Spiriva which somehow got put on hold during her transfer to the intensive care unit we will also add DuoNeb treatments every 4 hours while awake. Qualifiers: COPD type: chronic bronchitis Chronic bronchitis type: unspecified Qualified Code(s): J42 - Unspecified chronic bronchitis (7) Closed fibular fracture: Status: Acute Assessment and plan: NWB status w/ walking boot and crutches, currently at bedrest until hypovolemic shock is controlled. pain medications changed to parenteral narcotics (8) Hypothyroidism: Status: Chronic Assessment and plan: continue levothryroxine outpatient reevaluation by PCP (9) Tobacco abuse: Status: Acute Assessment and plan: patient counseled to discuss smoking cessation will continue with PCP . The patient is already on Wellbutrin for depression (10) Discharge planning issues: Status: Acute Assessment and plan: patient remains full code, needs ICU monitoring and treatment for hypovolemic shock. Subjective Subjective Interval history since last seen: Patient states that she is feeling well today, she is happy that she is able to continue eating without abdominal pain and has no other complaints or concerns at this time. Exam Narrative Exam Narrative: Chronically ill-appearing female laying in bed in no acute distress, 2 L nasal cannula in place, ANO x 4, heart regular rate rhythm, lungs clear to auscultation bilaterally, abdomen soft, now with drain in place without surroudning drainage or erythema, mild bilateral lower quadrant tenderness without rebound or guarding Objective Last Vital Signs Temp 97.8 F 08/25/23 09:03 Pulse 87 08/25/23 07:51 Resp 20 08/25/23 07:51 BP 129/86 08/25/23 07:51 Pulse Ox 91 L 08/25/23 08:25 Laboratory Results - last 24 hr 08/24/23 08/24/23 08/24/23 10:55 13:50 14:35 WBC RBC Hgb Hct MCV MCH MCHC RDW Plt Count MPV APTT 29.0 Troponin I 1708 H* 1519 H* 08/24/23 08/24/23 08/25/23 16:58 20:19 02:25 WBC RBC Hgb 9.4 L 9.3 L 8.6 L Hct 31.3 L 30.4 L 28.3 L MCV MCH MCHC RDW Plt Count MPV APTT 62.6 H 55.9 H Troponin I 08/25/23 08/25/23 08/25/23 05:35 05:35 05:35 WBC 8.14 RBC 3.19 L Hgb 8.9 L Cancelled Hct 29.2 L Cancelled MCV 92 MCH 27.9 MCHC 30.5 L RDW 16.5 H Plt Count 229 MPV 11.0 APTT 48.0 H Troponin I Time Spent with Patient Time Spent with Patient: >50 minutes Time was spent: preparing to see the patient(eg.review tests), obtaining and/or reviewing separately otained hiistory, ordering medications,tests, procedures, referring, communicating with other health prompt care rn, indepentently interpreting results, counseling the patient and care coordination
[2023-08-25] MEDS: Normal Saline Flush 10 ML SYR IVP (10:03)
[2023-08-25] MEDS: Pantoprazole 40 MG VIAL IVP (10:20)
[2023-08-25] MEDS: MEROPENEM 1 GM in Normal Saline 100 ML IVPB ×2 (10:21→22:03)
[2023-08-25] MEDS: Lactated Ringers 1,000 ML 80 ML IV (10:22)
[2023-08-25 11:49] LABS: Troponin I 1095 ng/L (< or =60)
--- NOTE | 2023-08-25 13:06 | NUR.NOTE ---
Nursing Note: Pt states, I'm tired. I don't have any energy. It's not like me. Pt appears tired, unlike report from other nurses who have taken care of her. Denies SOB or CP. Vitals WNL. CC notified.
[2023-08-25 13:12] LABS: PTT Activated 71.5 sec (23.6-32.8)
[2023-08-25 13:47] LABS: HCT 30.2 % (36.0-46.0); MCH 27.2 pg (27.0-33.0); MCHC 29.8 % (32.0-36.0); MCV 91 fL (80-95); MPV 10.6 fL (8.0-11.0); Platelet Count 233 10^3/uL (130-400); RBC 3.31 10^6/uL (3.93-5.22); RDW 16.7 % (11.7-14.6); RDW-SD 55.1 fL; WBC 11.84 10^3/uL (4.4-10.8)
[2023-08-25 14:00] LABS: BE (Venous) 17 mmol/L (-2-3); HCO3 (Venous) 42 mmol/L (23-28); O2 Sat (Venous) 99 %; TCO2 (Venous) 39 mmol/L (24-29); pH (Venous) 7.41 (7.31-7.41); pO2 (Venous) 103 mmHg
[2023-08-25 14:01] LABS: Lactate 0.8 mmol/L (0.6-1.4); pCO2 (Venous) 66 mmHg (41-51)
--- NOTE | 2023-08-25 14:07 | NUR.NOTE ---
Nursing Note: Abdomen tender and more distended. No significant output from TOMÁS drain and so flushed as recommended by surgery. Increased output (about 5 cc) of watery brown, appears like stool. Hospitalist now at bedside assessing abd. Advised by physician to anticipate CT abdomen.
[2023-08-25] MEDS: Omnipaque 350 MG/ML 100 ML BTL IJ (14:47)
[2023-08-25] MEDS: Normal Saline - Diluent 50 ML VIAL IJ (14:48)
[2023-08-25 19:17] LABS: PTT Activated 57.7 sec (23.6-32.8)
[2023-08-25] MEDS: Prazosin 1 MG CAP PO (20:17)
[2023-08-25] MEDS: Methocarbamol 500 MG TAB PO (20:18)
[2023-08-25] MEDS: OLANZapine 5 MG TAB 15 MG PO (20:18)
[2023-08-26] VITALS (9 sets, daily range): BP systolic 105–155; BP diastolic 68–90; PULSE 85–106; RESP 2–20; TEMP 36.3–37.5; O2SAT 88–94
[2023-08-26] MEDS: ACETAMINOPHEN 1,000 MG/100 ML BTL 400 MG IVPB ×2 (00:01→08:27)
[2023-08-26] MEDS: CLINDAMYCIN 900 MG/50 ML BAG 50 MG IVPB ×3 (01:37→18:01)
[2023-08-26] MEDS: Normal Saline Flush 10 ML SYR IVP ×8 (01:37→23:01)
[2023-08-26] MEDS: oxyCODONE 5 MG TAB PO ×2 (02:16→11:50)
[2023-08-26] MEDS: Lactated Ringers 1,000 ML 80 ML IV (03:07)
[2023-08-26] MEDS: Levothyroxine 88 MCG TAB PO (06:03)
[2023-08-26 06:19] LABS: HCT 28.8 % (36.0-46.0); HGB 8.7 g/dL (11.2-15.7); MCHC 30.2 % (32.0-36.0); MCV 93 fL (80-95); MPV 10.7 fL (8.0-11.0); Platelet Count 225 10^3/uL (130-400); RBC 3.11 10^6/uL (3.93-5.22); RDW 16.9 % (11.7-14.6); RDW-SD 56.1 fL; WBC 9.26 10^3/uL (4.4-10.8)
[2023-08-26 06:28] LABS: Anion Gap 1.5 mmol/L (3-11); BUN 7 mg/dL (7-18); CO2 40.5 mmol/L (21.0-32.0); CREATININE 0.6 mg/dL (0.55-1.02); Calcium 8.3 mg/dL (8.5-10.1); Chloride 101 mmol/L (98-107); Estimated GFR 104.63 (mL/min/1.73m2); Glucose 103 mg/dL (74-106); Potassium 4.2 mmol/L (3.5-5.1); Sodium 143 mmol/L (136-145)
[2023-08-26 06:33] LABS: PTT Activated 43.2 sec (23.6-32.8)
[2023-08-26] MEDS: Heparin in 0.45% NaCl 25,000 UNIT/250 ML BAG 12.5 UNIT IV (07:20)
[2023-08-26] MEDS: Tiotropium Bromide-Respimat 10 PUFF INH 2 PUFF IH (08:15)
[2023-08-26] MEDS: Ferrous Sulfate 325 MG TAB PO (08:33)
[2023-08-26] MEDS: Gabapentin 300 MG CAP PO ×4 (08:33→20:44)
[2023-08-26] MEDS: Nicotine 14 MG/24 HR PATCH TD (08:34)
[2023-08-26] MEDS: buPROPion 100 MG TAB PO (08:35)
--- NOTE | 2023-08-26 09:37 | PDOC.CMPRO ---
Date of service: 08/26/23 Time of Service: 09:37 Care Management Progress Note Progress Note Text Progress Note Text: S/O: Ester was lying in bed when CM met with her. She seemed to be in good spirits and engaged well with CM. Ester stated that she is still having some abdominal pain but that it is not as bad as before. She is receiving scheduled IV Tylenol and has been taking Oxycodone prn. Ester was offered puzzle books from the activity cart and she chose a word search book to help pass the time. CM is still working with [facility] and the staff at [facility] to resolve her home oxygen issue. This will be necessary in order for Ester to have home oxygen available at discharge.Radhaas been on a Heparin drip for the past couple of days because of her NSTEMI. It is due to be discontinued this afternoon and then she will be able to resume PT. A: Ester is a 58 year old female admitted to [facility] on 08/16/23 for diverticulitis, pelvic abscess. P: Ester will likely return to her home at [place] with a resumption of home health services for nursing, PT, OT and [employer]. Unfortunately she needs home oxygen and obtaining that may be problematic given she has outstanding debt and equipment related to home oxygen.She will follow up with community providers and her plan of care and transport with facility staff vs RCT.. CM will follow and continue to assess for discharge needs. SDOH(Care Management) Screening Will the Patient Participate in the Screening?: Unable to obtain
[2023-08-26] MEDS: Docusate Sodium 100 MG CAP PO ×3 (09:57→20:43)
[2023-08-26] MEDS: Pantoprazole 40 MG VIAL IVP (09:58)
--- NOTE | 2023-08-26 10:39 | PGE_ITS ---
Date of Service Date of service: 08/26/23 Time of Service: 10:39 Assessment and Plan Assessment and plan (1) NSTEMI (non-ST elevated myocardial infarction): Status: Acute Assessment and plan: - At around 10 AM on 1130 2023, patient had episode of chest pain with associated shortness of breath -EKG was relatively unchanged however, troponin was found to be about 1700 -Patient was given 325 mg aspirin -Consulted with [facility] cardiology who recommended medical treatment with aspirin and heparin and holding Plavix -They did state that patient would benefit from outpatient ischemic workup, and that it would be too high risk at this time with her other acute medical conditions to pursue cardiac catheterization at this time -Repeat troponin was 1000 -Limited echocardiogram as follows: -LA/RA/RV are mildly to moderately dilated, LV is normal in size. -Mild hypocontractility of the interventricular septum,moderate hypokinesis of RV free wall. LVEF 50-55%. Inferior wall not optimally visualized. -Anatomically normal valves. Mild TR with mild phtn( 45mmHg ). -No intracardiac shunt -No pericardial effusion. -Patient has remained without chest pain, but does have as needed sublingual nitro -initiated lopressor 12.5mg BID (2) Hypovolemic shock: Status: Acute Assessment and plan: -Secondary to lower GI bleeding complicated by diverticular abscess. -s/p total of 3units PRBCs, Hb afer last transfusion PM 08/21 9.3 and is the same on the AM of 08/22 and am 08/23 -Bedside echo suggest hypovolemic shock rather than distributive or cardiogenic shock. She appears to have good LV and RV function on bedside echo with a very small IVC that completely collapses with respirations. -Hb has remained stable over the last 4 days (3) Diverticulitis: Status: Acute Assessment and plan: -Patient was transferred to ICU early AM 08/21 d/t hypotension associated w/ perforated diverticulitis w/ abscess and acute rectal bleeding. -She had been admitted w/ the perforated diverticulitis and abscess after she failed to fill Rx for Augmentin which was prescribed during prior admission for COPD exacerbation and ankle fracture from fall and when complaining of abdominal pain she was found to have sigmoid diverticulitis. -She was admitted this time on 08/15/23 and surgery (Dr. Singletary) was consulted by the E.D. provider and recommendations was referral to [facility] for IR drainage. -She had blood cultures obtrained and she was put on Zosyn and [facility] IR was consulted. -She underwent drainage procedure on 08/17/23 and preliminary report of pelvic fluid cultures showed GPC, GNR and so far it is growing Clostridium perfringens and Bacteroides fragilis. Clindamycin was added yesterday to the Zosyn when the the organisms were identified. -CT abdomen pelvis overnight 08/20/2023 showed persistent pericolonic abscesses fluid having developed in the wall of the rectum -Discussed with general surgery, agreed with volume resuscitation, transfusion, and transfer for there and back IR drainage at [facility] -now POD #4 for IR drain placement at [facility] -Plan to transition to p.o. antibiotics based on culture sensitivities once available (4) Abscess of female pelvis: Status: Acute Assessment and plan: -as above -CT shows that the drainage catheter is in the abdominal wall not in the abscess. -IR drain in place as noted above (5) EMILY (acute kidney injury): Status: Acute Assessment and plan: -Cr 0.5 this AM (6) COPD (chronic obstructive pulmonary disease): Status: Chronic Assessment and plan: - Resume patient's Spiriva which somehow got put on hold during her transfer to the intensive care unit we will also add DuoNeb treatments every 4 hours while awake. Qualifiers: COPD type: chronic bronchitis Chronic bronchitis type: unspecified Qualified Code(s): J42 - Unspecified chronic bronchitis (7) Closed fibular fracture: Status: Acute Assessment and plan: NWB status w/ walking boot and crutches, currently at bedrest until hypovolemic shock is controlled. pain medications changed to parenteral narcotics (8) Hypothyroidism: Status: Chronic Assessment and plan: continue levothryroxine outpatient reevaluation by PCP (9) Tobacco abuse: Status: Acute Assessment and plan: patient counseled to discuss smoking cessation will continue with PCP . The patient is already on Wellbutrin for depression (10) Discharge planning issues: Status: Acute Assessment and plan: patient remains full code, needs ICU monitoring and treatment for hypovolemic shock. Subjective Subjective Interval history since last seen: Patient states that she is little more tired today but otherwise is feeling well and has no other complaints or concerns at this time. Exam Narrative Exam Narrative: Chronically ill-appearing female laying in bed in no acute distress, 2 L nasal cannula in place, ANO x 4, heart regular rate rhythm, lungs clear to a uscultation bilaterally, abdomen soft, now with drain in place without surroudning drainage or erythema, mild bilateral lower quadrant tenderness without rebound or guarding Objective Last Vital Signs Temp 99.3 F 08/26/23 08:15 Pulse 106 H 08/26/23 08:15 Resp 16 08/26/23 08:15 BP 105/72 08/26/23 08:15 Pulse Ox 93 08/26/23 08:15 Laboratory Results - last 24 hr 08/25/23 08/25/23 08/25/23 11:20 12:53 12:55 WBC 11.84 H RBC 3.31 L Hgb 9.0 L Hct 30.2 L MCV 91 MCH 27.2 MCHC 29.8 L RDW 16.7 H Plt Count 233 MPV 10.6 APTT 71.5 H VBG pH VBG pCO2 VBG pO2 VBG HCO3 VBG Total CO2 VBG O2 Saturation VBG Base Excess VBG Lactate Sodium Potassium Chloride Carbon Dioxide Anion Gap BUN Creatinine Est GFR (CKD-EPI 2020) Glucose Calcium Troponin I 1095 H* 08/25/23 08/25/23 08/26/23 13:53 19:00 05:52 WBC 9.26 RBC 3.11 L Hgb 8.7 L Hct 28.8 L MCV 93 MCH 28.0 MCHC 30.2 L RDW 16.9 H Plt Count 225 MPV 10.7 APTT 57.7 H 43.2 H VBG pH 7.41 VBG pCO2 66 H* VBG pO2 103 VBG HCO3 42 H VBG Total CO2 39 H VBG O2 Saturation 99 VBG Base Excess 17 H VBG Lactate 0.8 Sodium 143 Potassium 4.2 Chloride 101 Carbon Dioxide 40.5 H Anion Gap 1.5 L BUN 7 Creatinine 0.6 Est GFR (CKD-EPI 2020) 104.63 Glucose 103 Calcium 8.3 L Troponin I Time Spent with Patient Time Spent with Patient: >50 minutes Time was spent: preparing to see the patient(eg.review tests), obtaining and/or reviewing separately otained hiistory, ordering medications,tests, procedures, referring, communicating with other health child care leader, indepentently interpreting results, counseling the patient and care coordination
[2023-08-26] MEDS: MEROPENEM 1 GM in Normal Saline 100 ML IVPB (11:35)
[2023-08-26] MEDS: Metoprolol 12.5 MG TAB PO ×2 (11:35→20:43)
[2023-08-26 13:23] LABS: PTT Activated 71.7 sec (23.6-32.8)
[2023-08-26] MEDS: Ondansetron 4 MG/2 ML VIAL IVP (18:38)
[2023-08-26] MEDS: Prazosin 1 MG CAP PO (20:44)
[2023-08-26] MEDS: Lurasidone 40 MG TAB 160 MG PO (20:44)
[2023-08-26] MEDS: Methocarbamol 500 MG TAB PO (20:44)
[2023-08-26] MEDS: OLANZapine 5 MG TAB 15 MG PO (20:44)
[2023-08-26] MEDS: Albuterol 2.5 MG/3 ML INH SOLN VIAL UPD (22:03)
[2023-08-27] VITALS (8 sets, daily range): BP systolic 97–132; BP diastolic 67–90; PULSE 82–120; RESP 16–19; TEMP 36.7–37.3; O2SAT 89–93
[2023-08-27] MEDS: MEROPENEM 1 GM in Normal Saline 100 ML IVPB ×3 (00:20→23:28)
[2023-08-27] MEDS: CLINDAMYCIN 900 MG/50 ML BAG 50 MG IVPB ×3 (02:28→17:18)
[2023-08-27] MEDS: Acetaminophen 500 MG TAB 1000 MG PO ×2 (05:40→14:21)
[2023-08-27] MEDS: Levothyroxine 88 MCG TAB PO (05:40)
[2023-08-27 06:11] LABS: HCT 29.3 % (36.0-46.0); HGB 8.7 g/dL (11.2-15.7); MCH 27.4 pg (27.0-33.0); MCHC 29.7 % (32.0-36.0); MCV 92 fL (80-95); MPV 10.6 fL (8.0-11.0); Platelet Count 241 10^3/uL (130-400); RBC 3.18 10^6/uL (3.93-5.22); RDW 17.3 % (11.7-14.6); RDW-SD 54.9 fL; WBC 11.76 10^3/uL (4.4-10.8)
[2023-08-27 06:19] LABS: Anion Gap -1.1 mmol/L (3-11); BUN 8 mg/dL (7-18); CO2 41.1 mmol/L (21.0-32.0); CREATININE 0.6 mg/dL (0.55-1.02); Calcium 8.2 mg/dL (8.5-10.1); Chloride 101 mmol/L (98-107); Estimated GFR 104.63 (mL/min/1.73m2); Glucose 107 mg/dL (74-106); Potassium 4.5 mmol/L (3.5-5.1); Sodium 141 mmol/L (136-145)
[2023-08-27] MEDS: Nicotine 14 MG/24 HR PATCH TD (07:50)
[2023-08-27] MEDS: Normal Saline Flush 10 ML SYR IVP ×6 (07:52→23:15)
[2023-08-27] MEDS: buPROPion 100 MG TAB PO (07:54)
[2023-08-27] MEDS: Docusate Sodium 100 MG CAP PO ×3 (07:54→19:03)
[2023-08-27] MEDS: Metoprolol 12.5 MG TAB PO ×2 (07:54→09:12)
[2023-08-27] MEDS: Ferrous Sulfate 325 MG TAB PO (07:54)
[2023-08-27] MEDS: Gabapentin 300 MG CAP PO ×3 (07:54→19:03)
[2023-08-27] MEDS: Tiotropium Bromide-Respimat 10 PUFF INH 2 PUFF IH (08:08)
[2023-08-27] MEDS: Pantoprazole 40 MG VIAL IVP (09:08)
[2023-08-27] MEDS: Normal Saline 10 ML VIAL IJ (09:08)
--- NOTE | 2023-08-27 09:46 | DI.RAD_ITS ---
Exam(s) XR PORTABLE CHEST AP EXAM: XR PORTABLE CHEST AP CLINICAL HISTORY: diminished brath sounds in bilateral bases. TECHNIQUE: 2D digital imaging was performed. COMPARISON: CR XR PORTABLE CHEST AP from 08/03/[address] ABDOMEN PELVIS W from 08/25/2023 FINDINGS: Single AP portable view. Heart size is upper normal. The mediastinum is not widened. There are bilateral pleural effusions, right larger than left. Small-moderate size on the right and small on the left. Some volume loss and infiltrate noted in the right lower lobe. No airspace pulmonary edema. IMPRESSION: Right lung base infiltrate. Small-moderate size right pleural effusion. Small left pleural effusion . No obvious left lung infiltrates, realized limitations of a portable AP view. DATA REPOSITORY: RADIATION DOSE DELIVERED:
--- NOTE | 2023-08-27 09:46 | W.PM.PROGNOT ---
Date of Service Date of service: 08/27/23 Time of Service: 09:46 Subjective Subjective Interval history since last seen: Patient states that she is doing well today and has no complaints or concerns with the Objective Last Vital Signs Temp 98.1 F 08/27/23 07:37 Pulse 120 H 08/27/23 09:10 Resp 18 08/27/23 07:37 BP 111/73 08/27/23 09:10 Pulse Ox 89 L 08/27/23 08:08 Laboratory Results - last 24 hr 08/26/23 08/26/23 08/27/23 13:00 20:00 05:50 WBC 11.76 H RBC 3.18 L Hgb 8.7 L Hct 29.3 L MCV 92 MCH 27.4 MCHC 29.7 L RDW 17.3 H Plt Count 241 MPV 10.6 APTT 71.7 H Cancelled Sodium 141 Potassium 4.5 Chloride 101 Carbon Dioxide 41.1 H Anion Gap -1.1 L BUN 8 Creatinine 0.6 Est GFR (CKD-EPI 2020) 104.63 Glucose 107 H Calcium 8.2 L Time Spent with Patient Time Spent with Patient: >50 minutes Time was spent: preparing to see the patient(eg.review tests), obtaining and/or reviewing separately otained hiistory, ordering medications,tests, procedures, referring, communicating with other health manager progressive care, indepentently interpreting results, counseling the patient and care coordination
--- NOTE | 2023-08-27 09:53 | DI.VRAD_ITS ---
PROCEDURE INFORMATION: Exam: XR Chest Exam date and time: 08/27/2023 9:38 AM Age: 58 years old Clinical indication: Other: Diminished breath sounds in bilateral bases TECHNIQUE: Imaging protocol: Radiologic exam of the chest. Views: 1 view. COMPARISON: CT CHEST PE CTA 08/03/2023 1:53 PM FINDINGS: Lungs: Opacities in both bases may represent atelectasis or pneumonia.. Pleural spaces: There may be mild right pleural effusion.. Heart/Mediastinum: Cardiomegaly Bones/joints: Unremarkable. IMPRESSION: 1. Opacities in both bases may represent atelectasis or pneumonia.. 2. There may be mild right pleural effusion.. Dictated and Authenticated by: Carina Dejesus MD. Ordering:ANA Gunn MD
[2023-08-27] MEDS: Furosemide 20 MG/2 ML VIAL IVP (10:21)
[2023-08-27] MEDS: Ondansetron 4 MG/2 ML VIAL IVP (17:17)
[2023-08-27 18:34] LABS: HCT 30.5 % (36.0-46.0); HGB 9.3 g/dL (11.2-15.7)
[2023-08-27] MEDS: Metoprolol 25 MG TAB PO (19:03)
[2023-08-27] MEDS: Mylanta Suspension 30 ML CUP PO (21:30)
[2023-08-27] MEDS: Lurasidone 40 MG TAB 160 MG PO (23:13)
[2023-08-27] MEDS: Prazosin 1 MG CAP PO (23:14)
[2023-08-27] MEDS: OLANZapine 5 MG TAB 15 MG PO (23:14)
[2023-08-27] MEDS: Methocarbamol 500 MG TAB PO (23:14)
[2023-08-28] VITALS (8 sets, daily range): BP systolic 97–130; BP diastolic 64–80; PULSE 81–130; RESP 16–17; TEMP 36.9–37.6; O2SAT 88–94
[2023-08-28] MEDS: LORazepam 2 MG/ML VIAL 1 MG IVP (00:51)
[2023-08-28] MEDS: CLINDAMYCIN 900 MG/50 ML BAG 50 MG IVPB ×3 (03:00→18:51)
[2023-08-28] MEDS: Levothyroxine 88 MCG TAB PO (06:20)
[2023-08-28 06:21] LABS: HCT 31.8 % (36.0-46.0); HGB 9.7 g/dL (11.2-15.7); MCHC 30.5 % (32.0-36.0); MCV 92 fL (80-95); MPV 10.6 fL (8.0-11.0); Platelet Count 266 10^3/uL (130-400); RBC 3.47 10^6/uL (3.93-5.22); RDW 18.1 % (11.7-14.6); RDW-SD 56.6 fL; WBC 14.51 10^3/uL (4.4-10.8)
[2023-08-28] MEDS: Nicotine 14 MG/24 HR PATCH TD (09:39)
[2023-08-28] MEDS: Gabapentin 300 MG CAP PO ×4 (09:40→20:10)
[2023-08-28] MEDS: Ferrous Sulfate 325 MG TAB PO (09:40)
[2023-08-28] MEDS: buPROPion 100 MG TAB PO (09:40)
[2023-08-28] MEDS: Metoprolol 25 MG TAB PO ×2 (09:40→20:10)
[2023-08-28] MEDS: Docusate Sodium 100 MG CAP PO ×3 (09:40→20:10)
[2023-08-28] MEDS: Normal Saline Flush 10 ML SYR IVP ×3 (09:41→22:57)
[2023-08-28] MEDS: Pantoprazole 40 MG VIAL IVP (09:41)
[2023-08-28] MEDS: Tiotropium Bromide-Respimat 10 PUFF INH 2 PUFF IH (09:59)
[2023-08-28] MEDS: MEROPENEM 1 GM in Normal Saline 100 ML IVPB ×2 (11:40→22:57)
--- NOTE | 2023-08-28 18:01 | W.PM.PROGNOT ---
Date of Service Date of service: 08/28/23 Time of Service: 17:00 Assessment and Plan Assessment and plan (1) NSTEMI (non-ST elevated myocardial infarction): Status: Acute Assessment and plan: On 08/24/23. Continue aspirin. Finished 48 hrs of heparin. No role for plavix. Question of hypokinesis of RV free wall on echo. Continue BB, prn nitroglycerin. Will need outpatient ischemic workup. (2) Hypovolemic shock: Status: Resolved Assessment and plan: The patient is now stable. This was in setting of lower GI bleeding and diverticular abscess. Required 3 units of pRBCs with improvement in BPs. H/Hs and BPs stable. (3) Diverticulitis: Status: Acute Assessment and plan: Complicated by perforation and pelvic abscess. She is on her second pelvic access drain. Continue meropenem + clindamycin. (4) Abscess of female pelvis: Status: Acute Assessment and plan: as above (5) EMILY (acute kidney injury): Status: Resolved Assessment and plan: Chemistry not checked today. Recheck in am (6) COPD (chronic obstructive pulmonary disease): Status: Chronic Assessment and plan: At baseline, not in acute exacerbation. Continue Spiriva and duonebs Qualifiers: COPD type: chronic bronchitis Chronic bronchitis type: unspecified Qualified Code(s): J42 - Unspecified chronic bronchitis (7) Closed fibular fracture: Status: Acute Assessment and plan: NWB; walking boot and crutches (8) Hypothyroidism: Status: Chronic Assessment and plan: continue levothryroxine (9) Tobacco abuse: Status: Acute Assessment and plan: Continue wellbutrin. Advised to quit (10) DVT prophylaxis: Status: Acute Assessment and plan: SCDs. Hold chemical DVT ppx in light of recent GI bleeding (11) Discharge planning issues: Status: Acute Assessment and plan: Full code Continues to require hospitalization Subjective Subjective Interval history since last seen: Ms Osullivan is taking a nap when I came in. She told me she'd rather I leave her alone. She is ok with me examining her. She did tell me she almost fell getting out of the bed. I emphasized to her that she needs to call for help when she is trying to get out of bed. But they were busy, she said. I answered that she still has to call. Exam Narrative Exam Narrative: General: a middle-aged female who is resting comfortably in bed, wakes up to my voice, but is not interested in a conversation HEENT: EOMI, MMM Heart: RRR, no m/r/g Lungs: CTAB Abdomen: soft, nontender, nondistended Extremities: no edema BLEs; L ankle immobilizing boot in place Objective Last Vital Signs Temp 37.5 C 08/28/23 15:50 Pulse 86 08/28/23 15:50 Resp 17 08/28/23 15:50 BP 101/70 08/28/23 15:50 Pulse Ox 91 L 08/28/23 15:50 Laboratory Results - last 24 hr 08/27/23 08/28/23 18:25 06:00 WBC 14.51 H RBC 3.47 L Hgb 9.3 L 9.7 L Hct 30.5 L 31.8 L MCV 92 MCH 28.0 MCHC 30.5 L RDW 18.1 H Plt Count 266 MPV 10.6 Time Spent with Patient Time Spent with Patient: 35-49 minutes Time was spent: preparing to see the patient(eg.review tests), obtaining and/or reviewing separately otained hiistory, ordering medications,tests, procedures, referring, communicating with other health home health care respiratory therapist, indepentently interpreting results, counseling the patient and care coordination
[2023-08-28] MEDS: OLANZapine 5 MG TAB 15 MG PO (22:55)
[2023-08-28] MEDS: Methocarbamol 500 MG TAB PO (22:56)
[2023-08-28] MEDS: Lurasidone 40 MG TAB 160 MG PO (22:56)
[2023-08-28] MEDS: Prazosin 1 MG CAP PO (22:56)
--- NOTE | 2023-08-29 | DI.RAD_ITS ---
Exam(s) XR ANKLE LT COMPLETE EXAM: XR ANKLE LT COMPLETE CLINICAL HISTORY: f/u L ankle fracture. TECHNIQUE: 2D digital imaging was performed. COMPARISON: CR,XR XR ANKLE LT COMPLETE from 08/07/2023 FINDINGS: 3 views The previously described small osteophytic density off the tip of the lateral malleolus is again note d. Probably represents avulsion injury. There is no widening the ankle mortise. Talar dome unremar kable. No new osseous findings. Moderate size inferior calcaneal spur is again noted. Base of the 5th metatarsal intact. There is some soft tissue swelling around the ankle again evident. IMPRESSION: No significant radiographic change from 08/07/2023. DATA REPOSITORY: RADIATION DOSE DELIVERED:
[2023-08-29] MEDS: CLINDAMYCIN 900 MG/50 ML BAG 50 MG IVPB ×3 (03:07→18:19)
[2023-08-29] MEDS: Levothyroxine 88 MCG TAB PO (05:36)
[2023-08-29 06:02] VITALS: BP 97/60; PULSE 82; RESP 17; TEMP 37.2; O2SAT 92
[2023-08-29 06:46] LABS: Abs Immature Grans 0.09 10^3/uL (0.0-0.06); Absolute Basophil Count 0.09 10^3/uL (0.0-0.2); Absolute Eosinophil Count 0.32 10^3/uL (0.0-0.7); Absolute Lymphocyte Count 1.14 10^3/uL (1.2-3.4); Absolute Monocyte Count 0.88 10^3/uL (0.1-0.8); Absolute Neutrophil Count 7.49 10^3/uL (1.2-6.7); Basophils % 0.9; Eosinophils % 3.2; HCT 27.7 % (36.0-46.0); HGB 8.4 g/dL (11.2-15.7); Immature Grans % 0.9; Lymphocytes % 11.4; MCH 27.7 pg (27.0-33.0); MCHC 30.3 % (32.0-36.0); MCV 91 fL (80-95); MPV 10.9 fL (8.0-11.0); Monocytes % 8.8; Neutrophils % 74.8; Platelet Count 242 10^3/uL (130-400); RBC 3.03 10^6/uL (3.93-5.22); RDW 18.3 % (11.7-14.6); WBC 10.01 10^3/uL (4.4-10.8)
[2023-08-29 06:59] LABS: Anion Gap 1.2 mmol/L (3-11); BUN 7 mg/dL (7-18); C-Reactive Protein 7.92 mg/dL (<or=0.5); CO2 37.8 mmol/L (21.0-32.0); CREATININE 0.7 mg/dL (0.55-1.02); Calcium 7.9 mg/dL (8.5-10.1); Chloride 101 mmol/L (98-107); Estimated GFR 100.81 (mL/min/1.73m2); Glucose 104 mg/dL (74-106); Magnesium 1.9 mg/dL (1.8-2.4); Potassium 4.5 mmol/L (3.5-5.1); Sodium 140 mmol/L (136-145)
[2023-08-29 07:30] LABS: Procalcitonin < 0.1 ng/mL
[2023-08-29 07:58] VITALS: O2SAT 91
[2023-08-29] MEDS: Tiotropium Bromide-Respimat 10 PUFF INH 2 PUFF IH (07:58)
[2023-08-29] MEDS: buPROPion 100 MG TAB PO (08:27)
[2023-08-29] MEDS: Ferrous Sulfate 325 MG TAB PO (08:27)
[2023-08-29] MEDS: Docusate Sodium 100 MG CAP PO ×3 (08:27→19:52)
[2023-08-29] MEDS: Gabapentin 300 MG CAP PO ×4 (08:27→19:51)
[2023-08-29] MEDS: Nicotine 14 MG/24 HR PATCH TD (08:30)
[2023-08-29] MEDS: Normal Saline Flush 10 ML SYR IVP ×5 (08:31→19:52)
--- NOTE | 2023-08-29 09:07 | PDOC.CMPRO ---
Date of service: 08/29/23 Time of Service: 09:07 Care Management Progress Note Progress Note Text Progress Note Text: S/O: Ester was lying in bed when CM met with her. She stated that she continues to have abdominal pain and that her breathing is not great. Ester had an orthopedic consult today and no longer needs to wear her boot. She may do so when ambulating for comfort but otherwise it should be off, per Dr. Kenney. CM continues to work with [facility] [employer] to try to resolve the issue of Ester's home oxygen. Information was sent to the DME agency to document Ester's need for oxygen. A: Ester is a 58 year old female admitted to [facility] on 08/16/23 for diverticulitis, pelvic abscess. P: Ester will likely return to her home at [place] with a resumption of home health services for nursing, PT, OT and [employer]. Unfortunately she needs home oxygen and obtaining that may be problematic given she has outstanding debt and equipment related to home oxygen.She will follow up with community providers and her plan of care and transport with facility staff vs RCT.. CM will follow and continue to assess for discharge needs. SDOH(Care Management) Screening Will the Patient Participate in the Screening?: Unable to obtain
[2023-08-29 09:10] VITALS: BP 102/67; PULSE 88; RESP 14; TEMP 37.2; O2SAT 87
--- NOTE | 2023-08-29 10:44 | PT.INTREAT ---
Date of service: 08/29/23 Time of Service: 09:28 PT Notes Visit Reasons: Diverticulitis,Pelvic Abscesses Inpatient Physical Therapy Treatment Note [facility] Date: 08/29/23 PRECAUTIONS: Fall, standard, activity as tolerated. SUBJECTIVE: Patient reports that she can't do this today. States that she needs to try. Reports dizziness upon sitting which worsens gradually. Reports dizziness upon standing which also gradually worsens. AFTERNOON: Patient reports that she feels unwell. Delays therapy at 13:25 due to feeling as though she is going to throw up again. Re-approached at 14:42 and patient is agreeable. Reports still feeling unwell, but not nauseous. OBJECTIVE: Supine in bed. Agreeable to therapy. Receiving 1.5 L/min supplemental O2 via nasal cannula?AFTERNOON: Supine in bed, agreeable to therapy on second approach. Receiving 1.5 L/min of supplemental O2 via nasal cannula at rest, 2L/m during ambulation due to portable tank not having 1.5L option. ? PAIN: No pain reported. VITALS: monitored by nursing staff. Blood pressure checked mid session due to reported dizziness, reads 111/72.? Therapeutic Activities ([id number]): Direct one-on-one instruction in dynamic activities to improve functional performance. ? BED MOBILITY/TRANSFERS? Rolling L/R: not assessed Supine-sit: modified independent with bilateral side rails and elevated HOB. Patient states that she will need help to sit up, then apparently becomes impatient and sits up independently ? Sit-supine: SBA with elevated HOB and bilateral side rails. ? Sit-stand: SBA, unable to maintain NWB precautions despite verbal cues. Attempts to walk without waiting for this clinician to secure O2 and IV tubes, ignoring repeated VC for NWB. ? Stand-sit: CGA with gait belt and VC for NWB. ? Bed-Chair: not assessed. ? Chair-bed: not assessed. Provided skilled cues and instruction on performance and technique throughout. ? Therapeutic Exercises ([id number]): Direct one-on-one instruction in therapeutic exercises to develop strength, endurance, range of motion and flexibility. ? Exercises: Sit to stand 2x5 Ambulation ? Assistive Device: FWW? Weight bearing: WBAT with walking boot. Patient declines to don walking boot, stating that she doesn't need it. Assist: CGA with wheelchair follow. ? Distance:? 200 feet ? Deviation: Patient takes several standing rests to catch her breath. Each standing rest lasts <15 seconds. Reduced step length and height.? Provided skilled instruction in proper exercise performance Provided skilled manual cues to facilitate proper muscle recruitment and/or form. ASSESSMENT:? Patient appears impulsive and lacking safety awareness. AFTERNOON: Patient more patient this afternoon, waits until setup is complete before standing. PLAN: Continue global strengthening per plan of care until patient is medically cleared for discharge. TREATMENT CODE/TIME: 14 minutes beginning at 9:28 and 21 minutes beginning at 14:42 for a total of 35 minutes
[2023-08-29] MEDS: Pantoprazole 40 MG VIAL IVP (11:17)
[2023-08-29 12:19] LABS: HCT 28.6 % (36.0-46.0); HGB 8.7 g/dL (11.2-15.7)
[2023-08-29] MEDS: MEROPENEM 1 GM in Normal Saline 100 ML IVPB ×2 (12:37→23:30)
--- NOTE | 2023-08-29 13:05 | W.ORTHOCONSU ---
Date of service: 08/29/23 Time of Service: 12:35 History of Present Illness Narrative: Ester is a 58-year-old female who has COPD. She was recently discharged for COPD exacerbation when the next day she slipped getting out of bed and had immediate pain about her left ankle. She was seen in the emergency department on August 07 for this injury. She was diagnosed with a small avulsion fracture of the distal fibula. However, she was still continue to have some oxygenation issues and therefore was admitted to hospital. She has been in the hospital since. She was placed to a boot initially. She reports pain at the lateral side of the left ankle. She reports decree sensation about the foot which she feels is similar to her baseline. She has been wearing the boot most of the day taking it off and frequently. I was consulted for management of the left distal fibula fracture. Consults Consult date: 08/29/23 Requesting physician: Elsy Byrd Consult Reason Left distal fibula fracture Assessment and Plan Assessment and plan (1) Closed fibular fracture: Status: Acute Assessment and plan: Ester is a 58-year-old I suffered an avulsion fracture of the left distal fibula. She still is quite tender today. However, there is no need to restrict weightbearing. She may weight-bear as tolerated. She has no restriction on range of motion. She may wear the boot for support while ambulating. However, I would recommend that it is off otherwise at all times. I will recheck another x-ray today although I do not expect any significant changes. These injuries rarely require any orthopedic involvement. Treatment is symptomatic. Continue physical therapy, weightbearing as tolerated with assistive devices. Elevate when in bed but remove the boot. I will follow-up on x-rays ordered today. Qualifiers: Encounter type: initial encounter Fibula location: lateral malleolus Fracture alignment: nondisplaced Laterality: left Qualified Code(s): S82.65XA - Nondisplaced fracture of lateral malleolus of left fibula, initial encounter for closed fracture Review of Systems All systems reviewed & are unremarkable except as noted in HPI and below PFSH All Active Problems (Updated 08/29/23 @ 14:39 by Elsy Byrd MD) Hypoxia (Acute) DVT prophylaxis (Acute) NSTEMI (non-ST elevated myocardial infarction) (Acute) Hyperlipidemia (Acute) COPD (chronic obstructive pulmonary disease) (Chronic) Laryngopharyngeal reflux (Acute) Rhinitis (Acute) Bipolar disorder (Acute) Eustachian tube disorder (Acute) Plantar fasciitis (Acute) Tobacco abuse (Acute) Hypothyroidism (Chronic) Discharge planning issues (Acute) Smoking (Acute) Abscess of female pelvis (Acute) Closed fibular fracture (Acute) COPD exacerbation (Acute) Acute hypoxemic respiratory failure (Acute) Diverticulitis (Acute) Medical History Hx of thrombocytopenia Chronic respiratory failure with hypoxia and hypercapnia Fever Chronic hypoxic respiratory failure Auditory hallucination Depression Suicide ideation Social History Smoking/Tobacco Use Status: Current every day Tobacco Type: cigarettes Years smoked: 41 Smoking risk assessment performed?: Yes Alcohol Intake: never Drug use: Never Substance use type: does not use Housing: assisted living facility Do you feel safe at home: Yes Do you feel safe in your relationship?: Yes Additional [facility] Exam Narrative Exam Narrative: Resting in the hospital bed. No acute distress. Alert orient x 3. Evaluation the left lower extremity shows that the left ankle is in a boot. The boot is removed. She does have some areas of pressure over the anterior ankle and the distal aspect of the anterior leg which are relatively superficial. There is some resolving ecchymosis seen throughout the plantar aspect the foot and the lateral side of the left ankle. She is able demonstrate active dorsiflexion and plantarflexion of the left ankle. He also has intact great toe extension and flexion. There is some pain with these motions. She reports decrease in station throughout the foot most notably plantarly and in the deep peroneal distribution, covered with her baseline. Palpable DP pulse. Pain directly over the soft tissue of the lateral ankle. She has significantly more pain anterior and distal to the fibula. Negative squeeze test. Some pain with passive range of motion of the left ankle including external rotation stress test. Results Last Vital Signs Temp 37.2 C 08/29/23 09:10 Pulse 88 08/29/23 09:10 Resp 14 08/29/23 09:10 BP 102/67 02/05/24 09:10 Pulse Ox 87 L 08/29/23 09:10 Labs 08/29/23 12:12 08/29/23 06:20 Labs: Laboratory Results - last 24 hr 08/29/23 08/29/23 06:20 12:12 WBC 10.01 RBC 3.03 L Hgb 8.4 L 8.7 L Hct 27.7 L 28.6 L MCV 91 MCH 27.7 MCHC 30.3 L RDW 18.3 H Plt Count 242 MPV 10.9 Immature Gran % 0.9 Neutrophils % 74.8 Lymphocytes % 11.4 Monocytes % 8.8 Eosinophils % 3.2 Basophils % 0.9 Nucleated RBC % 0.0 Absolute Neutrophils 7.49 H Absolute Lymphocytes 1.14 L Absolute Monocytes 0.88 H Absolute Eosinophils 0.32 Absolute Basophils 0.09 Sodium 140 Potassium 4.5 Chloride 101 Carbon Dioxide 37.8 H Anion Gap 1.2 L BUN 7 Creatinine 0.7 Est GFR (CKD-EPI 2020) 100.81 Glucose 104 Calcium 7.9 L Magnesium 1.9 C-Reactive Protein 7.92 Procalcitonin < 0.1 Imaging Imaging Studies: X-ray of the left tib-fib from the was reviewed. This shows no proximal fibular fracture. No tibial fracture. Normal alignment of the knee and the ankle. X-ray of the left ankle from 07 August also shows what appears to be a very small avulsion fracture from the distal aspect of the fibula. There is no mortise malalignment. There is no other associated fracture identified. X-ray of the left ankle from today shows no change in the position of the ankle mortise. No change in the position of the avulsion fracture. No new findings.
--- NOTE | 2023-08-29 14:19 | W.PM.PROGNOT ---
Date of Service Date of service: 08/29/23 Time of Service: 14:19 Assessment and Plan Assessment and plan (1) Hypoxia: Status: Acute Assessment and plan: Fluid overload on CT from 08/25/23. Has B pleural effusions. Will trial diuresis. (2) NSTEMI (non-ST elevated myocardial infarction): Status: Acute Assessment and plan: On 08/24/23. Continue aspirin. Finished 48 hrs of heparin. No role for plavix. Question of hypokinesis of RV free wall on echo. Continue BB, prn nitroglycerin. Will need outpatient ischemic workup. (3) Hypovolemic shock: Status: Resolved Assessment and plan: The patient is now stable. This was in setting of lower GI bleeding and diverticular abscess. Required a total of 2 units of pRBCs with improvement in BPs. H/Hs and BPs stable. (4) Diverticulitis: Status: Acute Assessment and plan: Complicated by perforation and pelvic abscess. She is on her second pelvic access drain. I think today's abdominal pain is due to constipation, not worsening diverticulitis - I have reviewed the CT from 08/25 and overall everything was looking better. Continue meropenem + clindamycin. WBC improving. Intensify a bowel regimen. (5) Abscess of female pelvis: Status: Acute Assessment and plan: as above (6) EMILY (acute kidney injury): Status: Resolved Assessment and plan: Continue to monitor kidney function (7) COPD (chronic obstructive pulmonary disease): Status: Chronic Assessment and plan: While she is requiring O2 today, her imaging is more c/w fluid overload with bilateral pleural effusions, and this would certainly go along with h/o of getting blood transfusions/IVF. Diurese. COPD is at baseline, not in acute exacerbation. Continue Spiriva and duonebs Wean O2 as tolerated. Encourage IS/acapella. Qualifiers: COPD type: chronic bronchitis Chronic bronchitis type: unspecified Qualified Code(s): J42 - Unspecified chronic bronchitis (8) Closed fibular fracture: Status: Acute Assessment and plan: Evaluated by orthopedic surgery. WBAT. Boot only when ambulating; to be off when in bed. Qualifiers: Encounter type: initial encounter Fibula location: lateral malleolus Fracture alignment: nondisplaced Laterality: left Qualified Code(s): S82.65XA - Nondisplaced fracture of lateral malleolus of left fibula, initial encounter for closed fracture (9) Hypothyroidism: Status: Chronic Assessment and plan: continue levothryroxine (10) Tobacco abuse: Status: Acute Assessment and plan: Continue wellbutrin. Advised to quit (11) DVT prophylaxis: Status: Acute Assessment and plan: SCDs. Hold chemical DVT ppx in light of recent GI bleeding (12) Discharge planning issues: Status: Acute Assessment and plan: Full code Continues to require hospitalization Subjective Subjective Interval history since last seen: Ms Osullivan states she is having abdominal pain which she states is worse when she tries to have a bowel movement. She is constipated. She is also on oxygen which she states she does not use at home. Denies dizziness, CP, SOB, n/v now, but was nauseated earlier today. The drain continues to put out feculent drainage. Exam Narrative Exam Narrative: General: a middle-aged female who looks comfortable and appears to exaggerate her symptoms when I touch her abdomen, A&Ox3, on 1.5L of O2 by NC HEENT: EOMI, MMM Heart: RRR, no m/r/g Lungs: Diminished breath sounds at B bases Abdomen: soft, diffusely tender bilaterally, but more so inferiorly, posterior pelvic drain with feculent drainage Extremities: no edema BLEs; L ankle not in a boot while in bed Objective Last Vital Signs Temp 37.2 C 08/29/23 09:10 Pulse 88 08/29/23 09:10 Resp 14 08/29/23 09:10 BP 102/67 08/29/23 09:10 Pulse Ox 87 L 08/29/23 09:10 Laboratory Results - last 24 hr 08/29/23 08/29/23 06:20 12:12 WBC 10.01 RBC 3.03 L Hgb 8.4 L 8.7 L Hct 27.7 L 28.6 L MCV 91 MCH 27.7 MCHC 30.3 L RDW 18.3 H Plt Count 242 MPV 10.9 Immature Gran % 0.9 Neutrophils % 74.8 Lymphocytes % 11.4 Monocytes % 8.8 Eosinophils % 3.2 Basophils % 0.9 Nucleated RBC % 0.0 Absolute Neutrophils 7.49 H Absolute Lymphocytes 1.14 L Absolute Monocytes 0.88 H Absolute Eosinophils 0.32 Absolute Basophils 0.09 Sodium 140 Potassium 4.5 Chloride 101 Carbon Dioxide 37.8 H Anion Gap 1.2 L BUN 7 Creatinine 0.7 Est GFR (CKD-EPI 2020) 100.81 Glucose 104 Calcium 7.9 L Magnesium 1.9 C-Reactive Protein 7.92 Procalcitonin < 0.1 Time Spent with Patient Time Spent with Patient: 35-49 minutes Time was spent: preparing to see the patient(eg.review tests), obtaining and/or reviewing separately otained hiistory, ordering medications,tests, procedures, referring, communicating with other health care management associate, indepentently interpreting results, counseling the patient and care coordination
[2023-08-29] MEDS: Furosemide 20 MG/2 ML VIAL IVP (14:32)
[2023-08-29] MEDS: Bisacodyl 5 MG TABEC PO (14:36)
[2023-08-29] MEDS: Polyethylene Glycol 3350 17 GM PACKET PO (14:37)
[2023-08-29] MEDS: oxyCODONE 5 MG TAB PO ×2 (16:41→23:39)
[2023-08-29 19:45] VITALS: BP 115/74; PULSE 99; RESP 20; TEMP 37.2; O2SAT 89
[2023-08-29] MEDS: Metoprolol 25 MG TAB PO (19:52)
[2023-08-29] MEDS: Prazosin 1 MG CAP PO (21:12)
[2023-08-29] MEDS: Lurasidone 40 MG TAB 160 MG PO (21:12)
[2023-08-29] MEDS: Methocarbamol 500 MG TAB PO (21:12)
[2023-08-29] MEDS: OLANZapine 5 MG TAB 15 MG PO (21:12)
[2023-08-29 23:30] VITALS: PULSE 85
[2023-08-29 23:42] VITALS: BP 94/60; PULSE 45; RESP 20; TEMP 37; O2SAT 94
[2023-08-30] VITALS (8 sets, daily range): BP systolic 97–120; BP diastolic 66–75; PULSE 76–98; RESP 16–19; TEMP 36.6–38; O2SAT 89–93
[2023-08-30] MEDS: CLINDAMYCIN 900 MG/50 ML BAG 50 MG IVPB ×3 (01:49→17:39)
--- NOTE | 2023-08-30 03:15 | RT.EKG_ITS ---
APPROVED REPORT Exam: Resting ECG Reason for Exam: chest pain Patient Location: I HR:84 bpm ECG Measurements Heart Rate 84 AXIS ID 138 P 6 QRSd 100 QRS 6 QT 355 T -11 QTc 420 Conclusion Sinus rhythm...normal P axis, V-rate 50- 99 Nonspecific T abnormalities, anterior leads...T <-0.10mV, V2-V4 I have reviewed and interpreted ECG and agree with software generated interpretation.
[2023-08-30 03:52] LABS: Absolute Basophil Count 0.08 10^3/uL (0.0-0.2); Absolute Eosinophil Count 0.43 10^3/uL (0.0-0.7); Absolute Lymphocyte Count 1.33 10^3/uL (1.2-3.4); Absolute Monocyte Count 1.04 10^3/uL (0.1-0.8); Basophils % 0.7; Eosinophils % 3.8; HGB 8.1 g/dL (11.2-15.7); Immature Grans % 0.9; Lymphocytes % 11.8; MCH 27.5 pg (27.0-33.0); MCV 92 fL (80-95); Monocytes % 9.2; Neutrophils % 73.6; Platelet Count 273 10^3/uL (130-400); RBC 2.95 10^6/uL (3.93-5.22); RDW 18.1 % (11.7-14.6); RDW-SD 58.4 fL; WBC 11.31 10^3/uL (4.4-10.8)
[2023-08-30] MEDS: Atorvastatin 40 MG TAB 80 MG PO ×2 (04:03→19:49)
[2023-08-30 04:04] LABS: Anion Gap 0.8 mmol/L (3-11); BUN 11 mg/dL (7-18); CO2 39.2 mmol/L (21.0-32.0); CREATININE 0.9 mg/dL (0.55-1.02); Chloride 98 mmol/L (98-107); Estimated GFR 74.57 (mL/min/1.73m2); Glucose 127 mg/dL (74-106); Magnesium 1.9 mg/dL (1.8-2.4); Potassium 4.4 mmol/L (3.5-5.1); Sodium 138 mmol/L (136-145)
[2023-08-30 04:13] LABS: Troponin I 161 ng/L (< or =60)
[2023-08-30 04:26] LABS: Absolute Neutrophil Count 8.32 10^3/uL (1.2-6.7)
[2023-08-30] MEDS: Levothyroxine 88 MCG TAB PO (05:19)
[2023-08-30] MEDS: Polyethylene Glycol 3350 17 GM PACKET PO (07:41)
[2023-08-30] MEDS: Normal Saline Flush 10 ML SYR IVP ×8 (07:41→19:50)
[2023-08-30] MEDS: Nicotine 14 MG/24 HR PATCH TD (07:42)
[2023-08-30] MEDS: Gabapentin 300 MG CAP PO ×4 (07:44→19:49)
[2023-08-30] MEDS: Docusate Sodium 100 MG CAP PO ×3 (07:44→19:49)
[2023-08-30] MEDS: Metoprolol 25 MG TAB PO ×2 (07:44→19:50)
[2023-08-30] MEDS: oxyCODONE 5 MG TAB PO ×3 (07:44→21:18)
[2023-08-30] MEDS: buPROPion 100 MG TAB PO (07:45)
[2023-08-30] MEDS: Acetaminophen 500 MG TAB 1000 MG PO ×2 (07:45→15:01)
[2023-08-30] MEDS: Ferrous Sulfate 325 MG TAB PO (07:45)
[2023-08-30] MEDS: Tiotropium Bromide-Respimat 10 PUFF INH 2 PUFF IH (07:55)
[2023-08-30 08:46] LABS: Troponin I 156 ng/L (< or =60)
--- NOTE | 2023-08-30 10:08 | CMPROGNOTE_ITS ---
Date of service: 08/30/23 Time of Service: 10:08 Care Management Progress Note Progress Note Text Progress Note Text: S/O: Ester was lying in bed when CM met with her. She complained of abdominal pain this morning as well as chest pain and additional studies were done. Treponins came back still elevated 161 and 156) but much lower than last week during her NSTEMI. A CT of her chest revealed that she does not have evidence of a PE and her pleural effusions have decreased in size. Ester was medicated with Oxycodone which relieved her symptoms. A: Ester is a 58 year old female admitted to [facility] on 08/16/23 for diverticulitis, pelvic abscess. P: Ester will likely return to her home at [place] with a resumption of home health services for nursing, PT, OT and [employer]. Unfortunately she needs home oxygen and obtaining that may be problematic given she has outstanding debt and equipment related to home oxygen.She will follow up with community providers and her plan of care and transport with facility staff vs RCT.. CM will follow and continue to assess for discharge needs. SDOH(Care Management) Screening Will the Patient Participate in the Screening?: Unable to obtain
[2023-08-30] MEDS: Omnipaque 350 MG/ML 100 ML BTL 80 ML IJ (10:09)
[2023-08-30] MEDS: Normal Saline - Diluent 50 ML VIAL IJ (10:12)
--- NOTE | 2023-08-30 10:15 | DI.CT_ITS ---
Exam(s) CT CHEST PE CTA EXAM: CT CHEST PE CTA CLINICAL HISTORY: chest pain, suspected PE. TECHNIQUE: Imaging Protocol: Axial CT angiography was performed with multi-slice acquisition and mu lti-planar reconstructions as well as axial, coronal and sagittal MIP reconstructions. CONTRAST MATERIAL: Intravenous: Omnipaque 350 Contrast volume:100 ml COMPARISON: CT CT CHEST PE CTA from 08/03/[address] ABDOMEN PELVIS W from 08/25/2023 CR,XR XR PORTABLE CHEST AP from 08/27/2023 FINDINGS: Pulmonary Arteries: No evidence of filling defect to suggest pulmonary emboli. Hiatal hernia. Tracheobronchial tree: No mucous plugging. Mediastinum and Teresa: No dominant adenopathy or fluid collection. Pulmonary parenchyma: Limited evaluation due to respiratory motion and expiratory changes. No consol idation or dominant measurable mass. Pleura: Small right pleural effusion and adjacent compressive atelectasis, improvement from prior. L eft pleural effusion no longer present. Heart: The heart is dilated. Mild coronary artery calcifications are seen. Aorta: Thoracic aorta non-dilated. No dissection. Aberrant right subclavian artery again noted. Upper abdomen: No acute findings. Bones: Stable midthoracic compression fracture. Tubes, Catheters, and Lines: None Soft tissues: Unremarkable. IMPRESSION: No evidence of pulmonary embolism. Improvement in bilateral pleural effusions, small right pleural effusion remaining. Adjacent tr sive atelectasis. RADIATION DOSE DELIVERED: 287.34mGy.cm Total DLP DATA REPOSITORY: All CT scans at this facility are submitted to the National Radiology Data Registry (NRDR) Dose Index Registry (DIR) with the [employer] ([employer]). RADIATION OPTIMIZATION: All CT scans at this facility use at least one of these dose optimization te chniques: automated exposure control; mA and/or kV adjustment per patient size (includes targeted exa ms where dose is matched to clinical indication); or iterative reconstruction.
[2023-08-30] MEDS: Pantoprazole 40 MG VIAL IVP ×2 (10:45→19:50)
[2023-08-30] MEDS: Normal Saline 500 ML 100 ML IV (10:46)
--- NOTE | 2023-08-30 11:13 | INPN_ITS ---
PT Notes Visit Reasons: Diverticulitis,Pelvic Abscesses Physical Therapy Inpatient Progress Note Date: 08/30/2023 Dates of Service: 08/23/2023 through 08/30/2023 Precautions: Fall. Standard. Dr. Kenney: WBAT on the L LE with AD, fracture boot on L for comfort only. Subjective: Verbalized being fatigued since yesterday. Initially did not want to get out of bed but when she was told that her fracture will heal faster if she works on putting weight on it with walking, she agreed to participate with PT. Did not want to put off her oxygen for the walk despite encouragement by PT that it was needed. Verbalized that she was getting agitated towards the end of the walk and wanted to sit down. After a couple of minutes of rest, patient agreed to walk back to her room. Objective: General Observation: Patient on oxygen supplementation via NC at 2 L/min. IV through L UE. Andujar catheter in place. Mental Status: Alert and oriented as to person, place, and purpose. Able to pay attention, focus, and respond appropriately. Pain: Minimal pain in the legs and feet with weight bearing Vital Signs: Closely monitored by nursing staff ROM: Right Upper Extremity: Shoulder Flexion lacks the last 25% of AROM. Shoulder abduction acks the last 25% of AROM. Elbow flexion WFL. Wrist flexion WFL. Functional opening and closing of hand WFL. Left Upper Extremity: Shoulder Flexion lacks the last 25% of AROM. Shoulder abduction acks the last 25% of AROM. Elbow flexion WFL. Wrist flexion WFL. Functional opening and closing of hand WFL. Right Lower Extremity: Hip flexion lacks the last 25% of AROM. Hip abduction WFL. Knee flexion WFL. Ankle dorsiflexion to neutral only. Ankle plantarflexion WFL. Left Lower Extremity: Hip flexion lacks the last 50% of AROM. Hip abduction WFL. Knee flexion 45 degrees to 90 degrees. Knee extension -45 degrees. Ankle dorsiflexion to neutral only. Ankle plantarflexion WFL. Strength: Right Upper Extremity: Shoulder flexors 3-/5. Shoulder abductors 3-/5. Elbow flexors 4-/5. Elbow extensors 4-/5. Steam Crane Operator strong. Left Upper Extremity: Shoulder flexors 3-/5. Shoulder abductors 3-/5. Elbow flexors 4-/5. Elbow extensors 4-/5. Steam Crane Operator strong. Right Lower Extremity: Hip flexors 3-/5. Hip abductors 4-/5. Knee flexors 4-/5. Knee extensors 4-/5. Ankle dorsiflexors 3-/5. Ankle plantarflexors 4-/5. Left Lower Extremity:Hip flexors 2-/5. Hip abductors 3-/5. Knee flexors 3-/5. Knee extensors 3-/5. Ankle dorsiflexors 3-/5. Ankle plantarflexors4-5/5. Bed Mobility/Transfers: Maximal cueing provided for use of B hands as needed for support, movement sequence, AD management, and posture to reduce fall risk and minimize pain report. Supine to sit contact guard assist Sit to stand contact guard assist with FWW Stand to sit contact guard assist with FWW Scoot back onto recliner independent Gait: Facilitated safe and correct performance of level surface ambulation covering a dsiatnce of about 40 feet using front-wheeled walker requiring contact guard assist and wheelchair follow of PT for safety. Patient felt that she was getting agitated (this was her word) and wanted to sit down. She did not want to use her oxygen for the walk despite advise of PT that she need to put it on. After a couple of minute sof seated rest, patient was okay agin to walk bcak to her room covering same distance. Balance: Static Sitting: Normal Dynamic Sitting: Normal Static Standing: Fair Dynamic Standing: Fair Special Tests: Mobility Limitations Standardized Measure [facility] AM-PAC 6 clicks Basic Mobility Inpatient Short Form: Raw Score: 18 CMS Score: 47% deficit Informed Consent/Education: Patient was instructed in purpose of PT consult and plan of care. Agreeable to proceed with established PT POC to achieve personal goals. THERA EX: Alternate knee to chest x 5 Quads sets x 10 Ankle pumps x 10 Hip abduction x 5 ASSESSMENT: Patient has improved in terms of activity tolerance and stability og gait since upgrade of ambulation status by orthopedic surgeon as of 08/29/2023. Per clarification order of orthopedic surgeon, patient now WBAT on the L LE with fracture boot on. Requires assist of 2 caregivers for all transfers for safety. Ambulation with PT staff only. Patient presents with clinical signs and symptoms consistent with current/admitting diagnoses that have resulted to mobility limitations, gait instability, generalized weakness, and overall ADL decline as demonstrated by the following impairment level findings: 1. Decreased strength to B UE/LE major muscle groups 2. Impaired sitting/standing balance 3. Impaired activity tolerance Impairments are contributing to the following functional limitations: 1. Decline in bed mobility skills 2. Decline in transfer skills 3. Difficulty with ambulation without assistive device and physical assistance 4. Increased completion time for mobility ADL performance 5. Increased risk for falls 6. Difficulty with managing steps alone safely Patient is assessed as a 12859 moderate complexity based on the following: History: 58-year-old female with past medical history as indicated above Examination: Demonstrable impairment in strength, balance, and mobility level with underlying impairments and functional limitations as exhibited above as well as deficit score of 69% utilizing the [facility] Mobility Inpatient Short Form Presentation: Evolving Decision Makin moderate complexity Goals: Goals X1 week 1. Supine-Sit independent NOT MET, CONTINUE 2. Sit-Supine independent NOT MET, CONTINUE 3. Sit-Stand independent NOT MET, CONTINUE 4. Stand-Sit independent with FWW NOT MET, CONTINUE 5. Bed-Chair independent with FWW NOT MET, CONTINUE 6. Chair-Bed independent with FWW NOT MET, CONTINUE 7. Independent gait on level surface with use of FWW for at least 300 feet without report of pain nor dyspnea NOT MET, CONTINUE 8. Independent stair negotiation while holding onto B rails for at least 5 steps without report of pain nor dyspnea NOT MET, CONTINUE 9. Independent with home exercise program NOT MET, CONTINUE 10. Good static and dynamic standing balance/tolerance NOT MET, CONTINUE Plan of Care/Treatment Plan: 1-2x/day, 7 days/week x 1 week. Plan of care has been reviewed with the SENIOR ELECTRICAL DESIGN ENGINEER providing the service under Physical Therapy direction. Initiate Physical Therapy intervention for pain management as needed, strengthening, bed mobility, transfers, gait, stairs, balance training, and use of assistive device. DISCHARGE RECOMMENDATIONS: [] Home with no services [] [] Home with services [specify] [] Home with outpatient PT [] [] SNF for continued rehabilitation [] [] Alf Care [] [] SNF versus LTC based on ability to participate and progress [] [X] [facility] vs. SNF based on progress towards goals TREATMENT CODE/TIME: 42811 x 20 minutes for 1 unit, 78782 x 10 minutes for 1 unit (11:13-11:43). Thank you for the opportunity to participate in the care of this patient. Fauzia Miller PT, DPT, CLT [facility] [place], [place]
[2023-08-30] MEDS: MEROPENEM 1 GM in Normal Saline 100 ML IVPB ×2 (11:46→23:06)
[2023-08-30] MEDS: Ondansetron 4 MG/2 ML VIAL IVP (13:48)
[2023-08-30] MEDS: Mylanta Suspension 30 ML CUP PO ×2 (13:48→17:39)
[2023-08-30] MEDS: Sucralfate 1 GM TAB PO ×3 (14:37→21:18)
--- NOTE | 2023-08-30 16:53 | PT.INNT ---
Date of service: 08/30/23 Time of Service: 15:08 PT Notes Visit Reasons: Diverticulitis,Pelvic Abscesses Patient refuses therapy this afternoon, stating that she has had a busy day already, and has attempted walking x2 with 2 other providers. States that she successfully walked this AM, but this PM legs were too shaky.
--- NOTE | 2023-08-30 18:55 | PGE_ITS ---
Date of Service Date of service: 08/30/23 Time of Service: 14:05 Assessment and Plan Assessment and plan (1) Epigastric pain: Status: Acute Assessment and plan: In this case, I do feel it is like of GI origin. Increase PPI to BID and add carafate. Consider a surgical consult for an EGD if the pain persists. (2) Hypoxia: Status: Chronic Assessment and plan: Upon reviewing the patient's history, the patient has CHRONIC hypoxic respiratory failure, not acute, and her oxygen prescription apparently had fallen through the cracks on transfer to [place]. There is an acute component of fluid overload that could be contributing, but the patient is expected to be discharged to [place] on oxygen. (3) NSTEMI (non-ST elevated myocardial infarction): Status: Acute Assessment and plan: On 08/24/23. Continue aspirin. Finished 48 hrs of heparin. No role for plavix. Question of hypokinesis of RV free wall on echo. Continue BB, prn nitroglycerin. Will need outpatient ischemic workup. (4) Hypovolemic shock: Status: Resolved Assessment and plan: The patient is now stable. This was in setting of lower GI bleeding and diverticular abscess. Required a total of 2 units of pRBCs with improvement in BPs. H/Hs and BPs stable. (5) Diverticulitis: Status: Acute Assessment and plan: Complicated by perforation and pelvic abscess. She is on her second pelvic access drain. Continue meropenem + clindamycin. WBC improving. She is on a probiotic. Intensify a bowel regimen. (6) Abscess of female pelvis: Status: Acute Assessment and plan: as above (7) EMILY (acute kidney injury): Status: Resolved Assessment and plan: Continue to monitor kidney function (8) COPD (chronic obstructive pulmonary disease): Status: Chronic Assessment and plan: As above - O2 dependence is old/chronic; will need O2 on discharge. COPD is at baseline, not in acute exacerbation. Continue Spiriva and duoneb. Encourage IS/acapella. Qualifiers: COPD type: chronic bronchitis Chronic bronchitis type: unspecified Qualified Code(s): J42 - Unspecified chronic bronchitis (9) Closed fibular fracture: Status: Acute Assessment and plan: Evaluated by orthopedic surgery. WBAT. Boot only when ambulating; to be off when in bed. Qualifiers: Encounter type: initial encounter Fibula location: lateral malleolus Fracture alignment: nondisplaced Laterality: left Qualified Code(s): S82.65XA - Nondisplaced fracture of lateral malleolus of left fibula, initial encounter for closed fracture (10) Hypothyroidism: Status: Chronic Assessment and plan: continue levothryroxine (11) Tobacco abuse: Status: Acute Assessment and plan: Continue wellbutrin. Advised to quit (12) DVT prophylaxis: Status: Acute Assessment and plan: SCDs. Hold chemical DVT ppx in light of recent GI bleeding (13) Discharge planning issues: Status: Acute Assessment and plan: Full code Continues to require hospitalization Subjective Subjective Interval history since last seen: I was informed the patient was reporting epigastric and chest pain. She was nauseated. She had received zofran and mylanta just a couple of minutes earlier, but it had not worked yet. Last night she had an episode of chest pain which triggered an order for an EKG and a troponin. Troponin was lower than priors; EKG did not show acute ischemia. A CTA of the chest was obtained and was negative for a PE. The patient denies dizziness, shortness of breath. The chest pain she described was contiguous with her epigastric pain and was reproducible with palpation. Exam Narrative Exam Narrative: General: a middle-aged female who looks comfortable, A&Ox3, on 1.5L of O2 by NC HEENT: EOMI, MMM Heart: RRR, no m/r/g Lungs: Diminished breath sounds at B bases Abdomen: soft, tender in epigastrium and over sternum Extremities: no edema BLEs; L ankle not in a boot while in bed Objective Last Vital Signs Temp 37.1 C 08/30/23 13:56 Pulse 83 08/30/23 13:56 Resp 18 08/30/23 13:56 BP 106/73 08/30/23 13:56 Pulse Ox 90 L 08/30/23 13:56 Laboratory Results - last 24 hr 08/30/23 08/30/23 08/30/23 03:43 08:16 14:03 WBC 11.31 H RBC 2.95 L Hgb 8.1 L Hct 27.0 L MCV 92 MCH 27.5 MCHC 30.0 L RDW 18.1 H Plt Count 273 MPV 11.0 Immature Gran % 0.9 Neutrophils % 73.6 Lymphocytes % 11.8 Monocytes % 9.2 Eosinophils % 3.8 Basophils % 0.7 Nucleated RBC % 0.0 Absolute Neutrophils 8.32 H Absolute Lymphocytes 1.33 Absolute Monocytes 1.04 H Absolute Eosinophils 0.43 Absolute Basophils 0.08 Sodium 138 Potassium 4.4 Chloride 98 Carbon Dioxide 39.2 H Anion Gap 0.8 L BUN 11 Creatinine 0.9 Est GFR (CKD-EPI 2020) 74.57 Glucose 127 H Calcium 8.0 L Magnesium 1.9 Troponin I 161 H* 156 H* Cancelled Time Spent with Patient Time Spent with Patient: 35-49 minutes Time was spent: preparing to see the patient(eg.review tests), obtaining and/or reviewing separately otained hiistory, ordering medications,tests, procedures, referring, communicating with other health career and guidance counselor, indepentently interpreting results, counseling the patient and care coordination
[2023-08-30] MEDS: Lurasidone 40 MG TAB 160 MG PO (21:19)
[2023-08-30] MEDS: Prazosin 1 MG CAP PO (21:19)
[2023-08-30] MEDS: OLANZapine 5 MG TAB 15 MG PO (21:19)
[2023-08-30] MEDS: Methocarbamol 500 MG TAB PO (21:19)
[2023-08-30] MEDS: LORazepam 0.5 MG TAB PO (22:23)
[2023-08-31] VITALS (22 sets, daily range): BP systolic 85–103; BP diastolic 50–62; PULSE 78–106; RESP 9–28; TEMP 37.1–38.2; O2SAT 88–96
--- NOTE | 2023-08-31 | DI.RAD_ITS ---
Exam(s) XR PORTABLE CHEST AP EXAM: XR PORTABLE CHEST AP CLINICAL HISTORY: shortness of breath. TECHNIQUE: 2D digital imaging was performed. COMPARISON: CR,XR XR PORTABLE CHEST AP from 08/27/2023 FINDINGS: Single AP portable view. Mild cardiomegaly again noted. Mediastinum not widened. Appearance of the lung heredia has somewhat improved with decreased but not complete regression of rig ht lung base infiltrate. Small right pleural effusion again noted. This has the decreased in size. There are no Susy B lines. No new left lung findings. IMPRESSION: Some improvement when compared to 08/27/2023. DATA REPOSITORY: RADIATION DOSE DELIVERED:
--- NOTE | 2023-08-31 | DI.CT_ITS ---
Exam(s) CT CHEST/ABD/PEL W EXAM: CT CHEST/ABD/PEL W CLINICAL HISTORY: sepsis with borderlineshock, looking for a source. TECHNIQUE: Imaging Protocol: Axial computed tomography images with coronal and sagittal reformatted images were created and reviewed CONTRAST MATERIAL: Intravenous: Omnipaque 350 Contrast volume:100 ml Oral: / no COMPARISON: CT CT ABDOMEN PELVIS W from 08/25/[address] CHEST PE CTA from 08/30/2023 CR XR PORTABLE CHEST AP from 08/31/2023 FINDINGS: CHEST: Exam is limited by respiratory motion. Additional infiltrate seen posterior right lower lobe, also new from prior. Stable area of atelectasis the right lung base. Minimal left basilar atelectasis. Tracheobronchial tree: Patent where visualized. Pulmonary parenchyma: New infiltrate seen posterior right upper lobe. Pleura: Small right pleural effusion, similar to prior. Lymph nodes: Within normal limits. Aorta: Thoracic portion non-dilated. Aberrant right subclavian artery again noted. Normal variant pe er Heart: Mildly enlarged. No pericardial effusion. Bones: Stable midthoracic compression fracture. Soft tissues: Unremarkable. ABDOMEN and PELVIS: Liver: Normal density. No measurable mass. Gallbladder and biliary tract: No evidence of stones or wall thickening. No biliary dilatation. Pancreas: Normal density, no abnormal calcifications or inflammatory process. Hiatal hernia. Spleen: Normal. Kidneys: Normal size, contour and axis. No radiodense stones. No obstructive uropathy. No suspicious masses seen. Adrenal glands: No masses seen. Aorta: Abdominal portion non-dilated. Lymph nodes: Within normal limits. Soft tissues: Tiny fatty containing umbilical hernia. Bladder: Decompressed by Andujar catheter. Question mild wall thickening which could indicate cystitis . Bowel: Large quantity of stool noted throughout the colon. Severe sigmoid diverticulosis. Wall thic kening of the distal sigmoid and rectum. No small-bowel obstruction or small bowel wall thickening. Peritoneal cavity: Transgluteal pigtail catheter again noted. Significant interval increase in previ ously noted abscess, now measuring 6 x 10 x 7 cm. The pigtail lies in the left side of the collectio n. Trace fluid. Bones: Prominent stable minimal compression of the L4 vertebral body. No acute findings. Reproductive organs: Inflammation of the uterus which lies directly beneath the diverticular abscess. IMPRESSION: Right upper lower lobe pneumonia with significant worsening from prior.. Stable small right pleural effusion. Marked interval increase in size of diverticular abscess with pigtail drainage catheter in place. Adj acent inflammation of the distal rectosigmoid colon and uterus. Mild wall thickening of the bladder could indicate cystitis. RADIATION DOSE DELIVERED: 1,387.01mGy.cm Total DLP DATA REPOSITORY: All CT scans at this facility are submitted to the National Radiology Data Registry (NRDR) Dose Index Registry (DIR) with the [employer] (ACR). RADIATION OPTIMIZATION: All CT scans at this facility use at least one of these dose optimization te chniques: automated exposure control; mA and/or kV adjustment per patient size (includes targeted exa ms where dose is matched to clinical indication); or iterative reconstruction.
[2023-08-31] MEDS: CLINDAMYCIN 900 MG/50 ML BAG 50 MG IVPB ×3 (01:14→22:34)
[2023-08-31] MEDS: Acetaminophen 500 MG TAB 1000 MG PO ×2 (06:02→14:43)
[2023-08-31] MEDS: Levothyroxine 88 MCG TAB PO (06:02)
[2023-08-31 07:11] LABS: Abs Immature Grans 0.11 10^3/uL (0.0-0.06); Absolute Basophil Count 0.11 10^3/uL (0.0-0.2); Absolute Eosinophil Count 0.37 10^3/uL (0.0-0.7); Absolute Neutrophil Count 12.45 10^3/uL (1.2-6.7); Basophils % 0.7; Eosinophils % 2.4; HCT 28.3 % (36.0-46.0); HGB 8.6 g/dL (11.2-15.7); Immature Grans % 0.7; Lymphocytes % 7.1; MCH 27.6 pg (27.0-33.0); MCHC 30.4 % (32.0-36.0); MCV 91 fL (80-95); MPV 11.5 fL (8.0-11.0); Monocytes % 7.7; Neutrophils % 81.4; Platelet Count 279 10^3/uL (130-400); RBC 3.12 10^6/uL (3.93-5.22); RDW 18.1 % (11.7-14.6); RDW-SD 58.7 fL; WBC 15.29 10^3/uL (4.4-10.8)
[2023-08-31 07:12] LABS: Absolute Lymphocyte Count 1.09 10^3/uL (1.2-3.4); Absolute Monocyte Count 1.18 10^3/uL (0.1-0.8)
[2023-08-31 07:29] LABS: Anion Gap 4.8 mmol/L (3-11); BUN 9 mg/dL (7-18); CO2 35.2 mmol/L (21.0-32.0); CREATININE 0.8 mg/dL (0.55-1.02); Calcium 8.1 mg/dL (8.5-10.1); Chloride 97 mmol/L (98-107); Estimated GFR 85.89 (mL/min/1.73m2); Glucose 120 mg/dL (74-106); Potassium 4.3 mmol/L (3.5-5.1); Sodium 137 mmol/L (136-145)
[2023-08-31] MEDS: Tiotropium Bromide-Respimat 10 PUFF INH 2 PUFF IH (08:27)
[2023-08-31] MEDS: Pantoprazole 40 MG VIAL IVP ×2 (09:26→23:31)
[2023-08-31] MEDS: Polyethylene Glycol 3350 17 GM PACKET PO (09:26)
[2023-08-31] MEDS: Nicotine 14 MG/24 HR PATCH TD (09:26)
[2023-08-31] MEDS: Normal Saline Flush 10 ML SYR IVP ×5 (09:26→23:30)
[2023-08-31] MEDS: Metoprolol 25 MG TAB PO (09:27)
[2023-08-31] MEDS: Ferrous Sulfate 325 MG TAB PO (09:27)
[2023-08-31] MEDS: Sucralfate 1 GM TAB PO ×4 (09:27→23:25)
[2023-08-31] MEDS: Gabapentin 300 MG CAP PO ×4 (09:27→23:25)
[2023-08-31] MEDS: buPROPion 100 MG TAB PO (09:27)
[2023-08-31] MEDS: Docusate Sodium 100 MG CAP PO ×3 (09:27→23:25)
[2023-08-31] MEDS: oxyCODONE 5 MG TAB PO (09:27)
[2023-08-31 10:21] LABS: Lab Add On Test DONE
--- NOTE | 2023-08-31 10:25 | PT.INNT ---
Date of service: 08/31/23 Time of Service: 10:20 PT Notes Visit Reasons: Diverticulitis,Pelvic Abscesses Patient refuses therapy this morning. States that she has already done too much. Reports having fallen this morning, states no one was present in the room with her, states that she did not hit her head, but that she did hit bilateral elbows. ANTONIO Bass and Care Management aware.
[2023-08-31 10:43] LABS: C-Reactive Protein 14.01 mg/dL (<or=0.5)
--- NOTE | 2023-08-31 10:53 | CMPROGNOTE_ITS ---
Date of service: 08/31/23 Time of Service: 10:53 Care Management Progress Note Progress Note Text Progress Note Text: S/O: Ester will be transferred to the [facility] this afternoon. She has been somnolent all day and has had an increase in her WBC (>15.0) and CRP (14.01). Additionally, her H&H is slightly decreased and she is hypotensive. Ester has been complaining d abdominal pain but is also having respiratory symptoms and a fever of 38.2. Tests for Covid, flu and RSV were all negative and a chest Xray did not show any new infiltrates. A: Ester is a 58 year old female admitted to [facility] on 08/16/23 for diverticulitis, pelvic abscess. P: Ester will likely return to her home at [place] with a resumption of home health services for nursing, PT, OT and PHARMACY DISTRICT MANAGER. Unfortunately she needs home oxygen and obtaining that may be problematic given she has outstanding debt and equipment related to home oxygen.She will follow up with community providers and her plan of care and transport with facility staff vs RCT.. CM will follow and continue to assess for discharge needs. SDOH(Care Management) Screening Will the Patient Participate in the Screening?: Unable to obtain
[2023-08-31] MEDS: Normal Saline 500 ML 30 ML IV ×2 (11:12→18:21)
--- NOTE | 2023-08-31 15:07 | PGE_ITS ---
Date of Service Date of service: 08/31/23 Time of Service: 15:07 Assessment and Plan Assessment and plan (1) Sepsis: Status: Acute Assessment and plan: The patient had a fever, a worsening of a white count, and encephalopathy. BP is also low on the latest check - nearing septic shock. Given cough/respiratory symptoms, I suspect that it is pneumonia that is the source of her symptoms. Consider intraabdominal source, given the abscess. UA only shows a trace amount of leuk esterase. No diarrhea reported. I have added vancomycin to meropenem + clindamycin. Blood cultures are pending. Monitor for signs/symptoms of shock. Trend VBG. Transfer to the ICU. IVF/bolus LR 500 followed by 500 cc of continuous. Obtain CT chest/abdomen/pelvis. (2) Hypovolemic shock: Status: Acute Assessment and plan: The patient is now stable. This was in setting of lower GI bleeding and diverticular abscess. Required a total of 2 units of pRBCs with improvement in BPs. Recheck H/H now given BP. (3) Diverticulitis: Status: Acute Assessment and plan: Complicated by perforation and pelvic abscess. She is on her second pelvic access drain. Continue meropenem + clindamycin. WBC worse and clinically worse. Repeat CT. She is on a probiotic. (4) Epigastric pain: Status: Acute Assessment and plan: Suspect GI origin. Continue BID PPI and carafate. Consider a surgical consult for an EGD if the pain returns (5) Hypoxia: Status: Chronic Assessment and plan: Upon reviewing the patient's history, the patient has CHRONIC hypoxic respiratory failure, not acute, and her oxygen prescription apparently had fallen through the cracks on transfer to [place]. The patient is expected to be discharged to [place] on oxygen. (6) NSTEMI (non-ST elevated myocardial infarction): Status: Acute Assessment and plan: On 08/24/23. Continue aspirin. Finished 48 hrs of heparin. No role for plavix. Question of hypokinesis of RV free wall on echo. Continue BB, prn nitroglycerin. Will need outpatient ischemic workup. (7) Abscess of female pelvis: Status: Acute Assessment and plan: as above (8) EMILY (acute kidney injury): Status: Resolved Assessment and plan: Continue to monitor kidney function (9) COPD (chronic obstructive pulmonary disease): Status: Chronic Assessment and plan: As above - O2 dependence is old/chronic; will need O2 on discharge. She does have a component of worsening respiratory acidosis right now. Will monitor closely in the ICU. Continue Spiriva and duoneb. Encourage IS/acapella. Qualifiers: COPD type: chronic bronchitis Chronic bronchitis type: unspecified Qualified Code(s): J42 - Unspecified chronic bronchitis (10) Closed fibular fracture: Status: Acute Assessment and plan: Evaluated by orthopedic surgery. WBAT. Boot only when ambulating; to be off when in bed. Qualifiers: Encounter type: initial encounter Fibula location: lateral malleolus Fracture alignment: nondisplaced Laterality: left Qualified Code(s): S82.65XA - Nondisplaced fracture of lateral malleolus of left fibula, initial encounter for closed fracture (11) Hypothyroidism: Status: Chronic Assessment and plan: continue levothryroxine (12) Tobacco abuse: Status: Acute Assessment and plan: Continue wellbutrin. Advised to quit (13) DVT prophylaxis: Status: Acute Assessment and plan: SCDs. Hold chemical DVT ppx in light of recent GI bleeding (14) Discharge planning issues: Status: Acute Assessment and plan: Full code Continues to require hospitalization Transfer to the ICU. Total Critical Care Time 45 minutes. Subjective Subjective Interval history since last seen: Ms Osullivan is more somnolent today. She had a fever last night. She apparently also slid down to the floor without hurting herself which is a behavior she has had before, including at [place]. It is not known right now if she had her boot on. Today, she is asleep when I came to evaluate her. The nursing reported that she had been on IVF all morning - carried over from her am antibiotics - and that she sounded fluid overloaded. The patient states she is not in pain; that she is short of breath, but then she is too somnolent to answer my questions. Exam Narrative Exam Narrative: General: a middle-aged female who is somnolent, but arousable, A&Ox3, on 1.5L of O2 by [place], having myoclonic jerks, coughing HEENT: EOMI, MMM Heart: RRR, no m/r/g Lungs: Diminished breath sounds at B bases, slight expiratory wheeze superiorly Abdomen: soft, nontender, nondistended; L posterior pelvic drain in place with brownish drainage Extremities: trace edema BLEs; L ankle not in a boot while in bed Objective Last Vital Signs Temp 37.8 C H 08/31/23 11:38 Pulse 78 08/31/23 11:38 Resp 20 08/31/23 11:38 BP 100/62 08/31/23 11:38 Pulse Ox 91 L 08/31/23 11:38 Laboratory Results - last 24 hr 08/31/23 08/31/23 08/31/23 06:35 09:50 10:11 WBC 15.29 H RBC 3.12 L Hgb 8.6 L Hct 28.3 L MCV 91 MCH 27.6 MCHC 30.4 L RDW 18.1 H Plt Count 279 MPV 11.5 H Immature Gran % 0.7 Neutrophils % 81.4 Lymphocytes % 7.1 Monocytes % 7.7 Eosinophils % 2.4 Basophils % 0.7 Nucleated RBC % 0.0 Absolute Neutrophils 12.45 H Absolute Lymphocytes 1.09 L Absolute Monocytes 1.18 H Absolute Eosinophils 0.37 Absolute Basophils 0.11 Sodium 137 Potassium 4.3 Chloride 97 L Carbon Dioxide 35.2 H Anion Gap 4.8 BUN 9 Creatinine 0.8 Est GFR (CKD-EPI 2020) 85.89 Glucose 120 H Calcium 8.1 L Magnesium 2.0 C-Reactive Protein 14.01 H Add-On Test Request DONE Time Spent with Patient Time Spent with Patient: 35-49 minutes Time was spent: preparing to see the patient(eg.review tests), obtaining and/or reviewing separately otained hiistory, ordering medications,tests, procedures, referring, communicating with other health spiritual care coordinator, indepentently interpreting results, counseling the patient and care coordination
[2023-08-31] MEDS: MEROPENEM 1 GM in Normal Saline 100 ML IVPB ×2 (15:15→23:47)
[2023-08-31] MEDS: Furosemide 20 MG/2 ML VIAL IVP (15:15)
[2023-08-31 15:17] LABS: BE (Venous) 13 mmol/L (-2-3); HCO3 (Venous) 38 mmol/L (23-28); O2 Sat (Venous) 40 %; TCO2 (Venous) 37 mmol/L (24-29); pH (Venous) 7.34 (7.31-7.41); pO2 (Venous) 25 mmHg
[2023-08-31 15:21] LABS: pCO2 (Venous) 71 mmHg (41-51)
[2023-08-31] MEDS: Albuterol 2.5 MG/3 ML INH SOLN VIAL UPD (15:30)
[2023-08-31 15:38] LABS: Bilirubin Negative (Negative); Blood Moderate (Negative); Clarity Clear (Clear); Glucose Negative (Negative); Ketones Negative (Negative); Leukocyte Esterase Trace (Negative); Nitrite Negative (Negative); Urobilinogen 0.2 mg/dL (Up to 0.2); pH 6.5 (5-8)
[2023-08-31 16:10] LABS: Bacteria Negative HPF (Negative); C & S Indicated? Yes; Casts 0-2 Hyaline LPF (Negative); Crystals Negative HPF (Negative); Epithelial Cells Rare HPF (Negative); Mucus Moderate (Negative); Other Cells Rare Transitional (Negative)
[2023-08-31] MEDS: Lactated Ringers 500 ML IV (16:11)
[2023-08-31 16:25] LABS: Lactate 0.5 mmol/L (0.6-1.4)
[2023-08-31 16:26] LABS: HCT 25.9 % (36.0-46.0); HGB 7.9 g/dL (11.2-15.7)
[2023-08-31 16:49] LABS: COVID-19 PCR Negative (Negative); Influenza A PCR Negative (Negative); Influenza B PCR Negative (Negative); RSV PCR Negative (Negative)
[2023-08-31 16:50] LABS: Source Nasopharynx
[2023-08-31 17:24] LABS: MRSA PCR Negative (Negative)
[2023-08-31] MEDS: VANCOMYCIN/WATER (PEG) 1.75 GM/350 ML BAG IVPB (18:20)
[2023-08-31 18:21] LABS: BE (Venous) 13 mmol/L (-2-3); HCO3 (Venous) 38 mmol/L (23-28); O2 Sat (Venous) 98 %; TCO2 (Venous) 36 mmol/L (24-29); pO2 (Venous) 94 mmHg
[2023-08-31 18:23] LABS: pCO2 (Venous) 61 mmHg (41-51)
[2023-08-31] MEDS: Omnipaque 350 MG/ML 100 ML BTL 80 ML IJ (23:14)
[2023-08-31] MEDS: Normal Saline - Diluent 50 ML VIAL IJ (23:15)
[2023-08-31] MEDS: Prazosin 1 MG CAP PO (23:24)
[2023-08-31] MEDS: OLANZapine 5 MG TAB 15 MG PO (23:24)
[2023-08-31] MEDS: Lurasidone 40 MG TAB 160 MG PO (23:25)
[2023-08-31] MEDS: Atorvastatin 40 MG TAB 80 MG PO (23:26)
[2023-08-31] MEDS: Methocarbamol 500 MG TAB PO (23:26)
--- NOTE | 2023-08-31 23:45 | DI.VRAD_ITS ---
PROCEDURE INFORMATION: Exam: CT Chest With Contrast; Diagnostic Exam date and time: 08/31/2023 23:05 Age: 58 years old Clinical indication: Other: Sepsis with borderlineshock, looking for a source TECHNIQUE: Imaging protocol: Diagnostic computed tomography of the chest with contrast. 3D rendering (Not supervised by radiologist): MIP and/or 3D reconstructed images were created by the technologist. Contrast material: 350; Contrast volume: 100 ml; Contrast route: INTRAVENOUS (IV); COMPARISON: CT CHEST PE CTA 08/30/2023 10:11 FINDINGS: Lungs: Moderate opacities, right upper and lower lobes are more pronounced. The lungs appear hyperinflated. Mild dependent subsegmental atelectasis. Pleural spaces: Moderate right and trace left pleural fluid, similar to prior. No pneumothorax. Heart: Stable mild cardiomegaly. Lymph nodes: No enlarged lymph nodes. Vasculature: Recurrent right subclavian artery, congenital variant. Diaphragm: Moderate hiatal hernia. Bones/joints: Exaggerated thoracic kyphosis. Chronic appearing midthoracic deformity. No acute fracture or subluxation. Soft tissues: No suspicious lesions. IMPRESSION: 1. Increasing right-sided opacities worrisome for new or progressive pneumonia. 2. Moderate right and trace left pleural fluid, similar to prior. 3. Additional findings as described. PROCEDURE INFORMATION: Exam: CT Abdomen And Pelvis With Contrast Exam date and time: 08/31/2023 23:05 Age: 58 years old Clinical indication: Other: Sepsis with borderlineshock, looking for a source TECHNIQUE: Imaging protocol: Computed tomography of the abdomen and pelvis with contrast. 3D rendering (Not supervised by radiologist): MIP and/or 3D reconstructed images were created by the technologist. Contrast material: 350; Contrast volume: 100 ml; Contrast route: INTRAVENOUS (IV); COMPARISON: CT ABDOMEN PELVIS W 08/25/2023 14:39 FINDINGS: Tubes, catheters and devices: Left transgluteal pigtail drain terminates in a fluid and gas containing 6 x 10 x 7 cm collection. There is partial peripheral enhancement. The pigtail is in the left most aspect of the collection. Liver: No mass. Gallbladder and bile ducts: No calcified stones. No ductal dilation. Pancreas: No ductal dilation. No masses. Spleen: No splenomegaly or focal lesions. Adrenal glands: No mass. Kidneys and ureters: No renal masses or hydronephrosis bilaterally. Stomach and bowel: Moderate wall thickening throughout the sigmoid colon, distal appears likely acute. Mild rectal wall thickening. Colonic diverticulosis most pronounced distally. Moderate colonic stool burden. No significant enteritis or small bowel obstruction. Appendix: No evidence of appendicitis. Intraperitoneal space: Trace free fluid in the pelvis which appears non loculated. Vasculature: No abdominal aortic aneurysm. Lymph nodes: No significantly enlarged lymph nodes. Urinary bladder: Andujar catheter in a partially decompressed urinary bladder. enhancement. The pigtail is in the left most aspect of the collection. Reproductive: There is probably some secondary edema of the uterus adjacent to the pelvic collection. Bones/joints: Chronic bony changes with no acute fracture. Soft tissues: Mild dependent subcutaneous edema. Other findings: Motion artifact in the abdomen. IMPRESSION: 1. Andujar catheter in a partially decompressed urinary bladder. Mild cystitis. 2. Left transgluteal pigtail drain terminates in a fluid and gas containing 6 x 10 x 7 cm collection, likely abscess. The pigtail is in the left most aspect of the collection. 3. Distal sigmoid colitis and or diverticulitis, adjacent to the pelvic collection. 4. Additional findings as described. Dictated and Authenticated by: Libia Rubio MD. Ordering:STANISLAW Chin MD
[2023-08-31] MEDS: Lactated Ringers 1,000 ML 100 ML IV (23:48)
[2023-09-01] VITALS (60 sets, daily range): BP systolic 83–143; BP diastolic 44–115; PULSE 78–123; RESP 13–41; TEMP 37.1–37.5; O2SAT 78–100
[2023-09-01] MEDS: CLINDAMYCIN 900 MG/50 ML BAG 50 MG IVPB ×3 (04:50→21:18)
[2023-09-01 06:47] LABS: Abs Immature Grans 0.11 10^3/uL (0.0-0.06); Absolute Lymphocyte Count 0.95 10^3/uL (1.2-3.4); Basophils % 0.6; Eosinophils % 1.9; HCT 24.5 % (36.0-46.0); HGB 7.5 g/dL (11.2-15.7); Immature Grans % 0.7; Lymphocytes % 5.7; MCH 27.9 pg (27.0-33.0); MCHC 30.6 % (32.0-36.0); MCV 91 fL (80-95); MPV 12.1 fL (8.0-11.0); Monocytes % 7.1; Nucleated RBC 0.1 % (0.0-0.3); Platelet Count 243 10^3/uL (130-400); RBC 2.69 10^6/uL (3.93-5.22); RDW-SD 58.3 fL
[2023-09-01 06:50] LABS: Absolute Eosinophil Count 0.32 10^3/uL (0.0-0.7); Absolute Monocyte Count 1.19 10^3/uL (0.1-0.8); Absolute Neutrophil Count 14.03 10^3/uL (1.2-6.7)
[2023-09-01] MEDS: Sucralfate 1 GM TAB PO ×4 (06:50→21:53)
[2023-09-01] MEDS: Levothyroxine 88 MCG TAB PO (06:50)
[2023-09-01 07:08] LABS: BUN 8 mg/dL (7-18); CREATININE 0.7 mg/dL (0.55-1.02); Chloride 100 mmol/L (98-107); Estimated GFR 100.81 (mL/min/1.73m2); Glucose 84 mg/dL (74-106); Magnesium 1.8 mg/dL (1.8-2.4); Potassium 4.4 mmol/L (3.5-5.1); Sodium 139 mmol/L (136-145)
[2023-09-01 07:16] LABS: Vancomycin, Random 18.7 ug/mL
[2023-09-01] MEDS: Gabapentin 300 MG CAP PO ×4 (07:56→19:29)
[2023-09-01] MEDS: Docusate Sodium 100 MG CAP PO ×3 (07:56→19:29)
[2023-09-01] MEDS: buPROPion 100 MG TAB PO (07:56)
[2023-09-01] MEDS: Nicotine 14 MG/24 HR PATCH TD (07:56)
[2023-09-01] MEDS: Polyethylene Glycol 3350 17 GM PACKET PO (07:56)
[2023-09-01] MEDS: Ferrous Sulfate 325 MG TAB PO (07:56)
[2023-09-01] MEDS: VANCOMYCIN/WATER (PEG) 750 MG/150 ML BAG 150 MG IVPB ×2 (08:24→19:31)
[2023-09-01] MEDS: Tiotropium Bromide-Respimat 10 PUFF INH 2 PUFF IH (08:26)
[2023-09-01 08:45] LABS: Lab Add On Test DONE
[2023-09-01 09:36] LABS: C-Reactive Protein 20.27 mg/dL (<or=0.5)
[2023-09-01 09:53] LABS: Procalcitonin 0.3 ng/mL
--- NOTE | 2023-09-01 11:32 | NUR.NOTE ---
Dr. Singletary enquired about irrigating TOMÁS drain. IR at [facility] consulted. Order for 10ML flush with NSS from Dr. Singletary. Instructions for flushing found in IR report for 5 ml every 12 hours. Irrigated with 5 ml NSS with ease. No initial return but TOMÁS produced approximately 10 ml green purelent drainage. Nursing Note:
[2023-09-01] MEDS: MEROPENEM 1 GM in Normal Saline 100 ML IVPB ×2 (13:53→23:17)
--- NOTE | 2023-09-01 14:47 | W.PM.PROGNOT ---
Date of Service Date of service: 09/01/23 Time of Service: 14:47 Assessment and Plan Assessment and plan (1) Sepsis: Status: Acute Assessment and plan: WBC continues to worsen. She does have a RUL pneumonia on CT, worse from prior. Abscess looks bigger on CT. I wonder if this is because the drain was obstructed. It seems to be draining now. There does not seem to be another focus on infection per CT. BPs stabilized, drain now draining. Doubt UTI. UA only shows a trace amount of leuk esterase. No diarrhea reported. Cntinue vancomycin, meropenem + clindamycin. Blood cultures are negative. Monitor for signs/symptoms of shock. Possible transfer out of the ICU later today. (2) Hypovolemic shock: Status: Acute Assessment and plan: The patient is now stable. This was in setting of lower GI bleeding and diverticular abscess. Required a total of 2 units of pRBCs with improvement in BPs. Recheck H/H now given BP. (3) Diverticulitis: Status: Acute Assessment and plan: Complicated by perforation and pelvic abscess. Abscess size increased on CT, but the drain was obstructed. She is on her second pelvic access drain. Continue meropenem + clindamycin. I am sending the pictures to [facility] [place] for review. (4) Epigastric pain: Status: Acute Assessment and plan: Suspect GI origin. Continue BID PPI and carafate. Consider a surgical consult for an EGD if the pain returns (5) Hypoxia: Status: Chronic Assessment and plan: Upon reviewing the patient's history, the patient has CHRONIC hypoxic respiratory failure, not acute, and her oxygen prescription apparently had fallen through the cracks on transfer to [facility]. The patient is expected to be discharged to [facility] on oxygen. Today she is clearly fluid overloaded and is receiving diuresis. (6) NSTEMI (non-ST elevated myocardial infarction): Status: Acute Assessment and plan: On 08/24/23. Continue aspirin. Finished 48 hrs of heparin. No role for plavix. Question of hypokinesis of RV free wall on echo. Continue BB, prn nitroglycerin. Will need outpatient ischemic workup. (7) Abscess of female pelvis: Status: Acute Assessment and plan: as above (8) EMILY (acute kidney injury): Status: Resolved Assessment and plan: Continue to monitor kidney function (9) COPD (chronic obstructive pulmonary disease): Status: Chronic Assessment and plan: As above - O2 dependence is old/chronic; will need O2 on discharge. VBG normalized. Continue Spiriva and duoneb. Encourage IS/acapella. Qualifiers: COPD type: chronic bronchitis Chronic bronchitis type: unspecified Qualified Code(s): J42 - Unspecified chronic bronchitis (10) Closed fibular fracture: Status: Acute Assessment and plan: Evaluated by orthopedic surgery. WBAT. Boot only when ambulating; to be off when in bed. Qualifiers: Encounter type: initial encounter Fibula location: lateral malleolus Fracture alignment: nondisplaced Laterality: left Qualified Code(s): S82.65XA - Nondisplaced fracture of lateral malleolus of left fibula, initial encounter for closed fracture (11) Hypothyroidism: Status: Chronic Assessment and plan: continue levothryroxine (12) Tobacco abuse: Status: Acute Assessment and plan: Continue wellbutrin. Advised to quit (13) DVT prophylaxis: Status: Acute Assessment and plan: SCDs. Hold chemical DVT ppx in light of recent GI bleeding (14) Discharge planning issues: Status: Acute Assessment and plan: Full code Continues to require hospitalization Possible transfer out of the ICU later today. Subjective Subjective Interval history since last seen: Much more alert today. C/o shortness of breath. C/o sternal/epigastric pain. No dizziness, no nausea currently. L ankle hurts. The pelvic drain was not draining. We had clarified the instructions for care for the drain, and it was supposed to be flushed with 5 cc BID. This was done and the drain is patent, now draining. Exam Narrative Exam Narrative: General: a middle-aged female who is very awake, A&Ox3, on 3 L of O2 by NC, dyspneic, not having myoclonic jerks HEENT: EOMI, MMM Heart: RRR, no m/r/g Lungs: Rales B Abdomen: soft, tender in epigastrium; L posterior pelvic drain in place with brownish drainage Extremities: trace edema BLEs; L ankle not in a boot while in bed Objective Last Vital Signs Temp 37.2 C 09/01/23 13:26 Pulse 100 H 09/01/23 13:26 Resp 22 09/01/23 13:26 BP 114/65 09/01/23 13:26 Pulse Ox 96 09/01/23 13:26 Laboratory Results - last 24 hr 08/31/23 08/31/23 08/31/23 15:00 15:05 15:45 WBC RBC Hgb Hct MCV MCH MCHC RDW Plt Count MPV Immature Gran % Neutrophils % Lymphocytes % Monocytes % Eosinophils % Basophils % Nucleated RBC % Absolute Neutrophils Absolute Lymphocytes Absolute Monocytes Absolute Eosinophils Absolute Basophils VBG pH 7.34 VBG pCO2 71 H* VBG pO2 25 VBG HCO3 38 H VBG Total CO2 37 H VBG O2 Saturation 40 VBG Base Excess 13 H VBG Lactate Sodium Potassium Chloride Carbon Dioxide Anion Gap BUN Creatinine Est GFR (CKD-EPI 2020) Glucose Calcium Magnesium C-Reactive Protein Procalcitonin Urine Color Yellow Urine Clarity Clear Urine pH 6.5 Ur Specific [place] 1.020 Urine Protein 100 H Urine Ketones Negative Urine Blood Moderate H Urine Nitrite Negative Urine Bilirubin Negative Urine Urobilinogen 0.2 Ur Leukocyte Esterase Trace H Urine RBC 10-20 H Urine WBC 10-20 H Ur Epithelial Cells Rare Urine Crystals Negative Urine Bacteria Negative Urine Casts 0-2 Hyaline Urine Mucus Moderate Urine Other Rare Transitional Ur Culture Indicated? Yes Urine Glucose Negative Stl C.difficile Tox PCR Random Vancomycin COVID-19 Source Cancelled SARS-CoV-2 (PCR) Cancelled Influenza Type A (PCR) Cancelled Influenza Type B (PCR) Cancelled RSV (PCR) Cancelled MRSA (TEM-PCR) Cancelled Add-On Test Request 08/31/23 08/31/23 08/31/23 15:45 15:49 16:15 WBC RBC Hgb 7.9 L Hct 25.9 L MCV MCH MCHC RDW Plt Count MPV Immature Gran % Neutrophils % Lymphocytes % Monocytes % Eosinophils % Basophils % Nucleated RBC % Absolute Neutrophils Absolute Lymphocytes Absolute Monocytes Absolute Eosinophils Absolute Basophils VBG pH VBG pCO2 VBG pO2 VBG HCO3 VBG Total CO2 VBG O2 Saturation VBG Base Excess VBG Lactate 0.5 L Sodium Potassium Chloride Carbon Dioxide Anion Gap BUN Creatinine Est GFR (CKD-EPI 2020) Glucose Calcium Magnesium C-Reactive Protein Procalcitonin Urine Color Urine Clarity Urine pH Ur Specific [place] Urine Protein Urine Ketones Urine Blood Urine Nitrite Urine Bilirubin Urine Urobilinogen Ur Leukocyte Esterase Urine RBC Urine WBC Ur Epithelial Cells Urine Crystals Urine Bacteria Urine Casts Urine Mucus Urine Other Ur Culture Indicated? Urine Glucose Stl C.difficile Tox PCR Random Vancomycin COVID-19 Source Nasopharynx SARS-CoV-2 (PCR) Negative Influenza Type A (PCR) Negative Influenza Type B (PCR) Negative RSV (PCR) Negative MRSA (TEM-PCR) Negative Add-On Test Request 08/31/23 09/01/23 09/01/23 18:15 05:10 08:45 WBC 16.70 H RBC 2.69 L Hgb 7.5 L Hct 24.5 L MCV 91 MCH 27.9 MCHC 30.6 L RDW 18.0 H Plt Count 243 MPV 12.1 H Immature Gran % 0.7 Neutrophils % 84.0 Lymphocytes % 5.7 Monocytes % 7.1 Eosinophils % 1.9 Basophils % 0.6 Nucleated RBC % 0.1 Absolute Neutrophils 14.03 H Absolute Lymphocytes 0.95 L Absolute Monocytes 1.19 H Absolute Eosinophils 0.32 Absolute Basophils 0.10 VBG pH 7.40 VBG pCO2 61 H* VBG pO2 94 VBG HCO3 38 H VBG Total CO2 36 H VBG O2 Saturation 98 VBG Base Excess 13 H VBG Lactate Sodium 139 Potassium 4.4 Chloride 100 Carbon Dioxide 36.0 H Anion Gap 3.0 BUN 8 Creatinine 0.7 Est GFR (CKD-EPI 2020) 100.81 Glucose 84 Calcium 8.0 L Magnesium 1.8 C-Reactive Protein 20.27 H Procalcitonin 0.3 Urine Color Urine Clarity Urine pH Ur Specific [place] Urine Protein Urine Ketones Urine Blood Urine Nitrite Urine Bilirubin Urine Urobilinogen Ur Leukocyte Esterase Urine RBC Urine WBC Ur Epithelial Cells Urine Crystals Urine Bacteria Urine Casts Urine Mucus Urine Other Ur Culture Indicated? Urine Glucose Stl C.difficile Tox PCR Random Vancomycin 18.7 COVID-19 Source SARS-CoV-2 (PCR) Influenza Type A (PCR) Influenza Type B (PCR) RSV (PCR) MRSA (TEM-PCR) Add-On Test Request DONE 09/01/23 11:50 WBC RBC Hgb Hct MCV MCH MCHC RDW Plt Count MPV Immature Gran % Neutrophils % Lymphocytes % Monocytes % Eosinophils % Basophils % Nucleated RBC % Absolute Neutrophils Absolute Lymphocytes Absolute Monocytes Absolute Eosinophils Absolute Basophils VBG pH VBG pCO2 VBG pO2 VBG HCO3 VBG Total CO2 VBG O2 Saturation VBG Base Excess VBG Lactate Sodium Potassium Chloride Carbon Dioxide Anion Gap BUN Creatinine Est GFR (CKD-EPI 2020) Glucose Calcium Magnesium C-Reactive Protein Procalcitonin Urine Color Urine Clarity Urine pH Ur Specific [place] Urine Protein Urine Ketones Urine Blood Urine Nitrite Urine Bilirubin Urine Urobilinogen Ur Leukocyte Esterase Urine RBC Urine WBC Ur Epithelial Cells Urine Crystals Urine Bacteria Urine Casts Urine Mucus Urine Other Ur Culture Indicated? Urine Glucose Stl C.difficile Tox PCR TNP Random Vancomycin COVID-19 Source SARS-CoV-2 (PCR) Influenza Type A (PCR) Influenza Type B (PCR) RSV (PCR) MRSA (TEM-PCR) Add-On Test Request Objective Narrative Objective Narrative: CT chest/abdomen/pelvis: Right upper lower lobe pneumonia with significant worsening from prior.. Stable small right pleural effusion. Marked interval increase in size of diverticular abscess with pigtail drainage catheter in place. Adjacent inflammation of the distal rectosigmoid colon and uterus. Mild wall thickening of the bladder could indicate cystitis. Time Spent with Patient Time Spent with Patient: 35-49 minutes Time was spent: preparing to see the patient(eg.review tests), obtaining and/or reviewing separately otained hiistory, ordering medications,tests, procedures, referring, communicating with other health career consultant, indepentently interpreting results, counseling the patient and care coordination
[2023-09-01] MEDS: Furosemide 20 MG/2 ML VIAL IVP (15:50)
[2023-09-01] MEDS: Normal Saline Flush 10 ML SYR IVP ×3 (15:50→19:30)
--- NOTE | 2023-09-01 16:44 | PDOC.CMPRO ---
Date of service: 09/01/23 Time of Service: 16:44 Care Management Progress Note Progress Note Text Progress Note Text: S/O: Ester was lying in bed when CM met with her. She remains in the ICU. She had a repeat CT of her chest, abdomen and pelvis today which revealed a worsening RUL pneumonia as well as an increase in the size of the pelvic abscess. The IR drain had not been flushed and was not draining properly;it is now being flushed every shift. Ester's CRP continues to rise (14 to 20.27 in past 24 hours) as does her WBC. Her BPs have been stable and she was afebrile today. When CM met with her, Ester was sleepy. She informed CM that she still has pain and is not feeling good at all. Ester's oxygen needs have increased and she is now requiring 3L/min of nasal oxygen to maintain her O2 saturation above 90%. A: Ester is a 58 year old female admitted to [facility] on 08/16/23 for diverticulitis, pelvic abscess. P: Ester will likely return to her home at [place] with a resumption of home health services for nursing, PT, OT and [employer]. Unfortunately she needs home oxygen and obtaining that may be problematic given she has outstanding debt and equipment related to home oxygen.She will follow up with community providers and her plan of care and transport with facility staff vs RCT.. CM will follow and continue to assess for discharge needs. SDOH(Care Management) Screening Will the Patient Participate in the Screening?: Unable to obtain
[2023-09-01] MEDS: Pantoprazole 40 MG VIAL IVP (19:27)
[2023-09-01] MEDS: Atorvastatin 40 MG TAB 80 MG PO (19:29)
[2023-09-01 19:52] LABS: Vancomycin, Trough 15.7 ug/mL (10.0-20.0)
[2023-09-01] MEDS: Methocarbamol 500 MG TAB PO (21:52)
[2023-09-01] MEDS: Prazosin 1 MG CAP PO (21:52)
[2023-09-01] MEDS: OLANZapine 5 MG TAB 15 MG PO (21:53)
[2023-09-01] MEDS: Lurasidone 40 MG TAB 160 MG PO (21:56)
[2023-09-02] VITALS (59 sets, daily range): BP systolic 75–133; BP diastolic 48–87; PULSE 10–119; RESP 14–26; TEMP 35.7–37; O2SAT 85–95
[2023-09-02] MEDS: CLINDAMYCIN 900 MG/50 ML BAG 50 MG IVPB ×3 (03:44→20:10)
[2023-09-02] MEDS: Levothyroxine 88 MCG TAB PO (05:14)
[2023-09-02] MEDS: Normal Saline Flush 10 ML SYR IVP ×4 (05:18→22:28)
[2023-09-02] MEDS: Tiotropium Bromide-Respimat 10 PUFF INH 2 PUFF IH (07:36)
[2023-09-02 07:41] LABS: Abs Immature Grans 0.08 10^3/uL (0.0-0.06); Absolute Basophil Count 0.05 10^3/uL (0.0-0.2); Absolute Eosinophil Count 0.48 10^3/uL (0.0-0.7); Absolute Neutrophil Count 9.26 10^3/uL (1.2-6.7); Basophils % 0.4; HCT 23.6 % (36.0-46.0); HGB 7.1 g/dL (11.2-15.7); Immature Grans % 0.7; Lymphocytes % 7.5; MCH 27.5 pg (27.0-33.0); MCHC 30.1 % (32.0-36.0); MCV 92 fL (80-95); MPV 11.7 fL (8.0-11.0); Neutrophils % 77.4; Platelet Count 272 10^3/uL (130-400); RBC 2.58 10^6/uL (3.93-5.22); RDW 17.7 % (11.7-14.6); RDW-SD 58.1 fL; WBC 11.97 10^3/uL (4.4-10.8)
[2023-09-02 07:54] LABS: Anion Gap 4.9 mmol/L (3-11); BUN 5 mg/dL (7-18); CO2 38.1 mmol/L (21.0-32.0); CREATININE 0.7 mg/dL (0.55-1.02); Calcium 7.7 mg/dL (8.5-10.1); Chloride 99 mmol/L (98-107); Estimated GFR 100.81 (mL/min/1.73m2); Glucose 96 mg/dL (74-106); Magnesium 1.7 mg/dL (1.8-2.4); Potassium 3.9 mmol/L (3.5-5.1); Sodium 142 mmol/L (136-145)
--- NOTE | 2023-09-02 08:11 | PDOC.CMPRO ---
Date of service: 09/02/23 Time of Service: 08:11 Care Management Progress Note Progress Note Text Progress Note Text: S/O: Ester was lying in bed when CM met with her and remains ICU level of care. She shared that she is really tired and has a lot of abdominal pain. Ester's drain now has purulent drainage. A surgical consult has been requested to evaluate the need for further surgery. As Ester is medically compromised she may need to be transferred to for the procedure but Anesthesia has not assessed her yet. Ester's WBC and CRP are slightly improved but clinically she is still quite ill. She is receiving a unit of blood today as her Hgb was down to 7.1 this morning. Ester is tachycardic, although she is maintaining her blood pressuree and remains afebrile. A: Ester is a 58 year old female admitted to [facility] on 08/16/23 for diverticulitis, pelvic abscess. P: Ester will likely return to her home at [place] with a resumption of home health services for nursing, PT, OT and [employer]. Unfortunately she needs home oxygen and obtaining that may be problematic given she has outstanding debt and equipment related to home oxygen.She will follow up with community providers and her plan of care and transport with facility staff vs RCT.. CM will follow and continue to assess for discharge needs. SDOH(Care Management) Screening Will the Patient Participate in the Screening?: Unable to obtain
--- NOTE | 2023-09-02 08:26 | W.PM.PROGNOT ---
Date of Service Date of service: 09/02/23 Time of Service: 08:26 Assessment and Plan Assessment and plan (1) Sepsis: Status: Acute Assessment and plan: The patient tolerated breakfast. She appears to be uncomfortable this morning, sitting in the chair. Drain with thick, purulent drainage Encouraged pulmonary toilet continue IV antibiotics Pain control IV hydration. Anesthesia to review patient's chart, to determine if patient is a surgical candidate. (2) Abscess of female pelvis: Status: Acute Subjective Subjective Interval history since last seen: Arrive with patient sitting in the chair resting. She reports that she tolerated breakfast well, however she is having some nausea without vomiting. She expresses that she is having abdominal pain that is constant in nature. She expresses she is very tired and wishes to return to bed. Exam Const General: cooperative and in distress Orientation: alert and oriented x3 Resp Effort & Inspection: normal respiratory effort, no audible wheezes and no cough GI Inspection: normal to inspection Palpation: no guarding and tender Other: Drain in place with purluent green/brown, thick material. Objective Last Vital Signs Temp 36.6 C 09/02/23 08:09 Pulse 102 H 09/02/23 08:09 Resp 21 09/02/23 08:09 BP 117/65 09/02/23 08:09 Pulse Ox 88 L 09/02/23 08:09 Laboratory Results - last 24 hr 09/01/23 09/01/23 09/01/23 05:10 08:45 11:50 WBC RBC Hgb Hct MCV MCH MCHC RDW Plt Count MPV Immature Gran % Neutrophils % Lymphocytes % Monocytes % Eosinophils % Basophils % Nucleated RBC % Absolute Neutrophils Absolute Lymphocytes Absolute Monocytes Absolute Eosinophils Absolute Basophils Sodium Potassium Chloride Carbon Dioxide Anion Gap BUN Creatinine Est GFR (CKD-EPI 2020) Glucose Calcium Magnesium C-Reactive Protein 20.27 H Procalcitonin 0.3 Stl C.difficile Tox PCR TNP Vancomycin Trough Add-On Test Request DONE 09/01/23 09/02/23 19:25 05:50 WBC 11.97 H RBC 2.58 L Hgb 7.1 L Hct 23.6 L MCV 92 MCH 27.5 MCHC 30.1 L RDW 17.7 H Plt Count 272 MPV 11.7 H Immature Gran % 0.7 Neutrophils % 77.4 Lymphocytes % 7.5 Monocytes % 10.0 Eosinophils % 4.0 Basophils % 0.4 Nucleated RBC % 0.0 Absolute Neutrophils 9.26 H Absolute Lymphocytes 0.90 L Absolute Monocytes 1.20 H Absolute Eosinophils 0.48 Absolute Basophils 0.05 Sodium 142 Potassium 3.9 Chloride 99 Carbon Dioxide 38.1 H Anion Gap 4.9 BUN 5 L Creatinine 0.7 Est GFR (CKD-EPI 2020) 100.81 Glucose 96 Calcium 7.7 L Magnesium 1.7 L C-Reactive Protein 18.80 H Procalcitonin Stl C.difficile Tox PCR Vancomycin Trough 15.7 Add-On Test Request Time Spent with Patient Time Spent with Patient: <25 minutes Time was spent: preparing to see the patient(eg.review tests), obtaining and/or reviewing separately otained hiistory and care coordination
--- NOTE | 2023-09-02 08:32 | NUR.NOTE ---
Addendum entered by Esperanza Patrick 09/02/23 08:36: Corrected - previously Original Note: Downtime note: 09/02/23 I had to add a dose of clindamycin that was given by Linda Sidhu RN during downtime on 09/01/23 0450. Since subsequent doses had been given,I hado to undo and reenter the doses privesiously documented and include the 0450 dose. Nursing Note:
[2023-09-02] MEDS: Docusate Sodium 100 MG CAP PO (08:47)
[2023-09-02] MEDS: buPROPion 100 MG TAB PO (08:47)
[2023-09-02] MEDS: Ferrous Sulfate 325 MG TAB PO (08:47)
[2023-09-02] MEDS: Gabapentin 300 MG CAP PO ×4 (08:48→20:11)
[2023-09-02] MEDS: Nicotine 14 MG/24 HR PATCH TD (08:49)
[2023-09-02] MEDS: Polyethylene Glycol 3350 17 GM PACKET PO (08:52)
[2023-09-02] MEDS: Pantoprazole 40 MG VIAL IVP ×2 (08:52→20:10)
[2023-09-02] MEDS: Sucralfate 1 GM TAB PO ×4 (08:52→20:41)
[2023-09-02] MEDS: VANCOMYCIN/WATER (PEG) 750 MG/150 ML BAG 150 MG IVPB ×2 (09:12→21:01)
--- NOTE | 2023-09-02 09:22 | W.PM.PROGNOT ---
Date of Service Date of service: 09/02/23 Time of Service: 09:22 Assessment and Plan Assessment and plan (1) Sepsis: Status: Acute Assessment and plan: WBC actually better today, as is the CRP. Pelvic Abscess (2/2 perforated diverticulitis) looks bigger on CT 08/31. I wonder if this is because the drain was obstructed and/or is occluding itself due to its position within the abscess. I have reached out to surgery and IR for help with this; awaiting recommendations. We have started to flush the drain which now has output in it. She does have a RUL pneumonia on CT, worse from prior, which could have explained the rise in the WBC, so I am not sure what caused the improvement in leucocytosis - relief of the obstruction of the drain or the pneumonia getting treated. Drain is now patent. There does not seem to be another focus on infection per CT. Not having diarrhea - unable to test for C.Diff (I tried). Continue vancomycin, meropenem + clindamycin. Consider d/c of vancomycin tomorrow. Blood cultures are negative. Monitor for signs/symptoms of shock. Keep in the ICU until the surgical plans are known (2) Hypovolemic shock: Status: Acute Assessment and plan: BPs on the lower side with Hgb of 7.1 this am. The patient looks pale. I think she is havign ongoing GI blood loss. I am writing for her 3rd unit of pRBCs on this admission. Monitor H/H and BP. Will need furosemide after transfusion. (3) Diverticulitis: Status: Acute Assessment and plan: Complicated by perforation and pelvic abscess. Abscess size increased on CT, but the drain was obstructed. She is on her second pelvic access drain. Continue meropenem + clindamycin for the abscess. I am awaiting IR call back and have consulted general surgery. (4) Epigastric pain: Status: Acute Assessment and plan: Suspect GI origin. Continue BID PPI and carafate. Consider EGD. (5) Hypoxia: Status: Chronic Assessment and plan: Upon reviewing the patient's history, the patient has CHRONIC hypoxic respiratory failure, not acute, and her oxygen prescription apparently had fallen through the cracks on transfer to [place]. The patient is expected to be discharged to [place] on oxygen. She is still fluid overloaded today - but is also anemic. Will transfuse and diurese. (6) NSTEMI (non-ST elevated myocardial infarction): Status: Acute Assessment and plan: On 08/24/23. Continue aspirin. Finished 48 hrs of heparin. No role for plavix. Question of hypokinesis of RV free wall on echo. Continue BB, prn nitroglycerin. Will need outpatient ischemic workup. (7) Abscess of female pelvis: Status: Acute Assessment and plan: as above (8) EMILY (acute kidney injury): Status: Resolved Assessment and plan: Continue to monitor kidney function (9) COPD (chronic obstructive pulmonary disease): Status: Chronic Assessment and plan: As above - O2 dependence is old/chronic; will need O2 on discharge. VBG normalized. Continue Spiriva and duoneb. Encourage IS/acapella. Qualifiers: COPD type: chronic bronchitis Chronic bronchitis type: unspecified Qualified Code(s): J42 - Unspecified chronic bronchitis (10) Closed fibular fracture: Status: Acute Assessment and plan: Evaluated by orthopedic surgery. WBAT. Boot only when ambulating; to be off when in bed. Qualifiers: Encounter type: initial encounter Fibula location: lateral malleolus Fracture alignment: nondisplaced Laterality: left Qualified Code(s): S82.65XA - Nondisplaced fracture of lateral malleolus of left fibula, initial encounter for closed fracture (11) Hypothyroidism: Status: Chronic Assessment and plan: continue levothryroxine (12) Tobacco abuse: Status: Acute Assessment and plan: Continue wellbutrin. Advised to quit (13) DVT prophylaxis: Status: Acute Assessment and plan: SCDs. Hold chemical DVT ppx in light of recent GI bleeding (14) Discharge planning issues: Status: Acute Assessment and plan: Full code Continues to require hospitalization Possible transfer out of the ICU later today, depending on surgical plans. Subjective Subjective Interval history since last seen: Ms Osullivan states that she is having bilateral lower abdominal pain. She says this is the same pain that has been there for a week. Denies dizziness, endorses the same mid-sternal CP (ongoing) and feels SOB. Denies nausea. L buttocks (where there is a drain) sore. 15 cc of purulent greenish discharge in the drain. General surgery consulted as is IR. Exam Narrative Exam Narrative: General: a middle-aged female who is very awake, A&Ox3, on 2.5 L of O2 by NC, sitting up in a chair, looks more alert than yesterday, not dyspneic, not having myoclonic jerks. She is pale. HEENT: EOMI, MMM Heart: RRR, no m/r/g Lungs: Rales B improved, but some residual rales are still heard. Abdomen: soft, tender in epigastrium; L posterior pelvic drain in place with greenish purulent discharge Extremities:no edema BLEs; L ankle in a boot while in a chair Objective Last Vital Signs Temp 36.6 C 09/02/23 08:09 Pulse 102 H 09/02/23 08:09 Resp 21 09/02/23 08:09 BP 117/65 09/02/23 08:09 Pulse Ox 88 L 09/02/23 08:09 Laboratory Results - last 24 hr 09/01/23 09/01/23 09/01/23 05:10 11:50 19:25 WBC RBC Hgb Hct MCV MCH MCHC RDW Plt Count MPV Immature Gran % Neutrophils % Lymphocytes % Monocytes % Eosinophils % Basophils % Nucleated RBC % Absolute Neutrophils Absolute Lymphocytes Absolute Monocytes Absolute Eosinophils Absolute Basophils Sodium Potassium Chloride Carbon Dioxide Anion Gap BUN Creatinine Est GFR (CKD-EPI 2020) Glucose Calcium Magnesium C-Reactive Protein 20.27 H Procalcitonin 0.3 Stl C.difficile Tox PCR TNP Vancomycin Trough 15.7 Crossmatch 09/02/23 09/02/23 05:50 08:48 WBC 11.97 H RBC 2.58 L Hgb 7.1 L Hct 23.6 L MCV 92 MCH 27.5 MCHC 30.1 L RDW 17.7 H Plt Count 272 MPV 11.7 H Immature Gran % 0.7 Neutrophils % 77.4 Lymphocytes % 7.5 Monocytes % 10.0 Eosinophils % 4.0 Basophils % 0.4 Nucleated RBC % 0.0 Absolute Neutrophils 9.26 H Absolute Lymphocytes 0.90 L Absolute Monocytes 1.20 H Absolute Eosinophils 0.48 Absolute Basophils 0.05 Sodium 142 Potassium 3.9 Chloride 99 Carbon Dioxide 38.1 H Anion Gap 4.9 BUN 5 L Creatinine 0.7 Est GFR (CKD-EPI 2020) 100.81 Glucose 96 Calcium 7.7 L Magnesium 1.7 L C-Reactive Protein 18.80 H Procalcitonin Stl C.difficile Tox PCR Vancomycin Trough Crossmatch See Detail Time Spent with Patient Time Spent with Patient: 35-49 minutes Time was spent: preparing to see the patient(eg.review tests), obtaining and/or reviewing separately otained hiistory, ordering medications,tests, procedures, referring, communicating with other health before and after school daycare worker, indepentently interpreting results, counseling the patient and care coordination
--- NOTE | 2023-09-02 09:27 | NUR.NOTE ---
Patient has had two large bowel movements this a.m., one time incontinent of same and the other up to commode. Nursing Note:
--- NOTE | 2023-09-02 09:29 | NUR.NOTE ---
Patient seen by Dr. Byrd AT 08:45 a.m. Patient was also seen by surgery this a.m. and will be seen by anesthesia later today.Nursing Note:
[2023-09-02] MEDS: MAGNESIUM SULFATE 1 GM/100 ML BAG IVPB (10:35)
--- NOTE | 2023-09-02 10:57 | NUR.NOTE ---
First and only unit of blood will be ready iin 30 minutes.Nursing Note:
[2023-09-02] MEDS: Acetaminophen 325 MG TAB 650 MG PO (12:31)
[2023-09-02] MEDS: diphenhydrAMINE 25 MG CAP PO (12:32)
--- NOTE | 2023-09-02 14:09 | NUR.NOTE ---
Midline leaking substantially at site. RN required to place left hand 22 gauge peripheral ot infuse antibiotics and a 22 gauge IV in right wrist to infuse blood.Nursing Note:
[2023-09-02] MEDS: MEROPENEM 1 GM in Normal Saline 100 ML IVPB ×2 (14:32→22:00)
--- NOTE | 2023-09-02 14:33 | NUR.NOTE ---
Docusate not given since patient is having loose stools. Dressing on Midline is changed. Midline has substantial leaking at point of entry. Same will be dc'd by oncoming RN.Nursing Note:
[2023-09-02 16:01] LABS: HCT 28.9 % (36.0-46.0); HGB 8.8 g/dL (11.2-15.7)
--- NOTE | 2023-09-02 16:06 | IN_ITS ---
PT Notes Visit Reasons: Diverticulitis,Pelvic Abscesses Physical Therapy Inpatient Initial Evaluation Date: 09/02/2023 Referring Doctor: Elsy Byrd MD PT Orders: PT CONSULT: Eval/Treat Precautions: Fall. Standard. WBAT on the L LE with AD, fracture boot on L for comfort only. Patient Profile/Admitting Diagnosis: Ester is a 58-year-old female who presented to the ED and with subsequent admission to same day surgery center level of care on 08/15/2022 due to diverticulitis, pelvic abcess, EMILY, COPD exacerbation, depression, hypothyroidism, and tobacco abuse. She needed ICU level of care on 08/21/2023 due to hypotension r/t perforated diverticulitis with abcess and acute rectal bleeding. [place] [facility] [place] IR drain placement. She required transfer to ICU on 08/31/2023 for close monitoring of symptom exacerbation. ICU diagnoses include sepsis, hypovolemic shock, epsigastric pain, hypoxia, and NSTEMI. PMHX: All Active Problems (Updated 08/16/23 @ 06:46 by Frantz Caban) Abscess of female pelvis (Acute) Closed fibular fracture (Acute) COPD exacerbation (Acute) Acute hypoxemic respiratory failure (Acute) Diverticulitis (Acute) Medical History Smoking Chronic respiratory failure with hypoxia and hypercapnia Fever Chronic hypoxic respiratory failure COPD (chronic obstructive pulmonary disease) Auditory hallucination Depression Suicide ideation Social History/Home Situation: [facility] resident ([facility] Had not been on oxygen at [facility]. Independent with ambulation activities without an assistive device, occasionally uses single- point cane prior to fall on 08/07/2022. Equipment Owned/DME: [facility] Subjective: Agreed to get out of bed to transfer to chair for supper. Denied headache, chest pain, and lightheadedness throughout. Gets frustrated easy when it takes a while to manage all her lines saying, I cannot handle this. She is easily pacified however. Calms down when both her hands are held while she is mildy panicking. Objective: General Observation: Patient on oxygen supplementation via NC at 3 L/min. IV through L UE. Andujar catheter in place. Mental Status: Alert and oriented as to person, place, and purpose. Able to pay attention, focus, and respond appropriately. Pain: None reported Vital Signs: Closely monitored by nursing staff ROM: Right Upper Extremity: Shoulder Flexion lacks the last 25% of AROM. Shoulder abduction acks the last 25% of AROM. Elbow flexion WFL. Wrist flexion WFL. Functional opening and closing of hand WFL. Left Upper Extremity: Shoulder Flexion lacks the last 25% of AROM. Shoulder abduction acks the last 25% of AROM. Elbow flexion WFL. Wrist flexion WFL. Functional opening and closing of hand WFL. Right Lower Extremity: Hip flexion lacks the last 25% of AROM. Hip abduction WFL. Knee flexion WFL. Ankle dorsiflexion to neutral only. Ankle plantarflexion WFL. Left Lower Extremity: Hip flexion lacks the last 50% of AROM. Hip abduction WFL. Knee flexion 45 degrees to 90 degrees. Knee extension -45 degrees. Ankle dorsiflexion to neutral only. Ankle plantarflexion WFL. Strength: Right Upper Extremity: Shoulder flexors 3-/5. Shoulder abductors 3-/5. Elbow flexors 4-/5. Elbow extensors 4-/5. Veneer Production Machine Operator strong. Left Upper Extremity: Shoulder flexors 3-/5. Shoulder abductors 3-/5. Elbow flexors 4-/5. Elbow extensors 4-/5. Veneer Production Machine Operator strong. Right Lower Extremity: Hip flexors 3-/5. Hip abductors 4-/5. Knee flexors 4-/5. Knee extensors 4-/5. Ankle dorsiflexors 3-/5. Ankle plantarflexors 4-/5. Left Lower Extremity:Hip flexors 2-/5. Hip abductors 3-/5. Knee flexors 3-/5. Knee extensors 3-/5. Ankle dorsiflexors 3-/5. Ankle plantarflexors4-5/5. Bed Mobility/Transfers: Maximal cueing provided for use of B hands as needed for support, movement sequence, AD management, and posture to reduce fall risk and minimize pain report. Rolling moderate assist Supine to sit moderate assist Sit to stand minimal assist FWW Stand to sit minimal assist FWW Gait: Facilitated safe and correct performance of level surface ambulation using front wheeled walker requiring minimal assist of PT, covered 6 steps. Was hyperventilating, gets overwhelmed easily as she gets mildly panicky. Steps cautious and hesitant, step height and length decreased. Balance: Static Sitting: Normal Dynamic Sitting: Normal Static Standing: Fair Dynamic Standing: Fair Special Tests: Mobility Limitations Standardized Measure [facility] AM-PAC 6 clicks Basic Mobility Inpatient Short Form: Raw Score: 12 CMS Score: 69% deficit Informed Consent/Education: Patient was instructed in purpose of PT consult and plan of care. Agreeable to proceed with established PT POC to achieve personal goals. ASSESSMENT: Requires assist of 1 caregivers for all transfers for safety. Ambulation with boot on L and shoe on R using FWW with assist of 1. Gets frustrated and anxious easily. Needs frequent encouragement. Patient presents with clinical signs and symptoms consistent with current/admitting diagnoses that have resulted to mobility limitations, gait instability, generalized weakness, and overall ADL decline as demonstrated by the following impairment level findings: 1. Decreased strength to B UE/LE major muscle groups 2. Impaired sitting/standing balance 3. Impaired activity tolerance 4. Fearfulness of falling Impairments are contributing to the following functional limitations: 1. Decline in bed mobility skills 2. Decline in transfer skills 3. Difficulty with ambulation without assistive device and physical assistance 4. Increased completion time for mobility ADL performance 5. Increased risk for falls 6. Difficulty with managing steps alone safely Patient is assessed as a [id number] moderate complexity based on the following: History: 58-year-old female with past medical history as indicated above Examination: Demonstrable impairment in strength, balance, and mobility level with underlying impairments and functional limitations as exhibited above as well as deficit score of 69% utilizing the [facility] Mobility Inpatient Short Form Presentation: Evolving Decision Makin moderate complexity Goals: Goals X1 week 1. Supine-Sit independent 2. Sit-Supine independent 3. Sit-Stand independent 4. Stand-Sit independent with FWW 5. Bed-Chair independent with FWW 6. Chair-Bed independent with FWW 7. Independent gait on level surface with use of FWW for at least 300 feet without report of pain nor dyspnea 8. Independent stair negotiation while holding onto B rails for at least 5 steps without report of pain nor dyspnea 9. Independent with home exercise program 10. Good static and dynamic standing balance/tolerance Plan of Care/Treatment Plan: 1-2x/day, 7 days/week x 1 week. Plan of care has been reviewed with the MANAGER APPOINTMENT providing the service under Physical Therapy direction. Initiate Physical Therapy intervention for pain management as needed, strengthening, bed mobility, transfers, gait, stairs, balance training, and use of assistive device. DISCHARGE RECOMMENDATIONS: [] Home with no services [] [] Home with services [specify] [] Home with outpatient PT [] [] SNF for continued rehabilitation [] [] Rn Progressive Care Care [] [] SNF versus LTC based on ability to participate and progress [] [X] Return to [facility] once medically stable. Continue with WB precaution using boot on L using FWW for all mobility ADL performance. TREATMENT CODE/TIME: 79010 x 20 minutes for 1 unit(16:06-16:26). Thank you for the opportunity to participate in the care of this patient. Fauzia Miller PT, DPT, CLT [facility] [place], [place]
[2023-09-02] MEDS: Furosemide 20 MG/2 ML VIAL IVP (16:37)
[2023-09-02] MEDS: Normal Saline 10 ML VIAL IJ (20:10)
[2023-09-02] MEDS: Atorvastatin 40 MG TAB 80 MG PO (20:11)
[2023-09-02] MEDS: OLANZapine 5 MG TAB 15 MG PO (20:41)
[2023-09-02] MEDS: Methocarbamol 500 MG TAB PO (20:41)
[2023-09-02] MEDS: Lurasidone 40 MG TAB 160 MG PO (20:41)
[2023-09-02] MEDS: Prazosin 1 MG CAP PO (20:42)
[2023-09-03] VITALS (38 sets, daily range): BP systolic 103–152; BP diastolic 63–106; PULSE 86–116; RESP 16–25; TEMP 36.3–36.9; O2SAT 88–95
[2023-09-03] MEDS: Normal Saline 10 ML VIAL IJ (00:52)
[2023-09-03] MEDS: Normal Saline Flush 10 ML SYR IVP ×3 (00:53→21:22)
[2023-09-03] MEDS: CLINDAMYCIN 900 MG/50 ML BAG 50 MG IVPB ×3 (03:39→21:22)
[2023-09-03] MEDS: Levothyroxine 88 MCG TAB PO (06:05)
[2023-09-03] MEDS: MEROPENEM 1 GM in Normal Saline 100 ML IVPB ×3 (06:05→21:24)
[2023-09-03] MEDS: Sucralfate 1 GM TAB PO ×4 (06:05→21:23)
[2023-09-03 06:06] LABS: Abs Immature Grans 0.13 10^3/uL (0.0-0.06); Absolute Basophil Count 0.09 10^3/uL (0.0-0.2); Absolute Eosinophil Count 0.57 10^3/uL (0.0-0.7); Absolute Lymphocyte Count 1.02 10^3/uL (1.2-3.4); Absolute Monocyte Count 1.38 10^3/uL (0.1-0.8); Absolute Neutrophil Count 7.82 10^3/uL (1.2-6.7); Basophils % 0.8; Eosinophils % 5.2; HCT 27.7 % (36.0-46.0); HGB 8.5 g/dL (11.2-15.7); Immature Grans % 1.2; Lymphocytes % 9.3; MCH 28.1 pg (27.0-33.0); MCHC 30.7 % (32.0-36.0); MCV 92 fL (80-95); MPV 11.5 fL (8.0-11.0); Monocytes % 12.5; Platelet Count 279 10^3/uL (130-400); RBC 3.02 10^6/uL (3.93-5.22); RDW 17.2 % (11.7-14.6); RDW-SD 56.5 fL; WBC 11.01 10^3/uL (4.4-10.8)
[2023-09-03 06:18] LABS: Anion Gap 4.1 mmol/L (3-11); BUN 5 mg/dL (7-18); C-Reactive Protein 14.58 mg/dL (<or=0.5); CO2 37.9 mmol/L (21.0-32.0); CREATININE 0.6 mg/dL (0.55-1.02); Calcium 7.7 mg/dL (8.5-10.1); Chloride 99 mmol/L (98-107); Estimated GFR 104.63 (mL/min/1.73m2); Glucose 113 mg/dL (74-106); Magnesium 1.9 mg/dL (1.8-2.4); Sodium 141 mmol/L (136-145)
[2023-09-03] MEDS: Tiotropium Bromide-Respimat 10 PUFF INH 2 PUFF IH (08:01)
[2023-09-03] MEDS: buPROPion 100 MG TAB PO (08:30)
[2023-09-03] MEDS: Ferrous Sulfate 325 MG TAB PO (08:31)
[2023-09-03] MEDS: Pantoprazole 40 MG VIAL IVP (08:32)
[2023-09-03] MEDS: VANCOMYCIN/WATER (PEG) 750 MG/150 ML BAG 100 MG IVPB (08:57)
[2023-09-03] MEDS: Gabapentin 300 MG CAP PO ×4 (09:50→21:23)
--- NOTE | 2023-09-03 10:35 | NUR.NOTE ---
RN offers to assist patient to chair but patient refuses.Nursing Note:
--- NOTE | 2023-09-03 10:37 | NUR.NOTE ---
RN encourages patient to sleep. Patient hardly slept last night. Lights are turned off and shade pulled for sleeping comfort. Patient fades off to sleep. RN enters into oral contract with patient that she will get out of bed for lunch at noon. Patient agrees to same.Nursing Note:
--- NOTE | 2023-09-03 12:10 | W.PM.PROGNOT ---
Date of Service Date of service: 09/03/23 Time of Service: 12:10 Assessment and Plan Assessment and plan (1) Sepsis: Status: Acute Assessment and plan: Pelvic Abscess (2/2 perforated diverticulitis) looks bigger on CT 08/31. I wonder if this is because the drain was obstructed and/or is occluding itself due to its position within the abscess. General davey is aware. As she is high risk candidate for general anesthesia, she will continue to be treated w/ antibiotics, I will [place] [facility] [place] if not able to obtain then send repeat cultures from her drain. We have started to flush the drain which now has output in it. She does have a RUL pneumonia on CT, worse from prior, which could have explained the rise in the WBC, so I am not sure what caused the improvement in leucocytosis - relief of the obstruction of the drain or the pneumonia getting treated. Drain is now patent. There does not seem to be another focus on infection per CT. Continue vancomycin, meropenem + clindamycin. Consider d/c of vancomycin tomorrow. Blood cultures are negative. Hemodynamically stable, therefore does not require ICU care. BP improved after blood transfusion; continue to monitor hemoglobin. continue empiric treatement w/ PPI and carafate. she is on oral iron but I do not see any iron studies; I will check iron studies along w/ B12, folate; consider parenteral iron supplementation which may be better tolerated (2) Abscess of female pelvis: Status: Acute Assessment and plan: as above (3) Hypovolemic shock: Status: Acute Assessment and plan: No overt GI bleeding but hemodynamically better after transfusion. continue to monitor her blood counts. hemodynamically stable for transfer to med/surg (4) Diverticulitis: Status: Acute Assessment and plan: Complicated by perforation and pelvic abscess. Abscess size increased on CT, but the drain was obstructed. She is on her second pelvic access drain. Continue meropenem + clindamycin for the abscess. drain improving w/ flushing of line. (5) Epigastric pain: Status: Acute Assessment and plan: Suspect GI origin. Continue BID PPI and carafate. given her severe COPD and high risk for pulmonary complications, I would hold on EGD unless she has overt UGI bleeding, w/ fresh hematemesis that can not be controlled. (6) Hypoxia: Status: Chronic Assessment and plan: chronically hypoxemic from COPD. stable on 3 lpm which is her baseline. continue treatment of her COPD w/ Spiriva, as needed DuoNeb treatments (7) NSTEMI (non-ST elevated myocardial infarction): Status: Acute Assessment and plan: On 08/24/23. Continue low-dose beta-blockers along with aspirin and atorvastatin. Will need outpatient ischemic workup with stress MPI once stable from her infection. (8) EMILY (acute kidney injury): Status: Resolved Assessment and plan: Continue to monitor kidney function, Good urine output stable BUN and creatinine (5, 0.6) (9) COPD (chronic obstructive pulmonary disease): Status: Chronic Assessment and plan: As above - O2 dependence is old/chronic; will need O2 on discharge. VBG normalized. Continue Spiriva and duoneb. Encourage IS/acapella. Qualifiers: COPD type: chronic bronchitis Chronic bronchitis type: unspecified Qualified Code(s): J42 - Unspecified chronic bronchitis (10) Closed fibular fracture: Status: Acute Assessment and plan: Evaluated by orthopedic surgery. WBAT. Boot only when ambulating; to be off when in bed. Qualifiers: Encounter type: initial encounter Fibula location: lateral malleolus Fracture alignment: nondisplaced Laterality: left Qualified Code(s): S82.65XA - Nondisplaced fracture of lateral malleolus of left fibula, initial encounter for closed fracture (11) Hypothyroidism: Status: Chronic Assessment and plan: continue levothryroxine (12) Tobacco abuse: Status: Acute Assessment and plan: Continue wellbutrin and nicotine patch Advised to quit (13) DVT prophylaxis: Status: Acute Assessment and plan: SCDs. Hold chemical DVT ppx in light of recent GI bleeding (14) Discharge planning issues: Status: Acute Assessment and plan: Full code Continues to require hospitalization Transfer out of ICU to medical/surgical floor.Resume physical therapy Subjective Subjective Interval history since last seen: Ester complains of generalized abdominal pain however she has no nausea or vomiting she seems to be tolerating her diet well and she has been having some small bowel movements. She remains on meropenem, vancomycin, clindamycin for an intra-abdominal/pelvic abscess secondary to perforated diverticulitis. She has a left-sided drain in pelvis that [place] [facility] [place] this was a second drain that was placed over the first 1 had pulled out of the pelvic cavity and was in the abdominal wall. General surgery is on consult on her case and has been in discussion with anesthesia regarding the feasibility of performing laparotomy here in the rage. However because of her severe pulmonary hypertension from her COPD she is not deemed an acceptable candidate for general anesthesia. She remains hemodynamically stable and can be transferred from the intensive care unit to the medical/surgical floor. Exam Narrative Exam Narrative: Ester is alert oriented to person place time circumstance sitting up in chair having finished her lunch. She is not requiring a lot of pain medications to control her pain. Lungs are clear anteriorly posterior she has seen fine bibasilar rales no rhonchi Heart is regular to slightly tachycardic but regular. Review of her rhythm strip shows her to be in sinus rhythm with no ectopy. Abdomen soft obese nondistended normal bowel sounds she complains of tenderness no matter where I touch or even if I am just lately applying moist arthroscope to listen her bowel sounds. She has active bowel sounds. Drain is in the left lower flank area and draining purulent olivier to mandel discharge Lower extremities without peripheral cyanosis or edema Objective Last Vital Signs Temp 36.6 C 09/03/23 10:34 Pulse 99 H 09/03/23 10:34 Resp 18 09/03/23 10:34 BP 130/87 09/03/23 10:34 Pulse Ox 91 L 09/03/23 10:34 Laboratory Results - last 24 hr 09/02/23 09/02/23 09/03/23 10:30 15:53 05:40 WBC 11.01 H RBC 3.02 L Hgb 8.8 L 8.5 L Hct 28.9 L 27.7 L MCV 92 MCH 28.1 MCHC 30.7 L RDW 17.2 H Plt Count 279 MPV 11.5 H Immature Gran % 1.2 Neutrophils % 71.0 Lymphocytes % 9.3 Monocytes % 12.5 Eosinophils % 5.2 Basophils % 0.8 Nucleated RBC % 0.0 Absolute Neutrophils 7.82 H Absolute Lymphocytes 1.02 L Absolute Monocytes 1.38 H Absolute Eosinophils 0.57 Absolute Basophils 0.09 Sodium 141 Potassium 4.0 Chloride 99 Carbon Dioxide 37.9 H Anion Gap 4.1 BUN 5 L Creatinine 0.6 Est GFR (CKD-EPI 2020) 104.63 Glucose 113 H Calcium 7.7 L Magnesium 1.9 C-Reactive Protein 14.58 H Crossmatch See Detail Time Spent with Patient Time Spent with Patient: 35-49 minutes Time was spent: preparing to see the patient(eg.review tests), referring, communicating with other health multi care technician (Dr. Lester Norman), indepentently interpreting results, counseling the patient and care coordination
--- NOTE | 2023-09-03 12:54 | NUR.NOTE ---
Pelvic drain is flushed with 0.9NS sterile for irrigation 5ml. Sample is taken from drainage bulb for culturing and sent to lab.Nursing Note:
--- NOTE | 2023-09-03 13:23 | NUR.NOTE ---
RN speaks with Oncology Rn about having Picc line crew called in to investigate leaking midline. Oncology Rn advises RN that said team will be in the hospital tomorrow to investigate problem with midline. Same is not being used. RN does have have peripheral access through right hand IV.Nursing Note:
[2023-09-03] MEDS: Acetaminophen 500 MG TAB 1000 MG PO (15:36)
[2023-09-03 19:36] LABS: C Diff PCR Negative (Negative)
[2023-09-03] MEDS: VANCOMYCIN/WATER (PEG) 750 MG/150 ML BAG 150 MG IVPB (21:22)
[2023-09-03] MEDS: Lurasidone 40 MG TAB 160 MG PO (21:23)
[2023-09-03] MEDS: Metoprolol 25 MG TAB PO (21:23)
[2023-09-03] MEDS: Methocarbamol 500 MG TAB PO (21:23)
[2023-09-03] MEDS: OLANZapine 5 MG TAB 15 MG PO (21:24)
[2023-09-03] MEDS: Atorvastatin 40 MG TAB 80 MG PO (21:24)
[2023-09-03] MEDS: Prazosin 1 MG CAP PO (21:24)
[2023-09-04] MEDS: CLINDAMYCIN 900 MG/50 ML BAG 50 MG IVPB ×3 (04:10→20:14)
[2023-09-04] MEDS: MEROPENEM 1 GM in Normal Saline 100 ML IVPB ×3 (05:34→21:36)
[2023-09-04] MEDS: Levothyroxine 88 MCG TAB PO (05:34)
[2023-09-04 06:53] LABS: Abs Immature Grans 0.13 10^3/uL (0.0-0.06); Absolute Eosinophil Count 0.68 10^3/uL (0.0-0.7); Absolute Lymphocyte Count 1.22 10^3/uL (1.2-3.4); Absolute Monocyte Count 1.23 10^3/uL (0.1-0.8); Absolute Neutrophil Count 7.39 10^3/uL (1.2-6.7); Basophils % 0.9; Eosinophils % 6.3; HCT 29.6 % (36.0-46.0); Immature Grans % 1.2; Lymphocytes % 11.3; MCH 27.8 pg (27.0-33.0); MCHC 30.4 % (32.0-36.0); MCV 91 fL (80-95); MPV 11.2 fL (8.0-11.0); Monocytes % 11.4; Neutrophils % 68.9; Platelet Count 339 10^3/uL (130-400); RBC 3.24 10^6/uL (3.93-5.22); RDW 17.1 % (11.7-14.6); RDW-SD 56.6 fL; WBC 10.75 10^3/uL (4.4-10.8)
[2023-09-04 06:58] LABS: Reticulocyte 1.3 % (0.5-2.4)
[2023-09-04 07:22] LABS: ALT 12 U/L (14-59); AST 15 U/L (15-37); Albumin 1.9 g/dL (3.4-5.0); Alkaline Phosphatase 87 U/L (46-116); Anion Gap 5.4 mmol/L (3-11); BUN 7 mg/dL (7-18); Bilirubin, Total 0.3 mg/dL (0.2-1.0); C-Reactive Protein 12.36 mg/dL (<or=0.5); CO2 37.6 mmol/L (21.0-32.0); CREATININE 0.7 mg/dL (0.55-1.02); Calcium 8.4 mg/dL (8.5-10.1); Chloride 98 mmol/L (98-107); Estimated GFR 100.81 (mL/min/1.73m2); Glucose 110 mg/dL (74-106); Potassium 4.2 mmol/L (3.5-5.1); Sodium 141 mmol/L (136-145); Total Protein 6.7 g/dL (6.4-8.2)
[2023-09-04 07:23] LABS: Iron 23 ug/dL (50-170); Total Iron Binding Capacity 196 ug/dL (250-450); Transferrin Sat 12 % (15-50)
[2023-09-04 07:35] VITALS: BP 113/65; PULSE 84; RESP 16; TEMP 37; O2SAT 963
[2023-09-04 07:50] LABS: Ferritin 290 ng/mL (8-252); Folate 8.3 ng/mL (8.6-20.0); Vitamin B12 544 pg/mL (193-986)
[2023-09-04] MEDS: Polyethylene Glycol 3350 17 GM PACKET PO (07:50)
[2023-09-04] MEDS: Pantoprazole 40 MG TABCR PO (07:51)
[2023-09-04] MEDS: Sucralfate 1 GM TAB PO ×4 (07:52→20:15)
[2023-09-04] MEDS: buPROPion 100 MG TAB PO (07:52)
[2023-09-04] MEDS: Docusate Sodium 100 MG CAP PO (07:53)
[2023-09-04] MEDS: Ferrous Sulfate 325 MG TAB PO (07:54)
[2023-09-04] MEDS: Metoprolol 25 MG TAB PO ×2 (07:54→20:15)
[2023-09-04] MEDS: Gabapentin 300 MG CAP PO ×4 (07:54→20:15)
[2023-09-04] MEDS: Nicotine 14 MG/24 HR PATCH TD (07:56)
[2023-09-04] MEDS: Normal Saline Flush 10 ML SYR IVP ×2 (07:57→20:16)
[2023-09-04 08:01] VITALS: O2SAT 95
[2023-09-04] MEDS: Tiotropium Bromide-Respimat 10 PUFF INH 2 PUFF IH (08:01)
[2023-09-04 08:03] VITALS: O2SAT 92
[2023-09-04] MEDS: VANCOMYCIN/WATER (PEG) 750 MG/150 ML BAG 150 MG IVPB (08:04)
--- NOTE | 2023-09-04 09:44 | PT.INNT ---
PT Notes Visit Reasons: Diverticulitis,Pelvic Abscesses Per evaluating PT the POC is for treatment M-F. The evaluation was done on Tuesday09/02/2023
[2023-09-04 12:08] VITALS: O2SAT 90
[2023-09-04] MEDS: oxyCODONE 5 MG TAB PO ×2 (14:44→22:33)
[2023-09-04 15:07] VITALS: BP 131/75; PULSE 73; RESP 16; TEMP 37.3; O2SAT 95
--- NOTE | 2023-09-04 15:12 | W.PM.PROGNOT ---
Date of Service Date of service: 09/04/23 Time of Service: 15:12 Assessment and Plan Assessment and plan (1) Abscess of female pelvis: Status: Acute Assessment and plan: Patient deemed to have too many and too severe comorbidities for surgery to be done safely here - per report. Pending anesthesia consultation. Will ultimately have to have surgery for this. Ideally after the abscesses have either completely resolved or at least have matured - probably 4 to 6 weeks from now would be my guess. The drain seems to be functioning at this time and clinically the patient is eating and drinking and hemodynamically stable. Reasonable plan: Repeat CT scan tomorrow (which would be 5 days since last scan) and ensure forward momentum in regards to the overall picture in her abdomen and pelvis. If things do not look better or otherwise worse, then she probably needs to be transferred to colorectal surgery at a tertiary facility. If things are looking better, she should be able to be discharged on oral antibiotics and with her drain in place. And then would need outpatient referral down to colorectal surgery at a tertiary facility. She needs to focus on outpatient oral intake and nutritional improvement leading up to surgical intervention to optimize her chances for success and healing. All of this was discussed with Dr. Gordon. We reviewed her last CT scan together. Subjective Subjective Interval history since last seen: Discussed case with hospitalist - he reports she is eating/drinking and having bowel function. Still has abd tenderness all along. Drain 110-120cc out in last 24 hours. No fevers, HD stable. Objective Last Vital Signs Temp 99.1 F 09/04/23 15:07 Pulse 73 09/04/23 15:07 Resp 16 09/04/23 15:07 BP 131/75 09/04/23 15:07 Pulse Ox 95 09/04/23 15:07 Laboratory Results - last 24 hr 09/03/23 09/04/23 16:20 06:04 WBC 10.75 RBC 3.24 L Hgb 9.0 L Hct 29.6 L MCV 91 MCH 27.8 MCHC 30.4 L RDW 17.1 H Plt Count 339 MPV 11.2 H Reticulocyte % (Auto) 1.3 Immature Gran % 1.2 Neutrophils % 68.9 Lymphocytes % 11.3 Monocytes % 11.4 Eosinophils % 6.3 Basophils % 0.9 Nucleated RBC % 0.0 Absolute Neutrophils 7.39 H Absolute Lymphocytes 1.22 Absolute Monocytes 1.23 H Absolute Eosinophils 0.68 Absolute Basophils 0.10 Sodium 141 Potassium 4.2 Chloride 98 Carbon Dioxide 37.6 H Anion Gap 5.4 BUN 7 Creatinine 0.7 Est GFR (CKD-EPI 2020) 100.81 Glucose 110 H Calcium 8.4 L Iron 23 L TIBC 196 L Transferrin % Sat 12 L Ferritin 290 H Total Bilirubin 0.3 AST 15 ALT 12 L Alkaline Phosphatase 87 C-Reactive Protein 12.36 H Total Protein 6.7 Albumin 1.9 L Vitamin B12 544 Folate 8.3 L Stl C.difficile Tox PCR Negative Time Spent with Patient Time Spent with Patient: <25 minutes Time was spent: referring, communicating with other health child care coordinator, indepentently interpreting results and care coordination
--- NOTE | 2023-09-04 15:13 | W.PM.PROGNOT ---
Date of Service Date of service: 09/04/23 Time of Service: 15:13 Assessment and Plan Assessment and plan (1) Abscess of female pelvis: Status: Acute Assessment and plan: Pelvic Abscess (2/2 perforated diverticulitis) looks bigger on CT 08/31. I wonder if this is because the drain was obstructed and/or is occluding itself due to its position within the abscess. General surery is aware. As she is high risk candidate for general anesthesia, she will continue to be treated w/ antibiotics, Culture results from [facility] received fromo 08/17/23 and grew Clostridium perfringens and Bacteroides fragilis. She remains on Flagyl and Meropenem (I have stopped her Vancomycin). I discussed her care w/ Dr. Norman. Patient is too high risk for surgery to be done here (d/t sever PHTN) and Dr. Norman says that as long as the drain is funcitoning and she is responding to antibiotics there is no urgency to the surgery but eventually she will need surgery to repair the sigmoid colon but if her repeat CT tomorrow shows worsening or no progress to her abscess then she should be transferred to tertiary center for more definitive treatment. (2) Diverticulitis: Status: Acute Assessment and plan: Complicated by perforation and pelvic abscess. Abscess size increased on CT, but the drain was obstructed. She is on her second pelvic access drain. Continue meropenem + clindamycin for the abscess. drain improving w/ flushing of line. check repeat CT abdomen and pelvis tomorrow (3) Epigastric pain: Status: Acute Assessment and plan: Suspect GI origin. Continue BID PPI and carafate. given her severe COPD and high risk for pulmonary complications, I would hold on EGD unless she has overt UGI bleeding, w/ fresh hematemesis that can not be controlled. (4) Hypoxia: Status: Chronic Assessment and plan: chronically hypoxemic from COPD. stable on 1 lpm which is better than her baseline which had been 3 lpm. continue Spiriva and DuoNeb prn. (5) NSTEMI (non-ST elevated myocardial infarction): Status: Acute Assessment and plan: On 08/24/23. Continue low-dose beta-blockers along with aspirin and atorvastatin. Will need outpatient ischemic workup with stress MPI once stable from her infection. (6) EMILY (acute kidney injury): Status: Resolved Assessment and plan: Continue to monitor kidney function, Good urine output stable BUN and creatinine (5, 0.6) (7) COPD (chronic obstructive pulmonary disease): Status: Chronic Assessment and plan: As above - O2 dependence is old/chronic; will need O2 on discharge. VBG normalized. Continue Spiriva and duoneb. Encourage IS/acapella. Qualifiers: COPD type: chronic bronchitis Chronic bronchitis type: unspecified Qualified Code(s): J42 - Unspecified chronic bronchitis (8) Closed fibular fracture: Status: Acute Assessment and plan: Evaluated by orthopedic surgery. WBAT. Boot only when ambulating; to be off when in bed. Qualifiers: Encounter type: initial encounter Fibula location: lateral malleolus Fracture alignment: nondisplaced Laterality: left Qualified Code(s): S82.65XA - Nondisplaced fracture of lateral malleolus of left fibula, initial encounter for closed fracture (9) Hypothyroidism: Status: Chronic Assessment and plan: continue levothryroxine (10) Tobacco abuse: Status: Acute Assessment and plan: Continue wellbutrin and nicotine patch Advised to quit (11) DVT prophylaxis: Status: Acute Assessment and plan: SCDs. Hold chemical DVT ppx in light of recent GI bleeding (12) Discharge planning issues: Status: Acute Assessment and plan: Full code Continues to require hospitalization Subjective Subjective Interval history since last seen: Ester states she still gets abdominal pain after meals although she has had no vomiting and she still having bowel movements. All of her inflammatory markers are improving. Will get a repeat her CT scan of her abdomen pelvis tomorrow morning to see if her abscesses decreased in size. TOMÁS drain in her pelvic abscess continues to drain purulent material. She remains on antibiotics including clindamycin and meropenem. Exam Narrative Exam Narrative: Ester is lying in bed alert and oriented x 3 no acute distress. Lungs are clear to auscultation Heart regular rate and rhythm Abdomen nondistended normal bowel sounds soft mildly tender to palpation no guarding or rebound tenderness. Extremities without edema Objective Last Vital Signs Temp 37.3 C 09/04/23 15:07 Pulse 73 09/04/23 15:07 Resp 16 09/04/23 15:07 BP 131/75 09/04/23 15:07 Pulse Ox 95 09/04/23 15:07 Laboratory Results - last 24 hr 09/03/23 09/04/23 16:20 06:04 WBC 10.75 RBC 3.24 L Hgb 9.0 L Hct 29.6 L MCV 91 MCH 27.8 MCHC 30.4 L RDW 17.1 H Plt Count 339 MPV 11.2 H Reticulocyte % (Auto) 1.3 Immature Gran % 1.2 Neutrophils % 68.9 Lymphocytes % 11.3 Monocytes % 11.4 Eosinophils % 6.3 Basophils % 0.9 Nucleated RBC % 0.0 Absolute Neutrophils 7.39 H Absolute Lymphocytes 1.22 Absolute Monocytes 1.23 H Absolute Eosinophils 0.68 Absolute Basophils 0.10 Sodium 141 Potassium 4.2 Chloride 98 Carbon Dioxide 37.6 H Anion Gap 5.4 BUN 7 Creatinine 0.7 Est GFR (CKD-EPI 2020) 100.81 Glucose 110 H Calcium 8.4 L Iron 23 L TIBC 196 L Transferrin % Sat 12 L Ferritin 290 H Total Bilirubin 0.3 AST 15 ALT 12 L Alkaline Phosphatase 87 C-Reactive Protein 12.36 H Total Protein 6.7 Albumin 1.9 L Vitamin B12 544 Folate 8.3 L Stl C.difficile Tox PCR Negative Time Spent with Patient Time Spent with Patient: 25-34 minutes Time was spent: preparing to see the patient(eg.review tests), ordering medications,tests, procedures, referring, communicating with other health childcare center director, indepentently interpreting results, counseling the patient and care coordination
[2023-09-04 20:13] VITALS: BP 133/85; PULSE 85; RESP 18; TEMP 36.9; O2SAT 88
[2023-09-04] MEDS: Lurasidone 40 MG TAB 160 MG PO (20:14)
[2023-09-04] MEDS: Prazosin 1 MG CAP PO (20:14)
[2023-09-04] MEDS: OLANZapine 5 MG TAB 15 MG PO (20:15)
[2023-09-04] MEDS: Atorvastatin 40 MG TAB 80 MG PO (20:15)
[2023-09-04] MEDS: Methocarbamol 500 MG TAB PO (20:15)
[2023-09-04] MEDS: Ondansetron 4 MG/2 ML VIAL IVP (20:29)
[2023-09-05] MEDS: Ondansetron 4 MG/2 ML VIAL IVP ×2 (00:36→19:21)
[2023-09-05] MEDS: CLINDAMYCIN 900 MG/50 ML BAG 50 MG IVPB ×3 (04:04→19:17)
[2023-09-05] MEDS: oxyCODONE 5 MG TAB PO ×2 (04:22→20:05)
[2023-09-05] MEDS: Levothyroxine 88 MCG TAB PO (05:34)
[2023-09-05] MEDS: MEROPENEM 1 GM in Normal Saline 100 ML IVPB ×2 (05:34→15:17)
[2023-09-05 06:38] LABS: Abs Immature Grans 0.17 10^3/uL (0.0-0.06); Absolute Basophil Count 0.13 10^3/uL (0.0-0.2); Absolute Eosinophil Count 0.95 10^3/uL (0.0-0.7); Absolute Lymphocyte Count 1.26 10^3/uL (1.2-3.4); Absolute Monocyte Count 1.28 10^3/uL (0.1-0.8); Absolute Neutrophil Count 7.26 10^3/uL (1.2-6.7); Basophils % 1.2; Eosinophils % 8.6; HGB 9.3 g/dL (11.2-15.7); Immature Grans % 1.5; Lymphocytes % 11.4; MCH 27.4 pg (27.0-33.0); MCV 91 fL (80-95); MPV 10.5 fL (8.0-11.0); Monocytes % 11.6; Neutrophils % 65.7; Nucleated RBC 0.2 % (0.0-0.3); Platelet Count 361 10^3/uL (130-400); RBC 3.39 10^6/uL (3.93-5.22); RDW 17.2 % (11.7-14.6); RDW-SD 56.6 fL; WBC 11.05 10^3/uL (4.4-10.8)
[2023-09-05 06:58] LABS: ALT 12 U/L (14-59); AST 15 U/L (15-37); Albumin 1.8 g/dL (3.4-5.0); Alkaline Phosphatase 82 U/L (46-116); BUN 12 mg/dL (7-18); Bilirubin, Total 0.2 mg/dL (0.2-1.0); C-Reactive Protein 8.09 mg/dL (<or=0.5); CREATININE 0.9 mg/dL (0.55-1.02); Calcium 8.2 mg/dL (8.5-10.1); Chloride 99 mmol/L (98-107); Estimated GFR 74.57 (mL/min/1.73m2); Glucose 140 mg/dL (74-106); Potassium 4.1 mmol/L (3.5-5.1); Sodium 140 mmol/L (136-145); Total Protein 6.5 g/dL (6.4-8.2)
[2023-09-05 07:36] VITALS: BP 103/68; PULSE 86; RESP 20; TEMP 36.7; O2SAT 88
[2023-09-05] MEDS: Nicotine 14 MG/24 HR PATCH TD (07:49)
[2023-09-05] MEDS: buPROPion 100 MG TAB PO (07:49)
[2023-09-05] MEDS: Metoprolol 25 MG TAB PO ×2 (07:50→19:18)
[2023-09-05] MEDS: Gabapentin 300 MG CAP PO ×4 (07:50→19:16)
[2023-09-05] MEDS: Docusate Sodium 100 MG CAP PO ×2 (07:50→15:17)
[2023-09-05] MEDS: Sucralfate 1 GM TAB PO ×3 (07:50→15:17)
[2023-09-05] MEDS: Polyethylene Glycol 3350 17 GM PACKET PO (07:50)
[2023-09-05] MEDS: Pantoprazole 40 MG TABCR PO (07:50)
[2023-09-05] MEDS: Ferrous Sulfate 325 MG TAB PO (07:50)
[2023-09-05 07:51] LABS: Procalcitonin < 0.1 ng/mL
[2023-09-05] MEDS: Normal Saline Flush 10 ML SYR IVP ×3 (07:51→19:19)
[2023-09-05] MEDS: Tiotropium Bromide-Respimat 10 PUFF INH 2 PUFF IH (09:03)
--- NOTE | 2023-09-05 09:47 | CMPROGNOTE_ITS ---
Date of service: 09/05/23 Time of Service: 09:47 Care Management Progress Note Progress Note Text Progress Note Text: S/O: Ester was lying in bed when CM met with her. She continues to complain of abdominal pain and fatigue. Ester had another CT scan of her abdomen and pelvis today which did not show any improvement. The provider has contacted [facility] to determine if she can be transferred for surgery. Because of Ester's co- morbidities, surgery with general anesthesia would best be done in a tertiary care facility. Ester was sitting up in bed visiting with CM when the doctor came to see her and explained the situation. Ester is agreeable to the transfer. Dr. Gordon was able to find an accepting surgeon (Ck Woodson) at [facility], however no bed is yet available. A: Ester is a 58 year old female admitted to [facility] on 08/16/23 for diverticulitis, pelvic abscess. 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 Unfortunately she needs home oxygen and obtaining that may be problematic given she has outstanding debt and equipment related to home oxygen.She will follow up with community providers and her plan of care and transport with facility staff vs RCT.. CM will follow and continue to assess for discharge needs. SDOH(Care Management) Screening Will the Patient Participate in the Screening?: Unable to obtain
[2023-09-05 10:40] LABS: Transferrin 156 mg/dL (201-352)
[2023-09-05] MEDS: Omnipaque 350 MG/ML 50 ML BTL IJ (11:24)
[2023-09-05] MEDS: Breeza Beverage 473 ML BTL PO ×2 (11:26→11:27)
[2023-09-05] MEDS: Normal Saline - Diluent 50 ML VIAL IJ (13:10)
[2023-09-05] MEDS: Omnipaque 350 MG/ML 100 ML BTL IJ (13:11)
--- NOTE | 2023-09-05 13:13 | DI.CT_ITS ---
Exam(s) CT ABDOMEN PELVIS W EXAM: CT ABDOMEN PELVIS W CLINICAL HISTORY: f/u diverticular abscess. TECHNIQUE: Imaging Protocol: Axial computed tomography images with coronal and sagittal reformatted images were created and reviewed CONTRAST MATERIAL: Intravenous: Omnipaque 350 Contrast volume:100 ml Oral: no COMPARISON: CT CT CHEST/ABD/PEL W from 08/31/2023 FINDINGS: ABDOMEN and PELVIS: Hiatal hernia. Lung Bases: Decreased size right pleural effusion. Improvement in previously noted basilar infiltrat e. Liver: Normal density. No measurable mass. Gallbladder and biliary tract: No radiodense calculus or dilation. Pancreas: Normal density. No abnormal calcifications or inflammatory process. No evidence of mass. Spleen: Normal. Kidneys: Normal size, contour and axis. No radiodense stones. No obstructive uropathy. No suspicious masses seen. Adrenal glands: No masses seen. Vasculature: Abdominal aorta non-dilated. Soft tissues: Fatty containing umbilical hernia. Bladder: Decompressed by Andujar catheter. Bowel: Administered oral contrast extends to hepatic flexure. Small bowel is nondilated. Large mac tity of fecal material noted. Severe diverticulosis again noted. Transgluteal pigtail drainage cath eter is in place now with the pigtail lying centrally within the abscess collection. No significant change in size of abscess. Appendix normal. Peritoneal cavity: No ascites. Bones: Unremarkable for age. Reproductive organs: Within normal limits. Lymph nodes: Unremarkable. IMPRESSION:: transgluteal pigtail catheter tip is now present is positioned centrally within the di verticular abscess collection. The size of the diverticular abscess is significantly changed. Large quantity of stool again noted. Improvement in right basilar infiltrate. Small right pleural effusion, also with some improvement. RADIATION DOSE DELIVERED: 964mGy.cm Total DLP DATA REPOSITORY: All CT scans at this facility are submitted to the National Radiology Data Registry (NRDR) Dose Index Registry (DIR) with the [employer] (ACR). RADIATION OPTIMIZATION: All CT scans at this facility use at least one of these dose optimization te chniques: automated exposure control; mA and/or kV adjustment per patient size (includes targeted exa ms where dose is matched to clinical indication); or iterative reconstruction.
--- NOTE | 2023-09-05 14:32 | PTTR_ITS ---
Date of service: 09/05/23 Time of Service: 09:17 PT Notes Visit Reasons: Diverticulitis,Pelvic Abscesses Inpatient Physical Therapy Treatment Note [facility] Date: 09/05/23 PRECAUTIONS: Fall, standard, activity as tolerated. SUBJECTIVE: Patient reports feeling unwell, apologizes for not begin very motivated today. Refuses to walk, agreeable to exercises seated EOB. AFTERNOON: Patient refuses to participate in therapy, reports feeling unwell as well as being frustrated with staff for not telling [her] anything about [her] health issues! When this clinician attempts to share the plan as it appears in clinician's last note, patient becomes increasingly agitated and states that No one knows what the h--- is going on! OBJECTIVE: Seated EOB, 1.5 L/min O2 via nasal cannula, agreeable to therapy. AFTERNOON: Patient refuses therapy. ? PAIN: none reported VITALS: monitored by nursing staff ? BED MOBILITY/TRANSFERS? Rolling L/R: not assessed Supine-sit: not assessed ? Sit-supine: not assessed ? Sit-stand: not assessed ? Stand-sit: not assessed ? Bed-Chair: not assessed ? Chair-bed: not assessed ? Therapeutic Exercises ([id number]): Direct one-on-one instruction in therapeutic exercises to develop strength, endurance, range of motion and flexibility. ? Exercises performed seated EOB: * LAQ 3x5 * seated marching 2x10 * heel / toe raises 2x10 * hip ab/adduction 3x5 Provided skilled instruction in proper exercise performance Provided skilled manual cues to facilitate proper muscle recruitment and/or form. ASSESSMENT:? Patient tolerates treatment session well, no report of pain or fatigue. PLAN: Continue global strengthening per plan of care to patient tolerance until patient is medically cleared for discharge and has safe discharge plan TREATMENT CODE/TIME: 10 minutes beginning at 9:17
[2023-09-05 15:25] VITALS: BP 133/87; PULSE 84; RESP 18; TEMP 37.4; O2SAT 90
--- NOTE | 2023-09-05 15:47 | PGE_ITS ---
Date of Service Date of service: 09/05/23 Time of Service: 15:47 Assessment and Plan Assessment and plan (1) Abscess of female pelvis: Status: Acute Assessment and plan: I reviewed today's CT of her abdomen and pelvis w/ Dr. Mohan, per Dr. Seth reports the pelvic abscess does not appear changed from the CT from 08/31. She measures the abscess as 9.3 x 6.5 x 6.1 cm. So this really has not improved and may actually be larger even though she has had the drain in place for over a week. I have spoken w/ [facility] transfer center and requested a consult from general surgery and have requested for transfer to [facility]. They indicated that they may not be able to assign a bed and accept the transfer. I had our radiology push her films to [facility] so I can call them if [facility] does not accept the patient. Continue meropenem and clindamycin. (2) Diverticulitis: Status: Acute Assessment and plan: Complicated by perforation and pelvic abscess. Abscess size increased on CT, but the drain was obstructed. She is on her second pelvic access drain. Continue meropenem + clindamycin for the abscess. drain improving w/ flushing of line. check repeat CT abdomen and pelvis tomorrow (3) Epigastric pain: Status: Acute Assessment and plan: Suspect GI origin. Continue BID PPI and carafate. given her severe COPD and high risk for pulmonary complications, I would hold on EGD unless she has overt UGI bleeding, w/ fresh hematemesis that can not be controlled. (4) Hypoxia: Status: Chronic Assessment and plan: chronically hypoxemic from COPD. stable on 1.5 lpm which is better than her baseline which had been 3 lpm. continue Spiriva and DuoNeb prn. (5) NSTEMI (non-ST elevated myocardial infarction): Status: Acute Assessment and plan: On 08/24/23. Continue low-dose beta-blockers along with aspirin and atorvastatin. Will need outpatient ischemic workup with stress MPI once stable from her infection. (6) EMILY (acute kidney injury): Status: Resolved Assessment and plan: Continue to monitor kidney function, Good urine output stable BUN and creatinine (5, 0.6), gonzalez draining clear yellow urine (7) COPD (chronic obstructive pulmonary disease): Status: Chronic Assessment and plan: As above - O2 dependence is old/chronic; will need O2 on discharge. VBG normalized. Continue Spiriva and duoneb. Encourage IS/acapella. Qualifiers: COPD type: chronic bronchitis Chronic bronchitis type: unspecified Qualified Code(s): J42 - Unspecified chronic bronchitis (8) Closed fibular fracture: Status: Acute Assessment and plan: Evaluated by orthopedic surgery. WBAT. Boot only when ambulating; to be off when in bed. Qualifiers: Encounter type: initial encounter Fibula location: lateral malleolus Fracture alignment: nondisplaced Laterality: left Qualified Code(s): S82.65XA - Nondisplaced fracture of lateral malleolus of left fibula, initial encounter for closed fracture (9) Hypothyroidism: Status: Chronic Assessment and plan: continue levothryroxine Qualifiers: Hypothyroidism type: acquired Qualified Code(s): E03.9 - Hypothyroidism, unspecified (10) Tobacco abuse: Status: Acute Assessment and plan: Continue wellbutrin and nicotine patch Advised to quit (11) DVT prophylaxis: Status: Acute Assessment and plan: SCDs. Hold chemical DVT ppx in light of recent GI bleeding (12) Discharge planning issues: Status: Acute Assessment and plan: Full code Continues to require hospitalization Subjective Subjective Interval history since last seen: Patient complains of not sleeping at night and abdominal pains w/ eating. No vomiting. She states she has not had a BM today. Last recorded BM was 09/03. I updated the patient regarding my discussions w/ the surgical team (Dr. Norman over the weekend and Dr. Mohan today). I informed her of her CT abdomen/pelvis results from today. Her abscess is not improving and in fact has gotten worse over past couple CT scans. although her pelvic drain continues to drain purulent material, it is not adequate and I explained to her that we (surgical team and hospitalists) feel that she needs definitive surgery to get this abscess cleaned out. I told her that I have reached out to [facility] and requeste surgical consult for transfer to [facility] however, it is not hopeful that they will have any beds. I told her that if [facility] can not accept her soon i.e. in next 24 to 48 hr then I will reach out to other tertiary hospitals, including [facility]. I have already requested our radiology to send her films to both places. Exam Narrative Exam Narrative: Ester was sleeping when I went into see her but she woke easily. Tanja from was present during our conversations She seems to be alert and oriented and asking appropriate questions; she is not in acute distress although she does have abdominal pains but her abdominal exam is no extreme. Abdomen is nondistended, soft, normal bowel sounds but she has diffuse tenderness w/ more focalized tenderness in the LLQ Lungs: clear after cough and deep breathing ( I went over the importance of participation in P.T. and use of her I.S. to prevent atelectasis). heart: RRR Extremities: no edema Objective Last Vital Signs Temp 37.4 C 09/05/23 15:25 Pulse 84 09/05/23 15:25 Resp 18 09/05/23 15:25 BP 133/87 09/05/23 15:25 Pulse Ox 90 L 09/05/23 15:25 Laboratory Results - last 24 hr 09/04/23 09/05/23 09/05/23 06:04 06:02 06:06 WBC 11.05 H RBC 3.39 L Hgb 9.3 L Hct 31.0 L MCV 91 MCH 27.4 MCHC 30.0 L RDW 17.2 H Plt Count 361 MPV 10.5 Immature Gran % 1.5 Neutrophils % 65.7 Lymphocytes % 11.4 Monocytes % 11.6 Eosinophils % 8.6 Basophils % 1.2 Nucleated RBC % 0.2 Absolute Neutrophils 7.26 H Absolute Lymphocytes 1.26 Absolute Monocytes 1.28 H Absolute Eosinophils 0.95 H Absolute Basophils 0.13 Sodium 140 Potassium 4.1 Chloride 99 Carbon Dioxide 37.0 H Anion Gap 4.0 BUN 12 Creatinine 0.9 Est GFR (CKD-EPI 2020) 74.57 Glucose 140 H Calcium 8.2 L Transferrin 156 L Total Bilirubin 0.2 AST 15 ALT 12 L Alkaline Phosphatase 82 C-Reactive Protein 8.09 H Total Protein 6.5 Albumin 1.8 L Procalcitonin < 0.1 Time Spent with Patient Time Spent with Patient: >50 minutes Time was spent: preparing to see the patient(eg.review tests), ordering medications,tests, procedures, referring, communicating with other health day care aide, indepentently interpreting results, counseling the patient and care coordination
[2023-09-05] MEDS: Ketorolac 15 MG/ML VIAL IVP (16:09)
[2023-09-05] MEDS: Bisacodyl 10 MG SUPP PR (16:28)
[2023-09-05] MEDS: Methylnaltrexone 12 MG/0.6 ML VIAL 8 MG SC (16:28)
[2023-09-05 19:15] VITALS: BP 129/76; PULSE 94; RESP 18; TEMP 37.2; O2SAT 90
[2023-09-05] MEDS: Atorvastatin 40 MG TAB 80 MG PO (19:17)
--- NOTE | 2023-09-05 20:12 | W.PM.DS.N ---
Date of service: 09/05/23 Time of Service: 20:12 DS: Diagnosis Discharge Diagnosis (1) Abscess of female pelvis: Status: Acute Asessment and Plan: See admission H&P and discharge summary below for details. Patient presented w/ pelvic abscess secondary to perforated diverticulitis on 08/15/23 after failing to complete outpatient course of Augmentin after she had been diagnosed during hospital stay for COPD exacerbation on 08/03-08/06/23. Patient has had progressive worsening of her pelvic abscess despite two IR directed catheter placements w/ the first failing d/t migration of the catheter into the gluteal wall and the second catheter failing to adequately drain the abscess despite appropriate location and adequate flushing of the catheter to maintain patency. Due to her high cardiopulmonary risks due to her COPD (on home oxygen at 2 lpm) and her cor pulmonale (see echo reports 08/05/23 and repeat on 08/24/23. and her complicated current hospital course w/ rectal bleeding and hemorrhagic shock requiring multiple PRBC transfusions (3 units total) and NSTEMI, she was determined to be too high risk for surgery at [facility] and transfer to tertiary care center was recommended by our surgeons and anesthesia team. Patient was accepted for transfer to [facility] to care of Dr. Ck Woodson. (2) Diverticulitis: Status: Acute (3) NSTEMI (non-ST elevated myocardial infarction): Status: Acute Asessment and Plan: associated w/ hemorrhagic/hypovolemic shock w/ peak troponin I of 1708, patient was transfused PRBC, placed on carafate and protonix and treated w/ ASA and atorvastatin and metoprolol. She also was put on heparin after the GI bleeding had been controlled. The bleeding was felt to be d/t her diverticulitis as she never had hematemesis but had hematochezia. Heparin was stopped after 48hr. Echo on prior visit demonstrated the following from 08/05/23: Conclusion 1. LV is normal size, other chambers moderately dilated. 2. Mild concentric LVH with normal systolic function, EF 55-60%. Paradoxical septal motion secondary to pulmonary hypertension. 3. Mildly to moderately depressed RV function. 4. Anatomically normal valves. Trace MR. Mild TR with severe pulmonary hypertension. 5. No pericardial effusion 6. No intrtacardiac shunt. Impression: Possible cor pulmonale. Limited repeat echocardiogram done on 08/24/23 demonstrated the following: Conclusion LA/RA/RV are mildly to moderately dilated, LV is normal in size. Mild hypocontractility of the interventricular septum,moderate hypokinesis of RV free wall. LVEF 50-55%. Inferior wall not optimally visualized. Anatomically normal valves. Mild TR with mild phtn( 45mmHg ). No intracardiac shunt No pericardial effusion. (4) Cor pulmonale (chronic): Status: Acute (5) Anemia associated with acute blood loss: Status: Acute Asessment and Plan: Patient presented w/ Hb of 11.4 gm on 08/15/23 and remained around 10 gm until 08/20 when she dropped to 9.4 gm and on night of 08/20 to 08/21 dropped Hb to 8 gm and required 2 units of PRBC. Source of blood loss was from hematochezia believed to be from her diveriticulitis although she did have intermittent complaints of epigastric pains and was empirically treated w/ protonix and sucralfate. Hb drifted down to7.1 gm after equilibrating to level of 8.5 gm and she got another 1 unit of PRBC on 09/02/23. Hb then remained 8.5 to 9 gm through the rest of her hospital stay. (6) COPD (chronic obstructive pulmonary disease): Status: Chronic Asessment and Plan: patient baseline oxygne needs is 2 lpm at rest, 3 lpm w/ activity. She never required more than 3 lpm and at time of transfer she was down to 1.5 lpm (7) Closed fibular fracture: Status: Acute Asessment and Plan: patient sustained a avulsion fracture of her distal fibula after a fall on the day after she was dischared the first time on 08/07/23. Patient was seen in the emergency room on 08/07/23 and placed in a boot. She was followed up this admission by orthopedics, Dr. José Luis Kenney on 08/29/23. He recommended wearing the boot only while she is out of bed and for her to continue in P.T. w/ use of assistive devices for ambulation. Follow up xray on 08/29/23 showed stability in her avulsion fracture. (8) Hypothyroidism: Status: Chronic Discharge Plan Disposition Patient Disposition: Transfer-Acute Inpatient Care Specific Acute Inpt Facility: [facility] Condition: Stable Discharge Details Reason For Visit: Diverticulitis,Pelvic Abscesses Admit Date/Time: 08/16/23 00:16 Admit Provider: Luis A Norris Attending Provider: Frantz Caban Hospital Course Hospital Course: 58-year-old female with history of COPD, depression, unspecified psychiatric disorder questionable schizoaffective disorder, hypothyroidism who was hospitalized from 08/03/2023 through 08/06/2023 for COPD exacerbation and was found to have diverticulitis was treated with IV Zosyn during that hospitalization and discharge for completion of a 10-day more course of Augmentin but never filled the prescription. She was subsequently rehospitalized 08/15/2023 with complaints of abdominal pain and CT scan showed perforated diverticulitis now with pelvic abscess. General surgery was consulted on the case they recommend IR drainage for the pelvic abscess. Her previous workup during her COPD exacerbation included an echocardiogram normal left ventricular function., LVEF 55 to 60% and mild concentric LVH but with evidence of cor pulmonale with mild to moderately depressed RV function and paradoxical septal motion due to her pulmonary hypertension with an RVSP of 65 mm. Patient was admitted to the hospitalist service and started on IV Zosyn she was treated with IV fluids IV analgesics and antiemetics. Arrangements were made for IR placement of a drainage catheter. This was accomplished by [facility] IR radiology on 08/17/2023 culture results came back positive for Bacteroides fragilis and Clostridium perfringens. Patient was on Zosyn from 08/15/2023 through the morning of 08/21/2023. Clindamycin was added on 08/20/2023 and Zosyn was changed to meropenem on 08/21/2023. Serial CT scans were performed to monitor any changes in her pelvic abscess. The initial abscess was measured at 7.6 x 2.9 cm and follow-up CT scan on 08/21/2023 demonstrated decrease in the size of the superior abscess but new development of abscess within the wall of the rectum measuring 2.6 x 4.3 cm. However the catheter was found to terminate in the left gluteal subcutaneous fat and at that point arrangements were made for a new IR catheter placement this was accomplished on 08/26/23. Hospital course has been complicated by hypovolemic shock due to rectal bleeding as well as associated type II demand NSTEMI. Patient was transferred to the intensive care unit in the morning hours 08/21/2023 after she had hypotension during the night and was given a couple boluses of IV fluid. Her hemoglobin on admission was 11.4 g and for the first 3 to 4 days of her hospitalization remained around 10 g but in the revenue accountant hours of 08/21/2023 her hemoglobin had dropped down to 8 g. Patient was typed and crossmatched and given 2 units of packed red cells. Subsequent hemoglobin came up to 9.3 g before drifting down to 7.1 g on 09/02/2023 at which point she was transfused another unit of packed red cells. Hemoglobin recovered to a level of 9 g and is remained there since her last transfusion. At the time of discharge her hemoglobin is 9.3 g. Patient did sustain non-ST elevation myocardial infarction due to her hypovolemic shock and her troponin I peaked at 1708 ng/L. And eventually came down to 156. As I noted above her echocardiogram during her last hospitalization showed normal left ventricular size and function with mild concentric LVH but with evidence of cor pulmonale and significant pulmonary hypertension. With her complication of type II NSTEMI repeat echo was performed on 08/24/2023 the limited echo was performed to evaluate her LV and RV function. LV was still normal in size and her LVEF was 50 to 55%. However she has mild hypocontractility of the intraventricular septum with moderate hypokinesis of the RV free wall. RVSP was now estimated at 42 mm. She has moderate tricuspid regurgitation and moderately dilated right atrium and borderline dilated left atrium. RV is moderately dilated and mildly hypokinetic. Her PA was treated with atorvastatin and aspirin in 48 hours of Plavix. Patient was subsequently transferred out of the intensive care unit where she continued to receive IV antibiotics with meropenem and clindamycin. Surgery was reconsulted and they discussed the case with anesthesia because of her cor pulmonale and recent NSTEMI they felt she was high risk for surgical intervention here at [facility] . [facility] was contacted to try to transfer to a tertiary care center where a multidisciplinary team can be consulted on her case. I spoke with Dr. Ck Woodson general surgeon about her case and after he reviewed her CT scans which is shown no significant improvement in her abscess and actually some signs that had worsened despite the second IR drainage catheter being placed and the catheter is in the appropriate location and functioning he agreed to take her case. I recommended multidisciplinary consultation with pulmonary and cardiology due to her high cardiovascular risks. Home Meds and New Rx's Prescriptions: No Action nicotine 7 mg/24 hr patch 24 hour 1 patch transdermal Q24H levothyroxine [Euthyrox] 88 mcg tablet 88 mcg PO DAILY gabapentin 300 mg capsule 300 mg PO QID lurasidone 120 mg tablet 160 mg PO QHS Rx Instructions: must administer with food (at least 350 calories) acetaminophen [Tylenol Extra Strength] 500 mg tablet 1,000 mg PO Q6H PRN lansoprazole 15 mg capsule,delayed release(DR/EC) 15 mg PO DAILY bupropion HCl 100 mg tablet 100 mg PO DAILY AM hydroxyzine HCl 50 mg tablet 50 mg PO ONCE PRN ferrous sulfate [iron] 325 mg (65 mg iron) tablet 325 mg PO DAILY albuterol sulfate 90 mcg/actuation HFA aerosol inhaler 2 inh inhalation Q4H PRN prazosin 1 mg capsule 1 mg PO QHS olanzapine 15 mg Tablet 15 mg PO HS Qty: 30 0RF tiotropium bromide [Spiriva with HandiHaler] 18 mcg capsule, w/inhalation device 1 cap inhalation DAILY Qty: 30 0RF Rx Instructions: puncture 1 cap using device; one dose = 2 inhalations Discharge Instructions Instructions: Perforated Bowel (DC) Stand Alone Forms: Nursing Discharge Form Activity:: Activity as Tolerated Equipment/Supplies:: No Equipment Needed Diet:: Normal Diet Discharge Orders Discharge Orders: Discharge Order (Routine); Ordered 09/05/23 Ordered By: Jerzy Gordon Discharge Data Discharge Date/Time-TO BE ENTERED AT DEPARTURE: 09/05/23 20:35 DS: Summary Time Spent with Patient providing and/or coordinating discharge services: Greater than 30 minutes Status at Discharge Functional status at discharge: uses cane/walker Overall status at discharge: patient is not back to baseline Mental Status: mental status grossly normal Speech and Movement: speech and movement normal Mood: congruent mood Affect: normal affect Quality:SDOH Health Related Social Needs: No Data to Display Exam Narrative Exam Narrative: Ester was sleeping when I went into see her but she woke easily. Tanja from was present during our conversations She seems to be alert and oriented and asking appropriate questions; she is not in acute distress although she does have abdominal pains but her abdominal exam is no extreme. Abdomen is nondistended, soft, normal bowel sounds but she has diffuse tenderness w/ more focalized tenderness in the LLQ Lungs: clear after cough and deep breathing ( I went over the importance of participation in P.T. and use of her I.S. to prevent atelectasis). heart: RRR Extremities: no edema Psych Mental Status: mental status grossly normal Speech and Movement: speech and movement normal Mood: congruent mood Affect: normal affect DS: Data Vitals/I&O Vitals and I&O: Vital Signs Temperature 37.2 C 09/05/23 19:15 Temperature Source Tympanic 09/05/23 19:15 Pulse 94 H 09/05/23 19:15 Pulse Rhythm Regular 09/05/23 15:25 Pulse 95 H 09/03/23 14:15 Respiratory Rate 18 09/05/23 19:15 Respiratory Effort Normal, Non-Labored 09/05/23 15:25 Respiratory Depth Normal 09/05/23 15:25 Respiratory Pattern Normal 09/05/23 15:25 Blood Pressure 129/76 09/05/23 19:15 Blood Pressure Mean 101 09/03/23 21:21 Blood Pressure Position Supine 09/03/23 08:15 Pulse Oximetry 90 L 09/05/23 19:15 Oxygen Delivery Method Nasal Cannula 09/05/23 19:15 Oxygen Flow Rate 1.5 09/05/23 19:15 Fraction of Inspired Oxygen (FIO2) 3 09/02/23 14:30 Pain Level 9 09/05/23 19:15 Comment Pt. complaining of 9.5/10, mid-sternal/epigastric pain. Pt. also complaining of nausea. Pt. denies any jaw/neck/shoulder/arm pain. Pt. recently medicated with Mylanta and Zofran per the MAR. Charge nurse and MD to be notified of pt.'s complaints, VS, and interventions performed by RN. 08/30/23 13:56 Intake & Output 09/04/23 09/05/23 09/05/23 23:59 11:59 23:59 Intake Total 975 / 1035 390 / 990 600 / 990 Output Total 1220 / 3390 1280 / 2260 980 / 2260 Balance -245 / -2355 -890 / -1270 -380 / -1270 Intake: IV 400 / 450 250 / 410 160 / 410 Oral 565 / 565 120 / 560 440 / 560 Injectate 20 20 / 20 Left Hip 10 20 20 / 20 Output: Drainage 20 / 130 30 / 60 30 / 60 Left Hip 20 / 130 30 / 60 30 / 60 Urine 1200 / 3260 1250 / 2200 950 / 2200 Other: Urine Color Pale Yellow Pale Yellow Urine Appearance Clear Clear Clear Stool Size Small Small Stool Characteristics Formed Soft Brown Brown Voiding Methods Indwelling Catheter Data Completed and Pending Labs on day of discharge: Labs from last 24 hours 09/05/23 09/05/23 09/04/23 06:06 06:02 06:04 WBC 11.05 H RBC 3.39 L Hgb 9.3 L Hct 31.0 L MCV 91 MCH 27.4 MCHC 30.0 L RDW 17.2 H Plt Count 361 MPV 10.5 Immature Gran % 1.5 Neutrophils % 65.7 Lymphocytes % 11.4 Monocytes % 11.6 Eosinophils % 8.6 Basophils % 1.2 Nucleated RBC % 0.2 Absolute Neutrophils 7.26 H Absolute Lymphocytes 1.26 Absolute Monocytes 1.28 H Absolute Eosinophils 0.95 H Absolute Basophils 0.13 Sodium 140 Potassium 4.1 Chloride 99 Carbon Dioxide 37.0 H Anion Gap 4.0 BUN 12 Creatinine 0.9 Est GFR (CKD-EPI 2020) 74.57 Glucose 140 H Calcium 8.2 L Transferrin 156 L Total Bilirubin 0.2 AST 15 ALT 12 L Alkaline Phosphatase 82 C-Reactive Protein 8.09 H Total Protein 6.5 Albumin 1.8 L Procalcitonin < 0.1 Preliminary micro results at discharge 09/03/23 13:25 Anaerobic Culture - Preliminary Abdomen 09/03/23 13:25 Body Fluid Culture - Preliminary Pelvic Gram Negative Rafael Gram Positive Sheela YEAST PFSH All Active Problems (Updated 09/05/23 @ 21:02 by Jerzy Gordon MD) Anemia associated with acute blood loss (Acute) Cor pulmonale (chronic) (Acute) Sepsis (Acute) Epigastric pain (Acute) Hypoxia (Chronic) DVT prophylaxis (Acute) NSTEMI (non-ST elevated myocardial infarction) (Acute) Hyperlipidemia (Acute) COPD (chronic obstructive pulmonary disease) (Chronic) Laryngopharyngeal reflux (Acute) Rhinitis (Acute) Bipolar disorder (Acute) Eustachian tube disorder (Acute) Plantar fasciitis (Acute) Hypovolemic shock (Acute) Tobacco abuse (Acute) Hypothyroidism (Chronic) Discharge planning issues (Acute) Smoking (Acute) Abscess of female pelvis (Acute) Closed fibular fracture (Acute) COPD exacerbation (Acute) Acute hypoxemic respiratory failure (Acute) Diverticulitis (Acute) Medical History Hx of thrombocytopenia Chronic respiratory failure with hypoxia and hypercapnia Fever Chronic hypoxic respiratory failure Auditory hallucination Depression Suicide ideation Social History Smoking/Tobacco Use Status: Current every day Tobacco Type: cigarettes Years smoked: 41 Smoking risk assessment performed?: Yes Alcohol Intake: never Drug use: Never Substance use type: does not use Housing: assisted living facility Do you feel safe at home: Yes Do you feel safe in your relationship?: Yes Additional Social history: Lives at [facility] Radha Sneed RN 08/03/23 Time Spent with Patient Time Spent with Patient: 45-69 minutes Time was spent: preparing to see the patient(eg.review tests), referring, communicating with other health residential child care counselor, indepentently interpreting results, counseling the patient and care coordination
--- NOTE | 2023-09-05 20:34 | NUR.NOTE ---
Nursing Note: called report to Meseret at [facility] on [id number].
[2023-09-05 20:35] VITALS: BP 118/70; PULSE 90; RESP 18; TEMP 37.2; O2SAT 90
== END 2023-09-05 20:35 | disposition short-term general hospital (02) | DRG 377 ==
LOC: ER 22:36 → ICU 08-16 09:48 → MS 08-16 21:44 → ICU 08-21 06:37 → MS 08-22 13:09 → ICU 09-03 12:36 → MS 09-03 21:56
PROVIDERS: Internal Medicine; Nurse Practitioner Acute Care; Student in an Organized Health Care Education/Training Program; Admitting Provider Family Medicine; Emergency Provider Nurse Practitioner Acute Care; Visit Provider Family Medicine
DX: A41.9 Sepsis, unspecified organism (principal); K57.21 Diverticulitis of large intestine with perforation and abscess with bleeding; I21.4 Non-ST elevation (NSTEMI) myocardial infarction; R57.1 Hypovolemic shock; J18.9 Pneumonia, unspecified organism; D62 Acute posthemorrhagic anemia; N17.9 Acute kidney failure, unspecified; J96.12 Chronic respiratory failure with hypercapnia; J96.11 Chronic respiratory failure with hypoxia; G93.40 Encephalopathy, unspecified; J44.0 Chronic obstructive pulmonary disease with (acute) lower respiratory infection; J44.1 Chronic obstructive pulmonary disease with (acute) exacerbation; T85.628A Displacement of other specified internal prosthetic devices, implants and grafts, initial encounter; F17.210 Nicotine dependence, cigarettes, uncomplicated; E03.9 Hypothyroidism, unspecified; F34.1 Dysthymic disorder; W19.XXXD Unspecified fall, subsequent encounter; Z99.81 Dependence on supplemental oxygen; S82.65XD Nondisplaced fracture of lateral malleolus of left fibula, subsequent encounter for closed fracture with routine healing; E87.79 Other fluid overload; R10.13 Epigastric pain; T85.9XXA Unspecified complication of internal prosthetic device, implant and graft, initial encounter; Y81.2 Prosthetic and other implants, materials and accessory general- and plastic-surgery devices associated with adverse incidents
CPT/HCPCS: 36410; 00123; 10030; 36415; 36430; 71275; 74177; 80048; 80053; 82805; 84145; 85027; 86850; 86900; 86901; 86920; 87040; 87077; 87493; 87637; 87641; 93308; 94640; 96361; 96365; 96366; 96367; 97110; 97162; 97530; 99222; 99223; 99232; 99285; 49406; 71045; 71260; 73610; 74174; 80202; 81003; 81015; 82607; 82728; 82746; 83540; 83550; 83605; 83735; 84439; 84443; 84466; 84484; 85014; 85018; 85025; 85045; 85610; 85730; 86140; 87070; 87075; 87086; 87186; 87205; 93005; 93010; 94664; 94667; 94668; 94760; 99231; 99233; 99239; 99291; 99292; A0425; A0428; J0131; J0737; J1170; J1644; J1885; J1941; J2060; J2185; J2212; J2270; J2405; J2470; J2543; J3372; J3475; J3490; J7613; P9016; Q9967

== ENCOUNTER 2023-09-19 20:31 | Emergency (ER) | payer MEDICARE, MEDICAID, SELFPAY ==
[2023-09-19] VITALS (16 sets, daily range): BP systolic 158–178; BP diastolic 81–107; PULSE 50–116; RESP 18; TEMP 36.6; O2SAT 93–96
[2023-09-19 21:02] LABS: Lactate 1.2 mmol/L (0.6-1.4)
[2023-09-19 21:04] LABS: Abs Immature Grans 0.09 10^3/uL (0.0-0.06); Absolute Basophil Count 0.16 10^3/uL (0.0-0.2); Absolute Eosinophil Count 0.76 10^3/uL (0.0-0.7); Absolute Lymphocyte Count 2.02 10^3/uL (1.2-3.4); Absolute Monocyte Count 0.98 10^3/uL (0.1-0.8); Absolute Neutrophil Count 7.99 10^3/uL (1.2-6.7); Basophils % 1.3; Eosinophils % 6.3; Immature Grans % 0.8; Lymphocytes % 16.8; MCH 28.7 pg (27.0-33.0); MCHC 31.3 % (32.0-36.0); MCV 92 fL (80-95); MPV 10.6 fL (8.0-11.0); Monocytes % 8.2; Neutrophils % 66.6; Platelet Count 436 10^3/uL (130-400); RBC 3.49 10^6/uL (3.93-5.22); RDW 18.9 % (11.7-14.6); RDW-SD 61.6 fL
[2023-09-19 21:05] LABS: ESR 34 mm/hr (0-30)
[2023-09-19] MEDS: ACETAMINOPHEN 1,000 MG/100 ML BTL 400 MG IVPB (21:10)
[2023-09-19] MEDS: Normal Saline 1,000 ML 1000 ML IV (21:11)
[2023-09-19] MEDS: Ketorolac 15 MG/ML VIAL IVP (21:11)
[2023-09-19 21:18] LABS: Lipase 16 U/L (16-77); Magnesium 1.7 mg/dL (1.8-2.4)
--- NOTE | 2023-09-19 21:23 | W.ED.GENAD ---
Discharge Plan Disposition Condition: Stable Discharge Details Chief Complaint: GI Bleed Clinical Impression: Rectal bleeding, Abscess of sigmoid colon Primary Care Provider: Unknown,Unknown ED Provider: Juan Manuel Avalos Home Meds and New Rx's Prescriptions: Continued nicotine 7 mg/24 hr patch 24 hour 1 patch transdermal Q24H levothyroxine [Euthyrox] 88 mcg tablet 88 mcg PO DAILY gabapentin 300 mg capsule 300 mg PO QID lurasidone 120 mg tablet 160 mg PO QHS Rx Instructions: must administer with food (at least 350 calories) acetaminophen [Tylenol Extra Strength] 500 mg tablet 1,000 mg PO Q6H PRN lansoprazole 15 mg capsule,delayed release(DR/EC) 15 mg PO DAILY bupropion HCl 100 mg tablet 100 mg PO DAILY AM hydroxyzine HCl 50 mg tablet 50 mg PO ONCE PRN ferrous sulfate [iron] 325 mg (65 mg iron) tablet 325 mg PO DAILY albuterol sulfate 90 mcg/actuation HFA aerosol inhaler 2 inh inhalation Q4H PRN prazosin 1 mg capsule 1 mg PO QHS olanzapine 15 mg Tablet 15 mg PO HS Qty: 30 0RF tiotropium bromide [Spiriva with HandiHaler] 18 mcg capsule, w/inhalation device 1 cap inhalation DAILY Qty: 30 0RF Rx Instructions: puncture 1 cap using device; one dose = 2 inhalations Discharge Instructions Instructions: Rectal Bleeding (ED) Additional Instructions: You were seen in the emergency department for your rectal bleeding, you had a recent colectomy with ostomy placement. This amount of bleeding is unconcerning and your hemoglobin is normal, there is no signs of sepsis or infection on your labs of a significant degree. CT is negative for any acute abnormality, please try to take better care of your ostomy bag as it was leaking stool and had a very poor seal was not fully connected, take Tylenol and ibuprofen and your oxycodone for pain, we cannot provide you with further pain medication as you have these available at the facility you are at. Please return to the emergency department for any severe increase in bleeding, dizziness, fainting, weakness, fever. You had a mildly low magnesium that should improve with normal p.o. intake, you may take [id number] supplements for this as well or a multivitamin. HPI General Date/Time Provider Initiated Documentation: 09/19/23 20:32. HPI Narrative: 58 year-old female presents to ED today by EMS with a chief complaint of ostomy complaint - had ostomy placed at [facility] very recently (last Tuesday per patient)- states she was eating tonight, felt she had to have a BM and nothing but blood came out- has stool leaking out of the ostomy as well. Quality described as severe abdominal pain, no radiation to fever, nausea/vomiting, syncope, dizziness, chest pain, cough, shortness of breath. Severity is described as 10/10 calmly. Palliating factors include nothing specific attempted. Provoking factors include nothing specific. Patient not anticoagulated. Related Data Home Medications Medication Instructions Recorded Confirmed acetaminophen 500 mg tablet 1,000 mg PO Q6H PRN 05/26/23 08/15/23 (Tylenol Extra Strength) albuterol sulfate 90 mcg/actuation 2 inh inhalation Q4H PRN 05/26/23 08/15/23 aerosol inhaler bupropion HCl 100 mg tablet 100 mg PO DAILY AM 05/26/23 08/15/23 ferrous sulfate 325 mg (65 mg 325 mg PO DAILY 05/26/23 08/15/23 iron) tablet (iron) gabapentin 300 mg capsule 300 mg PO QID 05/26/23 08/15/23 hydroxyzine HCl 50 mg tablet 50 mg PO ONCE PRN 05/26/23 08/15/23 lansoprazole 15 mg capsule,delayed 15 mg PO DAILY 05/26/23 08/15/23 release levothyroxine 88 mcg tablet 88 mcg PO DAILY 05/26/23 08/15/23 (Euthyrox) lurasidone 120 mg tablet 160 mg PO QHS 05/26/23 08/15/23 prazosin 1 mg capsule 1 mg PO QHS 05/26/23 08/15/23 olanzapine 15 mg tablet 15 mg PO HS #30 tabs 06/02/23 08/15/23 tiotropium bromide 18 mcg capsule 1 cap inhalation DAILY #30 08/06/23 08/15/23 with inhalation device (Spiriva inhalations with HandiHaler) nicotine 7 mg/24 hr daily 1 patch transdermal Q24H 08/22/23 transdermal patch Previous Rx's Medication Instructions Recorded olanzapine 15 mg tablet 15 mg PO HS #30 tabs 06/02/23 tiotropium bromide 18 mcg capsule 1 cap inhalation DAILY #30 08/06/23 with inhalation device (Spiriva inhalations with HandiHaler) Allergies Allergy/AdvReac Type Severity Reaction Status Date / Time erythromycin base Allergy Intermediate Anaphylaxis Unverified 08/15/23 18:10 [From Erythrocin] moxifloxacin AdvReac Mild rash Verified 08/22/23 08:09 prednisone AdvReac Mild Psychosis Unverified 08/15/23 18:10 General Stated Complaint: GI Bleed ANDERS: 3 Review of Systems All systems reviewed & are unremarkable except as noted in HPI and below Exam Narrative Exam Narrative: GENERAL APPEARANCE: Well-nourished, non-toxic, awake and alert, atraumatic, no acute distress. SKIN: Warm, pink, dry, intact, without rashes/lesions/ulcerations. HEAD: Normocephalic, atraumatic, normal hair distribution for gender/age. EYES: Pupils PERRLA, EOMs intact without nystagmus, normal conjunctiva, no exudates on lids/lashes. ENT: Nares patent, no circumoral cyanosis, no facial swelling NECK: Supple, trachea midline, painless cervical ROM. LUNGS/CHEST: Lungs CTA bilaterally- no rales at bases, no rhonchi, non-labored respirations, normal A/P diameter, symmetrical expansion, no chest wall deformity HEART (CV/PV): Regular rate and rhythm without murmur, no peripheral edema, no JVD. ABDOMEN: Soft, non-distended, no guarding, non-peritoneal abdomen, mild tenderness without Rovsing's, stool leaking from L sided ostomy, poor ostomy bag hygiene, DILMA shows no adalberto blood. MSK: Normal ROM, no swelling/deformity to bilateral UEs or LEs, moving all extremities without weakness, no cyanosis, spine midline without tenderness, normal curvature. NEURO: Mental Status AAOx4 - alert to person, place, time, events No facial droop, no forehead involvement. Motor: No focal weakness - strength 5/5 in bilateral UEs and LEs, proximal and distal, symmetric. Sensory: sensation intact to light touch globally. Gait normal: patient ambulated without ataxia into ED room. PSYCH: euthymic, cooperative, pleasant, appropriate speech Course Vital Signs Vital signs: Vital Signs Temperature 36.6 C 09/19/23 20:32 Pulse 89 09/19/23 20:32 Respiratory Rate 18 09/19/23 20:32 Blood Pressure 169/107 H 09/19/23 20:32 Pulse Oximetry 93 09/19/23 20:32 Temperature 36.6 C 09/19/23 20:32 Temperature Source Tympanic 09/19/23 20:32 Pulse 89 09/19/23 20:32 Respiratory Rate 18 09/19/23 20:32 Respiratory Effort Normal 09/19/23 20:45 Blood Pressure 169/107 H 09/19/23 20:32 Blood Pressure Position Supine 09/19/23 20:32 Pulse Oximetry 93 09/19/23 20:32 Oxygen Delivery Method Room Air 09/19/23 20:32 Oxygen Flow Rate 0 09/19/23 20:32 Pain Level 10 09/19/23 20:32 Comment lower quads 09/19/23 20:32 Lab/Test Results Lab/Test Results: 09/19/23 21:07 Blood Blood Culture - Pending 09/19/23 20:45 Blood Blood Culture - Pending Laboratory Tests Range/Units 09/19/23 20:45 WBC (4.4-10.8) 10^3/uL 12.00 H RBC (3.93-5.22) 10^6/uL 3.49 L Hgb (11.2-15.7) g/dL 10.0 L Hct (36.0-46.0) % 32.0 L MCV (80-95) fL 92 MCH (27.0-33.0) pg 28.7 MCHC (32.0-36.0) % 31.3 L RDW (11.7-14.6) % 18.9 H Plt Count (130-400) 10^3/uL 436 H MPV (8.0-11.0) fL 10.6 Immature Gran % 0.8 Neutrophils % 66.6 Lymphocytes % 16.8 Monocytes % 8.2 Eosinophils % 6.3 Basophils % 1.3 Nucleated RBC % (0.0-0.3) % 0.0 Absolute Neutrophils (1.2-6.7) 10^3/uL 7.99 H Absolute Lymphocytes (1.2-3.4) 10^3/uL 2.02 Absolute Monocytes (0.1-0.8) 10^3/uL 0.98 H Absolute Eosinophils (0.0-0.7) 10^3/uL 0.76 H Absolute Basophils (0.0-0.2) 10^3/uL 0.16 ESR (0-30) mm/hr 34 H VBG Lactate (0.6-1.4) mmol/L 1.2 Magnesium (1.8-2.4) mg/dL 1.7 L Lipase (16-77) U/L 16 Medical Decision Making This dictation utilizes [id number] dictation software and may contain unedited grammatical errors. 58 y/o F presents to ED today with a chief complaint of recent ostomy placement due to diverticulitis, states abdominal pain, and blood per rectum. Patient appears in no acute distress, has nontoxic vitals, states bright red blood [place]. Patients' medical history: Chronic respiratory failure, history of depression, chronic cor pulmonale, history of NSTEMI, COPD, diverticulitis. Family and social history: Is recovering at rehab facility across from [facility] Pertinent exam findings / vital signs include poor ostomy bag hygiene and broken seal at left abdominal ostomy with stool covering the skin of the abdomen, benign cardiopulmonary exam, neuro intact, nonperitoneal abdomen, no adalberto blood on DILMA Differential / pathologies of concern include postoperative complication with routine bleeding post ostomy, GI hemorrhage, unlikely pneumonia or postoperative atelectasis. Diagnostic studies of: -CBC, CMP, lipase, lactate, procalcitonin, magnesium, UA, CT abdomen/pelvis. -CBC shows leukocytosis 12, non-specific -Lactate neg, procal neg -CRP mild elev, expected post-op -Magnesium mild low, recommend supplement -UA - patient not provided -CT shows 3.8cm sigmoid colon abscess - patient has been seen at IR at [facility], was possibly planned to have another drain placed there ?today? on record review. Interventions of: -IV Tylenol, Toradol, IVF. ED Course/Assessment/Plan: 58-year-old female presents with some brief episodic rectal bleeding X2 today, has recent ostomy at [facility], DILMA is benign and shows no adalberto blood in her hemoglobin is 10 which is improved from any prior values. She does have a mild white count ESR is elevated, lactate and procalcitonin are negative, do not suspect sepsis, mildly low magnesium which should improve with normal p.o. intake, lipase negative, do not suspect sepsis, CT findings show 3.8cm abscess adjacent to surgical site in colon, consulting with [facility]. Patient signed out to EM Attending Dr. Hu at shift-change with pending [facility] consult. Findings not consistent with hemorrhage, sepsis. Disposition of Rectal Bleeding, Abscess of Sigmoid Colon. Patient verbalized understanding of the plan and return to ED criteria and engaged in shared decision making. Medical Records Medical records reviewed: Yes I reviewed the patient's medical records. Imaging Data Radiologic Study: Attestation: I personally reviewed and interpreted this imaging study as follows: Imaging: CT Scan Radiologist's impression: Exam: CT Abdomen And Pelvis With Contrast Exam date and time: 09/19/2023 10:01 PM Age: 58 years old Clinical indication: Prior surgery; Surgery date: 3-7 days post-operative; Surgery type: Colostomy; Patient HX: Ostomy problem, rectal bleeding TECHNIQUE: Imaging protocol: Computed tomography of the abdomen and pelvis with contrast. Radiation optimization: All CT scans at this facility use at least one of these dose optimization techniques: automated exposure control; mA and/or kV adjustment per patient size (includes targeted exams where dose is matched to clinical indication); or iterative reconstruction. Contrast material: OMNIPAQUE 350; Contrast volume: 100 ml; Contrast route: INTRAVENOUS (IV); COMPARISON: CT ABDOMEN PELVIS W 09/05/2023 12:58 PM FINDINGS: Tubes, catheters and devices: There has been interval removal of percutaneous drainage catheter from the pelvis. Diaphragm: Small sliding-type hiatal hernia. Left lower quadrant colostomy in place with small parastomal hernia containing fat. Liver: Normal. No mass. Gallbladder and bile ducts: Normal. No calcified stones. No ductal dilation. Pancreas: Normal. No ductal dilation. Spleen: Normal. No splenomegaly. Adrenal glands: Normal. No mass. Kidneys and ureters: Stable 3 cm simple cortical cyst lower left kidney. Right kidney is unremarkable. No hydronephrosis. Stomach and bowel: Loculated fluid collection containing a small amount of gas measures 3.8 cm in greatest diameter and exhibits peripheral enhancement, compatible with residual abscess. This has decreased in size significantly compared to the prior study and located anterior and inferior to the sigmoid colon anastomosis site. No other abnormal fluid collections. Evidence of prior partial colectomy of the sigmoid colon. No evidence of bowel obstruction. Appendix: No evidence of appendicitis. Intraperitoneal space: Unremarkable. No free air. No significant fluid collection. Vasculature: Dense atherosclerotic calcification of the aorta. No evidence of aneurysm or dissection. Lymph nodes: Unremarkable. No enlarged lymph nodes. Urinary bladder: Unremarkable as visualized. Reproductive: Unremarkable as visualized. Bones/joints: Unremarkable. No acute fracture. Soft tissues: Open surgical wound involving the superficial soft tissues in the anterior abdominal wall. No underlying fluid collection. IMPRESSION: Interval removal of drainage catheter from the pelvis width residual 3.8 cm abscess adjacent to the site of sigmoid colon anastomosis. Dictated and Authenticated by: Bolivar Saucedo MD. Ordering:ALAINA Zambrano MD Lab Data Lab results reviewed: Yes I reviewed the patient's lab results. Labs: 09/19/23 21:07 Blood Blood Culture - Pending 09/19/23 20:45 Blood Blood Culture - Pending Laboratory Tests Range/Units 09/19/23 20:45 WBC (4.4-10.8) 10^3/uL 12.00 H RBC (3.93-5.22) 10^6/uL 3.49 L Hgb (11.2-15.7) g/dL 10.0 L Hct (36.0-46.0) % 32.0 L MCV (80-95) fL 92 MCH (27.0-33.0) pg 28.7 MCHC (32.0-36.0) % 31.3 L RDW (11.7-14.6) % 18.9 H Plt Count (130-400) 10^3/uL 436 H MPV (8.0-11.0) fL 10.6 Immature Gran % 0.8 Neutrophils % 66.6 Lymphocytes % 16.8 Monocytes % 8.2 Eosinophils % 6.3 Basophils % 1.3 Nucleated RBC % (0.0-0.3) % 0.0 Absolute Neutrophils (1.2-6.7) 10^3/uL 7.99 H Absolute Lymphocytes (1.2-3.4) 10^3/uL 2.02 Absolute Monocytes (0.1-0.8) 10^3/uL 0.98 H Absolute Eosinophils (0.0-0.7) 10^3/uL 0.76 H Absolute Basophils (0.0-0.2) 10^3/uL 0.16 ESR (0-30) mm/hr 34 H VBG Lactate (0.6-1.4) mmol/L 1.2 Sodium (136-145) mmol/L 140 Potassium (3.5-5.1) mmol/L 3.7 Chloride (98-107) mmol/L 104 Carbon Dioxide (21.0-32.0) mmol/L 26.4 Anion Gap (3-11) mmol/L 9.6 BUN (7-18) mg/dL 12 Creatinine (0.55-1.02) mg/dL 1.0 Est GFR (CKD-EPI 2020) (mL/min/1.73m2) 65.71 Glucose (74-106) mg/dL 103 Calcium (8.5-10.1) mg/dL 8.3 L Magnesium (1.8-2.4) mg/dL 1.7 L Total Bilirubin (0.2-1.0) mg/dL 0.3 AST (15-37) U/L 16 ALT (14-59) U/L 13 L Alkaline Phosphatase (46-116) U/L 92 C-Reactive Protein (<or=0.5) mg/dL 2.17 H Total Protein (6.4-8.2) g/dL 7.2 Albumin (3.4-5.0) g/dL 2.7 L Lipase (16-77) U/L 16 Procalcitonin ng/mL < 0.1 Quality:SDOH Health Related Social Needs: No Data to Display PFSH All Active Problems (Updated 09/19/23 @ 23:14 by WENDY Hassan) Abscess of sigmoid colon (Acute) Rectal bleeding (Acute) Anemia associated with acute blood loss (Acute) Cor pulmonale (chronic) (Acute) Epigastric pain (Acute) Hypoxia (Chronic) NSTEMI (non-ST elevated myocardial infarction) (Acute) Hyperlipidemia (Acute) COPD (chronic obstructive pulmonary disease) (Chronic) Laryngopharyngeal reflux (Acute) Rhinitis (Acute) Bipolar disorder (Acute) Eustachian tube disorder (Acute) Plantar fasciitis (Acute) Tobacco abuse (Acute) Hypothyroidism (Chronic) Smoking (Acute) Abscess of female pelvis (Acute) Closed fibular fracture (Acute) COPD exacerbation (Acute) Acute hypoxemic respiratory failure (Acute) Diverticulitis (Acute) Medical History Hx of thrombocytopenia Chronic respiratory failure with hypoxia and hypercapnia Fever Chronic hypoxic respiratory failure Auditory hallucination Depression Suicide ideation Social History Smoking/Tobacco Use Status: Current every day Tobacco Type: cigarettes Years smoked: 41 Smoking risk assessment performed?: Yes Alcohol Intake: never Drug use: Never Substance use type: does not use Housing: assisted living facility Do you feel safe at home: Yes Do you feel safe in your relationship?: Yes Additional Social history: Lives at [facility] Radha Sneed RN 08/03/23 Sign Out Sign Out Data: Sign Out Comment: Await [facility] Consult for sigmoid abscess, recent ostomy placement. Nontoxic overall. Recovering at rehab across the street. May need IR placement vs outpatient f/u home on ABX? Last updated by Juan Manuel Avalos PA at 09/19/23 23:15
[2023-09-19 21:24] LABS: ALT 13 U/L (14-59); AST 16 U/L (15-37); Albumin 2.7 g/dL (3.4-5.0); Alkaline Phosphatase 92 U/L (46-116); Anion Gap 9.6 mmol/L (3-11); BUN 12 mg/dL (7-18); Bilirubin, Total 0.3 mg/dL (0.2-1.0); C-Reactive Protein 2.17 mg/dL (<or=0.5); CO2 26.4 mmol/L (21.0-32.0); Calcium 8.3 mg/dL (8.5-10.1); Chloride 104 mmol/L (98-107); Estimated GFR 65.71 (mL/min/1.73m2); Glucose 103 mg/dL (74-106); Potassium 3.7 mmol/L (3.5-5.1); Sodium 140 mmol/L (136-145); Total Protein 7.2 g/dL (6.4-8.2)
[2023-09-19 21:38] LABS: Procalcitonin < 0.1 ng/mL
[2023-09-19] MEDS: Omnipaque 350 MG/ML 100 ML BTL IJ (21:57)
[2023-09-19] MEDS: Normal Saline Flush 10 ML SYR IVP (21:58)
[2023-09-19] MEDS: Normal Saline - Diluent 50 ML VIAL IJ (21:59)
--- NOTE | 2023-09-19 22:17 | DI.CT_ITS ---
Exam(s) CT ABDOMEN PELVIS W EXAM: CT ABDOMEN PELVIS W CLINICAL HISTORY: ostomy problem, rectal bleeding TECHNIQUE: Imaging Protocol: Axial computed tomography images with coronal and sagittal reformatted images were created and reviewed. CONTRAST MATERIAL: Intravenous: Omnipaque 350 Contrast volume:100 mL Oral: No COMPARISON: CT CT CHEST PE CTA from 05/29/[address] CHEST PE CTA from 08/03/[address] ABDOMEN PELVIS CTA from 08/03/[address] ABDOMEN PELVIS W from 08/15/[address] ABDOMEN PELVIS CTA from 08/21/[address] ABDOMEN PELVIS W from 08/25/[address] CHEST PE CTA from 08/30/[address] CHEST/ABD/PEL W from 08/31/[address] ABDOMEN PELVIS W from 09/05/2023 FINDINGS: ABDOMEN: Lung Bases: There is a hiatal hernia. Liver: Normal density. Tiny hypodensities are again seen in the liver. They are too small for furthe r characterization but likely reflect small cysts. No suspicious masses are seen. Portal, Superior Mesenteric, and Splenic Veins: Unremarkable. Gallbladder and Biliary Tract: No radiodense calculus or dilation. Pancreas: Normal density, no abnormal calcifications or inflammatory process. Spleen: Normal. Adrenals: No masses seen. Kidneys: Normal size, contour and axis. No radiodense stones or obstructive uropathy. No masses seen. There is a simple cyst in the left kidney. No follow-up is recommended. Abdominal Aorta: Abdominal portion non-dilated. Atherosclerotic calcification is present. Bowel: There is again seen a left lower quadrant colostomy. Diverticulosis is seen in the:. There i s again seen an abscess at the level of the sigmoid stump in the pelvis. It measures 3.5 x 2.7 cm. The drainage catheter has been removed. There is inflammation seen around the abscess. There is no evidence of bowel obstruction. There is no evidence of appendicitis. The stomach is incompletely di stended limiting evaluation. Note is made of a air-filled diverticulum adjacent to the pancreatic he ad arising from the duodenum. Peritoneal Cavity: There is no significant ascites. There is soft tissue stranding seen in the pelvi s around the patient's known abscess. No free air. Lymph Nodes: Within normal limits. Bones: Within normal limits for the patient's age. Soft Tissues: Unremarkable. PELVIS: Bladder: There is diffuse thickening of the wall of the urinary bladder. The bladder is incompletely distended. There is mild stranding around the urinary bladder. There is also a small focus of air in the dependent portion of the urinary bladder. Reproductive Organs: Unremarkable as visualized. Lymph Nodes: Within normal limits. Bones: Within normal limits for the patient's age. IMPRESSION: 1. Interval removal of the drainage catheter from the abscess. The abscess persists and measures 3.5 x 2.7 cm. It is shown slight decrease in size compared to the prior examination. 2. Thickening of the wall of the urinary bladder with mild inflammatory stranding. This may represen t a cystitis. There is a small focus of air within the urinary bladder. This may reflect infection or recent catheterization. Please correlate clinically. 3. Diverticulosis in the colon. Left lower quadrant colostomy. RADIATION DOSE DELIVERED: 900.7mGy.cm Total DLP DATA REPOSITORY: All CT scans at this facility are submitted to the National Radiology Data Registry (NRDR) Dose Index Registry (DIR) with the [employer] (A[employer]). RADIATION OPTIMIZATION: All CT scans at this facility use at least one of these dose optimization te chniques: automated exposure control; mA and/or kV adjustment per patient size (includes targeted exa ms where dose is matched to clinical indication); or iterative reconstruction.
--- NOTE | 2023-09-19 22:59 | DI.VRAD_ITS ---
PROCEDURE INFORMATION: Exam: CT Abdomen And Pelvis With Contrast Exam date and time: 09/19/2023 10:01 PM Age: 58 years old Clinical indication: Prior surgery; Surgery date: 3-7 days post-operative; Surgery type: Colostomy; Patient HX: Ostomy problem, rectal bleeding TECHNIQUE: Imaging protocol: Computed tomography of the abdomen and pelvis with contrast. Radiation optimization: All CT scans at this facility use at least one of these dose optimization techniques: automated exposure control; mA and/or kV adjustment per patient size (includes targeted exams where dose is matched to clinical indication); or iterative reconstruction. Contrast material: OMNIPAQUE 350; Contrast volume: 100 ml; Contrast route: INTRAVENOUS (IV); COMPARISON: CT ABDOMEN PELVIS W 09/05/2023 12:58 PM FINDINGS: Tubes, catheters and devices: There has been interval removal of percutaneous drainage catheter from the pelvis. Diaphragm: Small sliding-type hiatal hernia. Left lower quadrant colostomy in place with small parastomal hernia containing fat. Liver: Normal. No mass. Gallbladder and bile ducts: Normal. No calcified stones. No ductal dilation. Pancreas: Normal. No ductal dilation. Spleen: Normal. No splenomegaly. Adrenal glands: Normal. No mass. Kidneys and ureters: Stable 3 cm simple cortical cyst lower left kidney. Right kidney is unremarkable. No hydronephrosis. Stomach and bowel: Loculated fluid collection containing a small amount of gas measures 3.8 cm in greatest diameter and exhibits peripheral enhancement, compatible with residual abscess. This has decreased in size significantly compared to the prior study and located anterior and inferior to the sigmoid colon anastomosis site. No other abnormal fluid collections. Evidence of prior partial colectomy of the sigmoid colon. No evidence of bowel obstruction. Appendix: No evidence of appendicitis. Intraperitoneal space: Unremarkable. No free air. No significant fluid collection. Vasculature: Dense atherosclerotic calcification of the aorta. No evidence of aneurysm or dissection. Lymph nodes: Unremarkable. No enlarged lymph nodes. Urinary bladder: Unremarkable as visualized. Reproductive: Unremarkable as visualized. Bones/joints: Unremarkable. No acute fracture. Soft tissues: Open surgical wound involving the superficial soft tissues in the anterior abdominal wall. No underlying fluid collection. IMPRESSION: Interval removal of drainage catheter from the pelvis width residual 3.8 cm abscess adjacent to the site of sigmoid colon anastomosis. Dictated and Authenticated by: Bolivar Saucedo MD. Ordering:ALAINA Zambrano MD
[2023-09-19 23:42] LABS: Bilirubin Negative (Negative); Blood Trace-intact (Negative); Clarity Clear (Clear); Glucose Negative (Negative); Ketones Negative (Negative); Leukocyte Esterase Negative (Negative); Nitrite Negative (Negative); Specific Gravity <= 1.005 (1.005-1.025); Urobilinogen 0.2 mg/dL (Up to 0.2)
[2023-09-19 23:58] LABS: Bacteria Few HPF (Negative); C & S Indicated? No; Crystals Negative HPF (Negative); Epithelial Cells Few HPF (Negative); Mucus Negative (Negative); Other Cells Few Transitional (Negative); RBC 0-2 HPF (0-2); WBC 0-2 HPF (0-5)
--- NOTE | 2023-09-20 00:54 | ED.PROG_ITS ---
Date of service: 09/20/23 Time of Service: 00:57 Medical Decision Making Patient was signed out to me by my colleague Juan Manuel Avalos. Please refer to his HPI, physical exam, assessment and plan. CT image shows a 3.8 cm abscess adjacent to the site of sigmoid colon anastomosis. Drain had been removed from the location of that abscess in the past, but abscess is still notable and present. At time of signout we are awaiting callback from [facility] surgical team. [facility] surgery has called back, I spoke with Dr. Woodson and reviewed the case and the imaging findings. They recommend transfer to the emergency department for review and assessment. I have extensively reviewed the treatment plan with the patient. I have addressed all patient concerns at this time. I have also discussed the plan with the admitting physician and they agree with the current assessment and plan and have agreed to assume responsibility for the patient. All parties demonstrate verbal understanding and agreement with our assessment and plan at this time. The documentation in this chart was dictated using [employer] dictation software. Please excuse any dictation errors. At time of transfer the patient was reassessed and continued to demonstrate No signs of acute respiratory distress requiring intubation, hemodynamic instability requiring pressor support, or rapidly declining mental status. FINDINGS: Tubes, catheters and devices: There has been interval removal of percutaneous drainage catheter from the pelvis. Diaphragm: Small sliding-type hiatal hernia. Left lower quadrant colostomy in place with small parastomal hernia containing fat. Liver: Normal. No mass. Gallbladder and bile ducts: Normal. No calcified stones. No ductal dilation. Pancreas: Normal. No ductal dilation. Spleen: Normal. No splenomegaly. Adrenal glands: Normal. No mass. Kidneys and ureters: Stable 3 cm simple cortical cyst lower left kidney. Right kidney is unremarkable. No hydronephrosis. Stomach and bowel: Loculated fluid collection containing a small amount of gas measures 3.8 cm in greatest diameter and exhibits peripheral enhancement, compatible with residual abscess. This has decreased in size significantly compared to the prior study and located anterior and inferior to the sigmoid colon anastomosis site. No other abnormal fluid collections. Evidence of prior partial colectomy of the sigmoid colon. No evidence of bowel obstruction. Appendix: No evidence of appendicitis. Intraperitoneal space: Unremarkable. No free air. No significant fluid collection. Vasculature: Dense atherosclerotic calcification of the aorta. No evidence of aneurysm or dissection. Lymph nodes: Unremarkable. No enlarged lymph nodes. Urinary bladder: Unremarkable as visualized. Reproductive: Unremarkable as visualized. Bones/joints: Unremarkable. No acute fracture. Soft tissues: Open surgical wound involving the superficial soft tissues in the anterior abdominal wall. No underlying fluid collection. IMPRESSION: Interval removal of drainage catheter from the pelvis width residual 3.8 cm abscess adjacent to the site of sigmoid colon anastomosis. Thank you for allowing us to participate in the care of your patient. Dictated and Authenticated by: Bolivar Saucedo MD 09/19/2023 10:58 PM Eastern Time ([place] & [place]) Quality:SDOH Health Related Social Needs: No Data to Display Sign Out Sign Out Data: Sign Out Comment: Await [facility] Consult for sigmoid abscess, recent ostomy placement. Nontoxic overall. Recovering at rehab across the street. May need IR placement vs outpatient f/u home on ABX? Last updated by Juan Manuel Avalos PA at 09/19/23 23:15 Discharge Plan Disposition Patient Disposition: Transfer-Acute Inpatient Care Specific Acute In Facility: [facility] Condition: Stable Discharge Details Chief Complaint: GI Bleed Clinical Impression: Rectal bleeding, Abscess of sigmoid colon Primary Care Provider: Unknown,Unknown ED Provider: Jaun Manuel Hu Home Meds and New Rx's Prescriptions: Continued nicotine 7 mg/24 hr patch 24 hour 1 patch transdermal Q24H levothyroxine [Euthyrox] 88 mcg tablet 88 mcg PO DAILY gabapentin 300 mg capsule 300 mg PO QID lurasidone 120 mg tablet 160 mg PO QHS Rx Instructions: must administer with food (at least 350 calories) acetaminophen [Tylenol Extra Strength] 500 mg tablet 1,000 mg PO Q6H PRN lansoprazole 15 mg capsule,delayed release(DR/EC) 15 mg PO DAILY bupropion HCl 100 mg tablet 100 mg PO DAILY AM hydroxyzine HCl 50 mg tablet 50 mg PO ONCE PRN ferrous sulfate [iron] 325 mg (65 mg iron) tablet 325 mg PO DAILY albuterol sulfate 90 mcg/actuation HFA aerosol inhaler 2 inh inhalation Q4H PRN prazosin 1 mg capsule 1 mg PO QHS olanzapine 15 mg Tablet 15 mg PO HS Qty: 30 0RF tiotropium bromide [Spiriva with HandiHaler] 18 mcg capsule, w/inhalation device 1 cap inhalation DAILY Qty: 30 0RF Rx Instructions: puncture 1 cap using device; one dose = 2 inhalations Discharge Instructions Instructions: Rectal Bleeding (ED) Additional Instructions: You were seen in the emergency department for your rectal bleeding, you had a recent colectomy with ostomy placement. This amount of bleeding is unconcerning and your hemoglobin is normal, there is no signs of sepsis or infection on your labs of a significant degree. CT is negative for any acute abnormality, please try to take better care of your ostomy bag as it was leaking stool and had a very poor seal was not fully connected, take Tylenol and ibuprofen and your oxycodone for pain, we cannot provide you with further pain medication as you have these available at the facility you are at. Please return to the emergency department for any severe increase in bleeding, dizziness, fainting, weakness, fever. You had a mildly low magnesium that should improve with normal p.o. intake, you may take [id number] supplements for this as well or a multivitamin.
[2023-09-20] MEDS: Ketorolac 15 MG/ML VIAL IVP (02:48)
[2023-09-20 05:24] VITALS: BP 155/79; PULSE 101; O2SAT 98
== END 2023-09-20 07:32 | disposition short-term general hospital (02) ==
PROVIDERS: Physician Assistant; Emergency Provider Student in an Organized Health Care Education/Training Program
DX: R10.32 Left lower quadrant pain (principal); K63.0 Abscess of intestine; Z93.3 Colostomy status; R46.0 Very low level of personal hygiene; K62.5 Hemorrhage of anus and rectum
CPT/HCPCS: 00123; 80053; 83690; 84145; 85652; 87040; 96365; 96366; 96375; 96376; 99285; 74177; 81003; 81015; 83605; 83735; 85025; 86140; J0131; J1885; J3490

== ENCOUNTER 2023-10-12 12:58 | Outpatient (REF) | payer MEDICARE, MEDICAID, SELFPAY ==
[2023-10-12 12:42] LABS: Abs Immature Grans 0.02 10^3/uL (0.0-0.06); Absolute Basophil Count 0.08 10^3/uL (0.0-0.2); Absolute Eosinophil Count 0.27 10^3/uL (0.0-0.7); Absolute Lymphocyte Count 1.62 10^3/uL (1.2-3.4); Absolute Monocyte Count 0.53 10^3/uL (0.1-0.8); Absolute Neutrophil Count 4.02 10^3/uL (1.2-6.7); Basophils % 1.2; Eosinophils % 4.1; HCT 38.8 % (36.0-46.0); HGB 11.8 g/dL (11.2-15.7); Immature Grans % 0.3; Lymphocytes % 24.8; MCH 29.8 pg (27.0-33.0); MCHC 30.4 % (32.0-36.0); MCV 98 fL (80-95); MPV 12.6 fL (8.0-11.0); Monocytes % 8.1; Neutrophils % 61.5; Platelet Count 195 10^3/uL (130-400); RBC 3.96 10^6/uL (3.93-5.22); RDW 15.7 % (11.7-14.6); RDW-SD 57.6 fL; WBC 6.54 10^3/uL (4.4-10.8)
[2023-10-12 13:47] LABS: ALT 19 U/L (14-59); AST 32 U/L (15-37); Albumin 3.3 g/dL (3.4-5.0); Alkaline Phosphatase 89 U/L (46-116); Anion Gap 14.7 mmol/L (3-11); BUN 14 mg/dL (7-18); Bilirubin, Total 0.4 mg/dL (0.2-1.0); CO2 22.3 mmol/L (21.0-32.0); CREATININE 0.6 mg/dL (0.55-1.02); Calcium 8.3 mg/dL (8.5-10.1); Chloride 104 mmol/L (98-107); Estimated GFR 104.63 (mL/min/1.73m2); Glucose 97 mg/dL (74-106); Potassium 5.1 mmol/L (3.5-5.1); Sodium 141 mmol/L (136-145); TSH (W/Ref FT4) 3.33 uIU/mL (0.36-3.74); Total Protein 7.4 g/dL (6.4-8.2)
== END 2023-10-12 12:59 | disposition home or self-care (01) ==
LOC: LBN 12:58
PROVIDERS: Visit Provider Family Medicine
DX: D64.9 Anemia, unspecified (principal); E03.9 Hypothyroidism, unspecified; E87.6 Hypokalemia
CPT/HCPCS: 80053; 84443; 85025

== ENCOUNTER 2023-10-16 12:01 | Emergency (ER) | payer MEDICARE, MEDICAID, SELFPAY ==
[2023-10-16 12:00] VITALS: BP 159/116; PULSE 83; RESP 18; TEMP 36.8; O2SAT 95
--- NOTE | 2023-10-16 12:08 | ED.GENADUL_ITS ---
Discharge Plan Discharge Details Chief Complaint: Abd Prob Clinical Impression: Urinary tract infection, Hypokalemia Primary Care Provider: Unknown,Unknown ED Provider: Juan Manuel Avalos Home Meds and New Rx's Prescriptions: New cephalexin 500 mg capsule 500 mg PO QID 10 Days Qty: 40 0RF No Action nicotine 7 mg/24 hr patch 24 hour 1 patch transdermal Q24H levothyroxine [Euthyrox] 88 mcg tablet 88 mcg PO DAILY gabapentin 300 mg capsule 300 mg PO QID lurasidone 120 mg tablet 160 mg PO QHS Rx Instructions: must administer with food (at least 350 calories) acetaminophen [Tylenol Extra Strength] 500 mg tablet 1,000 mg PO Q6H PRN lansoprazole 15 mg capsule,delayed release(DR/EC) 15 mg PO DAILY hydroxyzine HCl 50 mg tablet 50 mg PO ONCE PRN ferrous sulfate [iron] 325 mg (65 mg iron) tablet 325 mg PO DAILY albuterol sulfate 90 mcg/actuation HFA aerosol inhaler 2 inh inhalation Q4H PRN prazosin 1 mg capsule 1 mg PO QHS olanzapine 15 mg Tablet 15 mg PO HS Qty: 30 0RF bupropion HCl [Wellbutrin XL] 150 mg tablet extended release 24 hr 150 mg PO DAILY oxycodone 5 mg tablet 5 mg PO Q8H PRN sennosides-docusate sodium [Colace 2-In-1] 8.6-50 mg tablet 1 tab-cap PO BID tiotropium bromide [Spiriva with HandiHaler] 18 mcg capsule, w/inhalation device 1 cap inhalation DAILY Qty: 30 0RF Rx Instructions: puncture 1 cap using device; one dose = 2 inhalations HPI General Date/Time Provider Initiated Documentation: 10/16/23 12:08 . HPI Narrative: 58 year-old female presents to ED today by EMS with a chief complaint of severe abdominal pain, [facility], staff reports poor PO intake, nausea. Patient states severe abdominal pain, s/p IR drain placed for sigmoid colon abscess seen at this ER 09/20 transferred to [facility] with onset of worsening since Tuesday (2 days). Patient also has a drain in her R abdomen, and a colostomy to L abdomen- there was subjective reports of stool draining into her R abdomen wound vac. Quality described as diffuse abdominal pain, no radiation to chest pain, black/bloody stools, high fever, alteration from baseline, shortness of breath, cough. Severity is described as 03/03. Palliating factors include nothing specific beyond home meds. Provoking factors include nothing specific. Patient not anticoagulated. Related Data Home Medications Medication Instructions Recorded Confirmed acetaminophen 500 mg tablet 1,000 mg PO Q6H PRN 05/26/23 10/16/23 (Tylenol Extra Strength) albuterol sulfate 90 mcg/actuation 2 inh inhalation Q4H PRN 05/26/23 08/15/23 aerosol inhaler ferrous sulfate 325 mg (65 mg 325 mg PO DAILY 05/26/23 08/15/23 iron) tablet (iron) gabapentin 300 mg capsule 300 mg PO QID 05/26/23 08/15/23 hydroxyzine HCl 50 mg tablet 50 mg PO ONCE PRN 05/26/23 08/15/23 lansoprazole 15 mg capsule,delayed 15 mg PO DAILY 05/26/23 08/15/23 release levothyroxine 88 mcg tablet 88 mcg PO DAILY 05/26/23 10/16/23 (Euthyrox) lurasidone 120 mg tablet 160 mg PO QHS 05/26/23 10/16/23 prazosin 1 mg capsule 1 mg PO QHS 05/26/23 08/15/23 olanzapine 15 mg tablet 15 mg PO HS #30 tabs 06/02/23 08/15/23 tiotropium bromide 18 mcg capsule 1 cap inhalation DAILY #30 08/06/23 08/15/23 with inhalation device (Spiriva inhalations with HandiHaler) nicotine 7 mg/24 hr daily 1 patch transdermal Q24H 08/22/23 10/16/23 transdermal patch bupropion HCl 150 mg 24 hr tablet, 150 mg PO DAILY 10/16/23 10/16/23 extended release (Wellbutrin XL) cephalexin 500 mg capsule 500 mg PO QID 10 days #40 caps 10/16/23 oxycodone 5 mg tablet 5 mg PO Q8H PRN 10/16/23 10/16/23 sennosides 8.6 mg-docusate sodium 1 tab-cap PO BID 10/16/23 10/16/23 50 mg tablet (Colace 2-In-1) Previous Rx's Medication Instructions Recorded olanzapine 15 mg tablet 15 mg PO HS #30 tabs 06/02/23 tiotropium bromide 18 mcg capsule 1 cap inhalation DAILY #30 08/06/23 with inhalation device (Spiriva inhalations with HandiHaler) cephalexin 500 mg capsule 500 mg PO QID 10 days #40 caps 10/16/23 Allergies Allergy/AdvReac Type Severity Reaction Status Date / Time erythromycin base Allergy Intermediate Anaphylaxis Unverified 10/16/23 12:08 [From Erythrocin] moxifloxacin AdvReac Mild rash Verified 10/16/23 12:08 prednisone AdvReac Mild Psychosis Unverified 10/16/23 12:08 General Stated Complaint: Abd Prob ANDERS: 3 Review of Systems All systems reviewed & are unremarkable except as noted in HPI and below Exam Narrative Exam Narrative: GENERAL APPEARANCE: Well-nourished, non-toxic, awake and alert, atraumatic, no acute distress. SKIN: Warm, pink, dry, intact, without rashes/lesions/ulcerations. HEAD: Normocephalic, atraumatic, normal hair distribution for gender/age. EYES: Pupils PERRLA, EOMs intact without nystagmus, normal conjunctiva, no exudates on lids/lashes. ENT: Nares patent, no circumoral cyanosis, no facial swelling NECK: Supple, trachea midline, painless cervical ROM. LUNGS/CHEST: Lungs CTA bilaterally- no rhonchi/rales/wheezes diffusely, non- labored respirations, normal A/P diameter, symmetrical expansion, no chest wall deformity HEART (CV/PV): Regular rate and rhythm without murmur, no peripheral edema, no JVD. ABDOMEN: Soft, non-distended, no guarding, diffuse tenderness, rebound tenderness, no CVA tenderness to percussion, stool in colostomy bag, serous drainage from wound vacuum without stool or purulent material, some scant purulent material frm the sigmoid abscess drain, none in bag. Suprapubic tenderness most focal. MSK: Normal ROM, no swelling/deformity to bilateral UEs or LEs, moving all extremities without weakness, no cyanosis, spine midline without tenderness, normal curvature. NEURO: Mental Status AAOx4 - alert to person, place, time, events No facial droop, no forehead involvement. Motor: No focal weakness - strength 5/5 in bilateral UEs and LEs, proximal and distal, symmetric. Sensory: sensation intact to light touch globally. Gait normal: patient ambulated without ataxia into ED room. PSYCH: euthymic, cooperative, pleasant, appropriate speech Course Vital Signs Vital signs: Vital Signs Temperature 36.8 C 10/16/23 12:00 Pulse 83 10/16/23 12:00 Respiratory Rate 18 10/16/23 12:00 Blood Pressure 159/116 H 10/16/23 12:00 Pulse Oximetry 95 10/16/23 12:00 Temperature 36.8 C 10/16/23 12:00 Temperature Source Oral 10/16/23 12:00 Pulse 83 10/16/23 12:00 Respiratory Rate 18 10/16/23 12:00 Respiratory Effort Normal, Non-Labored 10/16/23 12:08 Blood Pressure 159/116 H 10/16/23 12:00 Blood Pressure Position Sitting 10/16/23 12:00 Pulse Oximetry 95 10/16/23 12:00 Oxygen Delivery Method Room Air 10/16/23 12:00 Oxygen Flow Rate 0 10/16/23 12:00 Pain Level 7 10/16/23 12:00 Medical Decision Making This dictation utilizes [id number] dictation software and may contain unedited grammatical errors. 58 y/o F presents to ED today with a chief complaint of reports of poor intake by staff at rehab facility- patient endorses abdominal pain and nausea, one episode vomiting here. Patient has posterior wound drain from sigmoid abscess that appears with material in tubing- has wound vacuum to anterior abdomen without erythema or leaking here, operating correctly, and has ostomy with stool. Patient has follow-up with [facility] surgery in 4 days on the . Patients' medical history: Abscess of sigmoid colon, rectal bleeding, cor pulmonale, hypoxia, NSTEMI, COPD, bipolar disorder, COPD exacerbation,. Family and social history: noncontributory. Pertinent exam findings / vital signs include mild suprapubic tenderness, no erythema around abdominal wound drain/vac sites, no leaking observed multiple checks, benign cardiopulmonary status, nontoxic. Differential / pathologies of concern include Surgical Complications, Intra- abdominal abscess, Less likely sepsis, UTI, Gastroenteritis, Electrolyte abnormality. Diagnostic studies of: -CBC, CMP, lactate, procalcitonin, BNP, lipase, magnesium, urinalysis, blood cultures, CT ABD/pelvis W contrast. Interventions of: -IVF, IV Tylenol, Ceftriaxone, IV potassium. ED Course/Assessment/Plan: 58-year-old female presents from rehab facility across the street, has wound VAC to anterior abdomen as well as a sigmoid abscess drain, has follow-up with [facility] general surgery in 4 days, staff reports she is having poor p.o. intake across street, patient reports abdominal pain., Plan to provide some IV fluids and place her on potassium supplements for mild hypokalemia, add Compazine to her medicines for any nausea and help with p.o. intake. Otherwise she has no leukocytosis, it appears her sigmoid abscess has resolved with no fluid remaining in and this will likely be removed in 4 days. The wound VAC is draining completely clear serous fluid I do not see any purulent material collecting anywhere within the system, the dressing appears great with no surrounding erythema to the area. Patient has an incidental UTI with nitrites which I am prescribing Keflex for, surgical services will be to relay to rehab facility that they are welcome to call [facility] surgical services with any questions. -Patient signed out to oncoming provider Clara Chiu PA-C at shift change pending repletion of potassium and PO challenge. Findings not consistent with sepsis, fistula, wound vac contamination. Disposition of Urinary Tract Infection, Hypokalemia. Patient verbalized understanding of the plan and return to ED criteria and engaged in shared decision making. Medical Records Medical records reviewed: Yes I reviewed the patient's medical records. Imaging Data Radiologic Study: Attestation: I personally reviewed and interpreted this imaging study as follows: Imaging: CT Scan Radiologist's impression: Exam: CT Abdomen And Pelvis With Contrast Exam date and time: 10/16/2023 1:26 PM Age: 58 years old Clinical indication: Abdominal pain; Generalized TECHNIQUE: Imaging protocol: Computed tomography of the abdomen and pelvis with contrast. Radiation optimization: All CT scans at this facility use at least one of these dose optimization techniques: automated exposure control; mA and/or kV adjustment per patient size (includes targeted exams where dose is matched to clinical indication); or iterative reconstruction. Contrast material: OMNI 350; Contrast volume: 90 ml; Contrast route: INTRAVENOUS (IV); COMPARISON: CT ABDOMEN PELVIS W 09/19/2023 10:01 PM FINDINGS: Tubes, catheters and devices: Drainage catheter terminates in the left hemipelvis. (series 4, image 56.) no significant fluid collection persists in this region.. Diaphragm: Moderate hiatal hernia Liver: Normal. No mass. Gallbladder and bile ducts: The gallbladder is unremarkable Pancreas: Normal. No ductal dilation. Spleen: Normal. No splenomegaly. Adrenal glands: Normal. No mass. Kidneys and ureters: 3.1 cm simple cyst left kidney. . No follow-up imaging recommended . Stomach and bowel: Left lower quadrant ostomy . No obstruction. Appendix: No evidence of appendicitis. Intraperitoneal space: Unremarkable. No free air. No significant fluid collection. Vasculature: Unremarkable. No abdominal aortic aneurysm. Lymph nodes: Unremarkable. No enlarged lymph nodes. Urinary bladder: Unremarkable as visualized. Reproductive: Unremarkable as visualized. Bones/joints: Unremarkable. No acute fracture. Soft tissues: Inflammatory changes around the umbilicus may be due to prior surgery IMPRESSION: Drainage catheter terminates in the left hemipelvis. (series 4, image 56.) no significant fluid collection persists in this region.. Left lower quadrant ostomy Dictated and Authenticated by: Carina Dejesus MD. Ordering:ALAINA Zambrano MD Lab Data Lab results reviewed: Yes I reviewed the patient's lab results. Labs: 10/16/23 13:55 Urine - Reflex from Ua Urine Culture - Pending 10/16/23 12:45 Blood Blood Culture - Pending 10/16/23 12:55 Blood Blood Culture - Pending Laboratory Tests Range/Units 10/16/23 10/16/23 10/16/23 12:55 13:35 13:55 WBC (4.4-10.8) 10^3/uL 8.71 RBC (3.93-5.22) 10^6/uL 4.28 Hgb (11.2-15.7) g/dL 12.9 Hct (36.0-46.0) % 38.1 MCV (80-95) fL 89 D MCH (27.0-33.0) pg 30.1 MCHC (32.0-36.0) % 33.9 D RDW (11.7-14.6) % 14.8 H Plt Count (130-400) 10^3/uL 260 MPV (8.0-11.0) fL 11.7 H Immature Gran % 0.2 Neutrophils % 78.7 Lymphocytes % 13.5 Monocytes % 7.0 Eosinophils % 0.3 Basophils % 0.3 Nucleated RBC % (0.0-0.3) % 0.0 Absolute Neutrophils (1.2-6.7) 10^3/uL 6.84 H Absolute Lymphocytes (1.2-3.4) 10^3/uL 1.18 L Absolute Monocytes (0.1-0.8) 10^3/uL 0.61 Absolute Eosinophils (0.0-0.7) 10^3/uL 0.03 Absolute Basophils (0.0-0.2) 10^3/uL 0.03 VBG Lactate (0.6-1.4) mmol/L 1.1 Sodium Cancelled 130 L Potassium Cancelled 3.3 L Chloride Cancelled 93 L Carbon Dioxide Cancelled 28.5 Anion Gap Cancelled 8.5 BUN Cancelled 16 Creatinine Cancelled 0.7 Est GFR (CKD-EPI 2020) Cancelled 100.81 Glucose Cancelled 103 Calcium Cancelled 8.0 L Magnesium Cancelled 1.9 Total Bilirubin Cancelled 0.4 AST Cancelled 16 ALT Cancelled 12 L Alkaline Phosphatase Cancelled 79 NT-Pro-B Natriuret Pep Cancelled 1668 H Total Protein Cancelled 6.8 Albumin Cancelled 3.0 L Lipase Cancelled 17 Procalcitonin Cancelled < 0.1 Urine Color (Yellow) Yellow Urine Clarity (Clear) Clear Urine pH (5-8) 7.0 Ur Specific [place] (1.005-1.025) 1.010 Urine Protein (Neg-Trace) mg/dL Negative Urine Ketones (Negative) mg/dL Negative Urine Blood (Negative) Trace-lysed H Urine Nitrite (Negative) Positive H Urine Bilirubin (Negative) Negative Urine Urobilinogen (Up to 0.2) mg/dL 0.2 Ur Leukocyte Esterase (Negative) Trace H Urine RBC (0-2) HPF 0-2 Urine WBC (0-5) HPF 10-20 H Ur Epithelial Cells (Negative) HPF Rare Urine Crystals (Negative) HPF Negative Urine Bacteria (Negative) HPF Many Urine Casts (Negative) LPF Negative Urine Mucus (Negative) Negative Ur Culture Indicated? Yes Urine Glucose (Negative) mg/dL Negative Quality:SDOH Health Related Social Needs: No Data to Display PFSH All Active Problems (Updated 10/16/23 @ 15:33 by WENDY Hassan) Hypokalemia (Acute) Urinary tract infection (Acute) Abscess of sigmoid colon (Acute) Rectal bleeding (Acute) Anemia associated with acute blood loss (Acute) Cor pulmonale (chronic) (Acute) Epigastric pain (Acute) Hypoxia (Chronic) NSTEMI (non-ST elevated myocardial infarction) (Acute) Hyperlipidemia (Acute) COPD (chronic obstructive pulmonary disease) (Chronic) Laryngopharyngeal reflux (Acute) Rhinitis (Acute) Bipolar disorder (Acute) Eustachian tube disorder (Acute) Plantar fasciitis (Acute) Tobacco abuse (Acute) Hypothyroidism (Chronic) Smoking (Acute) Abscess of female pelvis (Acute) Closed fibular fracture (Acute) COPD exacerbation (Acute) Acute hypoxemic respiratory failure (Acute) Diverticulitis (Acute) Medical History Hx of thrombocytopenia Chronic respiratory failure with hypoxia and hypercapnia Fever Chronic hypoxic respiratory failure Auditory hallucination Depression Suicide ideation Social History Smoking/Tobacco Use Status: Current every day Tobacco Type: cigarettes Years smoked: 41 Smoking risk assessment performed?: Yes Alcohol Intake: never Drug use: Never Substance use type: does not use Housing: assisted living facility Do you feel safe at home: Yes Do you feel safe in your relationship?: Yes Additional Social history: [facility] NarenRN 08/03/23 Sign Out Sign Out Data: Sign Out Comment: Patient has wound drains/vac's per [facility], recovering across the street - consulted with [facility], they will follow-up in 4 days. Wound vac and drains all appear to be working well. No sign of sepsis, there is a UTI, gave ceftriaxone and Rx'd Keflex Hypokalemia getting repletion, PO challenge and likely discharge Last updated by Juan Manuel Avalos PA at 10/16/23 15:34
[2023-10-16] MEDS: Normal Saline 500 ML IV (13:01)
[2023-10-16] MEDS: ACETAMINOPHEN 1,000 MG/100 ML BTL 400 MG IVPB (13:02)
[2023-10-16 13:13] LABS: Lactate 1.1 mmol/L (0.6-1.4)
[2023-10-16 13:16] LABS: Abs Immature Grans 0.02 10^3/uL (0.0-0.06); Absolute Basophil Count 0.03 10^3/uL (0.0-0.2); Absolute Eosinophil Count 0.03 10^3/uL (0.0-0.7); Absolute Lymphocyte Count 1.18 10^3/uL (1.2-3.4); Absolute Monocyte Count 0.61 10^3/uL (0.1-0.8); Absolute Neutrophil Count 6.84 10^3/uL (1.2-6.7); Basophils % 0.3; Eosinophils % 0.3; HCT 38.1 % (36.0-46.0); HGB 12.9 g/dL (11.2-15.7); Immature Grans % 0.2; Lymphocytes % 13.5; MCH 30.1 pg (27.0-33.0); MCHC 33.9 % (32.0-36.0); MCV 89 fL (80-95); MPV 11.7 fL (8.0-11.0); Neutrophils % 78.7; Platelet Count 260 10^3/uL (130-400); RBC 4.28 10^6/uL (3.93-5.22); RDW 14.8 % (11.7-14.6); RDW-SD 49.1 fL; WBC 8.71 10^3/uL (4.4-10.8)
[2023-10-16] MEDS: Omnipaque 350 MG/ML 100 ML BTL IJ (13:34)
--- NOTE | 2023-10-16 13:35 | DI.CT_ITS ---
Exam(s) CT ABDOMEN PELVIS W EXAM: CT ABDOMEN PELVIS W CLINICAL HISTORY: multiple drains, stool contaminating wound vac. TECHNIQUE: Imaging Protocol: Axial computed tomography images with coronal and sagittal reformatted images were created and reviewed CONTRAST MATERIAL: Intravenous: Omnipaque 350 Contrast volume:100 ml Oral: yes / no COMPARISON: CT CT ABDOMEN PELVIS W from 09/19/2023 FINDINGS: ABDOMEN and PELVIS: Lung Bases: No acute findings. Small moderate-sized hiatal hernia. Liver: Normal density. No measurable mass. Gallbladder and biliary tract: No radiodense calculus or biliary dilation. Pancreas: Normal density. No abnormal calcifications or inflammatory process. No evidence of mass. Spleen: Normal. Kidneys: Normal size, contour and axis. No radiodense stones. No obstructive uropathy. No suspicious masses seen. Adrenal glands: No masses seen. Vasculature: Abdominal aorta non-dilated. Atherosclerotic calcification. Soft tissues: Left-sided colostomy. Some herniated fat is seen adjacent to the colon. This is uncha nged in appearance. Posterior drainage catheter with pigtail in posterior pelvis. No significant surrounding fluid or ab scess collection. Gauze seen at surgical scar in midline of the lower abdominal wall. Mild stranding in the fat. No v isible abscess. Bladder: No gross wall thickening. No calculi.No focal mass. Diverticulosis. Bowel: No obstruction. No bowel wall thickening. Appendix normal. Peritoneal cavity: No ascites. No focal collection or mesenteric inflammatory response. Bones: Unremarkable for age. Reproductive organs: Within normal limits. Lymph nodes: Unremarkable. IMPRESSION:: Anterior surgical scar with mild surrounding inflammation. No drainable abscess. Posterior drainage catheter with pigtail in lower pelvis. No residual surrounding abscess or fluid. Left colostomy with parastomal fat herniation is unchanged in appearance. No acute findings. RADIATION DOSE DELIVERED: Total DLP DATA REPOSITORY: All CT scans at this facility are submitted to the National Radiology Data Registry (NRDR) Dose Index Registry (DIR) with the [employer] (ACR). RADIATION OPTIMIZATION: All CT scans at this facility use at least one of these dose optimization te chniques: automated exposure control; mA and/or kV adjustment per patient size (includes targeted exa ms where dose is matched to clinical indication); or iterative reconstruction.
[2023-10-16 14:04] LABS: Bilirubin Negative (Negative); Blood Trace-lysed (Negative); Clarity Clear (Clear); Glucose Negative (Negative); Ketones Negative (Negative); Leukocyte Esterase Trace (Negative); Nitrite Positive (Negative); Urobilinogen 0.2 mg/dL (Up to 0.2)
[2023-10-16 14:09] LABS: ALT 12 U/L (14-59); AST 16 U/L (15-37); Alkaline Phosphatase 79 U/L (46-116); Anion Gap 8.5 mmol/L (3-11); BUN 16 mg/dL (7-18); Bilirubin, Total 0.4 mg/dL (0.2-1.0); CO2 28.5 mmol/L (21.0-32.0); CREATININE 0.7 mg/dL (0.55-1.02); Chloride 93 mmol/L (98-107); Estimated GFR 100.81 (mL/min/1.73m2); Glucose 103 mg/dL (74-106); Lipase 17 U/L (16-77); Magnesium 1.9 mg/dL (1.8-2.4); NT-proBNP 1668 pg/mL (<300); Potassium 3.3 mmol/L (3.5-5.1); Sodium 130 mmol/L (136-145); Total Protein 6.8 g/dL (6.4-8.2)
[2023-10-16 14:12] LABS: Bacteria Many HPF (Negative); C & S Indicated? Yes; Casts Negative LPF (Negative); Crystals Negative HPF (Negative); Epithelial Cells Rare HPF (Negative); Mucus Negative (Negative); RBC 0-2 HPF (0-2)
--- NOTE | 2023-10-16 14:14 | DI.VRAD_ITS ---
PROCEDURE INFORMATION: Exam: CT Abdomen And Pelvis With Contrast Exam date and time: 10/16/2023 1:26 PM Age: 58 years old Clinical indication: Abdominal pain; Generalized TECHNIQUE: Imaging protocol: Computed tomography of the abdomen and pelvis with contrast. Radiation optimization: All CT scans at this facility use at least one of these dose optimization techniques: automated exposure control; mA and/or kV adjustment per patient size (includes targeted exams where dose is matched to clinical indication); or iterative reconstruction. Contrast material: OMNI 350; Contrast volume: 90 ml; Contrast route: INTRAVENOUS (IV); COMPARISON: CT ABDOMEN PELVIS W 09/19/2023 10:01 PM FINDINGS: Tubes, catheters and devices: Drainage catheter terminates in the left hemipelvis. (series 4, image 56.) no significant fluid collection persists in this region.. Diaphragm: Moderate hiatal hernia Liver: Normal. No mass. Gallbladder and bile ducts: The gallbladder is unremarkable Pancreas: Normal. No ductal dilation. Spleen: Normal. No splenomegaly. Adrenal glands: Normal. No mass. Kidneys and ureters: 3.1 cm simple cyst left kidney. . No follow-up imaging recommended . Stomach and bowel: Left lower quadrant ostomy . No obstruction. Appendix: No evidence of appendicitis. Intraperitoneal space: Unremarkable. No free air. No significant fluid collection. Vasculature: Unremarkable. No abdominal aortic aneurysm. Lymph nodes: Unremarkable. No enlarged lymph nodes. Urinary bladder: Unremarkable as visualized. Reproductive: Unremarkable as visualized. Bones/joints: Unremarkable. No acute fracture. Soft tissues: Inflammatory changes around the umbilicus may be due to prior surgery IMPRESSION: Drainage catheter terminates in the left hemipelvis. (series 4, image 56.) no significant fluid collection persists in this region.. Left lower quadrant ostomy Dictated and Authenticated by: Carina Dejesus MD. Ordering:ALAINA Zambrano MD
[2023-10-16] MEDS: Prochlorperazine 10 MG/2 ML VIAL 5 MG IVP (14:15)
[2023-10-16 14:17] LABS: Procalcitonin < 0.1 ng/mL
[2023-10-16] MEDS: POTASSIUM CHLORIDE 20 MEQ/100 ML BAG 50 MEQ IVPB (15:50)
[2023-10-16] MEDS: Normal Saline 250 ML IV (15:51)
[2023-10-16] MEDS: cefTRIAXone 1 GM/50 ML BAG IVPB (16:50)
[2023-10-16] MEDS: Potassium Chloride 20 MEQ TABCR (16:52)
--- NOTE | 2023-10-16 17:45 | NUR.NOTE ---
pt unable to tolerated IV KCL replacement, provider notified and medication changed to PO route
== END 2023-10-16 17:41 | disposition home or self-care (01) ==
PROVIDERS: Physician Assistant; Emergency Provider Physician Assistant
DX: N39.0 Urinary tract infection, site not specified (principal); E87.6 Hypokalemia; I25.2 Old myocardial infarction; F17.210 Nicotine dependence, cigarettes, uncomplicated; Z93.3 Colostomy status; Z97.8 Presence of other specified devices
CPT/HCPCS: 80053; 83690; 84145; 87040; 87077; 96361; 96374; 96375; 99285; 74177; 81003; 81015; 83605; 83735; 83880; 85025; 87086; 87186; 99284; J0131; J0696; J0780; J3480; J3490

== ENCOUNTER 2023-11-09 15:34 | Emergency (ER) | payer MEDICARE, MEDICAID, SELFPAY ==
[2023-11-09] VITALS (10 sets, daily range): BP systolic 143; BP diastolic 95; PULSE 88–135; RESP 15–26; TEMP 36; O2SAT 90–98
--- NOTE | 2023-11-09 15:44 | W.ED.GENAD ---
Discharge Plan Discharge Details Chief Complaint: PsychEval Clinical Impression: Suicide ideation Primary Care Provider: Unknown,Unknown ED Provider: Hans Leal and New Rx's Prescriptions: No Action albuterol sulfate 90 mcg/actuation HFA aerosol inhaler 2 inh inhalation Q4H PRN oxycodone 5 mg tablet 5 mg PO Q8H PRN sennosides-docusate sodium [Colace 2-In-1] 8.6-50 mg tablet 1 tab-cap PO BID levothyroxine [Euthyrox] 75 mcg tablet 75 mcg PO DAILY lurasidone [Latuda] 80 mg tablet 160 mg PO HS Rx Instructions: must administer with food (at least 350 calories) polyethylene glycol 3350 [Miralax] 17 gram/dose powder 17 g PO BID acetaminophen 325 mg capsule 650 mg PO Q6H PRN HPI General Mode of arrival: ambulatory. Date/Time Provider Initiated Documentation: 11/09/23 15:44. Limitations to Documentation: no limitations. Information obtained by: patient, police, RN/MD, RN notes reviewed and old records reviewed. HPI Narrative: Patient brought to ED by police after found wandering the streets attempting to step out into traffic. Patient currently residing in [facility] across the street. [facility] has been involved since last week due to increase anxiety, SI. Today patient eloped from [facility] and staff did notify police. Reportedly police received calls from the community regarding an individual trying to step out into traffic. Patient was detained by police and then transported to the ED for mental health evaluation. Patient has been residing at [facility] due to recovery from abdominal surgery. She has recently had her wound VAC removed. She currently has no physical complaints. She is crying and anxious reporting that she no longer wants to live and she just wants to be done. Related Data Home Medications Medication Instructions Recorded Confirmed albuterol sulfate 90 mcg/actuation 2 inh inhalation Q4H PRN 05/26/23 11/09/23 aerosol inhaler oxycodone 5 mg tablet 5 mg PO Q8H PRN 10/16/23 11/09/23 sennosides 8.6 mg-docusate sodium 1 tab-cap PO BID 10/16/23 11/09/23 50 mg tablet (Colace 2-In-1) acetaminophen 325 mg capsule 650 mg PO Q6H PRN 11/09/23 11/09/23 levothyroxine 75 mcg tablet 75 mcg PO DAILY 11/09/23 11/09/23 (Euthyrox) lurasidone 80 mg tablet (Latuda) 160 mg PO HS 11/09/23 11/09/23 polyethylene glycol 3350 17 17 g PO BID 11/09/23 11/09/23 gram/dose oral powder (Miralax) Allergies Allergy/AdvReac Type Severity Reaction Status Date / Time erythromycin base Allergy Intermediate Anaphylaxis Unverified 11/09/23 15:54 [From Erythrocin] moxifloxacin AdvReac Mild rash Verified 11/09/23 15:54 prednisone AdvReac Mild Psychosis Unverified 11/09/23 15:54 General Stated Complaint: PsychEval ANDERS: 3 Review of Systems Narrative: Per HPI Exam Narrative Exam Narrative: Const: WDWN female in NAD. VS per triage. HEENT: NC/AT. Normal facial exam. Eyes: Normal conjunctiva and sclera. Neck: Supple. Trachea midline. Lungs: Normal respiratory effort. Lungs are clear. Cor: RRR without murmur. Good radial pulses. GI: Soft. NT/ND. Colostomy present left side. Midline wound with no evidence of drainage or infection. Neuro: A+O x 3. Normal speech, mentation. Cranial nerves II - XII grossly intact. No gross motor or sensory deficit. Ext: No C/C/E. Psych: Anxious, crying at times. Reports SI wanting to end her life. Course Vital Signs Vital signs: Vital Signs Temperature 96.8 F L 11/09/23 15:36 Pulse 135 H 11/09/23 15:36 Respiratory Rate 18 11/09/23 15:36 Blood Pressure 143/95 H 11/09/23 15:36 Pulse Oximetry 98 11/09/23 15:36 Temperature 96.8 F L 11/09/23 15:36 Temperature Source Temporal Artery Scan 11/09/23 15:36 Pulse 135 H 11/09/23 15:36 Respiratory Rate 18 11/09/23 15:36 Blood Pressure 143/95 H 11/09/23 15:36 Blood Pressure Position Sitting 11/09/23 15:36 Pulse Oximetry 98 11/09/23 15:36 Oxygen Delivery Method Room Air 11/09/23 15:36 Oxygen Flow Rate 0 11/09/23 15:36 Medical Decision Making Patient here for mental health eval. We did speak to nursing at [facility] regarding the last few days leading up to patient eloping from their. I also spoke to [facility] workers regarding patient. Will obtain screening labs and placed on a hold with sitter pending further mental health evaluation. Blood work unremarkable. [facility] is not willing to take the patient back until her mental health has been stabilized. [facility] is aware. Patient's medical complexity is much improved now that she is no longer requiring wound VAC. Should be easier to find psychiatric facility willing to take her. She will remain in the ED at this time. Medical Records Medical records reviewed: Yes I reviewed the patient's medical records. Lab Data Lab results reviewed: Yes I reviewed the patient's lab results. Quality:[facility] Health Related Social Needs: No Data to Display [facility] All Active Problems (Updated 11/09/23 @ 21:34 by Hans Leal MD) Auditory hallucination (Acute) Suicide ideation (Acute) Hypokalemia (Acute) Urinary tract infection (Acute) Anemia associated with acute blood loss (Acute) Epigastric pain (Acute) Hypoxia (Chronic) Laryngopharyngeal reflux (Acute) Rhinitis (Acute) Eustachian tube disorder (Acute) Plantar fasciitis (Acute) Tobacco abuse (Acute) Smoking (Acute) Abscess of female pelvis (Acute) Closed fibular fracture (Acute) COPD exacerbation (Acute) Acute hypoxemic respiratory failure (Acute) Diverticulitis (Acute) Medical History Bipolar disorder Hypothyroidism COPD (chronic obstructive pulmonary disease) Hyperlipidemia NSTEMI (non-ST elevated myocardial infarction) Cor pulmonale (chronic) Hx of thrombocytopenia Depression Surgical History H/O resection of large bowel Social History Smoking/Tobacco Use Status: Current every day Tobacco Type: cigarettes Years smoked: 41 Smoking risk assessment performed?: Yes Alcohol Intake: never Drug use: Never Substance use type: does not use Housing: assisted living facility Do you feel safe at home: Yes Do you feel safe in your relationship?: Yes Additional Social history: Lives at [facility] Radha SneedRN 08/03/23
[2023-11-09 16:24] LABS: Abs Immature Grans 0.06 10^3/uL (0.0-0.06); Absolute Basophil Count 0.04 10^3/uL (0.0-0.2); Absolute Eosinophil Count 0.12 10^3/uL (0.0-0.7); Absolute Lymphocyte Count 1.52 10^3/uL (1.2-3.4); Absolute Monocyte Count 0.68 10^3/uL (0.1-0.8); Absolute Neutrophil Count 4.98 10^3/uL (1.2-6.7); Basophils % 0.5; Eosinophils % 1.6; HCT 36.1 % (36.0-46.0); HGB 11.9 g/dL (11.2-15.7); Immature Grans % 0.8; Lymphocytes % 20.5; MCH 29.7 pg (27.0-33.0); MCV 90 fL (80-95); MPV 10.5 fL (8.0-11.0); Monocytes % 9.2; Neutrophils % 67.4; Platelet Count 271 10^3/uL (130-400); RBC 4.01 10^6/uL (3.93-5.22); RDW-SD 46.3 fL
[2023-11-09 16:47] LABS: ALT 19 U/L (14-59); AST 12 U/L (15-37); Albumin 3.5 g/dL (3.4-5.0); Alkaline Phosphatase 108 U/L (46-116); Anion Gap 11.6 mmol/L (3-11); BUN 19 mg/dL (7-18); Bilirubin, Total 0.3 mg/dL (0.2-1.0); CO2 26.4 mmol/L (21.0-32.0); CREATININE 1.1 mg/dL (0.55-1.02); Calcium 9.2 mg/dL (8.5-10.1); Chloride 104 mmol/L (98-107); Estimated GFR 58.61 (mL/min/1.73m2); Glucose 115 mg/dL (74-106); Potassium 3.8 mmol/L (3.5-5.1); Sodium 142 mmol/L (136-145); Total Protein 7.8 g/dL (6.4-8.2)
[2023-11-09 17:02] LABS: ETHANOL BLOOD < 3.0 mg/dL (<10)
[2023-11-09 17:10] LABS: Salicylate < 2.8 mg/dL (<2.8)
[2023-11-09 17:21] LABS: Acetaminophen < 2 ug/mL (10-30)
--- NOTE | 2023-11-09 18:07 | NUR.NOTE ---
[facility] called stating patient is not to return to their facility until cleared of any SI and they would like her to be placed in an appropriate facility. Nursing Note:
--- NOTE | 2023-11-09 22:08 | W.EDPROG ---
Date of service: 11/09/23 Time of Service: 22:08 Medical Decision Making This patient was signed out to me. Please see previous notes for H&P and initial eval. In brief, 58yo F with hx bipolar presenting after being found trying to walk out into traffic. +SI. Medically cleared, home meds in, voluntary, pending placement. Overnight no acute behavioral events. Signed out to oncoming physician, plan remains as above. Quality:SDOH Health Related Social Needs: No Data to Display Sign Out Sign Out Data: Sign Out Comment: pending placement for depression/SI Last updated by Hans Leal MD at 11/09/23 21:58 Discharge Plan Discharge Details Chief Complaint: PsychEval Clinical Impression: Suicide ideation Primary Care Provider: Unknown,Unknown ED Provider: Nora Smallwood Home Meds and New Rx's Prescriptions: No Action albuterol sulfate 90 mcg/actuation HFA aerosol inhaler 2 inh inhalation Q4H PRN oxycodone 5 mg tablet 5 mg PO Q8H PRN sennosides-docusate sodium [Colace 2-In-1] 8.6-50 mg tablet 1 tab-cap PO BID levothyroxine [Euthyrox] 75 mcg tablet 75 mcg PO DAILY lurasidone [Latuda] 80 mg tablet 160 mg PO HS Rx Instructions: must administer with food (at least 350 calories) polyethylene glycol 3350 [Miralax] 17 gram/dose powder 17 g PO BID acetaminophen 325 mg capsule 650 mg PO Q6H PRN
[2023-11-10 06:38] LABS: Bilirubin Negative (Negative); Blood Negative (Negative); Clarity Clear (Clear); Glucose Negative (Negative); Ketones Trace mg/dL (Negative); Leukocyte Esterase Negative (Negative); Nitrite Negative (Negative); Specific Gravity 1.025 (1.005-1.025); Urobilinogen 0.2 mg/dL (Up to 0.2)
[2023-11-10 06:51] LABS: *AMPHETAMINES SCREEN URINE Negative (Negative); *BARBITURATES SCREEN URINE Negative (Negative); *BENZODIAZEPINES SCREEN URINE Negative (Negative); Cannabinoids THC Negative (Negative); Cocaine Screen,Urine Negative (Negative); METHADONE URINE SCREEN Negative (Negative); OPIATES URINE SCREEN Negative (Negative)
[2023-11-10 06:52] LABS: Tricyclic Antidepressants Negative (Negative)
[2023-11-10] MEDS: Nicotine 21 MG/24 HR PATCH TD (06:57)
[2023-11-10 09:08] VITALS: BP 125/84; PULSE 87; RESP 18; TEMP 36.2; O2SAT 97
--- NOTE | 2023-11-10 09:32 | CMSP_ITS ---
Date of service: 11/10/23 Time of Service: 09:32 Care Management Safety Plan Status Status: Voluntary Reason for Wait Reason for Wait: Inpatient Admission Safety Plan Safety Plan: VOLUNTARY FOR INPATIENT PSYCHIATRIC STABILIZATION.? Patient is appropriate in all interactions since arriving at [facility]; Pt has demonstrated appropriate coping and communication skills, has articulated his or her needs and concerns and is fully engaged during staff interactions. Safety plan has been established with patient, and care team, to adhere to patient goals, identify restrictions based on behavioral status, address nutrition, and determine allowed personal belongings, tools for hygiene and personal care. Determine level of activity including ambulation, level of supervision, visitors, and determine privileges based on behaviors and level of engagement by pt. SAFETY PLAN: 1. Will remain on suicide precautions, in paper clothes 2. Will remain in Zone B under direct supervision of one-on-one staff at all times provided by [employer]; ANUEL, PICK PULLING MACHINE OPERATOR technical supervisor. 3. May have paper cups, plates, finger foods as well as a cardboard spoon with which to eat meals. 4. Follow [facility] Management of the Admitted Behavioral Health Patient policy. 5. Shower available in Zone B without restriction. 6. Personal belongings-soft items permitted at RN discretion. 7. Visitors-none at this time. 8. Activities: soft cart items approved per RN discretion. 9.? Bathroom available in Zone B without restriction. 10. Phone: limited to [facility] cordless phone at RN discretion. Due to VOLUNTARY status, if patient wishes to leave [facility], staff will contact [facility] Crisis Screener ([phone]) and Weed Controller ([phone]) as soon as possible. In the event of elopement, notify [facility] Police ([phone]). Patient is currently voluntarily at [facility] and seeking inpatient admission when a bed becomes available. [facility] Frontline Tube Filler will continue seeking placement. Please contact the Weed Controller ([phone]) and [facility] Tube Filler ([phone]) for any needed changes in the Safety Plan. Safety plan has been provided to interdepartmental care team.
[2023-11-10] MEDS: Levothyroxine 75 MCG TAB PO (09:33)
--- NOTE | 2023-11-10 09:39 | CMPROGNOTE_ITS ---
Date of service: 11/10/23 Time of Service: 09:46 Care Management Progress Note Progress Note Text Progress Note Text: CM huddled with staff in the ED regarding Ester's plan of care. Per Paula ORTEGA, Ester has been asking to leave this morning. Paula stated that Ester qualifies for an involuntary hold, if she attempts to leave. Paula reports that Ester has been declined by [facility] and [facility], both geriatric psychiatric facilities. Paula anticipates that Ester will be too medically complex for or [place]. CM discussed medications; it appears that some medications (wellbutrin, olanzapine) were discontinued; unclear of current psychiatric medication regimen t. Paula is contacting [facility] to clarify. Charge nurse will request a psychiatric consultation while Ester is in Zone B for medication recommendations. Psychiatric consult completed; medication recommendations provided to MD; recommending inpatient psychiatric treatment. CM spoke to admissions at [facility] who stated that she will be able to return, once stable. Referrals sent to all psychiatric facilities, awaiting review and determination. Paula will involve [facility] child care assistant, if no facilities are willing to accept her, to request level one placement. CM will continue to follow. SDOH(Care Management) Screening Will the Patient Participate in the Screening?: Declined to provide
--- NOTE | 2023-11-10 11:54 | PDOC.MHCN ---
Date of service: 11/10/23 Time of Service: 11:55 PHQ-9 Over the last 2 weeks, how often have you been bothered by any of the following problems? 1. Little interest or pleasure in doing things: nearly every day 2. Feeling down, depressed, or hopeless: nearly every day 3. Trouble falling or staying asleep, or sleeping too much: nearly every day 4. Feeling tired or having little energy: nearly every day 5. Poor appetite or overeating: nearly every day 6. Feeling bad about yourself - or that you are a failure or have let yourself and your family down: nearly every day 7. Trouble concentrating on things, such as reading the newspaper or watching television: nearly every day 8. Moving or speaking so slowly that other people could have noticed? - Or the opposite - being so fidgety or restless that you have been moving around a lot more than usual: nearly every day 9. Thoughts that you would be better off or of hurting yourself in some way: nearly every day Total score: 27 If you checked off any problems, how difficult have these problems made it for you to do your work, take care of things at home, or get along with other people?: extremely difficult PHQ-9 Results: Positive Source: Developed by Drs. Hans Marquez, Areli Alaniz, Vinicio Ford and colleagues, with an educational oli from [employer]. Suicide Severity Rate CSSRS Have you wished you were or wished you could go to sleep and not wake up?: Yes Have you actually had any thoughts of killing yourself?: Yes CSSRS2 Have you been thinking about how you might do this?: Yes Have you had these thoughts and had some intention of acting on them?: Yes Have you started to work out or worked out the details of how to kill yourself? Do you intend to carry out this plan?: Yes CSSRS3 Have you ever done anything, started to do anything or prepared to do anything to end your life?: Yes CSSRS4 Was this within the past three months?: Yes Screening Score Total Score: 8 Screening: Positive Mental Health Emergency Note Release [facility] release signed:: Yes Reason for Visit The client is previously known to [facility] beginning May 2023. She was discharged from the agency on 10.26.23 after numerous no shows for psychiatry. She was last seen on 08.02.2023 then missed 4 following appointments. She has been living at the [facility] for 2 months per her report for rehab due to a colonoscopy bag and a wound vac (since has been removed). She reported being hospitalized about 6 months ago at due to a intentional overdose of her medications. In the last 2 weeks has the pt presented for ES prior to today?: No Client Information Client is: New Well Housed: Yes Non Suicidal Self Injury Current: No History: No Safety Risk/Harm to Self or Others Current Ideation to Harm Self or Others: Yes to self. Intent: yes, has intent. Plan: yes,has a plan. History of suicide attempt: yes,history of suicide attempt reported. Details of previous suicide attempt: Intentional overdose 6 months ago and was found walking in traffic on 11.09.23. Risk: Does risk to harm exist?: yes. Risk: High Risk Duty to warn indicated: No Asssessment/Mental Status Appearance: Disheveled Attitude: Cooperative and Demanding Behavior: Agitated Speech: Normal and Loud Affect: Cogruent with mood and Other (Constant tearfulness. ) Mood: Stressed and Depressed Thought process: Other (Constant thoughts and statements reporting suicide. ) Hallucinations: No Delusions: No Attention: Unremarkable Perception: Not impaired Orientation: Fully orientated Memory: Intact Insight: Fair Judgement: Poor Neurovegetative Symptoms Sleep: Increase Appetitie: No change Interests: Decrease Energy: Decrease Libido: Not applicable Substance Use: Do you use nicotine?: Yes Have you used substances in the last 7 days?: No Additional Issues: Assaultive/Threatening Behavior: No Medical Concerns: No Client engaged in active self harm w/weapon: No Threatening to run away: Yes Child reported abuse/neglect: No Voluntarily presenting for services: Yes Domestic violence is a concern: No Extreme Psychosis or extreme behavior is present: Yes Impression The client is a 58 year old, female who currently resides in a rehab due to her medical issues. She identifies with she/her pronouns. She has had one previous attempt that is known 6 months ago. She voluntarily went to . She did partake in all screening tools including the CSSRS however, this clinician is not CAMS trained yet so that support could not be offered. All underreported categories were honored during this assessment. The client is seen face to face in Zone B a part of the ED built as a low stim environment for MH patients. She is lying on her bed curled on her side in a position. She is heard sobbing loudly as this clinician entered the ledesma. Her TV is on in the back ground. The client stated I want to go back to [facility]. The client stated that she was at the hospital now because I wanted to commit suicide. She admits to walking in traffic on 10.08 for that reason. She then through out the assessment would state things such as it's better than living I'll find a way, jump off a bridge or walking in traffic. Just let my go. Put me on the street. The client is presenting more depressed than she was this past week when she was initially being screened and referred to geriatric psych facilities as this clinician felt she would be better served due to her meekness in a facility like that. However, she was declined by all for age, no availability etc. A safety plan was put in place on 11.08.23 to which she did not engage with her check in calls noting I didn't want to. I just want to . During his assessment she made poor eye contact and was tearful during the entire assessment. Near the end she demanded to leave so that she could go smoke and . She at the same time stated she wanted to feel better and would accept voluntary treatment. Plan/Disposition Recommended Disposition: Hospitalization facilities contacted. Plan: The client will remain at [facility] pending admission. An APS report will be made regarding the allegations of her psychiatric medications being stopped. Intake #30637 Person reported agreement to plan: Yes Facilities contacted if Applicable [facility] Not accepted, No bed available [facility] Not accepted, Only accepting in house referrals [facility] (Left message for call back. ) Not accepted, Other, [facility] Not accepted, Medical reasons and Acuity Reports/communication Outcome discussed with: ED/Personnel
--- NOTE | 2023-11-10 12:25 | NUR.NOTE ---
Nursing Note: pt became tearful with loud crying during webx meeting with psychiatrist. She then attempted to exit room, repeating I don't want to be here, I just want to smoke a cigarette. Pt was easily redirected back to her room, where she laid on the bed and continued crying for several minutes. She then began to rest quietly without further intervention.
--- NOTE | 2023-11-10 13:05 | PSYCO_ITS ---
Date of service: 11/10/23 Time of Service: 12:20 Summary Note PSYCHIATRY CONSULT NOTE: INITIAL EVALUATION Name:?Ester Osullivan :?1965 Location of the patient:?[facility] ED Consulting Array Clinician:?Melany Christianson Location of the clinician:?[place] SUMMARY 58-year-old female, with history of bipolar disorder, history of suicide attempt(s), with unknown history of drug use, unknown history of violent behavior, unknown history of psychiatric hospitalization, arrived via police for suicide attempt, Pt eloped from nursing facility yesterday, police were notified but apparently police were also called by someone in the community due to pt being seen trying to step out into traffic. Pt has been recommended for psychiatric admission, currently awaiting placement. Pt only briefly cooperates with exam, then requests to leave, states she wants to go home and smoke. Pt continues to endorse active SI at this time, as well as command hallucinations to kill self. Unable to assess for current plan/intent due to lack of pt cooperation. Pt presents as extremely labile, agitated, impulsive, denies having social support, no current safety plan. Patient is at elevated risk of danger to self. Patient presently meets criteria for inpatient psychiatric hospitalization. Working Diagnoses:?F31.5 Bipolar disorder; current episode depressed; severe; with psychotic features Rule Out Diagnoses: Anxiety disorder? CPT Codes:?95425 - Psychiatric Diagnostic Evaluation with Medical Services PLAN Disposition:?Psychiatric admission when medically stable, Pt is refusing voluntary treatment at this time so recommend to pursue involuntary admission. Observation level ? Psychiatric 1:1 needed??Continue psych 1:1. with elopement precautions Pharmacological:? * Olanzapine 2.5mg Q6h PO/IM PRN agitation, check EKG - QTc < 500ms, avoid concomitant use of benzo within 1 hour of IM olanzapine * Please confirm/continue home medication of Latuda. This medication needs to be given with food. * Is patient psychotic? - Yes; Were antipsychotic medications started? - Yes (pt to continue home medication) * Informed consent: Patient is unable to understand risks benefits of or consent to above recommended psychiatric medications because patient is currently gravely disabled by their severe mental illness. Without recommended medication patient will likely deteriorate further and possibly place themselves or others at risk. Follow up needed while in the hospital??As needed for management of behavior or change in mental status Other:? * If questions arise about the psychiatric care of this patient, please call the [facility]?to request a follow-up consult. ?Please do not contact me individually through the EMR chat as I am not?regularly logged on to?this system. The psychiatrist for the follow-up visit may be a different psychiatrist Discussed plan with onsite marketing team lead:?Yes - Dr. Hu HISTORY This evaluation was conducted remotely with the assistance of onsite staff via HIPAA-compliant video call. Patient consented to proceed with the telehealth visit. Requested by:?ED attending provider Sources of information:?Patient, medical record History of Present Illness:? 58-year-old female, living in assisted, single, not employed, with history of bipolar disorder, history of suicide attempt(s), with unknown history of drug use, unknown history of violent behavior, unknown history of psychiatric hospitalization, arrived via police for suicide attempt, Pt eloped from nursing facility yesterday, police were notified but apparently police were also called by someone in the community due to pt being seen trying to step out into traffic. Pt has been recommended for psychiatric admission, currently awaiting placement. UDS negative, Alcohol undetectable. On psychiatric evaluation, patient is alert. initially cooperative but very tearful, labile and quickly becomes agitated and uncooperative. Pt reports being in the ED because I don't wanna be here anymore, Pt endorses suicidal thoughts since yesterday, denies specific trigger. Pt then states, I just, I can't do it anymore I wanna go home, I wanna leave here I don't wanna be in here anymore. Pt reports in addition to wanting to , she also does not want to be at the hospital anymore. Upon redirection, pt reports feeling depressed for a long time but started having suicidal thoughts yesterday, left her residence and walked into traffic with intent to kill herself. Pt also endorses having command auditory hallucinations to kill self. I need a cigarette really really bad, they won't let me go out and smoke on the sidewalk. Pt states nicotine patch is not working. Pt states if she cannot have a cigarette, she wants to leave. Adjunct Faculty Instructor explains ongoing safety concern and pt replies, I don't care, I wanna go, states she cannot be held against her will. Adjunct Faculty Instructor tries to explain possibility of involuntary admission but pt interrupts stating she does not want to talk anymore and is leaving. Adjunct Faculty Instructor tries to explain the importance of completing assessment but at that point pt walks off camera and staff reports she refuses to return and continue. Therefore unable to obtain further history from pt at this time.. Collateral Contacted No-- patient meets criteria for inpatient hospitalization. PSYCHIATRIC REVIEW OF SYSTEMS (symptoms in past two weeks) Pertinent Positives:?depressed mood/an hedonia/hopelessness/hypersomnia/irritability/agitation/command hallucinations/anxiety/impulsivity Pertinent Negatives:?no insomnia/no homicidal ideation/no aggressive behavior/no panic attacks PSYCHIATRIC HISTORY Past Psychiatric Diagnoses/Problems:?bipolar disorder Psychiatric Treatment:?Hospitalizations:?unable to assess ???Other Past treatment:?unable to assess ???Current treatment:?medication management Drug/Alcohol History ???Current excessive drug/alcohol use:?unable to assess ???Past excessive drug/alcohol use:?unable to assess?Treatment:?unable to assess ???Withdrawal symptoms:?unable to assess ???UDS results:?UDS negative ???BAL results:?undetectable Stressors:?inadequate social support Trauma:?unable to assess Family Psychiatric History:?unable to assess HEALTH HISTORY Medical Problems:? hyperlipidemia, hypothyroidism, COPD, h/o NSTEMI Is patient linked with PCP??unable to assess Psychiatric and other clinically relevant medications:?Latuda 160 mg qPM Allergies/Adverse Medication Reactions:?Erythromycin, moxifloxacin, prednisone Physical Findings:?no clinically significant changes in vital signs DEMOGRAPHICS/SOCIAL HISTORY Gender:?female Living Situation:?living in assisted Relationship Status:?single Education:?unable to assess Employment:?unable to assess Social Support Network:?none Legal History:?unable to assess Special Considerations:?none RISK EVALUATION Suicidality/self-injury:?Yes suicide attempt(s) within past 6 months Attempted to walk into traffic yesterday. Unable to obtain further history due to lack of pt cooperation. Primary Suicide Screening (PSS-3) 1. In the past two weeks, have you felt down, depressed, or hopeless??YES 2. In the past two weeks, have you had thoughts of killing yourself??YES 3. In your lifetime, have you ever attempted to kill yourself??YES 3a. Within the past 6 months??YES ESS-6 Secondary Screen ( If #2 is yes or #3a is yes within the past 6 months, then complete secondary screen) 1. Positive on PSS-3 questions 2 & 3 ? active suicidal ideation with a past attempt??YES 2. Have you been thinking about how you might kill yourself??YES 3. Have you had some intention of acting on your thoughts??YES 4. Lifetime psychiatric hospitalization??Unable to assess 5. Has drinking or substance abuse ever been a problem for you??Unable to assess 6. Current irritability, agitation, or aggression??YES PSS-3/ESS-6 Secondary Screen Scoring:?Severe PSS-3/ESS-6 Scoring Interpretation Legend PSS-3 screen incomplete [Blank PSS-3 questions #2 OR #3a] PSS-3 screen unable to assess [Unable to Assess responses on PSS-3 questions #2 AND #3a] Mild [No current attempt AND No suicide plan or intent AND Score (0-2)] Moderate [No current attempt AND Active suicidal ideation with plan or intent (not both) OR Score (3-4)] Severe [Current attempt OR Suicide plan and intent OR Score (5-6)] HI/Violence/Property Destruction:?unable to assess Access to Firearms:?unable to assess Grave disability/Poor self-care:?unable to assess Psychosis:?Yes Protective Factors:?none reported High Utilization Criteria:?unknown Signs of Secondary Gain:?none ? MENTAL STATUS EXAM Appearance and Attire:? Disheveled, Older than age, Wearing hospital scrubs Psychomotor agitation:?Fidgety Attitude and behavior:?Initially cooperative but extremely tearful and quickly becomes agitated/uncooperative Speech:?Normal volume/rate, shaky tone Mood:? Dysthymic, Anxious Affect:? Labile Thought Process:?Goal-directed based on limited exam Thought content:? Suicidal ideation, No homicidal ideation Perception:? No hallucinations Intelligence:?unable to assess Abstraction:? Perseverative, Poor reasoning Language:? No abnormality Orientation:? Oriented to person, Unable to assess orientation further due to lack of pt cooperation Sensorium:?Alert Knowledge:?unable to assess Memory:?unable to assess Insight:? Severe impairment Judgment:? Severe impairment SUMMARY RISK ASSESSMENT Current Suicide Risk Elevated??PSS-3/ESS-6 Scoring: Severe? Current Violence Risk Elevated??No Issues with ability to care for self.?No Melany Christianson, DO Psychiatrist, [facility]
--- NOTE | 2023-11-10 14:48 | NUR.NOTE ---
Nursing Note: Pt requested assistance increasing volume of tv, which was done by this insurance underwriter. Prior to leaving room, this insurance underwriter asked if there was anything else she needed. Pt showed this insurance underwriter some tissues in her hand and said she was all set, and then proceeded to ambulate to bathroom indicating she was going to empty ostomy bag. Upon exiting bathroom, pt approached nurses station and requested a snack. She filled out the dinner menu at this time, also showing her empty ostomy bag to this insurance underwriter. Her hands and the outside of the bag, as well as her scrubs were noted to be clean and free from stool. No further needs at this time.
--- NOTE | 2023-11-10 17:08 | W.EDPROG ---
Date of service: 11/10/23 Time of Service: 17:08 Medical Decision Making Patient stable throughout the shift, currently here voluntarily. Patient will need to be EEE did if she attempts to leave. Discussed the case with telemetry psych, they recommend continuing Latuda with no medication changes otherwise. They are seeking placement. Quality:[facility] Health Related Social Needs: No Data to Display Sign Out Sign Out Data: Sign Out Comment: pending placement for depression/SI Last updated by Hans Leal MD at 11/09/23 21:58 Sign Out Comment: 58yo F, bipolar, SI, tried to walk into traffic. Medically cleared home meds in, pending placement. Awaiting urine sample. Last updated by Nora Smallwood MD at 11/10/23 06:34 Discharge Plan Discharge Details Chief Complaint: PsychEval Clinical Impression: Suicide ideation Primary Care Provider: Unknown,Unknown ED Provider: Juan Manuel Hu Home Meds and New Rx's Prescriptions: No Action albuterol sulfate 90 mcg/actuation HFA aerosol inhaler 2 inh inhalation Q4H PRN oxycodone 5 mg tablet 5 mg PO Q8H PRN sennosides-docusate sodium [Colace 2-In-1] 8.6-50 mg tablet 1 tab-cap PO BID levothyroxine [Euthyrox] 75 mcg tablet 75 mcg PO DAILY lurasidone [Latuda] 80 mg tablet 160 mg PO HS Rx Instructions: must administer with food (at least 350 calories) polyethylene glycol 3350 [Miralax] 17 gram/dose powder 17 g PO BID acetaminophen 325 mg capsule 650 mg PO Q6H PRN
--- NOTE | 2023-11-10 17:25 | W.EDPROG ---
Date of service: 11/10/23 Time of Service: 17:26 Medical Decision Making Patient seeking voluntary placement for SI, currently calm and cooperative with no acute complaints will continue to monitor until safe disposition found Quality:SDOH Health Related Social Needs: No Data to Display Sign Out Sign Out Data: Sign Out Comment: pending placement for depression/SI Last updated by Hans Leal MD at 11/09/23 21:58 Sign Out Comment: 58yo F, bipolar, SI, tried to walk into traffic. Medically cleared home meds in, pending placement. Awaiting urine sample. Last updated by Nora Smallwood MD at 11/10/23 06:34 Sign Out Comment: Patient stable throughout the shift. Telepsych recommends continuing Latuda. Patient is here voluntarily, but if she tries to leave she needs to be EE'ed Last updated by Juan Manuel Hu DO at 11/10/23 17:10 Discharge Plan Discharge Details Chief Complaint: PsychEval Clinical Impression: Suicide ideation Primary Care Provider: Unknown,Unknown ED Provider: Rock Bennett Home Meds and New Rx's Prescriptions: No Action albuterol sulfate 90 mcg/actuation HFA aerosol inhaler 2 inh inhalation Q4H PRN oxycodone 5 mg tablet 5 mg PO Q8H PRN sennosides-docusate sodium [Colace 2-In-1] 8.6-50 mg tablet 1 tab-cap PO BID levothyroxine [Euthyrox] 75 mcg tablet 75 mcg PO DAILY lurasidone [Latuda] 80 mg tablet 160 mg PO HS Rx Instructions: must administer with food (at least 350 calories) polyethylene glycol 3350 [Miralax] 17 gram/dose powder 17 g PO BID acetaminophen 325 mg capsule 650 mg PO Q6H PRN
[2023-11-10] MEDS: Lurasidone 40 MG TAB 160 MG PO (20:00)
[2023-11-11] MEDS: Levothyroxine 75 MCG TAB PO (06:37)
--- NOTE | 2023-11-11 07:24 | W.EDPROG ---
Date of service: 11/11/23 Time of Service: 07:24 Medical Decision Making Patient resting comfortably no acute distress. Calm cooperative interactive. Patient requesting evaluation of her abdominal wound and ostomy site. Midline laparotomy wound well granulated no induration or erythema no fluctuance no purulence; ostomy intact good output into bag, poor seal inferior medial aspect of ostomy bag with some seepage of stool. Will apply new ostomy bag. Quality:SDOH Health Related Social Needs: No Data to Display Sign Out Sign Out Data: Sign Out Comment: pending placement for depression/SI Last updated by Hans Leal MD at 11/09/23 21:58 Sign Out Comment: 58yo F, bipolar, SI, tried to walk into traffic. Medically cleared home meds in, pending placement. Awaiting urine sample. Last updated by Nora Smallwood MD at 11/10/23 06:34 Sign Out Comment: Patient stable throughout the shift. Telepsych recommends continuing Latuda. Patient is here voluntarily, but if she tries to leave she needs to be EE'ed Last updated by Juan Manuel Hu DO at 11/10/23 17:10 Sign Out Comment: Patient seeking voluntary placement for depression and SI, no issues during shift. Last updated by Rock Bennett MD at 11/10/23 17:52 Sign Out Comment: This is a 58 yo female with history of bipolar disorder, currently residing in a local SNF, whop was wandering into traffic with active suicidal ideation. The patient is a voluntary hold for inpatient bed assignment for further treatment of her behavioral health disorder. No problems overnight. The patient slept for the majority of the shift without problems. Last updated by Abe Stapleton MD at 11/11/23 07:05 Discharge Plan Discharge Details Chief Complaint: PsychEval Clinical Impression: Suicide ideation Primary Care Provider: Unknown,Unknown ED Provider: Andi Lopez Home Meds and New Rx's Prescriptions: No Action albuterol sulfate 90 mcg/actuation HFA aerosol inhaler 2 inh inhalation Q4H PRN oxycodone 5 mg tablet 5 mg PO Q8H PRN sennosides-docusate sodium [Colace 2-In-1] 8.6-50 mg tablet 1 tab-cap PO BID levothyroxine [Euthyrox] 75 mcg tablet 75 mcg PO DAILY lurasidone [Latuda] 80 mg tablet 160 mg PO HS Rx Instructions: must administer with food (at least 350 calories) polyethylene glycol 3350 [Miralax] 17 gram/dose powder 17 g PO BID acetaminophen 325 mg capsule 650 mg PO Q6H PRN
[2023-11-11 09:45] VITALS: BP 146/85; PULSE 84; TEMP 36.7; O2SAT 97
--- NOTE | 2023-11-11 14:03 | MHPN_ITS ---
Date of service: 11/11/23 Time of Service: 14:03 Mental Health Emergency Note Release [facility] release signed:: Yes Reason for Visit The client is previously known to [facility] beginning May 2023. She was discharged from the agency on 10.26.23 after numerous no shows for psychiatry. She was last seen on 08.02.2023 then missed 4 following appointments. She has been living at the [facility] for 2 months per her report for rehab due to a colonoscopy bag and a wound vac (since has been removed). She reported being hospitalized about 6 months ago at due to a intentional overdose of her medications. The client was re-opened to [facility] on 11.03.23 as hospital level of care was being sought. This assessment was done face to face at bedside. In the last 2 weeks has the pt presented for prior to today?: No Impression The client is a 58 year old, female who currently resides in a rehab due to her medical issues. She identifies with she/her pronouns. She has had one previous attempt that is known 6 months ago. She voluntarily went to . She did partake in all screening tools including the CSSRS however, this clinician is not CAMS trained yet so that support could not be offered. All underrepresented categories were honored during this assessment. The client is lying in bed asleep when this clinician arrived but woke well. She sat up and engaged in the conversation however, did not make eye contact. She said she is feeling happier now because she is going to her friends on Tuesday. I'll find out today. When asked about what if that does not happen she responded well then put me on the street. She admitted she would be actively suicidal again. It appears that a lot of this is behavioral however, she has acted on these thoughts and statements and so her risk continues to be high. We discussed that it was this clinician's concern that she has been significantly suicidal for over a week and it would be in her best interest to go to treatment and then go ot her friends. This way she is back at baseline and can start fresh. Plan/Disposition Recommended Disposition: Hospitalization facilities contacted. Plan: The client agreed to stay voluntary to seek treatment. Will need to be assessed daily until placed. Person reported agreement to plan: Yes Facilities contacted if Applicable [facility] Not accepted, Medical reasons [facility] Not accepted, No bed available [facility] Not accepted, Medical reasons, [facility] Not accepted, Medical reasons Reports/communication Outcome discussed with: ED/Personnel
--- NOTE | 2023-11-11 15:17 | PDOC.CMSAFE ---
Date of service: 11/11/23 Time of Service: 15:32 Care Management Safety Plan Status Status: Voluntary Reason for Wait Reason for Wait: Inpatient Admission Safety Plan Safety Plan: VOLUNTARY FOR INPATIENT PSYCHIATRIC STABILIZATION.? Patient is appropriate in all interactions since arriving at [facility]; Pt has demonstrated appropriate coping and communication skills, has articulated his or her needs and concerns and is fully engaged during staff interactions. Safety plan has been established with patient, and care team, to adhere to patient goals, identify restrictions based on behavioral status, address nutrition, and determine allowed personal belongings, tools for hygiene and personal care. Determine level of activity including ambulation, level of supervision, visitors, and determine privileges based on behaviors and level of engagement by pt. SAFETY PLAN: 1. Will remain on suicide precautions, in paper clothes 2. Will remain in Zone B under direct supervision of one-on-one staff at all times provided by [employer]; ANUEL, AUTOMOTIVE LEASING SALES REPRESENTATIVE nuclear reactor engineer. 3. May have paper cups, plates, finger foods as well as a cardboard spoon with which to eat meals. 4. Follow [facility] Management of the Admitted Behavioral Health Patient policy. 5. Shower available in Zone B without restriction. 6. Personal belongings-soft items permitted at RN discretion. 7. Visitors-none at this time. 8. Activities: soft cart items approved per RN discretion. 9.? Bathroom available in Zone B without restriction. 10. Phone: limited to [facility] cordless phone at RN discretion. Due to VOLUNTARY status, if patient wishes to leave [facility], staff will contact [facility] Crisis Screener ([phone]) and Human Resources Leader ([phone]) as soon as possible. In the event of elopement, notify [facility] Police ([phone]). Patient is currently voluntarily at [facility] and seeking inpatient admission when a bed becomes available. [facility] Frontline Tool Drawing Checker will continue seeking placement. Please contact the Human Resources Leader ([phone]) and [facility] Tool Drawing Checker ([phone]) for any needed changes in the Safety Plan. Safety plan has been provided to interdepartmental care team.
--- NOTE | 2023-11-11 15:33 | PDOC.CMPRO ---
Date of service: 11/11/23 Time of Service: 15:33 Care Management Progress Note Progress Note Text Progress Note Text: CM huddled with staff this morning to discuss Ester's plan of care. Per Paula [facility], she remains voluntary, and stated that she is feeling much better today, and is not feeling suicidal at this time, because she is making a plan to go to a friend's home in [place] on Tuesday. She reported that she would feel suicidal if she is not able to go stay with her friend in [place]. She has been declined by [facility], and today was declined by [facility]i Boykine[facility]. Paula contacted Rishi, [facility] care transition mgr, to request support, as Ester has been declined by all facilities due to her high medical needs. Per ED staff, she has been offered training to care for her colostomy bag, as she is not able to care for it independently. She has been cooperative today, per [employer]. No updates to safety plan today. CM will continue to follow. SDOH(Care Management) Screening Will the Patient Participate in the Screening?: Declined to provide
--- NOTE | 2023-11-11 17:55 | W.EDPROG ---
Date of service: 11/11/23 Time of Service: 17:56 Medical Decision Making Patient is pending voluntary psych placement for SI. initially had plan for overdose, then threatened to walk out in traffic and then subsequently eloped from [facility] and was found walking in traffic. She does have an ostomoy in place. Was medically cleared and evaluated by tele- psychiatry Patient has been declined by Elsy Rosario and Cori. No issues during shift, but will EE if patient elects to leave. Quality:[facility] Health Related Social Needs: No Data to Display Sign Out Sign Out Data: Sign Out Comment: pending placement for depression/SI Last updated by Hans Leal MD at 11/09/23 21:58 Sign Out Comment: 58yo F, bipolar, SI, tried to walk into traffic. Medically cleared home meds in, pending placement. Awaiting urine sample. Last updated by Nora Smallwood MD at 11/10/23 06:34 Sign Out Comment: Patient stable throughout the shift. Telepsych recommends continuing Latuda. Patient is here voluntarily, but if she tries to leave she needs to be EE'ed Last updated by Juan Manuel Hu DO at 11/10/23 17:10 Sign Out Comment: Patient seeking voluntary placement for depression and SI, no issues during shift. Last updated by Rock Bennett MD at 11/10/23 17:52 Sign Out Comment: This is a 58 yo female with history of bipolar disorder, currently residing in a local SNF, whop was wandering into traffic with active suicidal ideation. The patient is a voluntary hold for inpatient bed assignment for further treatment of her behavioral health disorder. No problems overnight. The patient slept for the majority of the shift without problems. Last updated by Abe Stapleton MD at 11/11/23 07:05 Sign Out Comment: Voluntary SI, awaiting placement Last updated by Andi Lopez MD at 11/11/23 17:29 Discharge Plan Discharge Details Chief Complaint: PsychEval Clinical Impression: Suicide ideation Primary Care Provider: Unknown,Unknown ED Provider: Andi Lopez Home Meds and New Rx's Prescriptions: No Action albuterol sulfate 90 mcg/actuation HFA aerosol inhaler 2 inh inhalation Q4H PRN oxycodone 5 mg tablet 5 mg PO Q8H PRN sennosides-docusate sodium [Colace 2-In-1] 8.6-50 mg tablet 1 tab-cap PO BID levothyroxine [Euthyrox] 75 mcg tablet 75 mcg PO DAILY lurasidone [Latuda] 80 mg tablet 160 mg PO HS Rx Instructions: must administer with food (at least 350 calories) polyethylene glycol 3350 [Miralax] 17 gram/dose powder 17 g PO BID acetaminophen 325 mg capsule 650 mg PO Q6H PRN
[2023-11-11] MEDS: Lurasidone 40 MG TAB 160 MG PO (21:01)
[2023-11-12] MEDS: Levothyroxine 75 MCG TAB PO (06:20)
--- NOTE | 2023-11-12 07:11 | W.EDPROG ---
Date of service: 11/12/23 Time of Service: 07:11 Medical Decision Making The patient was observed over the arc of the shift without any history significant complaints. She slept for the majority of the shift. Her colostomy bag was cleaned this morning by the patient herself after she was educated yesterday. The patient has been tolerating her normal medications and normal diet. She continues to be a voluntary hold for inpatient bed search for ongoing behavioral health treatment. Quality:[facility] Health Related Social Needs: No Data to Display Sign Out Sign Out Data: Sign Out Comment: pending placement for depression/SI Last updated by Hans Leal MD at 11/09/23 21:58 Sign Out Comment: 58yo F, bipolar, SI, tried to walk into traffic. Medically cleared home meds in, pending placement. Awaiting urine sample. Last updated by Nora Smallwood MD at 11/10/23 06:34 Sign Out Comment: Patient stable throughout the shift. Telepsych recommends continuing Latuda. Patient is here voluntarily, but if she tries to leave she needs to be EE'ed Last updated by Juan Manuel Hu DO at 11/10/23 17:10 Sign Out Comment: Patient seeking voluntary placement for depression and SI, no issues during shift. Last updated by Rock Bennett MD at 11/10/23 17:52 Sign Out Comment: This is a 58 yo female with history of bipolar disorder, currently residing in a local SNF, whop was wandering into traffic with active suicidal ideation. The patient is a voluntary hold for inpatient bed assignment for further treatment of her behavioral health disorder. No problems overnight. The patient slept for the majority of the shift without problems. Last updated by Abe Stapleton MD at 11/11/23 07:05 Sign Out Comment: Voluntary SI, awaiting placement Last updated by Andi Lopez MD at 11/11/23 17:29 Sign Out Comment: pending voluntary placement for SI. Attempted by eloping from [place] and running out into traffic. Does have ostomy and received ostomy care and teaching today by nurses. Has been declined by Elsy Persaud and Marlene. [facility] reports that she'll likely be here all weekend. No issues during my shift. Last updated by Marcos Broussard MD at 11/11/23 20:23 Discharge Plan Discharge Details Chief Complaint: PsychEval Clinical Impression: Suicide ideation Primary Care Provider: Unknown,Unknown ED Provider: Abe Stapleton Home Meds and New Rx's Prescriptions: No Action albuterol sulfate 90 mcg/actuation HFA aerosol inhaler 2 inh inhalation Q4H PRN oxycodone 5 mg tablet 5 mg PO Q8H PRN sennosides-docusate sodium [Colace 2-In-1] 8.6-50 mg tablet 1 tab-cap PO BID levothyroxine [Euthyrox] 75 mcg tablet 75 mcg PO DAILY lurasidone [Latuda] 80 mg tablet 160 mg PO HS Rx Instructions: must administer with food (at least 350 calories) polyethylene glycol 3350 [Miralax] 17 gram/dose powder 17 g PO BID acetaminophen 325 mg capsule 650 mg PO Q6H PRN
--- NOTE | 2023-11-12 07:37 | CMSP_ITS ---
Date of service: 11/12/23 Time of Service: 07:37 Care Management Safety Plan Status Status: Voluntary Reason for Wait Reason for Wait: Inpatient Admission Safety Plan Safety Plan: VOLUNTARY FOR INPATIENT PSYCHIATRIC STABILIZATION.? Patient is appropriate in all interactions since arriving at [facility]; Pt has demonstrated appropriate coping and communication skills, has articulated his or her needs and concerns and is fully engaged during staff interactions. Safety plan has been established with patient, and care team, to adhere to patient goals, identify restrictions based on behavioral status, address nutrition, and determine allowed personal belongings, tools for hygiene and personal care. Determine level of activity including ambulation, level of supervision, visitors, and determine privileges based on behaviors and level of engagement by pt. Ester is admitted to [facility], voluntary while seeking voluntary placement. Ester is being screened by [facility] per protocol while awaiting safe disposition for depression and SI. See progress note. Pt is adamant that she is going to discharge to her friends home in [place] on Tuesday, friend does not agree to this plan. Per Edward at [facility]; [facility] and [facility] are reviewing and have not formally declined, yet. [facility] Heavy Equipment Sales Manager Rishi is involved and looking for a level 1 bed in [place]. Edward/[facility] anticipates facilities will continue to follow and re-review through the weekend. CM also reviewed with RN Weigher Alloy Jerzy. SAFETY PLAN: 1. Will remain on suicide precautions, in paper clothes 2. Will remain in Zone under direct supervision of one-on-one staff at all times provided by [employer]; ANUEL, CAD DESIGNER electronic funds transfer coordinator. 3. May have paper cups, plates, finger foods as well as a cardboard spoon with which to eat meals. 4. Follow [facility] Management of the Admitted Behavioral Health Patient policy. 5. Shower available in Zone without restriction. 6. Personal belongings-soft items permitted at RN discretion. 7. Visitors-none at this time. 8. Activities: soft cart items approved per RN discretion. 9.? Bathroom available in Zone without restriction. 10. Phone: limited to [facility] cordless phone at RN discretion. Due to VOLUNTARY status, if patient wishes to leave [facility], staff will contact [facility] Crisis Screener ([phone]) and Trim Mechanic ([phone]) as soon as possible. In the event of elopement, notify [facility] Police ([phone]). Patient is currently voluntarily at [facility] and seeking inpatient admission when a bed becomes available. [facility] Frontline Nursing Informatics Analyst will continue seeking pl acement. Please contact the Trim Mechanic ([phone]) and [facility] Nursing Informatics Analyst ([phone]) for any needed changes in the Safety Plan. Safety plan has been provided to interdepartmental care team.
--- NOTE | 2023-11-12 07:37 | PDOC.CMSAFE ---
Date of service: 11/12/23 Time of Service: 07:37 Care Management Safety Plan Status Status: Voluntary Reason for Wait Reason for Wait: Inpatient Admission Safety Plan Safety Plan: VOLUNTARY FOR INPATIENT PSYCHIATRIC STABILIZATION.? Patient is appropriate in all interactions since arriving at [facility]; Pt has demonstrated appropriate coping and communication skills, has articulated his or her needs and concerns and is fully engaged during staff interactions. Safety plan has been established with patient, and care team, to adhere to patient goals, identify restrictions based on behavioral status, address nutrition, and determine allowed personal belongings, tools for hygiene and personal care. Determine level of activity including ambulation, level of supervision, visitors, and determine privileges based on behaviors and level of engagement by pt. Ester is admitted to [facility], voluntary while seeking voluntary placement. Ester is being screened by [facility] per protocol while awaiting safe disposition for depression and SI. See progress note. Pt is adamant that she is going to discharge to her friends home in [place] on Tuesday, friend does not agree to this plan. Per Edward at [facility]; [facility] and [facility] are reviewing and have not formally declined, yet. [facility] Banquet Houseperson Rishi is involved and looking for a level 1 bed in [place]. Edward/[facility] anticipates facilities will continue to follow and re-review through the weekend. CM also reviewed with RN Import Export Clerk Jerzy. SAFETY PLAN: 1. Will remain on suicide precautions, in paper clothes 2. Will remain in Zone under direct supervision of one-on-one staff at all times provided by [employer]; ANUEL, STUDY COORDINATOR grinder operator. 3. May have paper cups, plates, finger foods as well as a cardboard spoon with which to eat meals. 4. Follow [facility] Management of the Admitted Behavioral Health Patient policy. 5. Shower available in Zone without restriction. 6. Personal belongings-soft items permitted at RN discretion. 7. Visitors-none at this time. 8. Activities: soft cart items approved per RN discretion. 9.? Bathroom available in Zone without restriction. 10. Phone: limited to [facility] cordless phone at RN discretion. Due to VOLUNTARY status, if patient wishes to leave [facility], staff will contact [facility] Crisis Screener ([phone]) and Ad Operations Associate ([phone]) as soon as possible. In the event of elopement, notify [facility] Police ([phone]). Patient is currently voluntarily at [facility] and seeking inpatient admission when a bed becomes available. [facility] Frontline Data Keyer will continue seeking placement. Please contact the Ad Operations Associate ([phone]) and [facility] Data Keyer ([phone]) for any needed changes in the Safety Plan. Safety plan has been provided to interdepartmental care team.
--- NOTE | 2023-11-12 07:43 | W.EDPROG ---
Date of service: 11/12/23 Time of Service: 07:44 Medical Decision Making Patient seeking voluntary placement for depression and SI, no issues on previous shift per signout, currently calm and cooperative with no acute complaints will continue to monitor until safe disposition found Quality:[facility] Health Related Social Needs: No Data to Display Sign Out Sign Out Data: Sign Out Comment: pending placement for depression/SI Last updated by Hans Leal MD at 11/09/23 21:58 Sign Out Comment: 58yo F, bipolar, SI, tried to walk into traffic. Medically cleared home meds in, pending placement. Awaiting urine sample. Last updated by Nora Smallwood MD at 11/10/23 06:34 Sign Out Comment: Patient stable throughout the shift. Telepsych recommends continuing Latuda. Patient is here voluntarily, but if she tries to leave she needs to be EE'ed Last updated by Juan Manuel Hu DO at 11/10/23 17:10 Sign Out Comment: Patient seeking voluntary placement for depression and SI, no issues during shift. Last updated by Rock Bennett MD at 11/10/23 17:52 Sign Out Comment: This is a 58 yo female with history of bipolar disorder, currently residing in a local SNF, whop was wandering into traffic with active suicidal ideation. The patient is a voluntary hold for inpatient bed assignment for further treatment of her behavioral health disorder. No problems overnight. The patient slept for the majority of the shift without problems. Last updated by Abe Stapleton MD at 11/11/23 07:05 Sign Out Comment: Voluntary SI, awaiting placement Last updated by Andi Lopez MD at 11/11/23 17:29 Sign Out Comment: pending voluntary placement for SI. Attempted by eloping from [place] and running out into traffic. Does have ostomy and received ostomy care and teaching today by nurses. Has been declined by Elsy Persaud and Marlene. [facility] reports that she'll likely be here all weekend. No issues during my shift. Last updated by Marcos Broussard MD at 11/11/23 20:23 Sign Out Comment: The patient was observed over the arc of the overnight shift, without any significant problems or complications. The patient slept for the vast majority of the shift. The patient has done her morning routine with medications and ostomy bag change. Patient continues to be a ED border for inpatient bed search for her behavioral health disorder. Last updated by Abe Stapleton MD at 11/12/23 07:40 Discharge Plan Discharge Details Chief Complaint: PsychEval Clinical Impression: Suicide ideation Primary Care Provider: Unknown,Unknown ED Provider: Rock Bennett Home Meds and New Rx's Prescriptions: No Action albuterol sulfate 90 mcg/actuation HFA aerosol inhaler 2 inh inhalation Q4H PRN oxycodone 5 mg tablet 5 mg PO Q8H PRN sennosides-docusate sodium [Colace 2-In-1] 8.6-50 mg tablet 1 tab-cap PO BID levothyroxine [Euthyrox] 75 mcg tablet 75 mcg PO DAILY lurasidone [Latuda] 80 mg tablet 160 mg PO HS Rx Instructions: must administer with food (at least 350 calories) polyethylene glycol 3350 [Miralax] 17 gram/dose powder 17 g PO BID acetaminophen 325 mg capsule 650 mg PO Q6H PRN
[2023-11-12 08:45] VITALS: BP 106/68; PULSE 87; RESP 16; TEMP 36.4; O2SAT 95
--- NOTE | 2023-11-12 17:49 | W.EDPROG ---
Date of service: 11/12/23 Time of Service: 17:49 Medical Decision Making No changes in disposition. No issues during shift. Continues to receive daily ostomy teaching by nursing staff Quality:[facility] Health Related Social Needs: No Data to Display Sign Out Sign Out Data: Sign Out Comment: pending placement for depression/SI Last updated by Hans Leal MD at 11/09/23 21:58 Sign Out Comment: 58yo F, bipolar, SI, tried to walk into traffic. Medically cleared home meds in, pending placement. Awaiting urine sample. Last updated by Nora Smallwood MD at 11/10/23 06:34 Sign Out Comment: Patient stable throughout the shift. Telepsych recommends continuing Latuda. Patient is here voluntarily, but if she tries to leave she needs to be EE'ed Last updated by Juan Manuel Hu DO at 11/10/23 17:10 Sign Out Comment: Patient seeking voluntary placement for depression and SI, no issues during shift. Last updated by Rock Bennett MD at 11/10/23 17:52 Sign Out Comment: This is a 58 yo female with history of bipolar disorder, currently residing in a local SNF, whop was wandering into traffic with active suicidal ideation. The patient is a voluntary hold for inpatient bed assignment for further treatment of her behavioral health disorder. No problems overnight. The patient slept for the majority of the shift without problems. Last updated by Abe Stapleton MD at 11/11/23 07:05 Sign Out Comment: Voluntary SI, awaiting placement Last updated by Andi Lopez MD at 11/11/23 17:29 Sign Out Comment: pending voluntary placement for SI. Attempted by eloping from [place] and running out into traffic. Does have ostomy and received ostomy care and teaching today by nurses. Has been declined by Elsy Persaud and Marlene. [facility] reports that she'll likely be here all weekend. No issues during my shift. Last updated by Marcos Broussard MD at 11/11/23 20:23 Sign Out Comment: The patient was observed over the arc of the overnight shift, without any significant problems or complications. The patient slept for the vast majority of the shift. The patient has done her morning routine with medications and ostomy bag change. Patient continues to be a ED border for inpatient bed search for her behavioral health disorder. Last updated by Abe Stapleton MD at 11/12/23 07:40 Sign Out Comment: Patient seeking voluntary placement for depression and SI Last updated by Rock Bennett MD at 11/12/23 09:22 Discharge Plan Discharge Details Chief Complaint: PsychEval Clinical Impression: Suicide ideation Primary Care Provider: Unknown,Unknown ED Provider: Marcos Broussard Home Meds and New Rx's Prescriptions: No Action albuterol sulfate 90 mcg/actuation HFA aerosol inhaler 2 inh inhalation Q4H PRN oxycodone 5 mg tablet 5 mg PO Q8H PRN sennosides-docusate sodium [Colace 2-In-1] 8.6-50 mg tablet 1 tab-cap PO BID levothyroxine [Euthyrox] 75 mcg tablet 75 mcg PO DAILY lurasidone [Latuda] 80 mg tablet 160 mg PO HS Rx Instructions: must administer with food (at least 350 calories) polyethylene glycol 3350 [Miralax] 17 gram/dose powder 17 g PO BID acetaminophen 325 mg capsule 650 mg PO Q6H PRN
[2023-11-12] MEDS: Lurasidone 40 MG TAB 160 MG PO (22:05)
[2023-11-13] MEDS: Levothyroxine 75 MCG TAB PO (06:14)
--- NOTE | 2023-11-13 07:07 | W.EDPROG ---
Date of service: 11/13/23 Time of Service: 07:07 Medical Decision Making Patient seeking voluntary placement for depression and SI, no issues reported on prior shift and currently calm and cooperative with no acute complaints. Will continue to monitor until safe disposition found Quality:[facility] Health Related Social Needs: No Data to Display Sign Out Sign Out Data: Sign Out Comment: pending placement for depression/SI Last updated by Hans Leal MD at 11/09/23 21:58 Sign Out Comment: pending voluntary placement for SI. Attempted by eloping from [place] and running out into traffic. Does have ostomy and received ostomy care and teaching today by nurses. Plan for EE if patient tries /desires to leave. Has been declined by Noel Persaud. [facility] reports that she'll likely be here all weekend. No issues during my shift. Last updated by Marcos Broussard MD at 11/12/23 22:10 Sign Out Comment: pending voluntary placement for SI. Attempted by eloping from [employer] and running out into traffic. Does have ostomy and received ostomy care and teaching today by nurses. Plan for EE if patient tries /desires to leave. Has been declined by Noel Persaud. [facility] reports that she'll likely be here all weekend. No interventions required during shift Last updated by Juan Manuel Hu DO at 11/13/23 06:57 Sign Out Comment: 58yo F, bipolar, SI, tried to walk into traffic. Medically cleared home meds in, pending placement. Awaiting urine sample. Last updated by Nora Smallwood MD at 11/10/23 06:34 Sign Out Comment: Patient stable throughout the shift. Telepsych recommends continuing Latuda. Patient is here voluntarily, but if she tries to leave she needs to be EE'ed Last updated by Juan Manuel Hu DO at 11/10/23 17:10 Sign Out Comment: Patient seeking voluntary placement for depression and SI, no issues during shift. Last updated by Rock Bennett MD at 11/10/23 17:52 Sign Out Comment: This is a 58 yo female with history of bipolar disorder, currently residing in a local SNF, whop was wandering into traffic with active suicidal ideation. The patient is a voluntary hold for inpatient bed assignment for further treatment of her behavioral health disorder. No problems overnight. The patient slept for the majority of the shift without problems. Last updated by Abe Stapleton MD at 11/11/23 07:05 Sign Out Comment: Voluntary SI, awaiting placement Last updated by Andi Lopez MD at 11/11/23 17:29 Sign Out Comment: pending voluntary placement for SI. Attempted by eloping from [place] and running out into traffic. Does have ostomy and received ostomy care and teaching today by nurses. Has been declined by Elsy Persaud and Marlene. [facility] reports that she'll likely be here all weekend. No issues during my shift. Last updated by Marcos Broussard MD at 11/11/23 20:23 Sign Out Comment: The patient was observed over the arc of the overnight shift, without any significant problems or complications. The patient slept for the vast majority of the shift. The patient has done her morning routine with medications and ostomy bag change. Patient continues to be a ED border for inpatient bed search for her behavioral health disorder. Last updated by Abe Stapleton MD at 11/12/23 07:40 Sign Out Comment: Patient seeking voluntary placement for depression and SI Last updated by Rock Bennett MD at 11/12/23 09:22 Discharge Plan Discharge Details Chief Complaint: PsychEval Clinical Impression: Suicide ideation Primary Care Provider: Unknown,Unknown ED Provider: Rock Bennett Home Meds and New Rx's Prescriptions: No Action albuterol sulfate 90 mcg/actuation HFA aerosol inhaler 2 inh inhalation Q4H PRN oxycodone 5 mg tablet 5 mg PO Q8H PRN sennosides-docusate sodium [Colace 2-In-1] 8.6-50 mg tablet 1 tab-cap PO BID levothyroxine [Euthyrox] 75 mcg tablet 75 mcg PO DAILY lurasidone [Latuda] 80 mg tablet 160 mg PO HS Rx Instructions: must administer with food (at least 350 calories) polyethylene glycol 3350 [Miralax] 17 gram/dose powder 17 g PO BID acetaminophen 325 mg capsule 650 mg PO Q6H PRN
--- NOTE | 2023-11-13 07:10 | NUR.NOTE ---
Nursing Note: 0645 Patient asked to use personal cell phone. This RN spoke with patient about Zone B rules and not being able to use personal phone to make phone calls. Patient yelled Well they did yesterday and walked away appearing angry. 0710 patient asked to use portable phone. Portable phone was given to patient. She talked on the phone where this RN could hear conversation. Patient left a angry sounding message, hung up, went to room, and started crying.
[2023-11-13] MEDS: Sennosides/Docusate Sodium TAB 1 TAB PO ×2 (07:53→20:06)
--- NOTE | 2023-11-13 10:32 | CMSP_ITS ---
Date of service: 11/13/23 Time of Service: 10:32 Care Management Safety Plan Status Status: Voluntary Reason for Wait Reason for Wait: Inpatient Admission ( VOLUNTARY FOR INPATIENT PSYCHIATRIC STABILIZATION. Patient is appropriate in all interactions since arriving at [facility]; Pt has demonstrated appropriate coping and communication skills, has articulated his or her needs and concerns and is fully engaged during staff interactions. Safety plan has been) Safety Plan Safety Plan: VOLUNTARY FOR INPATIENT PSYCHIATRIC STABILIZATION.? Patient is appropriate in all interactions since arriving at [facility]; Pt has demonstrated appropriate coping and communication skills, has articulated his or her needs and concerns and is fully engaged during staff interactions. Safety plan has been established with patient, and care team, to adhere to patient goals, identify restrictions based on behavioral status, address nutrition, and determine allowed personal belongings, tools for hygiene and personal care. Determine level of activity including ambulation, level of supervision, visitors, and determine privileges based on behaviors and level of engagement by pt. Ester is admitted to [facility], voluntary while seeking voluntary placement. Per staff, Ester's interactions have been appropriate and she remains fixated on discharging to her friends home, even though her friend is not agreeable. Ester is being screened by [facility] per protocol while awaiting safe disposition for depression and SI. See progress note. No changes are made, CM discussed individually with RN mails supervisor and [facility] staff. SAFETY PLAN: 1. Will remain on suicide precautions, in paper clothes 2. Will remain in [facility] under direct supervision of one-on-one staff at all times provided by [employer]; ANUEL, CREDENTIALING MANAGER college administrator. 3. May have paper cups, plates, finger foods as well as a cardboard spoon with which to eat meals. 4. Follow [facility] Management of the Admitted Behavioral Health Patient policy. 5. Shower available in [facility] without restriction. 6. Personal belongings-soft items permitted at RN discretion. 7. Visitors-none at this time. 8. Activities: soft cart items approved per RN discretion. 9.? Bathroom available in [facility] without restriction. 10. Phone: limited to [facility] cordless phone at RN discretion. Due to VOLUNTARY status, if patient wishes to leave [facility], staff will contact [facility] Crisis Screener ([phone]) and Quartz Cutter ([phone]) as soon as possible. In the event of elopement, notify [facility] Police ([phone]). Patient is currently voluntarily at [facility] and seeking inpatient admission when a bed becomes available. [facility] Frontline Preform Plate Maker will continue seeking placement. Please contact the Quartz Cutter ([phone]) and [facility] Preform Plate Maker ([phone]) for any needed changes in the Safety Plan. Safety plan has been provided to interdepartmental care team.
--- NOTE | 2023-11-13 10:32 | PDOC.CMSAFE ---
Date of service: 11/13/23 Time of Service: 10:32 Care Management Safety Plan Status Status: Voluntary Reason for Wait Reason for Wait: Inpatient Admission ( VOLUNTARY FOR INPATIENT PSYCHIATRIC STABILIZATION. Patient is appropriate in all interactions since arriving at [facility]; Pt has demonstrated appropriate coping and communication skills, has articulated his or her needs and concerns and is fully engaged during staff interactions. Safety plan has been) Safety Plan Safety Plan: VOLUNTARY FOR INPATIENT PSYCHIATRIC STABILIZATION.? Patient is appropriate in all interactions since arriving at [facility]; Pt has demonstrated appropriate coping and communication skills, has articulated his or her needs and concerns and is fully engaged during staff interactions. Safety plan has been established with patient, and care team, to adhere to patient goals, identify restrictions based on behavioral status, address nutrition, and determine allowed personal belongings, tools for hygiene and personal care. Determine level of activity including ambulation, level of supervision, visitors, and determine privileges based on behaviors and level of engagement by pt. Ester is admitted to [facility], voluntary while seeking voluntary placement. Per staff, Ester's interactions have been appropriate and she remains fixated on discharging to her friends home, even though her friend is not agreeable. Ester is being screened by [facility] per protocol while awaiting safe disposition for depression and SI. See progress note. No changes are made, CM discussed individually with RN loading and unloading supervisor and [facility] staff. SAFETY PLAN: 1. Will remain on suicide precautions, in paper clothes 2. Will remain in [facility] under direct supervision of one-on-one staff at all times provided by [employer]; ANUEL, PORTFOLIO ASSISTANT batch roller operator. 3. May have paper cups, plates, finger foods as well as a cardboard spoon with which to eat meals. 4. Follow [facility] Management of the Admitted Behavioral Health Patient policy. 5. Shower available in [facility] without restriction. 6. Personal belongings-soft items permitted at RN discretion. 7. Visitors-none at this time. 8. Activities: soft cart items approved per RN discretion. 9.? Bathroom available in [facility] without restriction. 10. Phone: limited to [facility] cordless phone at RN discretion. Due to VOLUNTARY status, if patient wishes to leave [facility], staff will contact [facility] Crisis Screener ([phone]) and Fire And Safety Helper ([phone]) as soon as possible. In the event of elopement, notify [facility] Police ([phone]). Patient is currently voluntarily at [facility] and seeking inpatient admission when a bed becomes available. [facility] Frontline Cash Applications Manager will continue seeking placement. Please contact the Fire And Safety Helper ([phone]) and [facility] Cash Applications Manager ([phone]) for any needed changes in the Safety Plan. Safety plan has been provided to interdepartmental care team.
--- NOTE | 2023-11-13 12:35 | NUR.NOTE ---
Nursing Note: this RN helped pateint with colostomy care. Educated patient on how to change bag her self. patient did approx 50% of the change her self. Needs more education/practice
--- NOTE | 2023-11-13 13:25 | NUR.NOTE ---
Nursing Note: Patient spoke with friend on phone told this RN that friend was picking her up tomorrow (11/13) around 11am. Tried to educate patient on process of finding placement she said this is what works for me and walked away. Is currently laying on bed resting.
--- NOTE | 2023-11-13 15:36 | NUR.NOTE ---
Nursing Note: patient told this RN see I told you so I'm going home tomorrow nurse asked who said this patient replied The lady who was in here a little bit ago [facility] worker only person who visited patient to day. [facility] is aware that patient is planning on trying to go home tomorrow
[2023-11-13] MEDS: Lurasidone 40 MG TAB 160 MG PO (20:06)
[2023-11-13] MEDS: Polyethylene Glycol 3350 17 GM PACKET PO (20:06)
[2023-11-13 20:30] VITALS: BP 119/73; PULSE 99; RESP 16; TEMP 37; O2SAT 95
--- NOTE | 2023-11-13 22:55 | ED.PROG_ITS ---
Date of service: 11/13/23 Time of Service: 22:56 Medical Decision Making Resting comfortably no acute distress. No acute events today. Awaiting placement on a voluntary status. Quality:[facility] Health Related Social Needs: No Data to Display Sign Out Sign Out Data: Sign Out Comment: pending placement for depression/SI Last updated by Hans Leal MD at 11/09/23 21:58 Sign Out Comment: pending voluntary placement for SI. Attempted by eloping from [place] and running out into traffic. Does have ostomy and received ostomy care and teaching today by nurses. Plan for EE if patient tries /desires to leave. Has been declined by Noel Persaud. [facility] reports that she'll likely be here all weekend. No issues during my shift. Last updated by Marcos Broussard MD at 11/12/23 22:10 Sign Out Comment: pending voluntary placement for SI. Attempted by eloping from [place] and running out into traffic. Does have ostomy and received ostomy care and teaching today by nurses. Plan for EE if patient tries /desires to leave. Has been declined by Noel Persaud. [facility] reports that she'll likely be here all weekend. No interventions required during shift Last updated by Juan Manuel Hu DO at 11/13/23 06:57 Sign Out Comment: Seeking voluntary placement for depression and SI, no issues during shift. Last updated by Rock Bennett MD at 11/13/23 10:20 Sign Out Comment: 58yo F, bipolar, SI, tried to walk into traffic. Medically cleared home meds in, pending placement. Awaiting urine sample. Last updated by Nora Smallwood MD at 11/10/23 06:34 Sign Out Comment: Patient stable throughout the shift. Telepsych recommends continuing Latuda. Patient is here voluntarily, but if she tries to leave she needs to be EE'ed Last updated by Juan Manuel Hu DO at 11/10/23 17:10 Sign Out Comment: Patient seeking voluntary placement for depression and SI, no issues during shift. Last updated by Rock Bennett MD at 11/10/23 17:52 Sign Out Comment: This is a 58 yo female with history of bipolar disorder, currently residing in a local SNF, whop was wandering into traffic with active suicidal ideation. The patient is a voluntary hold for inpatient bed assignment for further treatment of her behavioral health disorder. No problems overnight. The patient slept for the majority of the shift without problems. Last updated by Abe Stapleton MD at 11/11/23 07:05 Sign Out Comment: Voluntary SI, awaiting placement Last updated by Andi Lopez MD at 11/11/23 17:29 Sign Out Comment: pending voluntary placement for SI. Attempted by eloping from [place] and running out into traffic. Does have ostomy and received ostomy care and teaching today by nurses. Has been declined by Elsy Persaud and Marlene. [facility] reports that she'll likely be here all weekend. No issues during my shift. Last updated by Marcos Broussard MD at 11/11/23 20:23 Sign Out Comment: The patient was observed over the arc of the overnight shift, without any significant problems or complications. The patient slept for the vast majority of the shift. The patient has done her morning routine with medications and ostomy bag change. Patient continues to be a ED border for inpatient bed search for her behavioral health disorder. Last updated by Abe Stapleton MD at 11/12/23 07:40 Sign Out Comment: Patient seeking voluntary placement for depression and SI Last updated by Rock Bennett MD at 11/12/23 09:22 Discharge Plan Discharge Details Chief Complaint: PsychEval Clinical Impression: Suicide ideation Primary Care Provider: Unknown,Unknown ED Provider: Andi Lopez Home Meds and New Rx's Prescriptions: No Action albuterol sulfate 90 mcg/actuation HFA aerosol inhaler 2 inh inhalation Q4H PRN oxycodone 5 mg tablet 5 mg PO Q8H PRN sennosides-docusate sodium [Colace 2-In-1] 8.6-50 mg tablet 1 tab-cap PO BID levothyroxine [Euthyrox] 75 mcg tablet 75 mcg PO DAILY lurasidone [Latuda] 80 mg tablet 160 mg PO HS Rx Instructions: must administer with food (at least 350 calories) polyethylene glycol 3350 [Miralax] 17 gram/dose powder 17 g PO BID acetaminophen 325 mg capsule 650 mg PO Q6H PRN
--- NOTE | 2023-11-14 05:02 | ED.PROG_ITS ---
Date of service: 11/14/23 Time of Service: 05:03 Medical Decision Making Patient stable throughout the night. No interventions needed. Quality:[facility] Health Related Social Needs: No Data to Display Sign Out Sign Out Data: Sign Out Comment: pending placement for depression/SI Last updated by Hans Leal MD at 11/09/23 21:58 Sign Out Comment: pending voluntary placement for SI. Attempted by eloping from [place] and running out into traffic. Does have ostomy and received ostomy care and teaching today by nurses. Plan for EE if patient tries /desires to leave. Has been declined by Noel Persaud. [facility] reports that she'll likely be here all weekend. No issues during my shift. Last updated by Marcos Broussard MD at 11/12/23 22:10 Sign Out Comment: pending voluntary placement for SI. Attempted by eloping from [place] and running out into traffic. Does have ostomy and received ostomy care and teaching today by nurses. Plan for EE if patient tries /desires to leave. Has been declined by Noel Persaud. [facility] reports that she'll likely be here all weekend. No interventions required during shift Last updated by Juan Manuel Hu DO at 11/13/23 06:57 Sign Out Comment: Seeking voluntary placement for depression and SI, no issues during shift. Last updated by Rock Bennett MD at 11/13/23 10:20 Sign Out Comment: voluntary, awaiting placement; no issues today Last updated by Andi Lopez MD at 11/13/23 22:57 Sign Out Comment: 58yo F, bipolar, SI, tried to walk into traffic. Medically cleared home meds in, pending placement. Awaiting urine sample. Last updated by Nora Smallwood MD at 11/10/23 06:34 Sign Out Comment: Patient stable throughout the shift. Telepsych recommends continuing Latuda. Patient is here voluntarily, but if she tries to leave she needs to be EE'ed Last updated by Juan Manuel Hu DO at 11/10/23 17:10 Sign Out Comment: Patient seeking voluntary placement for depression and SI, no issues during shift. Last updated by Rock Bennett MD at 11/10/23 17:52 Sign Out Comment: This is a 58 yo female with history of bipolar disorder, currently residing in a local SNF, whop was wandering into traffic with active suicidal ideation. The patient is a voluntary hold for inpatient bed assignment for further treatment of her behavioral health disorder. No problems overnight. The patient slept for the majority of the shift without problems. Last updated by Abe Stapleton MD at 11/11/23 07:05 Sign Out Comment: Voluntary SI, awaiting placement Last updated by Andi Lopez MD at 11/11/23 17:29 Sign Out Comment: pending voluntary placement for SI. Attempted by eloping from [place] and running out into traffic. Does have ostomy and received ostomy care and teaching today by nurses. Has been declined by Elsy Persaud and Marlene. [facility] reports that she'll likely be here all weekend. No issues during my shift. Last updated by Marcos Broussard MD at 11/11/23 20:23 Sign Out Comment: The patient was observed over the arc of the overnight shift, without any significant problems or complications. The patient slept for the vast majority of the shift. The patient has done her morning routine with medications and ostomy bag change. Patient continues to be a ED border for inpatient bed search for her behavioral health disorder. Last updated by Abe Stapleton MD at 11/12/23 07:40 Sign Out Comment: Patient seeking voluntary placement for depression and SI Last updated by Rock Bennett MD at 11/12/23 09:22 Discharge Plan Discharge Details Chief Complaint: PsychEval Clinical Impression: Suicide ideation Primary Care Provider: Unknown,Unknown ED Provider: Juan Manuel Hu Home Meds and New Rx's Prescriptions: No Action albuterol sulfate 90 mcg/actuation HFA aerosol inhaler 2 inh inhalation Q4H PRN oxycodone 5 mg tablet 5 mg PO Q8H PRN sennosides-docusate sodium [Colace 2-In-1] 8.6-50 mg tablet 1 tab-cap PO BID levothyroxine [Euthyrox] 75 mcg tablet 75 mcg PO DAILY lurasidone [Latuda] 80 mg tablet 160 mg PO HS Rx Instructions: must administer with food (at least 350 calories) polyethylene glycol 3350 [Miralax] 17 gram/dose powder 17 g PO BID acetaminophen 325 mg capsule 650 mg PO Q6H PRN
[2023-11-14] MEDS: Levothyroxine 75 MCG TAB PO (05:59)
[2023-11-14 07:12] VITALS: BP 147/95; PULSE 98; RESP 16; TEMP 36.5; O2SAT 95
--- NOTE | 2023-11-14 08:47 | CMSP_ITS ---
Date of service: 11/14/23 Time of Service: 08:47 Care Management Safety Plan Status Status: Voluntary Reason for Wait Reason for Wait: Inpatient Admission Safety Plan Safety Plan: VOLUNTARY FOR INPATIENT PSYCHIATRIC STABILIZATION.? Patient is appropriate in all interactions since arriving at [facility]; Pt has demonstrated appropriate coping and communication skills, has articulated his or her needs and concerns and is fully engaged during staff interactions. Safety plan has been established with patient, and care team, to adhere to patient goals, identify restrictions based on behavioral status, address nutrition, and determine allowed personal belongings, tools for hygiene and personal care. Determine level of activity including ambulation, level of supervision, visitors, and determine privileges based on behaviors and level of engagement by pt. Case is reviewed in detail with Paula/FATOU, RN Heel Finisher/KAYLA Oneal RN's Skye/Alexandra, ED Provider Dr. Broussard and CM. Per [facility], Ester no longer endorses SI. Safety plan was established, patient is discharged with her friend Zahraa with a plan to stay with her at her home in [facility]. SAFETY PLAN: 1. Will remain on suicide precautions, in paper clothes 2. Will remain in Zone [place] under direct supervision of one-on-one staff at all times provided by [employer]; ANUEL, LAP RUNNER gallery or museum curator. 3. May have paper cups, plates, finger foods as well as a cardboard spoon with which to eat meals. 4. Follow [facility] Management of the Admitted Behavioral Health Patient policy. 5. Shower available in Zone [place] without restriction. 6. Personal belongings-soft items permitted at RN discretion. 7. Visitors-none at this time. 8. Activities: soft cart items approved per RN discretion. 9.? Bathroom available in Zone [place] without restriction. 10. Phone: limited to [facility] cordless phone at RN discretion. Due to VOLUNTARY status, if patient wishes to leave [facility], staff will contact [facility] Crisis Screener ([phone]) and Sewer Separation Designer ([phone]) as soon as possible. In the event of elopement, notify [facility] Police ([phone]). Patient is currently voluntarily at [facility] and seeking inpatient admission when a bed becomes available. [facility] Frontline Ecological Modeler will continue seeking placement. Please contact the Sewer Separation Designer ([phone]) and [facility] Ecological Modeler ([phone]) for any needed changes in the Safety Plan. Safety plan has been provided to interdepartmental care team.
--- NOTE | 2023-11-14 08:47 | PDOC.CMSAFE ---
Date of service: 11/14/23 Time of Service: 08:47 Care Management Safety Plan Status Status: Voluntary Reason for Wait Reason for Wait: Inpatient Admission Safety Plan Safety Plan: VOLUNTARY FOR INPATIENT PSYCHIATRIC STABILIZATION.? Patient is appropriate in all interactions since arriving at [facility]; Pt has demonstrated appropriate coping and communication skills, has articulated his or her needs and concerns and is fully engaged during staff interactions. Safety plan has been established with patient, and care team, to adhere to patient goals, identify restrictions based on behavioral status, address nutrition, and determine allowed personal belongings, tools for hygiene and personal care. Determine level of activity including ambulation, level of supervision, visitors, and determine privileges based on behaviors and level of engagement by pt. Case is reviewed in detail with Paula/FATOU, RN Document Examiner/KAYLA Oneal RN's Skye/Alexandra, ED Provider Dr. Broussard and CM. Per [facility], Ester no longer endorses SI. Safety plan was established, patient is discharged with her friend Zahraa with a plan to stay with her at her home in [facility]. SAFETY PLAN: 1. Will remain on suicide precautions, in paper clothes 2. Will remain in Zone B under direct supervision of one-on-one staff at all times provided by [employer]; ANUEL, NEUROPSYCHOLOGY SERVICE DIRECTOR transportation logistics internship. 3. May have paper cups, plates, finger foods as well as a cardboard spoon with which to eat meals. 4. Follow [facility] Management of the Admitted Behavioral Health Patient policy. 5. Shower available in Zone B without restriction. 6. Personal belongings-soft items permitted at RN discretion. 7. Visitors-none at this time. 8. Activities: soft cart items approved per RN discretion. 9.? Bathroom available in Zone B without restriction. 10. Phone: limited to [facility] cordless phone at RN discretion. Due to VOLUNTARY status, if patient wishes to leave [facility], staff will contact [facility] Crisis Screener ([phone]) and Intelligence Applications ([phone]) as soon as possible. In the event of elopement, notify [facility] Police ([phone]). Patient is currently voluntarily at [facility] and seeking inpatient admission when a bed becomes available. [facility] Frontline Engraver Ornamental Design will continue seeking placement. Please contact the Intelligence Applications ([phone]) and [facility] Engraver Ornamental Design ([phone]) for any needed changes in the Safety Plan. Safety plan has been provided to interdepartmental care team.
--- NOTE | 2023-11-14 11:16 | W.EDPROG ---
Date of service: 11/14/23 Time of Service: 11:27 Medical Decision Making Patient has been in the emergency department for several days pending voluntary inpatient psychiatric placement. This morning she was in contact with a friend who has agreed to take her to [place] to live and establish care there. Huddle regarding patient care was attended by myself, care management, nursing branch logistics supervisor, charge nurse and [facility]. At this time a safety plan has been enacted the patient is amenable to this plan. She was provided with daily ostomy teaching but seems to still be struggling with this. She was provided with some ostomy supplies. She was instructed to follow up to establish primary care for further ostomy management as well as mental health resources in [place]. Quality:[facility] Health Related Social Needs: No Data to Display Sign Out Sign Out Data: Sign Out Comment: pending placement for depression/SI Last updated by Hans Leal MD at 11/09/23 21:58 Sign Out Comment: pending voluntary placement for SI. Attempted by eloping from [employer] and running out into traffic. Does have ostomy and received ostomy care and teaching today by nurses. Plan for EE if patient tries /desires to leave. Has been declined by Noel Persaud. [facility] reports that she'll likely be here all weekend. No issues during my shift. Last updated by Marcos Broussard MD at 11/12/23 22:10 Sign Out Comment: pending voluntary placement for SI. Attempted by eloping from [employer] and running out into traffic. Does have ostomy and received ostomy care and teaching today by nurses. Plan for EE if patient tries /desires to leave. Has been declined by Noel Persaud. [facility] reports that she'll likely be here all weekend. No interventions required during shift Last updated by Juan Manuel Hu DO at 11/13/23 06:57 Sign Out Comment: Seeking voluntary placement for depression and SI, no issues during shift. Last updated by Rock Bennett MD at 11/13/23 10:20 Sign Out Comment: voluntary, awaiting placement; no issues today Last updated by Andi Lopez MD at 11/13/23 22:57 Sign Out Comment: Seeking voluntary placement, awaiting placement, becomes EE'd if tries to leave. No interventions throughout the night Last updated by Juan Manuel Hu DO at 11/14/23 05:04 Sign Out Comment: 58yo F, bipolar, SI, tried to walk into traffic. Medically cleared home meds in, pending placement. Awaiting urine sample. Last updated by Nora Smallwood MD at 11/10/23 06:34 Sign Out Comment: Patient stable throughout the shift. Telepsych recommends continuing Latuda. Patient is here voluntarily, but if she tries to leave she needs to be EE'ed Last updated by Juan Manuel Hu DO at 11/10/23 17:10 Sign Out Comment: Patient seeking voluntary placement for depression and SI, no issues during shift. Last updated by Rock Bennett MD at 11/10/23 17:52 Sign Out Comment: This is a 58 yo female with history of bipolar disorder, currently residing in a local SNF, whop was wandering into traffic with active suicidal ideation. The patient is a voluntary hold for inpatient bed assignment for further treatment of her behavioral health disorder. No problems overnight. The patient slept for the majority of the shift without problems. Last updated by Abe Stapleton MD at 11/11/23 07:05 Sign Out Comment: Voluntary SI, awaiting placement Last updated by Andi Lopez MD at 11/11/23 17:29 Sign Out Comment: pending voluntary placement for SI. Attempted by eloping from [place] and running out into traffic. Does have ostomy and received ostomy care and teaching today by nurses. Has been declined by Elsy Persaud and Marlene. [facility] reports that she'll likely be here all weekend. No issues during my shift. Last updated by Marcos Broussard MD at 11/11/23 20:23 Sign Out Comment: The patient was observed over the arc of the overnight shift, without any significant problems or complications. The patient slept for the vast majority of the shift. The patient has done her morning routine with medications and ostomy bag change. Patient continues to be a ED border for inpatient bed search for her behavioral health disorder. Last updated by Abe Stapleton MD at 11/12/23 07:40 Sign Out Comment: Patient seeking voluntary placement for depression and SI Last updated by Rock Bennett MD at 11/12/23 09:22 Discharge Plan Disposition Patient Disposition: Home Condition: Stable Discharge Details Clinical Impression: Suicide ideation, Encounter for ostomy care education ED Provider: Marcos Broussard Home Meds and New Rx's Prescriptions: No Action albuterol sulfate 90 mcg/actuation HFA aerosol inhaler 2 inh inhalation Q4H PRN oxycodone 5 mg tablet 5 mg PO Q8H PRN sennosides-docusate sodium [Colace 2-In-1] 8.6-50 mg tablet 1 tab-cap PO BID levothyroxine [Euthyrox] 75 mcg tablet 75 mcg PO DAILY lurasidone [Latuda] 80 mg tablet 160 mg PO HS Rx Instructions: must administer with food (at least 350 calories) polyethylene glycol 3350 [Miralax] 17 gram/dose powder 17 g PO BID acetaminophen 325 mg capsule 650 mg PO Q6H PRN Discharge Instructions Instructions: Depression (ED) Additional Instructions: Please follow the safety plan that you have agreed to with [facility]. You have been provided some ostomy supplies, but you will need to establish care with a provider in [place] for continuation of your ostomy supplies.
--- NOTE | 2023-11-14 11:37 | PDOC.CMDIS ---
Date of service: 11/14/23 Time of Service: 11:37 LACE Index Scoring Tool Questions: Length of Stay (in days): 4 - 6 Was the patient admitted via the E.D.?: Yes Comorbidities: Chronic Pulmonary Disease (COPD) E.D. Visits: 7 Answers: Total Score: 13 Risk of Readmission: High Risk Care Management Discharge Plan Reason for Hospitalization: Depression, SI Discharge Plan: Safety plan was established by [facility] Clinician. Ester is discharged to the community with her friend Zahraa with a plan to stay at her house. Ester will follow discharge plan of care and plan to follow up with community providers. Patient/Family Education Needs: Review discharge instructions, limitations and plan to follow up with community providers. Discuss ask me three. [facility] Health Related Social Needs: No Data to Display Disposition Disposition: Other (Discharging to [facility] where she plans to reside. )
--- NOTE | 2023-11-14 12:12 | MHPN_ITS ---
Date of service: 11/14/23 Time of Service: 12:13 Mental Health Emergency Note Release [facility] release signed:: Yes Reason for Visit The client is previously known to [facility] beginning May 2023. She was discharged from the agency on 10.26.23 after numerous no shows for psychiatry. She was last seen on 08.02.2023 then missed 4 following appointments. She has been living at the [facility] for 2 months per her report for rehab due to a colonoscopy bag and a wound vac (since has been removed). She reported being hospitalized about 6 months ago at due to a intentional overdose of her medications. The client was re-opened to [facility] on 11.03.23 as hospital level of care was being sought. This assessment is completed face to face at bedside. In the last 2 weeks has the pt presented for prior to today?: No Impression The client is a 58 year old, female who currently resides in a rehab due to her medical issues. She identifies with she/her pronouns. She has had one previous attempt that is known 6 months ago. She voluntarily went to . She did partake in all screening tools including the CSSRS however, this clinician is not CAMS trained yet so that support could not be offered. All underrepresented categories were honored during this assessment. The client is sitting up in bed when this clinician arrived. Nursing reported that her friend per the clients report, is coming to pick her up ad should be there around 11am. The client presents as happy and excited that her friend is coming to get her. She happily recites I'm gong home. The client has consistently denied SI and HI since Tuesday11.11.23 stating she only said those things to get out of where she was. She reported she changed her own ostomy bag by herself yesterday they have been teaching me how to do it. This clinician, Nurse Shawn and Applications Support Engineer Nikita met with the client's friend upon arrival and discussed the need for follow up care in [place] [facility] to ensure she was on board with taking her home with her. The friend, Zahraa agreed. Resources Reosurces reviewed and given:: Other Plan/Disposition Recommended Disposition: Therapy and Med management. Plan: The client will be discharged from [facility] to her fried Zahraa to return to [facility]. She will go to [facility] services today and ask for ES to get set up with services. There was a huddle completed with her friend to ensure she was on board with expectations. Person reported agreement to plan: Yes Reports/communication Outcome discussed with: ED/Personnel
== END 2023-11-14 11:31 | disposition home or self-care (01) ==
PROVIDERS: Emergency Medicine; Emergency Provider Emergency Medicine
DX: R45.851 Suicidal ideations (principal); F32.A Depression, unspecified; J44.9 Chronic obstructive pulmonary disease, unspecified; E78.5 Hyperlipidemia, unspecified; I25.2 Old myocardial infarction; F17.210 Nicotine dependence, cigarettes, uncomplicated
CPT/HCPCS: 00123; 80053; 80307; 96127; 99285; 80320; 80329; 81003; 85025; 99284; J3490